=== PATIENT | female | born 1935 | race Caucasian/White ===

== ENCOUNTER 2017-04-20 10:30 | Inpatient (IN) | payer MEDICARE, OTHER ==
[2017-04-20 11:52] LABS: ADD MAN DIFF? NO
[2017-04-20 11:57] LABS: BASO # 0.1 x10^3/uL (0.0-0.2); BASO % 1 % (0-3); EOS # 0.5 x10^3/uL (0.0-0.7); EOS % 6 % (0-3); HEMATOCRIT 31.8 % (36.0-47.0); HEMOGLOBIN 10.4 g/dL (12.0-15.5); LYMPH # 0.9 x10^3/uL (1.0-4.8); LYMPH % 12 % (24-48); MEAN CORPUSCULAR HEMOGLOBIN 31 pg (25-35); MEAN CORPUSCULAR HGB CONC 33 g/dL (31-37); MEAN CORPUSCULAR VOLUME 96 fL (79-100); MONO # 0.8 x10^3/uL (0.0-1.1); MONO % 9 % (0-9); NEUT # 5.7 x10^3uL (1.8-7.7); NEUT % 72 % (31-73); PLATELET COUNT 198 x10^3/uL (140-400); RED BLOOD COUNT 3.31 x10^6/uL (3.50-5.40); RED CELL DISTRIBUTION WIDTH 13.9 % (11.5-14.5)
[2017-04-20 12:15] LABS: ALBUMIN 2.7 g/dL (3.4-5.0); ALBUMIN/GLOBULIN RATIO 0.8 (1.0-1.7); ALK PHOS 79 U/L (46-116); ALT (SGPT) 17 U/L (14-59); ANION GAP 15 (6-14); AST (SGOT) 13 U/L (15-37); BLOOD UREA NITROGEN 71 mg/dL (7-20); BUN/CREATININE RATIO 14 (6-20); CALCIUM 8.8 mg/dL (8.5-10.1); CARBON DIOXIDE 16 mmol/L (21-32); CHLORIDE 110 mmol/L (98-107); CREATININE 4.9 mg/dL (0.6-1.0); GFR 8.5; GLUCOSE 107 mg/dL (70-99); POTASSIUM 4.9 mmol/L (3.5-5.1); SODIUM 141 mmol/L (136-145); TOTAL BILIRUBIN 0.2 mg/dL (0.2-1.0); TOTAL PROTEIN 6.1 g/dL (6.4-8.2)
[2017-04-20 12:16] LABS: INR 1.1 (0.8-1.1); PROTHROMBIN TIME PATIENT 13.6 SEC (11.7-14.0)
[2017-04-20] MEDS ORDERED: LIDOCAINE 2%/EPI 1:100,000 20 ML VIAL. (14:44)
[2017-04-20] MEDS ORDERED: HEPARIN for IV BOLUS 10,000 UNIT/10 ML VIAL. (14:44)
[2017-04-20] MEDS: LIDOCAINE 2%/EPI 1:100,000 20 ML VIAL. IJ (15:53)
[2017-04-20] MEDS: fentaNYL PF VIAL 100 MCG/2 ML VIAL IV (15:55)
[2017-04-20] MEDS: MIDAZOLAM HCL/PF 2 MG/2 ML VIAL. IV (15:55)
[2017-04-20] MEDS: CARVEDILOL 12.5 MG TABLET. PO (16:46)
[2017-04-20] MEDS: CEPHALEXIN 250 MG CAPSULE. PO (16:46)
[2017-04-20] MEDS: ISOSORBIDE MONONITRATE ER 30 MG TAB.ER.24H PO (16:47)
[2017-04-20] MEDS: hydrALAZINE 25 MG TABLET PO ×2 (16:47→20:56)
[2017-04-20] MEDS: ASPIRIN ENTERIC COATED 81 MG TABLET.DR. PO (16:47)
[2017-04-20] MEDS: HYDROcodone/APAP 10/325 1 TAB TABLET PO (20:56)
[2017-04-21] MEDS: HYDROcodone/APAP 10/325 1 TAB TABLET PO ×3 (02:19→23:49)
[2017-04-21 04:31] LABS: ADD MAN DIFF? NO
[2017-04-21 04:47] LABS: BASO # 0.1 x10^3/uL (0.0-0.2); BASO % 1 % (0-3); EOS # 0.4 x10^3/uL (0.0-0.7); EOS % 6 % (0-3); HEMATOCRIT 25.9 % (36.0-47.0); HEMOGLOBIN 8.6 g/dL (12.0-15.5); LYMPH % 14 % (24-48); MEAN CORPUSCULAR HEMOGLOBIN 32 pg (25-35); MEAN CORPUSCULAR HGB CONC 33 g/dL (31-37); MEAN CORPUSCULAR VOLUME 95 fL (79-100); MONO # 0.9 x10^3/uL (0.0-1.1); MONO % 13 % (0-9); NEUT # 4.5 x10^3uL (1.8-7.7); NEUT % 65 % (31-73); PLATELET COUNT 176 x10^3/uL (140-400); RED BLOOD COUNT 2.72 x10^6/uL (3.50-5.40); RED CELL DISTRIBUTION WIDTH 13.9 % (11.5-14.5)
[2017-04-21 05:35] LABS: THYROID STIM HORMONE (TSH) 4.544 uIU/mL (0.358-3.74)
[2017-04-21] MEDS: CARVEDILOL 12.5 MG TABLET. PO ×2 (08:00→17:27)
[2017-04-21 08:36] LABS: ALBUMIN 2.3 g/dL (3.4-5.0); ALBUMIN/GLOBULIN RATIO 0.8 (1.0-1.7); ALK PHOS 74 U/L (46-116); ALT (SGPT) 11 U/L (14-59); ANION GAP 14 (6-14); AST (SGOT) 26 U/L (15-37); BLOOD UREA NITROGEN 72 mg/dL (7-20); BUN/CREATININE RATIO 14 (6-20); CALCIUM 8.4 mg/dL (8.5-10.1); CARBON DIOXIDE 16 mmol/L (21-32); CHLORIDE 111 mmol/L (98-107); GFR 8.3; GLUCOSE 103 mg/dL (70-99); POTASSIUM 5.1 mmol/L (3.5-5.1); SODIUM 141 mmol/L (136-145); TOTAL BILIRUBIN 0.1 mg/dL (0.2-1.0); TOTAL PROTEIN 5.2 g/dL (6.4-8.2)
[2017-04-21] MEDS: CEPHALEXIN 250 MG CAPSULE. PO (08:51)
[2017-04-21] MEDS: ASPIRIN ENTERIC COATED 81 MG TABLET.DR. PO (08:51)
[2017-04-21] MEDS: ISOSORBIDE MONONITRATE ER 30 MG TAB.ER.24H PO (08:51)
[2017-04-21] MEDS: hydrALAZINE 25 MG TABLET PO ×3 (09:00→21:19)
[2017-04-21] MEDS ORDERED: IV NORMAL SALINE 1000ML BAG 1,000 ML IV ×2 (14:43)
[2017-04-21] MEDS ORDERED: ACETAMINOPHEN 500 MG TABLET PO (14:45)
[2017-04-21] MEDS ORDERED: DIALYSIS PATIENT. MC (14:45)
[2017-04-21] MEDS ORDERED: diphenhydrAMINE 50 MG/ML VIAL IV ×2 (14:45)
[2017-04-21 20:46] LABS: BILIRUBIN,URINE NEGATIVE (NEG); CLARITY,URINE CLEAR; COLOR,URINE YELLOW; GLUCOSE,URINE 250 mg/dL (NEG); NITRITE,URINE NEGATIVE (NEG); PH,URINE 6.5; PROTEIN,URINE >=300 mg/dL (NEG-TRACE); UROBILINOGEN,URINE 0.2 mg/dL (0.2 mg/dL)
[2017-04-21 20:58] LABS: BACTERIA,URINE FEW /HPF (0-FEW); RBC,URINE 0 /HPF (0-2); SQUAMOUS EPITHELIAL CELL,UR MOD /LPF
[2017-04-21] MEDS: LACTOBACILLUS RHAMNOSUS GG 1 CAPSULE. PO (21:19)
[2017-04-21] MEDS: DARBEPOETIN ALFA 60 MCG/0.3 ML DISP.SYRIN. SQ (21:20)
[2017-04-22 01:07] LABS: HEP B SURFACE ABDY Non Reactive (.); HEP B SURFACE AG Negative (Negative)
[2017-04-22 06:21] LABS: ALBUMIN 2.3 g/dL (3.4-5.0); ANION GAP 10 (6-14); BLOOD UREA NITROGEN 36 mg/dL (7-20); CALCIUM 8.5 mg/dL (8.5-10.1); CARBON DIOXIDE 24 mmol/L (21-32); CHLORIDE 108 mmol/L (98-107); CREATININE 3.3 mg/dL (0.6-1.0); GFR 13.4; GLUCOSE 96 mg/dL (70-99); POTASSIUM 4.1 mmol/L (3.5-5.1); SODIUM 142 mmol/L (136-145)
[2017-04-22] MEDS: ASPIRIN ENTERIC COATED 81 MG TABLET.DR. PO (08:39)
[2017-04-22] MEDS: ISOSORBIDE MONONITRATE ER 30 MG TAB.ER.24H PO (08:39)
[2017-04-22] MEDS: hydrALAZINE 25 MG TABLET PO ×3 (08:39→20:26)
[2017-04-22] MEDS: CEPHALEXIN 250 MG CAPSULE. PO (08:40)
[2017-04-22] MEDS: LACTOBACILLUS RHAMNOSUS GG 1 CAPSULE. PO ×2 (08:41→20:26)
[2017-04-22] MEDS: HYDROcodone/APAP 10/325 1 TAB TABLET PO ×3 (08:41→22:21)
[2017-04-22] MEDS: CARVEDILOL 12.5 MG TABLET. PO ×2 (08:41→17:01)
[2017-04-22] MEDS ORDERED: MAGNESIUM SULFATE 2GM 50 ML IV (15:30)
[2017-04-23 07:03] LABS: HEMOGLOBIN 8.6 g/dL (12.0-15.5)
[2017-04-23] MEDS: HYDROcodone/APAP 10/325 1 TAB TABLET PO ×3 (07:03→23:24)
[2017-04-23 07:19] LABS: ALBUMIN 2.3 g/dL (3.4-5.0); ANION GAP 10 (6-14); BLOOD UREA NITROGEN 42 mg/dL (7-20); CALCIUM 8.7 mg/dL (8.5-10.1); CARBON DIOXIDE 23 mmol/L (21-32); CHLORIDE 108 mmol/L (98-107); CREATININE 4.1 mg/dL (0.6-1.0); GFR 10.4; GLUCOSE 98 mg/dL (70-99); MAGNESIUM 1.8 mg/dL (1.8-2.4); PHOSPHORUS 4.5 mg/dL (2.6-4.7); POTASSIUM 4.2 mmol/L (3.5-5.1); SODIUM 141 mmol/L (136-145)
[2017-04-23] MEDS: ISOSORBIDE MONONITRATE ER 30 MG TAB.ER.24H PO (08:18)
[2017-04-23] MEDS: CEPHALEXIN 250 MG CAPSULE. PO (08:18)
[2017-04-23] MEDS: LACTOBACILLUS RHAMNOSUS GG 1 CAPSULE. PO ×2 (08:18→20:57)
[2017-04-23] MEDS: ASPIRIN ENTERIC COATED 81 MG TABLET.DR. PO (08:18)
[2017-04-23] MEDS: hydrALAZINE 25 MG TABLET PO (08:19)
[2017-04-23] MEDS: CARVEDILOL 12.5 MG TABLET. PO ×2 (08:19→17:33)
[2017-04-23] MEDS ORDERED: IV NORMAL SALINE 1000ML BAG 1,000 ML IV ×2 (10:39)
[2017-04-23] MEDS ORDERED: DIALYSIS PATIENT. MC ×2 (10:45)
[2017-04-23] MEDS ORDERED: 0.9 % SODIUM CHLORIDE 10 ML DISP.SYRIN. IV ×2 (10:45)
[2017-04-23] MEDS: ACETAMINOPHEN 500 MG TABLET PO (20:57)
[2017-04-23] MEDS: LIDOCAINE/PRILOCAINE TOPICAL CREAM 5GM TUBE. TP (23:42)
[2017-04-24 06:38] LABS: ALBUMIN 2.2 g/dL (3.4-5.0); ANION GAP 8 (6-14); BLOOD UREA NITROGEN 30 mg/dL (7-20); CALCIUM 8.4 mg/dL (8.5-10.1); CARBON DIOXIDE 26 mmol/L (21-32); CHLORIDE 105 mmol/L (98-107); CREATININE 3.2 mg/dL (0.6-1.0); GFR 13.9; GLUCOSE 97 mg/dL (70-99); MAGNESIUM 1.8 mg/dL (1.8-2.4); PHOSPHORUS 3.6 mg/dL (2.6-4.7); POTASSIUM 4.2 mmol/L (3.5-5.1); SODIUM 139 mmol/L (136-145)
[2017-04-24] MEDS: LACTOBACILLUS RHAMNOSUS GG 1 CAPSULE. PO ×2 (07:35→20:12)
[2017-04-24] MEDS: ISOSORBIDE MONONITRATE ER 30 MG TAB.ER.24H PO (07:36)
[2017-04-24] MEDS: HYDROcodone/APAP 10/325 1 TAB TABLET PO ×3 (07:37→19:00)
[2017-04-24] MEDS: CEPHALEXIN 250 MG CAPSULE. PO (07:37)
[2017-04-24] MEDS: ASPIRIN ENTERIC COATED 81 MG TABLET.DR. PO (07:37)
[2017-04-24] MEDS: CARVEDILOL 12.5 MG TABLET. PO ×2 (07:38→16:51)
[2017-04-24] MEDS ORDERED: LIDOCAINE WITH 8.4% SOD BICARB 3 ML DISP.SYRIN. (12:31)
[2017-04-24] MEDS: LIDOCAINE WITH 8.4% SOD BICARB 3 ML DISP.SYRIN. INJ (12:45)
[2017-04-24] MEDS ORDERED: IV NORMAL SALINE 1000ML BAG 1,000 ML IV (15:15)
[2017-04-24] MEDS ORDERED: DIALYSIS PATIENT. MC ×2 (15:15)
[2017-04-24] MEDS: MAG HYDROX/ALUMINUM HYD/SIMETH 30 ML ORAL.SUSP PO (19:00)
[2017-04-24] MEDS: DOCUSATE SODIUM 100 MG CAPSULE. PO (20:12)
[2017-04-25] MEDS: ONDANSETRON PF 4 MG/2 ML VIAL. IV (00:23)
[2017-04-25] MEDS: HYDROcodone/APAP 10/325 1 TAB TABLET PO ×3 (03:47→14:24)
[2017-04-25 05:47] LABS: ALBUMIN 2.3 g/dL (3.4-5.0); ANION GAP 7 (6-14); BLOOD UREA NITROGEN 17 mg/dL (7-20); CALCIUM 8.5 mg/dL (8.5-10.1); CARBON DIOXIDE 30 mmol/L (21-32); CHLORIDE 102 mmol/L (98-107); CREATININE 2.7 mg/dL (0.6-1.0); GFR 16.9; GLUCOSE 107 mg/dL (70-99); PHOSPHORUS 3.4 mg/dL (2.6-4.7); POTASSIUM 4.1 mmol/L (3.5-5.1); SODIUM 139 mmol/L (136-145)
[2017-04-25] MEDS: ISOSORBIDE MONONITRATE ER 30 MG TAB.ER.24H PO (08:53)
[2017-04-25] MEDS: LACTOBACILLUS RHAMNOSUS GG 1 CAPSULE. PO (08:53)
[2017-04-25] MEDS: DOCUSATE SODIUM 100 MG CAPSULE. PO (08:54)
[2017-04-25] MEDS: CARVEDILOL 12.5 MG TABLET. PO (08:56)
[2017-04-25] MEDS: CEPHALEXIN 250 MG CAPSULE. PO (08:56)
[2017-04-25] MEDS: ASPIRIN ENTERIC COATED 81 MG TABLET.DR. PO (08:58)
[2017-04-25] MEDS: FOLIC/VIT B COMP W-C (RENAL) TABLET. PO (14:10)
[2017-04-25] MEDS ORDERED: CARVEDILOL 12.5 MG TABLET. PO (17:00)
[2017-04-26] MEDS ORDERED: LOSARTAN POTASSIUM 50 MG TABLET. PO (09:00)
== END 2017-04-25 15:08 | disposition home or self-care (01) | DRG 673 ==
LOC: 5 SOUTH 10:30
PROC: 0JH63XZ Insertion of Tunneled Vascular Access Device into Chest Subcutaneous Tissue and Fascia, Percutaneous Approach (ICD-10-PCS; principal; 2017-04-20)
PROC: 02H633Z Insertion of Infusion Device into Right Atrium, Percutaneous Approach (ICD-10-PCS; 2017-04-20)
PROC: B2141ZZ Fluoroscopy of Right Heart using Low Osmolar Contrast (ICD-10-PCS; 2017-04-20)
PROC: 5A1D70Z Performance of Urinary Filtration, Intermittent, Less than 6 Hours Per Day (ICD-10-PCS; 2017-04-21)
PROC: 5A1D70Z Performance of Urinary Filtration, Intermittent, Less than 6 Hours Per Day (ICD-10-PCS; 2017-04-23)
PROC: 02WAX3Z Revision of Infusion Device in Heart, External Approach (ICD-10-PCS; 2017-04-24)
PROC: 5A1D70Z Performance of Urinary Filtration, Intermittent, Less than 6 Hours Per Day (ICD-10-PCS; 2017-04-24)
DX: I12.0 Hypertensive chronic kidney disease with stage 5 chronic kidney disease or end stage renal disease (principal); N18.6 End stage renal disease; E44.0 Moderate protein-calorie malnutrition; K21.9 Gastro-esophageal reflux disease without esophagitis; E03.9 Hypothyroidism, unspecified; D63.1 Anemia in chronic kidney disease; M19.90 Unspecified osteoarthritis, unspecified site; E66.9 Obesity, unspecified; D64.9 Anemia, unspecified; Z86.73 Personal history of transient ischemic attack (TIA), and cerebral infarction without residual deficits; Z88.1 Allergy status to other antibiotic agents; Z88.2 Allergy status to sulfonamides; Z68.29 Body mass index [BMI] 29.0-29.9, adult; Z99.2 Dependence on renal dialysis; Z79.899 Other long term (current) drug therapy; Z79.82 Long term (current) use of aspirin
CPT/HCPCS: 36415; 36558; 36597; 71046; 76000; 76937; 77001; 80053; 80069; 81001; 83735; 84443; 85018; 85025; 85610; 86704; 86706; 87340; 97162-GP; 97165-GO; 99152; 99153; A4215; C1750; C1769; C1892; J0690; J0881; J1644; J2250; J2405; J3010; J3490

== ENCOUNTER 2018-09-25 18:43 | Inpatient (IN) | payer MEDICARE ==
[~2018-09-25] VITALS: Ht 160 cm; Wt 64.9 kg
[~2018-09-25 18:43] MED LIST: ASPI-612 PO; BUTA1CAP27 PO; CARV12.511 PO; CEPH250C PO; DARBEPOETIN ALFA IN POLYSORBAT SQ; FAMO-63 PO; FOLI0.8T21 PO; FOLI0.8T3 PO; HYDR-2769 PO; HYDR-2868 PO; HYDR-2869 PO; HYDR100T24 PO; IRBE300T3 PO; ISOS30TA4 PO; LACT1CAP19 PO; LEVO75TA5 PO; LIDO700A21 TP; NIFE30TA17 PO; NIFE60TA16 PO; NITR0.4T22 SL; SODI650T PO
--- NOTE | 2018-09-25 19:49 | RAD ---
Exam: CT head INDICATION: Neuro symptoms TECHNIQUE: Sequential axial images through the head were obtained without the administration of IV contrast. Comparisons: 02/25/2017 FINDINGS: No focal parenchymal lesion or hemorrhage is identified. There is no midline shift or sulcal effacement. Extensive patchy hypodensities within the periventricular white matter bilaterally which have mildly progressed when compared to the study in 2018. The ventricular system is within normal limits without compression hydrocephalus. The basal cisterns are well maintained. The visualized portions of the paranasal sinuses and mastoid air cells are well-pneumatized. No acute fractures. IMPRESSION: Extensive small vessel ischemic change in the periventricular white matter which has mildly progressed when compared to the study on 02/25/2017. MRI would better evaluate. Exposure: One or more of the following in the visualized dose reduction techniques were utilized for this examination: 1. Automated exposure control 2. Adjustment of the MA and/or KV according to patient size Use of iterative of reconstructive technique Electronically signed by: Keeley Cuellar MD (09/25/2018 7:47 PM) [facility]
[2018-09-25 19:52] LABS: PROTHROMBIN TIME PATIENT 12.8 SEC (11.7-14.0)
[2018-09-25 19:58] LABS: CALCIUM 9.6 mg/dL (8.5-10.1); CREATININE 4.1 mg/dL (0.6-1.0); GFR 10.4
[2018-09-25 20:02] LABS: BASO # 0.1 x10^3/uL (0.0-0.2); BASO % 1 % (0-3); EOS # 0.2 x10^3/uL (0.0-0.7); EOS % 2 % (0-3); HEMATOCRIT 42.4 % (36.0-47.0); HEMOGLOBIN 14.3 g/dL (12.0-15.5); LYMPH % 14 % (24-48); MEAN CORPUSCULAR HEMOGLOBIN 34 pg (25-35); MEAN CORPUSCULAR HGB CONC 34 g/dL (31-37); MEAN CORPUSCULAR VOLUME 100 fL (79-100); MONO # 0.8 x10^3/uL (0.0-1.1); MONO % 11 % (0-9); NEUT # 5.1 x10^3/uL (1.8-7.7); NEUT % 71 % (31-73); PLATELET COUNT 166 x10^3/uL (140-400); RED BLOOD COUNT 4.23 x10^6/uL (3.50-5.40); RED CELL DISTRIBUTION WIDTH 14.3 % (11.5-14.5); WHITE BLOOD COUNT 7.2 x10^3/uL (4.0-11.0)
[2018-09-25 20:04] LABS: ALBUMIN 4.1 g/dL (3.4-5.0); ALBUMIN/GLOBULIN RATIO 1.3 (1.0-1.7); MAGNESIUM 2.1 mg/dL (1.8-2.4); TOTAL BILIRUBIN 0.4 mg/dL (0.2-1.0); TOTAL PROTEIN 7.3 g/dL (6.4-8.2)
[2018-09-25] MEDS ORDERED: ASPIRIN CHEWABLE 81 MG TABLET. PO ONE (20:45)
--- NOTE | 2018-09-25 20:57 | PHYS DOC ---
Past Medical History Past Medical History: GERD, High Cholesterol, Hypertension, Hypothyroid, Other Additional Past Medical Histor: kidney disease, back pain Past Surgical History: Other Additional Past Surgical Histo: R kidney, back x3 Alcohol Use: Rarely Drug Use: None Adult General Chief Complaint Chief Complaint: ALTERED MENTAL STATUS HPI HPI Patient is a 83 year old female who presents with confusion and abnormal speech. Patient daughter states she talked to the patient last night without problem and then went to her home around 5 PM today and her mother had expr essive aphasia and confusion that partially improvement at arrival to ER. Patient remains, dialyzes around 9 AM and returned home with the pulse is a 1 and 2 PM and complaining of problem with remembering her words without focal neuro deficit. Patient denies headache, chest pain, shortness of breath, focal neuro deficit, fever and chills, urinary symptom. Review of Systems Review of Systems Constitutional: Denies fever or chills [] Eyes: Denies change in visual acuity, redness, or eye pain [] HENT: Denies nasal congestion or sore throat [] Respiratory: Denies cough or shortness of breath [] Cardiovascular: No additional information not addressed in HPI [] GI: Denies abdominal pain, nausea, vomiting, bloody stools or diarrhea [] : Denies dysuria or hematuria [] Musculoskeletal: Denies back pain or joint pain [] Integument: Denies rash or skin lesions [] Neurologic: Denies headache, focal weakness or sensory changes [] Endocrine: Denies polyuria or polydipsia [] All other systems were reviewed and found to be within normal limits, except as documented in this note. Current Medications Current Medications Current Medications Medications (Trade) Dose Ordered Sig/Mendoza Start Time Stop Time Status Last Admin Dose Admin Aspirin (Children'S Aspirin) 324 mg 1X ONCE 09/25/18 20:45 09/25/18 20:49 DC 09/25/18 21:01 324 MG Allergies Allergies Allergies Coded Allergies Type Severity Reaction Last Updated Verified sulfamethoxazole Allergy Intermediate 02/25/17 Yes trimethoprim Allergy Intermediate 02/25/17 Yes Physical Exam Physical Exam Constitutional: Well developed, well nourished, mild distress, non-toxic appearance. [] HENT: Normocephalic, atraumatic. Eyes: PERRLA, EOMI, conjunctiva normal, no discharge. [] Neck: Normal range of motion, no tenderness, supple, no stridor. [] Cardiovascular:Heart rate regular rhythm, no murmur [] Lungs & Thorax: Bilateral breath sounds clear to auscultation [] Abdomen: Bowel sounds normal, soft, no tenderness, no masses, no pulsatile masses. [] Skin: Warm, dry, no erythema, no rash. [] Back: No tenderness, no CVA tenderness. [] Extremities: No tenderness, no cyanosis, no clubbing, ROM intact, no edema. [] Neurologic: Alert and oriented X 2, NIHS of 4 Psychologic: Affect normal, mood normal. [] Current Patient Data Vital Signs Vital Signs Date Time Temp Pulse Resp B/P (MAP) Pulse Ox O2 Delivery O2 Flow Rate FiO2 09/25/18 21:18 64 16 97 09/25/18 19:55 98.4 176/71 (106) Room Air 98.4 Lab Values Laboratory Tests Test 09/25/18 19:13 09/25/18 19:30 09/25/18 19:55 09/25/18 20:50 Glucose (Fingerstick) 89 mg/dL (70-99) Prothrombin Time 12.8 SEC (11.7-14.0) Prothrombin Time INR 1.0 (0.8-1.1) Activated Partial Thromboplast Time 25 SEC (24-38) Sodium Level 140 mmol/L (136-145) Potassium Level 4.0 mmol/L (3.5-5.1) Chloride Level 97 mmol/L (98-107) L Carbon Dioxide Level 28 mmol/L (21-32) Anion Gap 15 (6-14) H Blood Urea Nitrogen 44 mg/dL (7-20) H Creatinine 4.1 mg/dL (0.6-1.0) H Estimated GFR (Cockcroft-Gault) 10.4 BUN/Creatinine Ratio 11 (6-20) Glucose Level 96 mg/dL (70-99) Calcium Level 9.6 mg/dL (8.5-10.1) Magnesium Level 2.1 mg/dL (1.8-2.4) Total Bilirubin 0.4 mg/dL (0.2-1.0) Aspartate Amino Transferase (AST) 15 U/L (15-37) Alanine Aminotransferase (ALT) 11 U/L (14-59) L Alkaline Phosphatase 56 U/L (46-116) Creatine Kinase 67 U/L (26-192) Troponin I Quantitative < 0.017 ng/mL (0.000-0.055) IW-Ooi-N-Type Natriuretic Peptide 9604 pg/mL (0-449) H Total Protein 7.3 g/dL (6.4-8.2) Albumin 4.1 g/dL (3.4-5.0) Albumin/Globulin Ratio 1.3 (1.0-1.7) White Blood Count 7.2 x10^3/uL (4.0-11.0) Red Blood Count 4.23 x10^6/uL (3.50-5.40) Hemoglobin 14.3 g/dL (12.0-15.5) Hematocrit 42.4 % (36.0-47.0) Mean Corpuscular Volume 100 fL (79-100) Mean Corpuscular Hemoglobin 34 pg (25-35) Mean Corpuscular Hemoglobin Concent 34 g/dL (31-37) Red Cell Distribution Width 14.3 % (11.5-14.5) Platelet Count 166 x10^3/uL (140-400) Neutrophils (%) (Auto) 71 % (31-73) Lymphocytes (%) (Auto) 14 % (24-48) L Monocytes (%) (Auto) 11 % (0-9) H Eosinophils (%) (Auto) 2 % (0-3) Basophils (%) (Auto) 1 % (0-3) Neutrophils # (Auto) 5.1 x10^3/uL (1.8-7.7) Lymphocytes # (Auto) 1.0 x10^3/uL (1.0-4.8) Monocytes # (Auto) 0.8 x10^3/uL (0.0-1.1) Eosinophils # (Auto) 0.2 x10^3/uL (0.0-0.7) Basophils # (Auto) 0.1 x10^3/uL (0.0-0.2) Urine Collection Type Unknown Urine Color Yellow Urine Clarity Clear Urine pH 8.0 Urine Specific [place] 1.015 Urine Protein >=300 mg/dL (NEG-TRACE) Urine Glucose (UA) 100 mg/dL (NEG) Urine Ketones (Stick) Trace mg/dL (NEG) Urine Blood Trace (NEG) Urine Nitrite Negative (NEG) Urine Bilirubin Negative (NEG) Urine Urobilinogen Dipstick 0.2 mg/dL (0.2 mg/dL) Urine Leukocyte Esterase Negative (NEG) Urine RBC 0 /HPF (0-2) Urine WBC Rare /HPF (0-4) Urine Squamous Epithelial Cells Mod /LPF Urine Bacteria 0 /HPF (0-FEW) Laboratory Tests 09/25/18 19:55 Laboratory Tests 09/25/18 19:30 EKG EKG EKG interpreted by me. EKG at 1950 showed normal sinus rhythm at rate of 66, left clark axis, normal NM and QT intervals, no acute ST and T-wave elevation. Radiology/Procedures Radiology/Procedures [][place] [id number] IMAGING REPORT Signed PATIENT: BRITTNEY REED ACCOUNT: [id number] : 1935 LOCATION: ER AGE: 83 SEX: F EXAM STATUS: REG ER ORD. PHYSICIAN: SIGIFREDO BOWSER MD REASON: ALOC PROCEDURE: PORTABLE CHEST 1V Exam: Chest one view INDICATION: Altered level of consciousness TECHNIQUE: Frontal view of the chest Comparisons: 06/09/2017 FINDINGS: The cardiomediastinal silhouette and pulmonary vessels are within normal limits. The lung and pleural spaces are clear. IMPRESSION: No acute cardiopulmonary process. Electronically signed by: Keeley Pelletier MD (09/25/2018 8:53 PM) [facility] DICTATED and SIGNED BY: KEELEY PELLETIER MD DATE: 09/25/182052 [address] [id number] IMAGING REPORT Signed PATIENT: BRITTNEY REED ACCOUNT: [id number] : 1935 LOCATION: ER AGE: 83 SEX: F EXAM STATUS: REG ER ORD. PHYSICIAN: SIGIFREDO BOWSER MD REASON: neuro symptoms PROCEDURE: CT HEAD WO CONTRAST Exam: CT head INDICATION: Neuro symptoms TECHNIQUE: Sequential axial images through the head were obtained without the administration of IV contrast. Comparisons: 02/25/2017 FINDINGS: No focal parenchymal lesion or hemorrhage is identified. There is no midline shift or sulcal effacement. Extensive patchy hypodensities within the periventricular white matter bilaterally which have mildly progressed when compared to the study in 2018. The ventricular system is within normal limits without compression hydrocephalus. The basal cisterns are well maintained. The visualized portions of the paranasal sinuses and mastoid air cells are well-pneumatized. No acute fractures. IMPRESSION: Extensive small vessel ischemic change in the periventricular white matter which has mildly progressed when compared to the study on 02/25/2017. MRI would better evaluate. Exposure: One or more of the following in the visualized dose reduction techniques were utilized for this examination: 1. Automated exposure control 2. Adjustment of the MA and/or KV according to patient size Use of iterative of reconstructive technique Electronically signed by: Keeley Pelletier MD (09/25/2018 7:47 PM) [facility] DICTATED and SIGNED BY: KEELEY PELLETIER MD DATE: 09/25/181946 Course & Med Decision Making Course & Med Decision Making Pertinent Labs and Imaging studies reviewed. (See chart for details) Evaluation of patient showed 82-year-old female patient with history of chronic renal disease on dialysis brought in by family members because of expressive aphasia. Time of starting symptom was unknown and the last time patient was seen at her normal condition was last night. Patient had expressive aphasia and denies chest for and was not a candidate for PE because of unknown time of starting symptom.Patient requiring admission for further evaluation and treatment. Discussed with Dr. Graham who is in agreement with admission. Discussed findings and plan with patient and family, who acknowledge understanding and agreement. Dragon Disclaimer Dragon Disclaimer This electronic medical record was generated, in whole or in part, using a voice recognition dictation system. Departure Departure Impression: Primary Impression: Acute focal neurological deficit Additional Impressions: ESRD (end stage renal disease) Expressive aphasia CHF (congestive heart failure) Disposition: ADMITTED INPATIENT (2008) Admitting Physician: GENEVIEVE ( Accepted Admission at 2007) Condition: GUARDED Referrals: DONALD IVORY (PCP) NIHSS Stroke Scale NIH Stroke Scale: NIH Stroke Scale Response (Comments) Value Level of Consciousness: 0 Alert/Responsive 0 LOC Questions: 2 Answers neither correct 2 LOC Commands: 0 Performs both tasks 0 Best Gaze: 0 Normal 0 Visual: 0 No visual loss 0 Facial Palsy: 1 Minor paralysis 1 Motor - Left Arm 0 No drift 0 Motor - Right Arm 0 No drift 0 Motor - Left Leg 0 No drift 0 Motor: Right Leg 0 No drift 0 Limb Ataxia: 0 Absent 0 Sensory: 0 No loss 0 Best Language: 1 Mild to mod aphasia 1 Dysathria: 0 Normal 0 Extinction and Inattention: 0 Normal 0 Total 4 Problem Qualifiers Additional Impressions: CHF (congestive heart failure) Heart failure type: unspecified Heart failure chronicity: unspecified Qualified Codes: I50.9 - Heart failure, unspecified SIGIFREDO BOWSER MD Sep 25, 2018 20:57
[2018-09-25 21:05] LABS: BILIRUBIN,URINE NEGATIVE (NEG); CLARITY,URINE CLEAR; COLOR,URINE YELLOW; NITRITE,URINE NEGATIVE (NEG); PROTEIN,URINE >=300 mg/dL (NEG-TRACE); UROBILINOGEN,URINE 0.2 mg/dL (0.2 mg/dL)
[2018-09-25 21:15] LABS: BACTERIA,URINE 0 /HPF (0-FEW); RBC,URINE 0 /HPF (0-2); WBC,URINE RARE /HPF (0-4)
[2018-09-25 21:16] LABS: SQUAMOUS EPITHELIAL CELL,UR MOD /LPF
[2018-09-25 23:10] VITALS: BP 163/89
[2018-09-26] VITALS (7 sets, daily range): BP systolic 116–195; BP diastolic 44–74
[2018-09-26] MEDS ORDERED: MORPHINE SULFATE 2 MG/ML VIAL. IV PRN (02:00)
[2018-09-26] MEDS ORDERED: hydrALAZINE 20 MG/ML VIAL. IVP ONE (05:00)
--- NOTE | 2018-09-26 06:15 | EKG ---
[facility] [address] [place] [address] Test Date: 2018-09-25 Test Time: 19:15:10 Pat Name: BRITTNEY REED Department: Room: 648 1 Gender: F [place] Man: : 1935 Requested By: SIGIFREDO BOWSER Order Number: [id number] Reading MD: Nikolas Thompson MD Measurements Intervals [place] Rate: 66 P: 3 NE: 168 QRS: -5 QRSD: 96 T: 44 QT: 426 QTc: 448 Interpretive Statements SINUS RHYTHM Electronically Signed On 09-27-2018 15:50:20 CDT by Nikolas Thompson MD
--- NOTE | 2018-09-26 06:38 | NUR ---
0300 Vitals indicated BP of 176/71 HR 57, MD notified, gave an order for Hydralazine 10mg IV X1, and said it will be addressed in the morning. Rechecked BP after about 30 minutes, it was 167/65 with HR 64. No c/o SEYMOUR or double vision.
--- NOTE | 2018-09-26 10:52 | PDOC ---
[facility] PROGRESS NOTE Chief Complaint Chief Complaint Acute focal neurological deficit ESRD HTN CHF Expressive Aphasia History of Present Illness History of Present Illness 09/26/18 Pt seen/examined at bedside Pt appears a little more orientated today, but still confused Dr. Hay to consult from neurology Patient has ESRD with dialysis MWF, Cr 4.1 DW RN Vitals/I&O Vitals/I&O: Vital Signs Date Time Temp Pulse Resp B/P (MAP) Pulse Ox O2 Delivery O2 Flow Rate FiO2 09/26/18 08:00 Room Air 09/26/18 07:05 98.5 64 16 159/44 (82) 96 98.5 Physical Exam General: No acute distress, Other (hard of hearing) Heart: Regular rate, No murmurs Lungs: Clear Abdomen: Normal bowel sounds Extremities: No clubbing, No cyanosis Skin: No rashes, No breakdown Labs Labs: Laboratory Tests Test 09/25/18 19:13 09/25/18 19:30 09/25/18 19:55 09/25/18 20:50 Glucose (Fingerstick) 89 mg/dL (70-99) Prothrombin Time 12.8 SEC (11.7-14.0) Prothromb Time International Ratio 1.0 (0.8-1.1) Activated Partial Thromboplast Time 25 SEC (24-38) Sodium Level 140 mmol/L (136-145) Potassium Level 4.0 mmol/L (3.5-5.1) Chloride Level 97 mmol/L (98-107) Carbon Dioxide Level 28 mmol/L (21-32) Anion Gap 15 (6-14) Blood Urea Nitrogen 44 mg/dL (7-20) Creatinine 4.1 mg/dL (0.6-1.0) Estimated GFR (Cockcroft-Gault) 10.4 BUN/Creatinine Ratio 11 (6-20) Glucose Level 96 mg/dL (70-99) Calcium Level 9.6 mg/dL (8.5-10.1) Magnesium Level 2.1 mg/dL (1.8-2.4) Total Bilirubin 0.4 mg/dL (0.2-1.0) Aspartate Amino Transf (AST/SGOT) 15 U/L (15-37) Alanine Aminotransferase (ALT/SGPT) 11 U/L (14-59) Alkaline Phosphatase 56 U/L (46-116) Creatine Kinase 67 U/L (26-192) Troponin I Quantitative < 0.017 ng/mL (0.000-0.055) ZZ-Cab-M-Type Natriuretic Peptide 9604 pg/mL (0-449) Total Protein 7.3 g/dL (6.4-8.2) Albumin 4.1 g/dL (3.4-5.0) Albumin/Globulin Ratio 1.3 (1.0-1.7) White Blood Count 7.2 x10^3/uL (4.0-11.0) Red Blood Count 4.23 x10^6/uL (3.50-5.40) Hemoglobin 14.3 g/dL (12.0-15.5) Hematocrit 42.4 % (36.0-47.0) Mean Corpuscular Volume 100 fL (79-100) Mean Corpuscular Hemoglobin 34 pg (25-35) Mean Corpuscular Hemoglobin Concent 34 g/dL (31-37) Red Cell Distribution Width 14.3 % (11.5-14.5) Platelet Count 166 x10^3/uL (140-400) Neutrophils (%) (Auto) 71 % (31-73) Lymphocytes (%) (Auto) 14 % (24-48) Monocytes (%) (Auto) 11 % (0-9) Eosinophils (%) (Auto) 2 % (0-3) Basophils (%) (Auto) 1 % (0-3) Neutrophils # (Auto) 5.1 x10^3/uL (1.8-7.7) Lymphocytes # (Auto) 1.0 x10^3/uL (1.0-4.8) Monocytes # (Auto) 0.8 x10^3/uL (0.0-1.1) Eosinophils # (Auto) 0.2 x10^3/uL (0.0-0.7) Basophils # (Auto) 0.1 x10^3/uL (0.0-0.2) Urine Collection Type Unknown Urine Color Yellow Urine Clarity Clear Urine pH 8.0 Urine Specific [place] 1.015 Urine Protein >=300 mg/dL (NEG-TRACE) Urine Glucose (UA) 100 mg/dL (NEG) Urine Ketones (Stick) Trace mg/dL (NEG) Urine Blood Trace (NEG) Urine Nitrite Negative (NEG) Urine Bilirubin Negative (NEG) Urine Urobilinogen Dipstick 0.2 mg/dL (0.2 mg/dL) Urine Leukocyte Esterase Negative (NEG) Urine RBC 0 /HPF (0-2) Urine WBC Rare /HPF (0-4) Urine Squamous Epithelial Cells Mod /LPF Urine Bacteria 0 /HPF (0-FEW) Review of Systems Review of Systems: co confusion no co CP Assessment and Plan Assessmemt and Plan Problems Medical Problems: (1) CHF (congestive heart failure) Status: Acute (2) Expressive aphasia Status: Acute Assessment: Acute focal neurological deficit ESRD HTN CHF Expressive Aphasia Plan: Clonidine 0.1 PO TID for blood pressure Dialysis MWF Cardiac monitoring Home Meds DVT prophylaxis Awaiting neurology input Comment Review of Relevant I have reviewed the following items cristofer (where applicable) has been applied. Medications: Current Medications Medications (Trade) Dose Ordered Sig/Mendoza Route PRN Reason Start Time Stop Time Status Last Admin Dose Admin Aspirin (Children'S Aspirin) 324 mg 1X ONCE PO 09/25/18 20:45 09/25/18 20:49 DC 09/25/18 21:01 Morphine Sulfate (Morphine Sulfate) 1 mg PRN Q3HRS PRN IV PAIN 09/26/18 02:00 09/26/18 02:16 Hydralazine HCl (Apresoline Inj) 10 mg 1X ONCE IVP 09/26/18 05:00 09/26/18 05:01 DC 09/26/18 05:12 FARZANEH VALLE III DO Sep 26, 2018 10:52
[2018-09-26] MEDS ORDERED: ASPIRIN RECTAL 300 MG SUPP. PR PRN (11:30)
[2018-09-26] MEDS ORDERED: ACETAMINOPHEN 325 MG TABLET. PO PRN (11:30)
[2018-09-26] MEDS ORDERED: LABETALOL 20 MG/4 ML DISP.SYRIN. IVP PRN (11:30)
[2018-09-26] MEDS ORDERED: ACETAMINOPHEN 650 MG SUPP.RECT. PR PRN (11:30)
--- NOTE | 2018-09-26 12:26 | RAD ---
EXAM: Carotid Doppler sonogram. HISTORY: Cerebral infarction. TECHNIQUE: Estes scale and color Doppler sonographic evaluation of the neck with spectral waveform analysis was performed and static images are submitted for review. FINDINGS: The exam is limited due to uncooperative patient behavior. There is minimal atherosclerotic plaque within the carotid bifurcations. There is a vessel along the medial aspect of the left common carotid artery which appears to loop inferiorly, not formally assessed on this exam. The peak systolic velocity within the right common carotid artery is 55 cm/sec. The peak systolic velocity within the right internal carotid artery is 46 cm/sec and the end diastolic velocity within the right internal carotid artery is cm/sec. The right ICA/CCA ratio is less than 1.0. The peak systolic velocity within the left common carotid artery is 78 cm/sec. The peak systolic velocity within the left internal carotid artery is 60 cm/sec and the end diastolic velocity within the left internal carotid artery is 9 cm/sec. The left ICA/CCA ratio is less than 1.0. There is normal antegrade flow within both vertebral arteries. IMPRESSION: No Doppler evidence of hemodynamically significant stenosis within the carotid or vertebral arteries. PQRS Compliance Statement - Stenosis calculations for CT, MR and conventional angiography are based upon measurement of the distal ICA diameter in accordance with the NASCET methodology. Stenosis calculations for carotid ultrasound studies are derived from validated velocity criteria which are known to correlate with the NASCET methodology. Electronically signed by: Ree Jean MD (09/26/2018 12:23 PM) [place] [id number]
--- NOTE | 2018-09-26 14:47 | CARD ---
MR#: [id number] Date of Study: 09/26/2018 Ordering Physician: MIMI BERNABE, Referring Physician: MIMI BERNABE, Tech: Britany Posada [facility] APPROVED REPORT EXAM: Two-dimensional and M-mode echocardiogram with Doppler and color Doppler. Other Information Quality : AverageHR: 65bpm Rhythm : NSR INDICATION CVA/TIA 2D DIMENSIONS RVDd2.9 (2.9-3.5cm)Left Atrium(2D)3.2 (1.6-4.0cm) IVSd1.5 (0.7-1.1cm)Aortic Root(2D)2.9 (2.0-3.7cm) LVDd4.7 (3.9-5.9cm)LVOT Diameter2.1 (1.8-2.4cm) PWd1.1 (0.7-1.1cm)LVDs3.1 (2.5-4.0cm) FS (%) 33.3 %SV63.7 ml LVEF(%)61.9 (>50%) Aortic Valve AoV Peak Omkar.310.3cm/sAoV VTI72.9cm AO Peak GR.38.5mmHgLVOT Peak Omkar.112.7cm/s AO Mean GR.21mmHgAVA (VMAX)1.25cm2 LOUIS (VTI)1.30cm2 Mitral Valve MV E Rpdlisjn39.3cm/sMV DECEL JRHR889qi MV A Rrdmuitp463.9cm/sE/A Ratio0.6 Pulmonary Valve PV Peak Rmcgordn834.5cm/s Tricuspid Valve TR P. Etfvhxde595eg/sRAP PRVUWEWA5ojUt TR Peak Gr.73jqFnZXTA94mrNv LEFT VENTRICLE The left ventricle is normal size. There is mild asymmetric left ventricular hypertrophy. The Ejectio n Fraction is 60-65%. The left ventricular systolic function is normal and the ejection fraction is w ithin normal range. There is normal LV segmental wall motion. Transmitral Doppler flow pattern is Gra de I-abnormal relaxation pattern. RIGHT VENTRICLE The right ventricle is normal size. There is normal right ventricular wall thickness. The right ventr icular systolic function is normal. ATRIA The left atrium size is normal. The right atrium size is normal. The interatrial septum is intact wit h no evidence for an atrial septal defect or patent foramen ovale as noted on 2-D or Doppler imaging. AORTIC VALVE The aortic valve is moderately calcified. The aortic valve is trileaflet. Doppler and Color Flow reve aled mild aortic regurgitation. There is moderate valvular aortic stenosis. Calculated aortic valve a juan manuel is 1.3 cm2 with maximum pressure gradient of 39 mmHg and mean pressure gradient of 22 mmHg. MITRAL VALVE The mitral valve is thickened but opens well. There is no evidence of mitral valve prolapse. There is no mitral valve stenosis. Doppler and Color-flow revealed trace mitral regurgitation. TRICUSPID VALVE The tricuspid valve is normal in structure and function. Doppler and Color Flow revealed trace tricus pid regurgitation. There is moderate pulmonary hypertension. The PA pressure was estimated at 44 mmHg . There is no tricuspid valve prolapse or vegetation. There is no tricuspid valve stenosis. PULMONIC VALVE The pulmonic valve is not well visualized. GREAT VESSELS The aortic root is normal in size. The ascending aorta is normal in size. The IVC is normal in size a nd collapses >50% with inspiration. PERICARDIAL EFFUSION There is no evidence of significant pericardial effusion. Critical Notification Critical Value: No <Conclusion> The Ejection Fraction is 60-65%. The left ventricular systolic function is normal and the ejection fr action is within normal range. There is normal LV segmental wall motion. The aortic valve is moderately calcified. The aortic valve is trileaflet. There is moderate valvular aortic stenosis. Calculated aortic valve area is 1.3 cm2 with maximum pre ssure gradient of 39 mmHg and mean pressure gradient of 22 mmHg. Doppler and Color Flow revealed trace tricuspid regurgitation. There is moderate pulmonary hypertensi on. The PA pressure was estimated at 44 mmHg. Signed by : Nikolas Thompson, Electronically Approved : 09/26/2018 14:47:29
--- NOTE | 2018-09-26 15:52 | PDOC2 ---
NEUROLOGY CONSULT Date of Admission Date of Admission DATE: 09/26/18 TIME: 15:50 Reason for Consult Reason for Consult: stroke symptoms Referring Physician Referring Physician: Dr. Graham PCP: Dr. Mascorro Source Source: Chart review, Patient History of Present Illness History of Present Illness The patient is an 83-year-old right-handed female who presented to the emergency room yesterday. Last known normal was 5 PM the day before. At 5 PM yesterday the daughter found the patient with expressive aphasia. The patient did have dialysis yesterday. There is no prior history of stroke, seizure, or head injury. The patient denies headache, diplopia, dysphagia, or dysarthria. Past Medical History Cardiovascular: HTN GI: GERD Musculoskeletal: low back pain, Osteoarthritis Renal/: Chronic renal failure (Dialysis MWF), UTI Endocrine: Hypothyroidism Past Surgical History Past Surgical History: Cataract Removal Family History Family History: CVA Social History Social History Still smokes occasionally, , rare alcohol, retired Current Medications Current Medications Current Medications Aspirin (Children'S Aspirin) 324 mg 1X ONCE PO Last administered on 09/25/18at 21:01; Start 09/25/18 at 20:45; Stop 09/25/18 at 20:49; Status DC Morphine Sulfate (Morphine Sulfate) 1 mg PRN Q3HRS PRN IV PAIN Last administered on 09/26/18at 02:16; Start 09/26/18 at 02:00 Hydralazine HCl (Apresoline Inj) 10 mg 1X ONCE IVP Last administered on 09/26/18at 05:12; Start 09/26/18 at 05:00; Stop 09/26/18 at 05:01; Status DC Labetalol HCl (Normodyne Iv Push) 10 mg PRN Q10MIN PRN IVP ELEVATED BP, SEE COMMENTS; Start 09/26/18 at 11:30 Acetaminophen (Tylenol) 650 mg PRN Q6HRS PRN PO TEMP > 100.4F; Start 09/26/18 at 11:30 Acetaminophen (Tylenol Supp) 650 mg PRN Q4HRS PRN SD TEMP > 100.4F; Start 09/26/18 at 11:30 Aspirin (Ecotrin) 325 mg DAILYWBKFT PO ; Start 09/27/18 at 08:00 Aspirin (Aspirin Rectal Supp) 300 mg PRN DAILY PRN SD IF UNABLE TO TAKE PO; Start 09/26/18 at 11:30 Active Scripts Active Jerilyn-Jaylon Tablet (Folic Acid/Vitamin B Comp W-C) 0.8 Mg Tablet 1 Tab PO DAILY 30 Days Culturelle (Lactobacillus Rhamnosus Gg) 1 Each Cap.sprink 1 Cap PO BID 14 Days [Darbepoetin Jose Armando In Polysorbat] 60 MCG/0.3 ML Disp.syrin 60 Mcg SQ WEEKLYHS 30 Days Hydralazine Hcl 50 Mg Tablet 50 Mg PO TID 30 Days Nifedipine Er (Nifedipine) 30 Mg Tab.er.24 90 Mg PO DAILY Aspirin Ec (Aspirin) 81 Mg Tablet. 81 Mg PO DAILYWBKFT Reported Pepcid (Famotidine) 20 Mg Tablet 10 Mg PO PRN DAILY NITROGLYCERIN SubLingual (Nitroglycerin) 0.4 Mg Tab.subl 0.4 Mg SL PRN Q5MIN PRN Lidocaine 1 Each Adh..patch 1 Each TP PRN PRN Bnqfrijp-Ankduavvirvhn-Oszw Cp (Butalb/Acetaminophen/Caffeine) 1 Each Capsule 1 Each PO PRN PRN Levothyroxine Sodium 75 Mcg Tablet 1 Tab PO DAILY Cephalexin 250 Mg Capsule 1 Cap PO DAILY Next dose due tomorrow am. Carvedilol 12.5 Mg Tablet 18.75 Mg PO BIDWMEALS Next dose due with supper tonight. Hydrocodone-Apap 10-325 (Hydrocodone Bit/Acetaminophen) 1 Each Tablet 1 Tab PO PRN TID PRN Isosorbide Mononitrate Er (Isosorbide Mononitrate) 30 Mg Tab.er.24h 2 Tab PO DAILY Next dose due tomorrow morning. Allergies Allergies: Coded Allergies: sulfamethoxazole (Verified Allergy, Intermediate, 02/25/17) trimethoprim (Verified Allergy, Intermediate, 02/25/17) ROS Review of System Negative for fever, chills, weight loss, shortness of breath, chest pain, indigestion, hematochezia, melena, and dysuria. Full 14-point review of systems is negative. Physical Exam Physical Examination General: Well-developed, well-nourished white female in no acute distress HEENT: Normocephalic and�atraumatic. Tympanic membranes clear.�Temporal arteries�pulsatile and nontender.�Fundoscopic exam unremarkable Neck: Supple without bruit, no meningismus� Musculoskeletal: Stability:�see neurologic. Gait exam:�see neurologic. Tone:�see neurologic.� Strength:�see neurologic.� Neurological: Mental Status:orientation, memory, attention span/concentration, language, fund of knowledge normal, except difficulty following complex commands, some dysfluency of speech. Cranial Nerves:�Pupils equal and reactive to light, extraocular movements are�intact, visual llanos are full to confrontation. Facial sensation is normal. There is no facial asymmetry. Vestibulo-ocular reflex is intact. Palate elevates and tongue protrudes in midline. All other cranial related problems are negative except as mentioned before.�Reflexes:�2+ and symmetric with flexor plantar responses. Motor:�5/5 strength with normal tone and bulk. Coordination:�Finger-nose finger and ferg-qs-wkdb testing are normal. Rapid alternating movements and fine finger movements are intact. Gait:�not tested. Sensory:�Normal pinprick, vibration, light touch, proprioception.� Vitals VITALS Vital Signs Date Time Temp Pulse Resp B/P (MAP) Pulse Ox O2 Delivery O2 Flow Rate FiO2 09/26/18 14:59 98.2 70 16 195/74 (114) 96 Room Air 98.2 Labs Labs Laboratory Tests Test 09/25/18 19:13 09/25/18 19:30 09/25/18 19:55 09/25/18 20:50 Glucose (Fingerstick) 89 mg/dL (70-99) Prothrombin Time 12.8 SEC (11.7-14.0) Prothromb Time International Ratio 1.0 (0.8-1.1) Activated Partial Thromboplast Time 25 SEC (24-38) Sodium Level 140 mmol/L (136-145) Potassium Level 4.0 mmol/L (3.5-5.1) Chloride Level 97 mmol/L (98-107) Carbon Dioxide Level 28 mmol/L (21-32) Anion Gap 15 (6-14) Blood Urea Nitrogen 44 mg/dL (7-20) Creatinine 4.1 mg/dL (0.6-1.0) Estimated GFR (Cockcroft-Gault) 10.4 BUN/Creatinine Ratio 11 (6-20) Glucose Level 96 mg/dL (70-99) Calcium Level 9.6 mg/dL (8.5-10.1) Magnesium Level 2.1 mg/dL (1.8-2.4) Total Bilirubin 0.4 mg/dL (0.2-1.0) Aspartate Amino Transf (AST/SGOT) 15 U/L (15-37) Alanine Aminotransferase (ALT/SGPT) 11 U/L (14-59) Alkaline Phosphatase 56 U/L (46-116) Creatine Kinase 67 U/L (26-192) Troponin I Quantitative < 0.017 ng/mL (0.000-0.055) IR-Cwb-T-Type Natriuretic Peptide 9604 pg/mL (0-449) Total Protein 7.3 g/dL (6.4-8.2) Albumin 4.1 g/dL (3.4-5.0) Albumin/Globulin Ratio 1.3 (1.0-1.7) White Blood Count 7.2 x10^3/uL (4.0-11.0) Red Blood Count 4.23 x10^6/uL (3.50-5.40) Hemoglobin 14.3 g/dL (12.0-15.5) Hematocrit 42.4 % (36.0-47.0) Mean Corpuscular Volume 100 fL (79-100) Mean Corpuscular Hemoglobin 34 pg (25-35) Mean Corpuscular Hemoglobin Concent 34 g/dL (31-37) Red Cell Distribution Width 14.3 % (11.5-14.5) Platelet Count 166 x10^3/uL (140-400) Neutrophils (%) (Auto) 71 % (31-73) Lymphocytes (%) (Auto) 14 % (24-48) Monocytes (%) (Auto) 11 % (0-9) Eosinophils (%) (Auto) 2 % (0-3) Basophils (%) (Auto) 1 % (0-3) Neutrophils # (Auto) 5.1 x10^3/uL (1.8-7.7) Lymphocytes # (Auto) 1.0 x10^3/uL (1.0-4.8) Monocytes # (Auto) 0.8 x10^3/uL (0.0-1.1) Eosinophils # (Auto) 0.2 x10^3/uL (0.0-0.7) Basophils # (Auto) 0.1 x10^3/uL (0.0-0.2) Urine Collection Type Unknown Urine Color Yellow Urine Clarity Clear Urine pH 8.0 Urine Specific [place] 1.015 Urine Protein >=300 mg/dL (NEG-TRACE) Urine Glucose (UA) 100 mg/dL (NEG) Urine Ketones (Stick) Trace mg/dL (NEG) Urine Blood Trace (NEG) Urine Nitrite Negative (NEG) Urine Bilirubin Negative (NEG) Urine Urobilinogen Dipstick 0.2 mg/dL (0.2 mg/dL) Urine Leukocyte Esterase Negative (NEG) Urine RBC 0 /HPF (0-2) Urine WBC Rare /HPF (0-4) Urine Squamous Epithelial Cells Mod /LPF Urine Bacteria 0 /HPF (0-FEW) Laboratory Tests Test 09/25/18 19:13 09/25/18 19:30 09/25/18 19:55 09/25/18 20:50 Glucose (Fingerstick) 89 mg/dL (70-99) Prothrombin Time 12.8 SEC (11.7-14.0) Prothromb Time International Ratio 1.0 (0.8-1.1) Activated Partial Thromboplast Time 25 SEC (24-38) Sodium Level 140 mmol/L (136-145) Potassium Level 4.0 mmol/L (3.5-5.1) Chloride Level 97 mmol/L (98-107) Carbon Dioxide Level 28 mmol/L (21-32) Anion Gap 15 (6-14) Blood Urea Nitrogen 44 mg/dL (7-20) Creatinine 4.1 mg/dL (0.6-1.0) Estimated GFR (Cockcroft-Gault) 10.4 BUN/Creatinine Ratio 11 (6-20) Glucose Level 96 mg/dL (70-99) Calcium Level 9.6 mg/dL (8.5-10.1) Magnesium Level 2.1 mg/dL (1.8-2.4) Total Bilirubin 0.4 mg/dL (0.2-1.0) Aspartate Amino Transf (AST/SGOT) 15 U/L (15-37) Alanine Aminotransferase (ALT/SGPT) 11 U/L (14-59) Alkaline Phosphatase 56 U/L (46-116) Creatine Kinase 67 U/L (26-192) Troponin I Quantitative < 0.017 ng/mL (0.000-0.055) GX-Ahq-S-Type Natriuretic Peptide 9604 pg/mL (0-449) Total Protein 7.3 g/dL (6.4-8.2) Albumin 4.1 g/dL (3.4-5.0) Albumin/Globulin Ratio 1.3 (1.0-1.7) White Blood Count 7.2 x10^3/uL (4.0-11.0) Red Blood Count 4.23 x10^6/uL (3.50-5.40) Hemoglobin 14.3 g/dL (12.0-15.5) Hematocrit 42.4 % (36.0-47.0) Mean Corpuscular Volume 100 fL (79-100) Mean Corpuscular Hemoglobin 34 pg (25-35) Mean Corpuscular Hemoglobin Concent 34 g/dL (31-37) Red Cell Distribution Width 14.3 % (11.5-14.5) Platelet Count 166 x10^3/uL (140-400) Neutrophils (%) (Auto) 71 % (31-73) Lymphocytes (%) (Auto) 14 % (24-48) Monocytes (%) (Auto) 11 % (0-9) Eosinophils (%) (Auto) 2 % (0-3) Basophils (%) (Auto) 1 % (0-3) Neutrophils # (Auto) 5.1 x10^3/uL (1.8-7.7) Lymphocytes # (Auto) 1.0 x10^3/uL (1.0-4.8) Monocytes # (Auto) 0.8 x10^3/uL (0.0-1.1) Eosinophils # (Auto) 0.2 x10^3/uL (0.0-0.7) Basophils # (Auto) 0.1 x10^3/uL (0.0-0.2) Urine Collection Type Unknown Urine Color Yellow Urine Clarity Clear Urine pH 8.0 Urine Specific [place] 1.015 Urine Protein >=300 mg/dL (NEG-TRACE) Urine Glucose (UA) 100 mg/dL (NEG) Urine Ketones (Stick) Trace mg/dL (NEG) Urine Blood Trace (NEG) Urine Nitrite Negative (NEG) Urine Bilirubin Negative (NEG) Urine Urobilinogen Dipstick 0.2 mg/dL (0.2 mg/dL) Urine Leukocyte Esterase Negative (NEG) Urine RBC 0 /HPF (0-2) Urine WBC Rare /HPF (0-4) Urine Squamous Epithelial Cells Mod /LPF Urine Bacteria 0 /HPF (0-FEW) Images Images CT head INDICATION: Neuro symptoms TECHNIQUE: Sequential axial images through the head were obtained without the administration of IV contrast. Comparisons: 02/25/2017 FINDINGS: No focal parenchymal lesion or hemorrhage is identified. There is no midline shift or sulcal effacement. Extensive patchy hypodensities within the periventricular white matter bilaterally which have mildly progressed when compared to the study in 2018. The ventricular system is within normal limits without compression hydrocephalus. The basal cisterns are well maintained. The visualized portions of the paranasal sinuses and mastoid air cells are well-pneumatized. No acute fractures. IMPRESSION: Extensive small vessel ischemic change in the periventricular white matter which has mildly progressed when compared to the study on 02/25/2017. MRI would better evaluate. Carotid Doppler sonogram. HISTORY: Cerebral infarction. TECHNIQUE: Estes scale and color Doppler sonographic evaluation of the neck with spectral waveform analysis was performed and static images are submitted for review. FINDINGS: The exam is limited due to uncooperative patient behavior. There is minimal atherosclerotic plaque within the carotid bifurcations. There is a vessel along the medial aspect of the left common carotid artery which appears to loop inferiorly, not formally assessed on this exam. The peak systolic velocity within the right common carotid artery is 55 cm/sec. The peak systolic velocity within the right internal carotid artery is 46 cm/sec and the end diastolic velocity within the right internal carotid artery is cm/sec. The right ICA/CCA ratio is less than 1.0. The peak systolic velocity within the left common carotid artery is 78 cm/sec. The peak systolic velocity within the left internal carotid artery is 60 cm/sec and the end diastolic velocity within the left internal carotid artery is 9 cm/sec. The left ICA/CCA ratio is less than 1.0. There is normal antegrade flow within both vertebral arteries. IMPRESSION: No Doppler evidence of hemodynamically significant stenosis within the carotid or vertebral arteries. Echo: LEFT VENTRICLE The left ventricle is normal size. There is mild asymmetric left ventricular hypertrophy. The Ejection Fraction is 60-65%. The left ventricular systolic func tion is normal and the ejection fraction is within normal range. There is normal LV segmental wall motion. Transmitral Doppler flow pattern is Grade I-abnormal relaxation pattern. RIGHT VENTRICLE The right ventricle is normal size. There is normal right ventricular wall thickness. The right ventricular systolic function is normal. ATRIA The left atrium size is normal. The right atrium size is normal. The interatrial septum is intact with no evidence for an atrial septal defect or patent foramen ovale as noted on 2-D or Doppler imaging. AORTIC VALVE The aortic valve is moderately calcified. The aortic valve is trileaflet. Do ppler and Color Flow revealed mild aortic regurgitation. There is moderate valvular aortic stenosis. Calculated aortic valve area is 1.3 cm2 with maximum pressure gradient of 39 mmHg and mean pressure gradient of 22 mmHg. MITRAL VALVE The mitral valve is thickened but opens well. There is no evidence of mitral valve prolapse. There is no mitral valve stenosis. Doppler and Color-flow revealed trace mitral regurgitation. TRICUSPID VALVE The tricuspid valve is normal in structure and function. Doppler and Color Flow revealed trace tricuspid regurgitation. There is moderate pulmonary hypertension. The PA pressure was estimated at 44 mmHg. There is no tricuspid valve prolapse or vegetation. There is no tricuspid valve stenosis. PULMONIC VALVE The pulmonic valve is not well visualized. GREAT VESSELS The aortic root is normal in size. The ascending aorta is normal in size. The I VC is normal in size and collapses >50% with inspiration. PERICARDIAL EFFUSION There is no evidence of significant pericardial effusion. Critical Notification Critical Value: No <Conclusion> The Ejection Fraction is 60-65%. The left ventricular systolic function is normal and the ejection fraction is within normal range. There is normal LV segmental wall motion. The aortic valve is moderately calcified. The aortic valve is trileaflet. There is moderate valvular aortic stenosis. Calculated aortic valve area is 1.3 cm2 with maximum pressure gradient of 39 mmHg and mean pressure gradient of 22 mmHg. Doppler and Color Flow revealed trace tricuspid regurgitation. There is moderate pulmonary hypertension. The PA pressure was estimated at 44 mmHg. Assessment/Plan Assessment/Plan Impression: Mild speech difficulties, may just be metabolic encephalopathy versus a small stroke, no motor or sensory deficits, though. Workup so far is negative. Recommendation: Await MRI of the brain Aspirin Check lipids, start statin Rehabilitation modalities. Also see stroke orders Thank you for letting me help the patient�s care. MIMI BERNABE MD Sep 26, 2018 15:52
--- NOTE | 2018-09-26 16:24 | RAD ---
MRI Brain without contrast History: Aphasia Technique: Multiplanar, multisequential noncontrast MR imaging was performed of the brain. Comparison: None Findings: There is no evidence of recent infarct or cytotoxic edema. Ventricular size is proportionate to the sulcal spaces. There is moderate generalized supratentorial atrophy.There is no significant midline shift, intraaxial mass effect, or focal abnormal extra-axial fluid collection. There is scattered overall mild T2 and FLAIR hyperintense signal abnormality of the supratentorial parenchyma bilaterally. Left vertebral artery flow-void is not visualized and could be occluded. The mastoid air cells are aerated. The cerebellar tonsils are normal in location. There is no significant abnormality of the pineal gland or pituitary gland. Paranasal sinuses are overall aerated. There is preserved marrow signal of the clivus. There has been lens surgery bilaterally. Impression: 1. There is no evidence of recent infarct. There is moderate generalized supratentorial atrophy. Mild T2 and FLAIR hyperintense signal abnormality of the supratentorial parenchyma is nonspecific, likely due to chronic microvascular ischemic disease in a patient this age. 2. Left vertebral artery flow-void is not well-visualized and could be occluded. Electronically signed by: Niall Soriano MD (09/26/2018 4:21 PM) [id number]
[2018-09-26] MEDS ORDERED: cloNIDine HCL 0.1 MG TABLET PO PRN (18:00)
[2018-09-26] MEDS ORDERED: ONDANSETRON PF 4 MG/2 ML VIAL. IV PRN (20:00)
[2018-09-26] MEDS ORDERED: HYDROcodone/APAP 10/325 1 TAB TABLET PO PRN (20:00)
[2018-09-26] MEDS ORDERED: FAMOTIDINE 20 MG TABLET. PO PRN (20:00)
[2018-09-26] MEDS ORDERED: fentaNYL PF VIAL 100 MCG/2 ML VIAL IV PRN (20:00)
[2018-09-26] MEDS ORDERED: ONDANSETRON ODT 4 MG TAB.RAPDIS. PO PRN (20:15)
[2018-09-26] MEDS: CARVEDILOL 6.25 MG TABLET. PO SCH (20:30)
[2018-09-27 03:15] VITALS: BP 169/74
[2018-09-27] MEDS ORDERED: LEVOTHYROXINE 75 MCG TABLET PO SCH (06:00)
[2018-09-27 07:25] VITALS: BP 178/61
[2018-09-27 07:57] LABS: CHOLESTEROL/HDL RATIO 6.4
[2018-09-27] MEDS ORDERED: ASPIRIN ENTERIC COATED 81 MG TABLET.DR. PO SCH (08:00)
[2018-09-27] MEDS: CARVEDILOL 6.25 MG TABLET. PO SCH ×2 (08:00→18:00)
[2018-09-27] MEDS ORDERED: ASPIRIN ENTERIC COATED 325 MG TABLET.DR. PO SCH (08:00)
--- NOTE | 2018-09-27 08:03 | NUR ---
Called patient's daughter, Jessica and gave her an update. Received consent from daughter to allow patient to have dialysis. Patient is agreeable to going to dialysis.
[2018-09-27] MEDS ORDERED: ISOSORBIDE MONONITRATE ER 30 MG TAB.ER.24H PO SCH (09:00)
[2018-09-27] MEDS ORDERED: FOLIC/VIT B COMP W-C (RENAL) TABLET. PO SCH (09:00)
[2018-09-27] MEDS ORDERED: IV NORMAL SALINE 1000ML BAG 1,000 ML IV PRN ×2 (09:43)
[2018-09-27] MEDS ORDERED: DIALYSIS PATIENT. MC PRN ×2 (09:45)
[2018-09-27] MEDS ORDERED: ALBUMIN HUMAN 25% 200 ML IV PRN (09:45)
--- NOTE | 2018-09-27 11:01 | NUR ---
JORGE following pt for dc planning. Chart reviewed and discussed with RN, pt's daughter, Clemencia, . Daughter states pt would not want to go to [facility] and agreeable with [facility]. Physician notified for home health orders. Anticipate dc today with home health. Addendum: 09/27/18 at 1248 by VALERIE PATEL Orders faxed to Yasmin Giorgio
--- NOTE | 2018-09-27 11:10 | SNU/HH DC ---
DISCHARGE WITH HOME HEALTH DISCHARGE INFORMATION: Final Diagnosis: Problems Medical Problems: (1) CHF (congestive heart failure) Status: Acute (2) Expressive aphasia Status: Acute Condition on Discharge: Stable CODE STATUS: Code Status: Full HOME HEALTH: Face to Face: I certify this patient is under my care and that I, or a nurse practitioner or physician's assistant paralegal working with me, had a face to face encounter that meets the physician face to face encounter requirements with this patient on []. Medical Complications: Other (tia) RN For Eval/Treatment: Yes Physical Therapy For: Evalulation/Treatment Occupational Therapy For: Evaluation/Treatment Speech Language Pathology For: Evaluation/Treatment Home Health Aide For: Self-care DIRECT CHILL CASTING OPERATOR For: Community Resources Pt Meets Homebound Status: Poor coordination w/ amb. POST DISCHARGE ORDERS: Activity Instructions for Disc: Activity as tolerated Weight Bearing Status after Di: Full weight bearing DIET AFTER DISCHARGE: Cardiac Wound/Incision Care: Do not change dressing CHECKS AFTER DISCHARGE: Checks after discharge: Check blood press - daily, Check your Temp as needed TREATMENT/EQUIPMENT ORDERS: Adaptive Equipment Issued: None CERTIFICATION STATEMENT: Certification Statement: Certification Statement: Based on the above finding, I certify that this patient is confined to the home and needs intermittent intermediate care, physical therapy and/or speech therapy, or continues to need occupational therapy.~ This patient is under my care, and I have initiated the establishment of the plan of care.~ This patient will be followed by myself or a community physician who will periodically review the plan of care. Home Meds Active Scripts Folic Acid/Vitamin B Comp W-C (GABRIEL-GATITO TABLET) 0.8 Mg Tablet, 1 TAB PO DAILY for 30 Days, #30 TAB Prov:DENIA WATKINS MD 06/12/17 Lactobacillus Rhamnosus Gg (CULTURELLE) 1 Each Cap.sprink, 1 CAP PO BID for 14 Days, #28 CAP Prov:DENIA WATKINS MD 06/12/17 Nifedipine (NIFEDIPINE ER) 30 Mg Tab.er.24, 90 MG PO DAILY, #30 TAB.SR Prov:FARZANA SAMAYOA MD 02/27/17 Aspirin (ASPIRIN EC) 81 Mg Tablet.dr, 81 MG PO DAILYWBKFT, #30 TAB.SR Prov:FARZANA SAMAYOA MD 02/27/17 Reported Medications Famotidine (PEPCID) 20 Mg Tablet, 10 MG PO PRN DAILY, TAB 06/10/17 Nitroglycerin (NITROGLYCERIN SubLingual) 0.4 Mg Tab.subl, 0.4 MG SL PRN Q5MIN PRN for CHEST PAIN, BOTTLE 06/10/17 Levothyroxine Sodium (LEVOTHYROXINE SODIUM) 75 Mcg Tablet, 1 TAB PO DAILY, #30 TAB 5 Refills 06/10/17 Cephalexin (CEPHALEXIN) 250 Mg Capsule, 1 CAP PO HS for Prevent bladder infection, #28 CAP Next dose due tomorrow am. 04/20/17 Carvedilol (CARVEDILOL ) 12.5 Mg Tablet, 18.75 MG PO BIDWMEALS, TAB Next dose due with supper tonight. 04/20/17 Hydrocodone Bit/Acetaminophen (HYDROCODONE-APAP 10325 ) 1 Each Tablet, 1 TAB PO PRN TID PRN for PAIN, TAB 0 Refills 02/26/17 Isosorbide Mononitrate (ISOSORBIDE MONONITRATE ER) 30 Mg Tab.er.24h, 2 TAB PO DAILY, #30 TAB 5 Refills Next dose due tomorrow morning. 02/26/17 Discontinued Reported Medications Lidocaine (Lidocaine PATCH ) 1 Each Adh..patch, 1 EACH TP PRN PRN for PAIN, PATCH 06/10/17 Butalb/Acetaminophen/Caffeine ([id number]-[id number] CP) 1 Each Capsule, 1 EACH PO PRN PRN for HEADACHE, CAP 06/10/17 FARZANEH VALLE III DO Sep 27, 2018 11:10
--- NOTE | 2018-09-27 11:11 | PDOC ---
[facility] [facility] PROGRESS NOTE Chief Complaint Chief Complaint Metabolic encephalopathy vs Mild Stroke ESRD HTN CHF Expressive Aphasia History of Present Illness History of Present Illness 09/27/18 Pt seen/examined at bedside Pt has returned to baseline Dr. Hay recommends MRI ANNA RN and plan for DC today 09/26/18 Pt seen/examined at bedside Pt appears a little more orientated today, but still confused Dr. Hay to consult from neurology Patient has ESRD with dialysis MWF, Cr 4.1 ANNA RN Vitals/I&O Vitals/I&O: Vital Signs Date Time Temp Pulse Resp B/P (MAP) Pulse Ox O2 Delivery O2 Flow Rate FiO2 09/27/18 08:00 Room Air 09/27/18 07:25 97.6 52 18 178/61 (100) 98 97.6 I & O 09/26/18 09/26/18 09/27/18 15:00 23:00 07:00 Intake Total 200 ml Balance 200 ml Physical Exam General: No acute distress, Other (hard of hearing) Heart: Regular rate, No murmurs Lungs: Clear Abdomen: Normal bowel sounds Extremities: No clubbing, No cyanosis Skin: No rashes, No breakdown Labs Labs: Laboratory Tests Test 09/27/18 07:10 Triglycerides Level 154 mg/dL (0-150) Cholesterol Level 224 mg/dL (0-200) LDL Cholesterol, Calculated 158 mg/dL (0-100) VLDL Cholesterol, Calculated 31 mg/dL (0-40) Non-HDL Cholesterol Calculated 189 mg/dL (0-129) HDL Cholesterol 35 mg/dL (40-60) Cholesterol/HDL Ratio 6.4 Review of Systems Review of Systems: co weakness no co chest pain Assessment and Plan Assessmemt and Plan Problems Medical Problems: (1) CHF (congestive heart failure) Status: Acute (2) Expressive aphasia Status: Acute Assessment: Metabolic encephalopathy vs Mild Stroke ESRD HTN CHF Expressive Aphasia Plan: Discharge since Pt back at baseline Dialysis MWF Home Meds DVT prophylaxis PT/OT Comment Review of Relevant I have reviewed the following items cristofer (where applicable) has been applied. Medications: Current Medications Medications (Trade) Dose Ordered Sig/Mendoza Route PRN Reason Start Time Stop Time Status Last Admin Dose Admin Famotidine (Pepcid) 10 mg PRN DAILY PRN PO HEARTBURN. 09/26/18 20:00 09/27/18 08:36 Levothyroxine Sodium (Synthroid) 75 mcg DAILY06 PO 09/27/18 06:00 09/27/18 05:51 Ondansetron HCl (Zofran Odt) 4 mg PRN Q6HRS PRN PO NAUSEA/VOMITING 09/26/18 20:15 09/26/18 20:11 FARZANEH VALLE III DO Sep 27, 2018 11:11
--- NOTE | 2018-09-27 11:32 | PDOC ---
PROGRESS NOTES Assessment Problems Medical Problems: (1) CHF (congestive heart failure) Status: Acute (2) Expressive aphasia Status: Acute Speech difficulties, discussed with speech therapist, may just be metabolic encephalopathy due to hypertension or renal disease, as we find a stroke is clinically or on MRI. Also consider frontotemporal dementia. Possible left vertebral artery occlusion on MRI, but I doubt for studies do not show this, and even if the left vertebral world included, we would not manager of change. In particular, there is no need for a vascular surgery consult. Plan Aspirin Note lipids, start statin Rehabilitation modalities. Okay for discharge Follow up in 6-8 weeks Subjective No complaints Objective Vital Signs Date Time Temp Pulse Resp B/P (MAP) Pulse Ox O2 Delivery O2 Flow Rate FiO2 09/27/18 08:00 Room Air 09/27/18 07:25 97.6 52 18 178/61 (100) 98 97.6 Intake and Output 09/27/18 07:00 Intake Total 200 ml Balance 200 ml Intake Oral 200 ml # Voids 7 PHYSICAL EXAM Physical Exam: Alert. Oriented to time, place and person, speech dysfluent PERRL. EOMI. CN: no focal findings. Muscle tone: normal. Muscle strength: 5/5 DTR: 2+ Plantar reflex: flexor Gait: arthritic. Sensory exam: no abnormal findings. No cerebellar signs elicited. Review of Relevant I have reviewed the following items cristofer (where applicable) has been applied. Labs Laboratory Tests Test 09/25/18 19:13 09/25/18 19:30 09/25/18 19:55 09/25/18 20:50 Glucose (Fingerstick) 89 mg/dL (70-99) Prothrombin Time 12.8 SEC (11.7-14.0) Prothromb Time International Ratio 1.0 (0.8-1.1) Activated Partial Thromboplast Time 25 SEC (24-38) Sodium Level 140 mmol/L (136-145) Potassium Level 4.0 mmol/L (3.5-5.1) Chloride Level 97 mmol/L (98-107) Carbon Dioxide Level 28 mmol/L (21-32) Anion Gap 15 (6-14) Blood Urea Nitrogen 44 mg/dL (7-20) Creatinine 4.1 mg/dL (0.6-1.0) Estimated GFR (Cockcroft-Gault) 10.4 BUN/Creatinine Ratio 11 (6-20) Glucose Level 96 mg/dL (70-99) Calcium Level 9.6 mg/dL (8.5-10.1) Magnesium Level 2.1 mg/dL (1.8-2.4) Total Bilirubin 0.4 mg/dL (0.2-1.0) Aspartate Amino Transf (AST/SGOT) 15 U/L (15-37) Alanine Aminotransferase (ALT/SGPT) 11 U/L (14-59) Alkaline Phosphatase 56 U/L (46-116) Creatine Kinase 67 U/L (26-192) Troponin I Quantitative < 0.017 ng/mL (0.000-0.055) HI-Yhi-A-Type Natriuretic Peptide 9604 pg/mL (0-449) Total Protein 7.3 g/dL (6.4-8.2) Albumin 4.1 g/dL (3.4-5.0) Albumin/Globulin Ratio 1.3 (1.0-1.7) White Blood Count 7.2 x10^3/uL (4.0-11.0) Red Blood Count 4.23 x10^6/uL (3.50-5.40) Hemoglobin 14.3 g/dL (12.0-15.5) Hematocrit 42.4 % (36.0-47.0) Mean Corpuscular Volume 100 fL (79-100) Mean Corpuscular Hemoglobin 34 pg (25-35) Mean Corpuscular Hemoglobin Concent 34 g/dL (31-37) Red Cell Distribution Width 14.3 % (11.5-14.5) Platelet Count 166 x10^3/uL (140-400) Neutrophils (%) (Auto) 71 % (31-73) Lymphocytes (%) (Auto) 14 % (24-48) Monocytes (%) (Auto) 11 % (0-9) Eosinophils (%) (Auto) 2 % (0-3) Basophils (%) (Auto) 1 % (0-3) Neutrophils # (Auto) 5.1 x10^3/uL (1.8-7.7) Lymphocytes # (Auto) 1.0 x10^3/uL (1.0-4.8) Monocytes # (Auto) 0.8 x10^3/uL (0.0-1.1) Eosinophils # (Auto) 0.2 x10^3/uL (0.0-0.7) Basophils # (Auto) 0.1 x10^3/uL (0.0-0.2) Urine Collection Type Unknown Urine Color Yellow Urine Clarity Clear Urine pH 8.0 Urine Specific Jay 1.015 Urine Protein >=300 mg/dL (NEG-TRACE) Urine Glucose (UA) 100 mg/dL (NEG) Urine Ketones (Stick) Trace mg/dL (NEG) Urine Blood Trace (NEG) Urine Nitrite Negative (NEG) Urine Bilirubin Negative (NEG) Urine Urobilinogen Dipstick 0.2 mg/dL (0.2 mg/dL) Urine Leukocyte Esterase Negative (NEG) Urine RBC 0 /HPF (0-2) Urine WBC Rare /HPF (0-4) Urine Squamous Epithelial Cells Mod /LPF Urine Bacteria 0 /HPF (0-FEW) Test 09/27/18 07:10 Triglycerides Level 154 mg/dL (0-150) Cholesterol Level 224 mg/dL (0-200) LDL Cholesterol, Calculated 158 mg/dL (0-100) VLDL Cholesterol, Calculated 31 mg/dL (0-40) Non-HDL Cholesterol Calculated 189 mg/dL (0-129) HDL Cholesterol 35 mg/dL (40-60) Cholesterol/HDL Ratio 6.4 Laboratory Tests Test 09/27/18 07:10 Triglycerides Level 154 mg/dL (0-150) Cholesterol Level 224 mg/dL (0-200) LDL Cholesterol, Calculated 158 mg/dL (0-100) VLDL Cholesterol, Calculated 31 mg/dL (0-40) Non-HDL Cholesterol Calculated 189 mg/dL (0-129) HDL Cholesterol 35 mg/dL (40-60) Cholesterol/HDL Ratio 6.4 Medications Current Medications Aspirin (Children'S Aspirin) 324 mg 1X ONCE PO Last administered on 09/25/18at 21:01; Start 09/25/18 at 20:45; Stop 09/25/18 at 20:49; Status DC Morphine Sulfate (Morphine Sulfate) 1 mg PRN Q3HRS PRN IV PAIN Last administered on 09/26/18at 02:16; Start 09/26/18 at 02:00; Stop 09/26/18 at 20:03; Status DC Hydralazine HCl (Apresoline Inj) 10 mg 1X ONCE IVP Last administered on 09/26/18at 05:12; Start 09/26/18 at 05:00; Stop 09/26/18 at 05:01; Status DC Labetalol HCl (Normodyne Iv Push) 10 mg PRN Q10MIN PRN IVP ELEVATED BP, SEE COMMENTS; Start 09/26/18 at 11:30 Acetaminophen (Tylenol) 650 mg PRN Q6HRS PRN PO TEMP > 100.4F; Start 09/26/18 at 11:30 Acetaminophen (Tylenol Supp) 650 mg PRN Q4HRS PRN OR TEMP > 100.4F; Start 09/26/18 at 11:30 Aspirin (Ecotrin) 325 mg DAILYWBKFT PO ; Start 09/27/18 at 08:00 Aspirin (Aspirin Rectal Supp) 300 mg PRN DAILY PRN OR IF UNABLE TO TAKE PO; Start 09/26/18 at 11:30 Clonidine HCl (Catapres) 0.1 mg PRN TID PRN PO HYPERTENSION; Start 09/26/18 at 18:00 Ondansetron HCl (Zofran) 4 mg PRN Q6HRS PRN IV NAUSEA/VOMITING; Start 09/26/18 at 20:00 Aspirin (Ecotrin) 81 mg DAILYWBKFT PO ; Start 09/27/18 at 08:00; Status Cancel Carvedilol (Coreg) 18.75 mg BIDWMEALS PO ; Start 09/26/18 at 20:30 Famotidine (Pepcid) 10 mg PRN DAILY PRN PO HEARTBURN. Last administered on 09/27/18at 08:36; Start 09/26/18 at 20:00 Vitamin B Complex/ Vitamin C (Jerilyn-Jaylon) 1 tab DAILY PO ; Start 09/27/18 at 09:00 Acetaminophen/ Hydrocodone Bitart (Lortab 10/325) 1 tab PRN TID PRN PO PAIN; Start 09/26/18 at 20:00 Isosorbide Mononitrate (Imdur) 60 mg DAILY PO ; Start 09/27/18 at 09:00 Levothyroxine Sodium (Synthroid) 75 mcg DAILY06 PO Last administered on 09/27/18at 05:51; Start 09/27/18 at 06:00 Nifedipine (Procardia Xl) 90 mg DAILY PO ; Start 09/27/18 at 09:00 Fentanyl Citrate (Fentanyl 2ml Vial) 25 mcg PRN Q4HRS PRN IV PAIN; Start 09/26/18 at 20:00 Ondansetron HCl (Zofran Odt) 4 mg PRN Q6HRS PRN PO NAUSEA/VOMITING Last administered on 09/26/18at 20:11; Start 09/26/18 at 20:15 Atorvastatin Calcium (Lipitor) 10 mg QHS PO ; Start 09/27/18 at 21:00 Sodium Chloride 1,000 ml @ 1,000 mls/hr Q1H PRN IV hypotension; Start 09/27/18 at 09:43; Stop 09/27/18 at 15:42 Albumin Human 200 ml @ 200 mls/hr 1X PRN PRN IV Hypotension; Start 09/27/18 at 09:45; Stop 09/27/18 at 15:44 Sodium Chloride 1,000 ml @ 400 mls/hr Q2H30M PRN IV PATENCY; Start 09/27/18 at 09:43; Stop 09/27/18 at 21:42 Info (PHARMACY MONITORING -- do not chart) 1 each PRN DAILY PRN MC SEE COMMENTS; Start 09/27/18 at 09:45 Info (PHARMACY MONITORING -- do not chart) 1 each PRN DAILY PRN MC SEE COMMENTS; Start 09/27/18 at 09:45 Active Scripts Active Jerilyn-Jaylon Tablet (Folic Acid/Vitamin B Comp W-C) 0.8 Mg Tablet 1 Tab PO DAILY 30 Days Culturelle (Lactobacillus Rhamnosus Gg) 1 Each Cap.sprink 1 Cap PO BID 14 Days Nifedipine Er (Nifedipine) 30 Mg Tab.er.24 90 Mg PO DAILY Aspirin Ec (Aspirin) 81 Mg Tablet.dr 81 Mg PO DAILYWBKFT Reported Pepcid (Famotidine) 20 Mg Tablet 10 Mg PO PRN DAILY NITROGLYCERIN SubLingual (Nitroglycerin) 0.4 Mg Tab.subl 0.4 Mg SL PRN Q5MIN PRN Levothyroxine Sodium 75 Mcg Tablet 1 Tab PO DAILY Cephalexin 250 Mg Capsule 1 Cap PO HS Next dose due tomorrow am. Carvedilol (Carvedilol) 12.5 Mg Tablet 18.75 Mg PO BIDWMEALS Next dose due with supper tonight. Hydrocodone-Apap 10-325 (Hydrocodone Bit/Acetaminophen) 1 Each Tablet 1 Tab PO PRN TID PRN Isosorbide Mononitrate Er (Isosorbide Mononitrate) 30 Mg Tab.er.24h 2 Tab PO DAILY Next dose due tomorrow morning. Vitals/I & O Vital Sign - Last 24 Hours 09/26/18 09/26/18 09/26/18 09/26/18 14:59 19:05 20:05 23:35 Temp 98.2 98.6 98.9 98.2 98.6 98.9 Pulse 70 69 64 Resp 16 16 16 B/P (MAP) 195/74 (114) 145/73 (97) 173/67 (102) Pulse Ox 96 97 94 O2 Delivery Room Air Room Air Room Air Room Air 09/27/18 09/27/18 09/27/18 03:15 07:25 08:00 Temp 97.7 97.6 97.7 97.6 Pulse 57 52 Resp 16 18 B/P (MAP) 169/74 (105) 178/61 (100) Pulse Ox 97 98 O2 Delivery Room Air Room Air Room Air l Intake and Output 09/26/18 09/26/18 09/27/18 15:00 23:00 07:00 Intake Total 200 ml Balance 200 ml Images MRI Brain without contrast There is no evidence of recent infarct or cytotoxic edema. Ventricular size is proportionate to the sulcal spaces. There is moderate generalized supratentorial atrophy.There is no significant midline shift, intraaxial mass effect, or focal abnormal extra-axial fluid collection. There is scattered overall mild T2 and FLAIR hyperintense signal abnormality of the supratentorial parenchyma bilaterally. Left vertebral artery flow-void is not visualized and could be occluded. The mastoid air cells are aerated. The cerebellar tonsils are normal in location. There is no significant abnormality of the pineal gland or pituitary gland. Paranasal sinuses are overall aerated. There is preserved marrow signal of the clivus. There has been lens surgery bilaterally. Impression: 1. There is no evidence of recent infarct. There is moderate generalized supratentorial atrophy. Mild T2 and FLAIR hyperintense signal abnormality of the supratentorial parenchyma is nonspecific, likely due to chronic microvascular ischemic disease in a patient this age. 2. Left vertebral artery flow-void is not well-visualized and could be occluded. Carotid Doppler sonogram. HISTORY: Cerebral infarction. TECHNIQUE: Estes scale and color Doppler sonographic evaluation of the neck with spectral waveform analysis was performed and static images are submitted for review. FINDINGS: The exam is limited due to uncooperative patient behavior. There is minimal atherosclerotic plaque within the carotid bifurcations. There is a vessel along the medial aspect of the left common carotid artery which appears to loop inferiorly, not formally assessed on this exam. The peak systolic velocity within the right common carotid artery is 55 cm/sec. The peak systolic velocity within the right internal carotid artery is 46 cm/sec and the end diastolic velocity within the right internal carotid artery is cm/sec. The right ICA/CCA ratio is less than 1.0. The peak systolic velocity within the left common carotid artery is 78 cm/sec. The peak systolic velocity within the left internal carotid artery is 60 cm/sec and the end diastolic velocity within the left internal carotid artery is 9 cm/sec. The left ICA/CCA ratio is less than 1.0. There is normal antegrade flow within both vertebral arteries. IMPRESSION: No Doppler evidence of hemodynamically significant stenosis within the carotid or vertebral arteries. MIMI BERNABE MD Sep 27, 2018 11:32
[2018-09-27 11:38] VITALS: BP 175/63
--- NOTE | 2018-09-27 12:09 | PDOC2 ---
CONSULT Date of Consult Date of Consult DATE: 09/27/18 TIME: 12:06 Reason for Consult Reason for Consult: ESRD Identification/Chief Complaint Chief Complaint feeling tired Source Source: Chart review, Patient History of Present Illness Reason for Visit: Patient is a 83 year old female who presents with confusion and abnormal speec h. Per ER patient's daughter reported that she talked to the patient night before without problem and then went to her home around 5 PM on 09/26 and her mother had expressive aphasia and confusion that partially improvement at arrival to ER. Patient denies headache, chest pain, shortness of breath, fever and chills, She is on HD MWF under Dr. Gooden's care at [facility] . Last HD was on sun. She reports she has been feeling tired and drained after HD Currently denies any complaints Past Medical History Cardiovascular: HTN Pulmonary: No pertinent hx CENTRAL NERVOUS SYSTEM: TIA GI: GERD Heme/Onc: Anemia NOS Hepatobiliary: No pertinent hx Psych: No pertinent hx Musculoskeletal: low back pain, Osteoarthritis Infectious disease: No pertinent hx Renal/: Chronic renal failure (Dialysis MWF), UTI Endocrine: Hypothyroidism Past Surgical History Past Surgical History: Cataract Removal Family History Family History: Heart Disease Social History ALCOHOL: none Drugs: None Lives: with Family Current Problem List Problem List Problems Medical Problems: (1) CHF (congestive heart failure) Status: Acute (2) Expressive aphasia Status: Acute Current Medications Current Medications Current Medications Aspirin (Children'S Aspirin) 324 mg 1X ONCE PO Last administered on 09/25/18at 21:01; Start 09/25/18 at 20:45; Stop 09/25/18 at 20:49; Status DC Morphine Sulfate (Morphine Sulfate) 1 mg PRN Q3HRS PRN IV PAIN Last administered on 09/26/18at 02:16; Start 09/26/18 at 02:00; Stop 09/26/18 at 20:03; Status DC Hydralazine HCl (Apresoline Inj) 10 mg 1X ONCE IVP Last administered on 09/26/18at 05:12; Start 09/26/18 at 05:00; Stop 09/26/18 at 05:01; Status DC Labetalol HCl (Normodyne Iv Push) 10 mg PRN Q10MIN PRN IVP ELEVATED BP, SEE COMMENTS; Start 09/26/18 at 11:30 Acetaminophen (Tylenol) 650 mg PRN Q6HRS PRN PO TEMP > 100.4F; Start 09/26/18 at 11:30 Acetaminophen (Tylenol Supp) 650 mg PRN Q4HRS PRN NM TEMP > 100.4F; Start 09/26/18 at 11:30 Aspirin (Ecotrin) 325 mg DAILYWBKFT PO ; Start 09/27/18 at 08:00 Aspirin (Aspirin Rectal Supp) 300 mg PRN DAILY PRN NM IF UNABLE TO TAKE PO; Start 09/26/18 at 11:30 Clonidine HCl (Catapres) 0.1 mg PRN TID PRN PO HYPERTENSION; Start 09/26/18 at 18:00 Ondansetron HCl (Zofran) 4 mg PRN Q6HRS PRN IV NAUSEA/VOMITING; Start 09/26/18 at 20:00 Aspirin (Ecotrin) 81 mg DAILYWBKFT PO ; Start 09/27/18 at 08:00; Status Cancel Carvedilol (Coreg) 18.75 mg BIDWMEALS PO ; Start 09/26/18 at 20:30 Famotidine (Pepcid) 10 mg PRN DAILY PRN PO HEARTBURN. Last administered on 09/27/18at 08:36; Start 09/26/18 at 20:00 Vitamin B Complex/ Vitamin C (Jerilyn-Jaylon) 1 tab DAILY PO ; Start 09/27/18 at 09:00 Acetaminophen/ Hydrocodone Bitart (Lortab 10/325) 1 tab PRN TID PRN PO PAIN; Start 09/26/18 at 20:00 Isosorbide Mononitrate (Imdur) 60 mg DAILY PO ; Start 09/27/18 at 09:00 Levothyroxine Sodium (Synthroid) 75 mcg DAILY06 PO Last administered on 09/27/18at 05:51; Start 09/27/18 at 06:00 Nifedipine (Procardia Xl) 90 mg DAILY PO ; Start 09/27/18 at 09:00 Fentanyl Citrate (Fentanyl 2ml Vial) 25 mcg PRN Q4HRS PRN IV PAIN; Start 09/26/18 at 20:00 Ondansetron HCl (Zofran Odt) 4 mg PRN Q6HRS PRN PO NAUSEA/VOMITING Last administered on 09/26/18at 20:11; Start 09/26/18 at 20:15 Atorvastatin Calcium (Lipitor) 10 mg QHS PO ; Start 09/27/18 at 21:00 Sodium Chloride 1,000 ml @ 1,000 mls/hr Q1H PRN IV hypotension; Start 09/27/18 at 09:43; Stop 09/27/18 at 15:42 Albumin Human 200 ml @ 200 mls/hr 1X PRN PRN IV Hypotension; Start 09/27/18 at 09:45; Stop 09/27/18 at 15:44 Sodium Chloride 1,000 ml @ 400 mls/hr Q2H30M PRN IV PATENCY; Start 09/27/18 at 09:43; Stop 09/27/18 at 21:42 Info (PHARMACY MONITORING -- do not chart) 1 each PRN DAILY PRN MC SEE COMMENTS; Start 09/27/18 at 09:45 Info (PHARMACY MONITORING -- do not chart) 1 each PRN DAILY PRN MC SEE COMMENTS; Start 09/27/18 at 09:45 Active Scripts Active Jerilyn-Jaylon Tablet (Folic Acid/Vitamin B Comp W-C) 0.8 Mg Tablet 1 Tab PO DAILY 30 Days Culturelle (Lactobacillus Rhamnosus Gg) 1 Each Cap.sprink 1 Cap PO BID 14 Days Nifedipine Er (Nifedipine) 30 Mg Tab.er.24 90 Mg PO DAILY Aspirin Ec (Aspirin) 81 Mg Tablet. 81 Mg PO DAILYWBKFT Reported Pepcid (Famotidine) 20 Mg Tablet 10 Mg PO PRN DAILY NITROGLYCERIN SubLingual (Nitroglycerin) 0.4 Mg Tab.subl 0.4 Mg SL PRN Q5MIN PRN Levothyroxine Sodium 75 Mcg Tablet 1 Tab PO DAILY Cephalexin 250 Mg Capsule 1 Cap PO HS Next dose due tomorrow am. Carvedilol (Carvedilol) 12.5 Mg Tablet 18.75 Mg PO BIDWMEALS Next dose due with supper tonight. Hydrocodone-Apap 10-325 (Hydrocodone Bit/Acetaminophen) 1 Each Tablet 1 Tab PO PRN TID PRN Isosorbide Mononitrate Er (Isosorbide Mononitrate) 30 Mg Tab.er.24h 2 Tab PO DAILY Next dose due tomorrow morning. Allergies Allergies: Coded Allergies: sulfamethoxazole (Verified Allergy, Intermediate, 02/25/17) trimethoprim (Verified Allergy, Intermediate, 02/25/17) ROS Review of System Per HPI Physical Exam Physical Exam GEN- NAD HEENT om moist , has hearing aids Neck Supple Lungs CTA, Non labored CV RRR No CVA or SP tenderness Abd- Soft Nt Neuro : no focal findings,Muscle tone: normal,Muscle strength: 5/5 Alert. Oriented to time, place and person Skin No rash Vital Signs Vital Signs Date Time Temp Pulse Resp B/P (MAP) Pulse Ox O2 Delivery O2 Flow Rate FiO2 09/27/18 11:38 98.2 55 18 175/63 (100) 97 Room Air 98.2 Assessment & Plan ESRD- On HD MWF - Dr Gooden at [facility] Dialysis today as ordered, Nimesh Santos Expressive aphasia- seen by Neurology HTN - BP elevated Home antihypertensives, HD today with UF Labs Labs Laboratory Tests Test 09/25/18 19:13 09/25/18 19:30 09/25/18 19:55 09/25/18 20:50 Glucose (Fingerstick) 89 mg/dL (70-99) Prothrombin Time 12.8 SEC (11.7-14.0) Prothromb Time International Ratio 1.0 (0.8-1.1) Activated Partial Thromboplast Time 25 SEC (24-38) Sodium Level 140 mmol/L (136-145) Potassium Level 4.0 mmol/L (3.5-5.1) Chloride Level 97 mmol/L (98-107) Carbon Dioxide Level 28 mmol/L (21-32) Anion Gap 15 (6-14) Blood Urea Nitrogen 44 mg/dL (7-20) Creatinine 4.1 mg/dL (0.6-1.0) Estimated GFR (Cockcroft-Gault) 10.4 BUN/Creatinine Ratio 11 (6-20) Glucose Level 96 mg/dL (70-99) Calcium Level 9.6 mg/dL (8.5-10.1) Magnesium Level 2.1 mg/dL (1.8-2.4) Total Bilirubin 0.4 mg/dL (0.2-1.0) Aspartate Amino Transf (AST/SGOT) 15 U/L (15-37) Alanine Aminotransferase (ALT/SGPT) 11 U/L (14-59) Alkaline Phosphatase 56 U/L (46-116) Creatine Kinase 67 U/L (26-192) Troponin I Quantitative < 0.017 ng/mL (0.000-0.055) MA-Dxa-F-Type Natriuretic Peptide 9604 pg/mL (0-449) Total Protein 7.3 g/dL (6.4-8.2) Albumin 4.1 g/dL (3.4-5.0) Albumin/Globulin Ratio 1.3 (1.0-1.7) White Blood Count 7.2 x10^3/uL (4.0-11.0) Red Blood Count 4.23 x10^6/uL (3.50-5.40) Hemoglobin 14.3 g/dL (12.0-15.5) Hematocrit 42.4 % (36.0-47.0) Mean Corpuscular Volume 100 fL (79-100) Mean Corpuscular Hemoglobin 34 pg (25-35) Mean Corpuscular Hemoglobin Concent 34 g/dL (31-37) Red Cell Distribution Width 14.3 % (11.5-14.5) Platelet Count 166 x10^3/uL (140-400) Neutrophils (%) (Auto) 71 % (31-73) Lymphocytes (%) (Auto) 14 % (24-48) Monocytes (%) (Auto) 11 % (0-9) Eosinophils (%) (Auto) 2 % (0-3) Basophils (%) (Auto) 1 % (0-3) Neutrophils # (Auto) 5.1 x10^3/uL (1.8-7.7) Lymphocytes # (Auto) 1.0 x10^3/uL (1.0-4.8) Monocytes # (Auto) 0.8 x10^3/uL (0.0-1.1) Eosinophils # (Auto) 0.2 x10^3/uL (0.0-0.7) Basophils # (Auto) 0.1 x10^3/uL (0.0-0.2) Urine Collection Type Unknown Urine Color Yellow Urine Clarity Clear Urine pH 8.0 Urine Specific [place] 1.015 Urine Protein >=300 mg/dL (NEG-TRACE) Urine Glucose (UA) 100 mg/dL (NEG) Urine Ketones (Stick) Trace mg/dL (NEG) Urine Blood Trace (NEG) Urine Nitrite Negative (NEG) Urine Bilirubin Negative (NEG) Urine Urobilinogen Dipstick 0.2 mg/dL (0.2 mg/dL) Urine Leukocyte Esterase Negative (NEG) Urine RBC 0 /HPF (0-2) Urine WBC Rare /HPF (0-4) Urine Squamous Epithelial Cells Mod /LPF Urine Bacteria 0 /HPF (0-FEW) Test 09/27/18 07:10 Triglycerides Level 154 mg/dL (0-150) Cholesterol Level 224 mg/dL (0-200) LDL Cholesterol, Calculated 158 mg/dL (0-100) VLDL Cholesterol, Calculated 31 mg/dL (0-40) Non-HDL Cholesterol Calculated 189 mg/dL (0-129) HDL Cholesterol 35 mg/dL (40-60) Cholesterol/HDL Ratio 6.4 Laboratory Tests Test 09/27/18 07:10 Triglycerides Level 154 mg/dL (0-150) Cholesterol Level 224 mg/dL (0-200) LDL Cholesterol, Calculated 158 mg/dL (0-100) VLDL Cholesterol, Calculated 31 mg/dL (0-40) Non-HDL Cholesterol Calculated 189 mg/dL (0-129) HDL Cholesterol 35 mg/dL (40-60) Cholesterol/HDL Ratio 6.4 Review All relevant outside records, renal labs, imaging studies, telemetry/EKG's were reviewed. Images Images MRI wo contrast 1. There is no evidence of recent infarct. There is moderate generalized supratentorial atrophy. Mild T2 and FLAIR hyperintense signal abnormality of the supratentorial parenchyma is nonspecific, likely due to chronic microvascular ischemic disease in a patient this age. 2. Left vertebral artery flow-void is not well-visualized and could be occluded. LIZETH PONCE MD Sep 27, 2018 12:09
--- NOTE | 2018-09-27 12:12 | DS ---
DATE OF DISCHARGE: 09/27/2018 ADMISSION DIAGNOSIS: Mental status change with possible transient ischemic attack or stroke. DISCHARGE DIAGNOSIS: Resolving metabolic encephalopathy. CONSULTS: Neurology. PROCEDURES: None. HOSPITAL COURSE: The patient is a pleasant middle-aged female who presented with mental status change. She is on dialysis as well. Basically, when I saw her in the ER, she could not tell me what year it was. She knows who the president was. She was confabulating. It was unclear exactly what was causing her symptoms. I was concerned she could be having some type of stroke. We admitted her. We consulted Neurology and over the past 48 hours, these symptoms have resolved. This morning, I saw her and examined her. She knew the year. She knew the president is. She was talking normal. I suspect she has a metabolic encephalopathy or perhaps a resolving TIA. Nevertheless, she looks great. We plan to discharge after dialysis today. DISPOSITION: Home. ACTIVITY: As tolerated. MEDICATIONS: Please see MRAD. TOTAL TIME: 32 minutes. DIET: Renal. DISCHARGE DIAGNOSES: Gastroesophageal reflux disease, hyperlipidemia, hypertension, hypothyroidism, back pain, right kidney surgery, back surgery x 3. FARZANEH VALLE DO DR: [email or web address]/jamar JOB#: [id number] / [id number]
[2018-09-27 18:01] VITALS: BP 177/64
--- NOTE | 2018-09-27 18:44 | NUR ---
Discharge instructions given to patient and daughter regarding medications and follow up appointments with her primary care physician and Dr. Tim in 6-8 weeks. Education given over HTN, AMS, and signs and symptoms of CVA. Home Health services information given to patient and family. Patient verbalizes understanding and is taken down to go home with daughter.
[2018-09-27] MEDS ORDERED: ATORVASTATIN CALCIUM 10 MG TABLET. PO SCH (21:00)
== END 2018-09-27 18:36 | disposition home health service (06) | DRG 69 ==
LOC: ER 18:43 → ED HOLD 21:27 → 6 SOUTH 22:27
PROVIDERS: ADMIT Internal Medicine; ATTEND Internal Medicine
PROC: 5A1D70Z Performance of Urinary Filtration, Intermittent, Less than 6 Hours Per Day (ICD-10-PCS; principal; 2018-09-25)
DX: G45.9 Transient cerebral ischemic attack, unspecified (principal); G93.41 Metabolic encephalopathy; N18.6 End stage renal disease; I13.2 Hypertensive heart and chronic kidney disease with heart failure and with stage 5 chronic kidney disease, or end stage renal disease; R47.01 Aphasia; E03.9 Hypothyroidism, unspecified; E78.00 Pure hypercholesterolemia, unspecified; E78.5 Hyperlipidemia, unspecified; F17.200 Nicotine dependence, unspecified, uncomplicated; I27.20 Pulmonary hypertension, unspecified; I50.9 Heart failure, unspecified; K21.9 Gastro-esophageal reflux disease without esophagitis; Z82.3 Family history of stroke; Z86.73 Personal history of transient ischemic attack (TIA), and cerebral infarction without residual deficits; Z99.2 Dependence on renal dialysis; Z87.440 Personal history of urinary (tract) infections
CPT/HCPCS: 36415; 70450; 70551; 71045; 80053; 80061; 81001; 82550; 82962; 83735; 83880; 84484; 85025; 85610; 85730; 93005; 93306; 93880; J0360; J2270; Q0162; 92523; 92610; 99285-25; G0378

== ENCOUNTER 2019-04-08 07:23 | Emergency (ER) | payer MEDICARE ==
[~2019-04-08] VITALS: Ht 160 cm; Wt 61.5 kg
[~2019-04-08 07:23] MED LIST changes: +ALBU2.5V8 NEB; +CARV6.25 PO; +CIPR500S3 PO; +IRBE300T23 PO; -IRBE300T3 PO; +LEVO50TA PO; -NIFE30TA17 PO; +NIFE30TA95 PO; -NIFE60TA16 PO; +NIFE60TA90 PO
[2019-04-08 07:58] LABS: BASO # 0.1 x10^3/uL (0.0-0.2); BASO % 1 % (0-3); EOS # 0.1 x10^3/uL (0.0-0.7); EOS % 2 % (0-3); HEMATOCRIT 37.7 % (36.0-47.0); HEMOGLOBIN 12.5 g/dL (12.0-15.5); LYMPH # 1.1 x10^3/uL (1.0-4.8); LYMPH % 15 % (24-48); MEAN CORPUSCULAR HEMOGLOBIN 34 pg (25-35); MEAN CORPUSCULAR HGB CONC 33 g/dL (31-37); MEAN CORPUSCULAR VOLUME 103 fL (79-100); MONO % 14 % (0-9); NEUT # 4.9 x10^3/uL (1.8-7.7); NEUT % 68 % (31-73); PLATELET COUNT 183 x10^3/uL (140-400); RED BLOOD COUNT 3.66 x10^6/uL (3.50-5.40); RED CELL DISTRIBUTION WIDTH 14.6 % (11.5-14.5); WHITE BLOOD COUNT 7.2 x10^3/uL (4.0-11.0)
--- NOTE | 2019-04-08 07:59 | PHYS DOC ---
Past Medical History Past Medical History: GERD, High Cholesterol, Hypertension, Hypothyroid, Other Additional Past Medical Histor: kidney disease, back pain Past Surgical History: Other Additional Past Surgical Histo: R kidney, back x3 Smoking Status: Former Smoker Alcohol Use: Occasionally Drug Use: None Adult General Chief Complaint Chief Complaint: CHEST PAIN HPI HPI Patient is an 83-year-old female who presents to the emergency department for evaluation via EMS. She states she awakened this morning with a squeezing pain in the center of her chest, radiating towards her back. She reports the pain is worsened with deep breathing. She has not had any nausea, vomiting, or significant shortness of breath. She was hospitalized here in January of last year, with serial troponins negative. She does have a history of hemodialysis, states her last dialysis was yesterday. There are no alleviating or exacerbating factors to her symptoms otherwise. The patient reports no prior coronary history. Assuming a negative troponin, the patient's HEART score is a 4. Patient did receive aspirin in route by EMS. Review of Systems Review of Systems Constitutional: Denies fever or chills [] Eyes: Denies change in visual acuity, redness, or eye pain [] HENT: Denies nasal congestion or sore throat [] Respiratory: Denies cough or shortness of breath [] Cardiovascular: No additional information not addressed in HPI [] GI: Denies abdominal pain, nausea, vomiting, bloody stools or diarrhea [] : Denies dysuria or hematuria [] Musculoskeletal: Denies neck pain or joint pain [] Integument: Denies rash or skin lesions [] Neurologic: Denies headache, focal weakness or sensory changes [] Endocrine: Denies polyuria or polydipsia [] All other systems were reviewed and found to be within normal limits, except as documented in this note. Current Medications Current Medications Current Medications Medications (Trade) Dose Ordered Sig/Mendoza Start Time Stop Time Status Last Admin Dose Admin Aspirin (Children'S Aspirin) 324 mg 1X ONCE 04/08/19 08:00 04/08/19 08:04 DC Esmolol HCl (Brevibloc) 25 mg 1X ONCE 04/08/19 10:15 04/08/19 10:32 DC 04/08/19 10:19 25 MG Info (CONTRAST GIVEN -- Rx MONITORING) 1 each PRN DAILY PRN 3/3/20 08:30 04/10/19 08:29 Iohexol (Omnipaque 350 Mg/ml) 90 ml 1X ONCE 04/08/19 08:30 04/08/19 08:31 DC 04/08/19 08:51 90 ML Morphine Sulfate (Morphine Sulfate) 4 mg 1X ONCE 04/08/19 11:00 04/08/19 11:01 Nicardipine HCl 50 mg/Sodium Chloride 250 ml @ 25 mls/hr CONT PRN 04/08/19 09:15 04/08/19 09:40 25 MLS/HR Ondansetron HCl (Zofran) 4 mg 1X ONCE 04/08/19 08:30 04/08/19 08:32 DC 04/08/19 08:30 4 MG Allergies Allergies Allergies Coded Allergies Type Severity Reaction Last Updated Verified sulfamethoxazole Allergy Intermediate 02/25/17 Yes trimethoprim Allergy Intermediate 02/25/17 Yes Physical Exam Physical Exam PHYSICAL EXAM: CONSTITUTIONAL: Well developed, well nourished HEAD: normocephalic, atraumatic EENT: PERRL, EOMI. Conjunctivae normal color, sclerae non-icteric; moist mucous membranes. NECK: Supple, non-tender; no meningismus. LUNGS: Lungs CTA, breathing even and unlabored. Normal air movement. HEART: Regular rate and rhythm, no murmur CHEST: No deformity; non-tender ABDOMEN: The abdomen is soft, and non-tender, no masses or bruits. EXTREM: Normal ROM; no deformity, no calf tenderness. Normal pulses palpable in all extremities. There is no pedal edema. There is an AV fistula in the left upper extremity. SKIN: No rash; no diaphoresis NEURO: Alert; normal speech and cognition; CN's grossly intact; strength grossly intact without focal deficit. BACK: No CVA TTP. Current Patient Data Vital Signs Vital Signs Date Time Temp Pulse Resp B/P (MAP) Pulse Ox O2 Delivery O2 Flow Rate FiO2 04/08/19 10:19 62 194/88 04/08/19 09:00 95 Room Air 04/08/19 07:30 98.0 18 98.0 Lab Values Laboratory Tests Test 04/08/19 07:48 White Blood Count 7.2 x10^3/uL (4.0-11.0) Red Blood Count 3.66 x10^6/uL (3.50-5.40) Hemoglobin 12.5 g/dL (12.0-15.5) Hematocrit 37.7 % (36.0-47.0) Mean Corpuscular Volume 103 fL (79-100) H Mean Corpuscular Hemoglobin 34 pg (25-35) Mean Corpuscular Hemoglobin Concent 33 g/dL (31-37) Red Cell Distribution Width 14.6 % (11.5-14.5) H Platelet Count 183 x10^3/uL (140-400) Neutrophils (%) (Auto) 68 % (31-73) Lymphocytes (%) (Auto) 15 % (24-48) L Monocytes (%) (Auto) 14 % (0-9) H Eosinophils (%) (Auto) 2 % (0-3) Basophils (%) (Auto) 1 % (0-3) Neutrophils # (Auto) 4.9 x10^3/uL (1.8-7.7) Lymphocytes # (Auto) 1.1 x10^3/uL (1.0-4.8) Monocytes # (Auto) 1.0 x10^3/uL (0.0-1.1) Eosinophils # (Auto) 0.1 x10^3/uL (0.0-0.7) Basophils # (Auto) 0.1 x10^3/uL (0.0-0.2) Sodium Level 146 mmol/L (136-145) H Potassium Level 4.5 mmol/L (3.5-5.1) Chloride Level 101 mmol/L (98-107) Carbon Dioxide Level 29 mmol/L (21-32) Anion Gap 16 (6-14) H Blood Urea Nitrogen 44 mg/dL (7-20) H Creatinine 3.9 mg/dL (0.6-1.0) H Estimated GFR (Cockcroft-Gault) 11.0 BUN/Creatinine Ratio 11 (6-20) Glucose Level 100 mg/dL (70-99) H Calcium Level 9.7 mg/dL (8.5-10.1) Magnesium Level 2.4 mg/dL (1.8-2.4) Total Bilirubin 0.3 mg/dL (0.2-1.0) Aspartate Amino Transferase (AST) 19 U/L (15-37) Alanine Aminotransferase (ALT) 17 U/L (14-59) Alkaline Phosphatase 57 U/L (46-116) Troponin I Quantitative < 0.017 ng/mL (0.000-0.055) Total Protein 5.9 g/dL (6.4-8.2) L Albumin 3.5 g/dL (3.4-5.0) Albumin/Globulin Ratio 1.5 (1.0-1.7) Laboratory Tests 04/08/19 07:48 Laboratory Tests 04/08/19 07:48 EKG EKG []Normal sinus rhythm at a rate of 54 beats for minute, left axis deviation, normal intervals, nonspecific ST/T changes are present. Radiology/Procedures Radiology/Procedures PROCEDURE: PORTABLE CHEST 1V EXAM: PORTABLE CHEST 1V INDICATION: Chest pain. TECHNIQUE: Single AP view COMPARISON: 02/01/2019 FINDINGS: The heart size is normal. The great vessels show aortic tortuosity and calcification, similar to prior.. There is no hilar or mediastinal mass. The lungs are better aerated in the interval with patchy airspace opacities of the right lung base previously noted no resolved.. There is no pleural effusion or pneumothorax. There are no significant osseous abnormalities. IMPRESSION: No active cardiopulmonary disease.[] PROCEDURE: CT ANGIOGRAPHY CHEST EXAM: CT Pulmonary Angiogram INDICATION: Chest pain, shortness of breath. TECHNIQUE: Multi-detector row images were acquired from the thoracic inlet through the upper abdomen with the use of IV contrast. Sagittal and coronal images were acquired from the transaxial data. MIP images of the pulmonary arteries were obtained. All CT scans performed at this facility utilize dose optimization techniques as appropriate to the exam, including the following: Automated exposure control and adjustment of the mA and/or KV according to patient size (this includes techniques or standardized protocols for targeted exams where dose is indication/reason for exam). IV CONTRAST: Administered COMPARISON: Chest x-rays of 01/24/2019 and 04/08/2019 FINDINGS: Study is not gated. PULMONARY ARTERIES: No pulmonary emboli are identified. CARDIOVASCULAR: Mildly enlarged heart with aortic valvular and coronary arterial calcifications. The descending thoracic aorta shows abnormal hyperdensity in the wall with medial displacement of the partly calcified intima, highly suspicious for an acute descending intramural hematoma. This extends down to the hiatus without obvious involvement of the great vessels although narrowing of the origin of the celiac axis is present from mass effect from the diaphragmatic pleura and median arcuate ligament. MEDIASTINUM & KATE: Small pericardial effusion in the superior pericardial recess. LUNGS: Mild bronchiectasis in the lower lobes with subpleural reticular densities and early honeycombing is present in a basilar predominant distribution. PLEURAL SPACE: No pleural effusions or pneumothorax. OSSEOUS & SOFT TISSUE: Unremarkable ABDOMEN: Included abdomen shows atrophic kidneys with multiple cortical lesions statistically likely to be cysts although too small to characterize. There is a 1.7 cm exophytic mass of the superior pole left kidney that measures soft tissue density at 44HU that may benefit from more definitive characterization with renal mass protocol CT or MRI as although it may represent a hemorrhagic or complicated cyst, an incidental solid renal mass is not excluded. IMPRESSION: 1. 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 2. No evidence of pulmonary emboli. 3. Basilar predominant interstitial lung disease. 4. Atrophic kidneys with incidental renal lesions recommended for an elective follow-up renal mass protocol CT or MRI abdomen. Course & Med Decision Making Course & Med Decision Making Pertinent Labs and Imaging studies reviewed. (See chart for details) [] 9:15 AM: S/w Dr Palomino, Vascular- informed does not do aortic dissections. Will see if CT surgery available or transfer if needed.Beverly chamorro ordered for BP control. 920: Dr Che, CT surgery paged (although not technically legal receptionist). 9:45 AM: Spoke with Dr Che, was told he does not cover the ER at this hospital, but might be willing to see the patient in consultation later in the day, but he was in surgery all day at a different hospital. I spoke with the hospitalist, Dr. Graham, who recommended transferring the patient to a facility that has more immediate surgical capabilities, although these are typically managed medically. 10:05 AM: [facility] contacted to arrange transfer awaiting callback from physician. 10:45 AM: Patient has been accepted by Dr. Solo, transfer physician at [facility]. The patient's blood pressure is starting to come down, drips will be titrated based on her blood pressure. CRITICAL CARE TIME: 60 Minutes, excluding any procedures and care of other patients. Dragon Disclaimer Dragon Disclaimer This electronic medical record was generated, in whole or in part, using a voice recognition dictation system. 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
[2019-04-08] MEDS ORDERED: ASPIRIN CHEWABLE 81 MG TABLET. PO ONE (08:00)
--- NOTE | 2019-04-08 08:14 | RAD ---
EXAM: PORTABLE CHEST 1V INDICATION: Chest pain. TECHNIQUE: Single AP view COMPARISON: 02/01/2019 FINDINGS: The heart size is normal. The great vessels show aortic tortuosity and calcification, similar to prior.. There is no hilar or mediastinal mass. The lungs are better aerated in the interval with patchy airspace opacities of the right lung base previously noted no resolved.. There is no pleural effusion or pneumothorax. There are no significant osseous abnormalities. IMPRESSION: No active cardiopulmonary disease. Electronically signed by: Joanne Kc MD (04/08/2019 8:11 AM) [id number]
[2019-04-08] MEDS ORDERED: MORPHINE SULFATE 4 MG/ML VIAL. IV ONE ×2 (08:15→11:00)
[2019-04-08 08:27] LABS: CALCIUM 9.7 mg/dL (8.5-10.1); CREATININE 3.9 mg/dL (0.6-1.0); POTASSIUM 4.5 mmol/L (3.5-5.1)
[2019-04-08] MEDS ORDERED: ONDANSETRON PF 4 MG/2 ML VIAL. ONE (08:27)
--- NOTE | 2019-04-08 08:29 | EKG ---
[facility] [address] [place] [address] Test Date: 2019-04-08 Test Time: 07:28:15 Pat Name: BRITTNEY REED Department: Room: Gender: F Offbearer: : 1935 Requested By: MARIA INES SMITH Order Number: [id number] Reading MD: Measurements Intervals [place] Rate: 54 P: MA: QRS: -13 QRSD: 96 T: 25 QT: 494 QTc: 470 Interpretive Statements ATRIAL FLUTTER LEFTWARD AXIS QRS(T) CONTOUR ABNORMALITY CONSIDER ANTEROSEPTAL MYOCARDIAL DAMAGE ABNORMAL ECG RI6.01 No previous ECG available for comparison
[2019-04-08] MEDS ORDERED: CONTRAST GIVEN. MC PRN (08:30)
[2019-04-08] MEDS ORDERED: ONDANSETRON PF 4 MG/2 ML VIAL. IVP ONE (08:30)
[2019-04-08] MEDS ORDERED: IOHEXOL 350 MG/ML 100 ML VIAL. IV ONE (08:30)
[2019-04-08 08:33] LABS: ALBUMIN 3.5 g/dL (3.4-5.0); ALBUMIN/GLOBULIN RATIO 1.5 (1.0-1.7); MAGNESIUM 2.4 mg/dL (1.8-2.4); TOTAL BILIRUBIN 0.3 mg/dL (0.2-1.0); TOTAL PROTEIN 5.9 g/dL (6.4-8.2)
--- NOTE | 2019-04-08 09:24 | RAD ---
EXAM: CT Pulmonary Angiogram INDICATION: Chest pain, shortness of breath. TECHNIQUE: Multi-detector row images were acquired from the thoracic inlet through the upper abdomen with the use of IV contrast. Sagittal and coronal images were acquired from the transaxial data. MIP images of the pulmonary arteries were obtained. All CT scans performed at this facility utilize dose optimization techniques as appropriate to the exam, including the following: Automated exposure control and adjustment of the mA and/or KV according to patient size (this includes techniques or standardized protocols for targeted exams where dose is indication/reason for exam). IV CONTRAST: Administered COMPARISON: Chest x-rays of 01/24/2019 and 04/08/2019 FINDINGS: Study is not gated. PULMONARY ARTERIES: No pulmonary emboli are identified. CARDIOVASCULAR: Mildly enlarged heart with aortic valvular and coronary arterial calcifications. The descending thoracic aorta shows abnormal hyperdensity in the wall with medial displacement of the partly calcified intima, highly suspicious for an acute descending intramural hematoma. This extends down to the hiatus without obvious involvement of the great vessels although narrowing of the origin of the celiac axis is present from mass effect from the diaphragmatic pleura and median arcuate ligament. MEDIASTINUM & KATE: Small pericardial effusion in the superior pericardial recess. LUNGS: Mild bronchiectasis in the lower lobes with subpleural reticular densities and early honeycombing is present in a basilar predominant distribution. PLEURAL SPACE: No pleural effusions or pneumothorax. OSSEOUS & SOFT TISSUE: Unremarkable ABDOMEN: Included abdomen shows atrophic kidneys with multiple cortical lesions statistically likely to be cysts although too small to characterize. There is a 1.7 cm exophytic mass of the superior pole left kidney that measures soft tissue density at 44HU that may benefit from more definitive characterization with renal mass protocol CT or MRI as although it may represent a hemorrhagic or complicated cyst, an incidental solid renal mass is not excluded. IMPRESSION: 1. 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 2. No evidence of pulmonary emboli. 3. Basilar predominant interstitial lung disease. 4. Atrophic kidneys with incidental renal lesions recommended for an elective follow-up renal mass protocol CT or MRI abdomen. FOR INTERNAL CODING PURPOSES Critical result: Findings discussed with MARIA INES SMITH at 04/08/2019 9:09 AM. RESULT CODE: (C) Electronically signed by: Joanne Kc MD (04/08/2019 9:21 AM) [id number]
[2019-04-08] MEDS: ESMOLOL 100 MG/10 ML VIAL. IVP ONE ×2 (09:30→10:11)
[2019-04-08] MEDS ORDERED: ESMOLOL 2500MG/250ML PREMIX 250 ML IV ONE (09:30)
[2019-04-08] MEDS ORDERED: ESMOLOL 100 MG/10 ML VIAL. IVP ONE (10:15)
[2019-04-08 12:00] VITALS: BP 162/77
== END 2019-04-08 12:15 | disposition short-term general hospital (02) ==
LOC: ER 07:23
DX: I71.01 Dissection of thoracic aorta (principal); I12.0 Hypertensive chronic kidney disease with stage 5 chronic kidney disease or end stage renal disease; N18.6 End stage renal disease; Z99.2 Dependence on renal dialysis; M54.9 Dorsalgia, unspecified; K21.9 Gastro-esophageal reflux disease without esophagitis; E78.00 Pure hypercholesterolemia, unspecified; E03.9 Hypothyroidism, unspecified; Z98.890 Other specified postprocedural states; Z87.891 Personal history of nicotine dependence; Z88.1 Allergy status to other antibiotic agents; Z88.2 Allergy status to sulfonamides
CPT/HCPCS: 36415; 71045; 71275; 80053; 83735; 84484; 85025; 93005; 96365; 96366; 96368; 96375; 96376; 99291; J2270; J2405; J3490; J7050; Q9967; J7030

== ENCOUNTER 2019-10-19 02:17 | Inpatient (IN) | payer MEDICARE ==
[~2019-10-19] VITALS: Ht 152.4 cm; Wt 57.9 kg
[~2019-10-19 02:17] MED LIST changes: +ACET325T9 PO; -ASPI-612 PO; +ASPI-886 PO
--- NOTE | 2019-10-19 02:25 | PHYS DOC ---
Past Medical History Past Medical History: GERD, High Cholesterol, Hypertension, Hypothyroid, Other Additional Past Medical Histor: kidney disease, back pain Past Surgical History: Other Additional Past Surgical Histo: R kidney, back x3,LEFT UPPER ARM DIALYSIS CATH Smoking Status: Former Smoker Alcohol Use: Occasionally Drug Use: None General Adult EDM: Chief Complaint: DYSPNEA/RESPIRATOY DISTRESS HPI: HPI: Patient is a 84 year old female who presents with a chief complaint of shortness of breath. Patient is on dialysis and gets it Sunday and has had shortness of breath the last 2 days. Patient denies any fevers chills or cough. Patient says the symptoms are better with oxygen and worse with exertion. Patient has some mild chest discomfort associated with this. Patient was satting 90% prior to arrival. Review of Systems: Review of Systems: Constitutional: Denies fever or chills. [] Eyes: Denies change in visual acuity. [] HENT: Denies nasal congestion or sore throat. [] Respiratory: Complains of shortness of breath but no cough Cardiovascular: Denies mild chest discomfort GI: Denies abdominal pain, nausea, vomiting, bloody stools or diarrhea. [] : Denies dysuria. [] Musculoskeletal: Denies back pain or joint pain. [] Integument: Denies rash. [] Neurologic: Denies headache, focal weakness or sensory changes. [] Endocrine: Denies polyuria or polydipsia. [] Lymphatic: Denies swollen glands. [] Psychiatric: Denies depression or anxiety. [] Heart Score: Risk Factors: Risk Factors: DM, Current or recent (<one month) smoker, HTN, HLP, family history of CAD, obesity. Risk Scores: Score 0 - 3: 2.5% MACE over next 6 weeks - Discharge Home Score 4 - 6: 20.3% MACE over next 6 weeks - Admit for Clinical Observation Score 7 - 10: 72.7% MACE over next 6 weeks - Early Invasive Strategies Allergies: Allergies: Allergies Coded Allergies Type Severity Reaction Last Updated Verified sulfamethoxazole Allergy Intermediate 02/25/17 Yes trimethoprim Allergy Intermediate 02/25/17 Yes Physical Exam: PE: Constitutional: Well developed, well nourished, no acute distress, non-toxic appearance. [] HENT: Normocephalic, atraumatic, bilateral external ears normal, no trismus nose normal. [] Eyes: PERRLA, EOMI, conjunctiva normal, no discharge. [] Neck: Normal range of motion, no tenderness, supple, no stridor. [] Cardiovascular: Irregular, regular rate, peripheral pulses intact, cap refill brisk Lungs & Thorax: Bilateral breath sounds clear, no respiratory distress Abdomen: , soft, no tenderness, no masses, no pulsatile masses. [] Skin: Warm, dry, no erythema, no rash. [] Back: No tenderness, no CVA tenderness. [] Extremities: Mild bilateral lower extremity edema Neurologic: Alert and oriented X 3, normal motor function, normal sensory function, no focal deficits noted. [] Psychologic: Affect normal, judgement normal, mood normal. [] Current Patient Data: Labs: Laboratory Tests Test 10/19/19 02:30 White Blood Count 9.8 x10^3/uL Red Blood Count 3.48 x10^6/uL Hemoglobin 11.5 g/dL Hematocrit 35.2 % Mean Corpuscular Volume 101 fL Mean Corpuscular Hemoglobin 33 pg Mean Corpuscular Hemoglobin Concent 33 g/dL Red Cell Distribution Width 14.2 % Platelet Count 258 x10^3/uL Neutrophils (%) (Auto) 75 % Lymphocytes (%) (Auto) 11 % Monocytes (%) (Auto) 11 % Eosinophils (%) (Auto) 3 % Basophils (%) (Auto) 1 % Neutrophils # (Auto) 7.3 x10^3/uL Lymphocytes # (Auto) 1.0 x10^3/uL Monocytes # (Auto) 1.0 x10^3/uL Eosinophils # (Auto) 0.3 x10^3/uL Basophils # (Auto) 0.1 x10^3/uL Prothrombin Time 13.5 SEC Prothromb Time International Ratio 1.1 Activated Partial Thromboplast Time 35 SEC Sodium Level 143 mmol/L Potassium Level 3.8 mmol/L Chloride Level 100 mmol/L Carbon Dioxide Level 29 mmol/L Anion Gap 14 Blood Urea Nitrogen 51 mg/dL Creatinine 4.5 mg/dL Estimated GFR (Cockcroft-Gault) 9.3 BUN/Creatinine Ratio 11 Glucose Level 107 mg/dL Lactic Acid Level 1.2 mmol/L Calcium Level 9.1 mg/dL Magnesium Level 2.0 mg/dL Total Bilirubin 0.4 mg/dL Aspartate Amino Transf (AST/SGOT) 16 U/L Alanine Aminotransferase (ALT/SGPT) 13 U/L Alkaline Phosphatase 43 U/L Troponin I Quantitative 0.064 ng/mL NR-Iuc-G-Type Natriuretic Peptide > 04213 pg/mL Total Protein 6.8 g/dL Albumin 4.1 g/dL Albumin/Globulin Ratio 1.5 Current Medications Medications (Trade) Dose Ordered Sig/Mendoza Route PRN Reason Start Time Stop Time Status Last Admin Dose Admin Aspirin (Aspirin Chewable) 324 mg 1X ONCE PO 10/19/19 03:45 10/19/19 03:46 DC Vital Signs: Vital Signs Date Time Temp Pulse Resp B/P (MAP) Pulse Ox O2 Delivery O2 Flow Rate FiO2 10/19/19 02:20 97.6 83 22 178/92 (120) 99 Nasal Cannula 3.0 97.6 EKG: EKG: [] EKG interpreted by me atrial fibrillation with rate 81 left axis deviation nonspecific ST changes Radiology/Procedures: Radiology/Procedures: [][facility] [address] [place] [address] IMAGING REPORT Signed PATIENT: BRITTNEY REED ACCOUNT: [id number] : 1935 LOCATION: ER AGE: 84 SEX: F EXAM STATUS: REG ER ORD. PHYSICIAN: FRANKY REN MD REASON: SOA ER#[id number] PROCEDURE: PORTABLE CHEST 1V EXAM: CHEST 1 VIEW History: Shortness of breath COMPARISON: 04/08/2019 TECHNIQUE: Single portable radiograph of the chest FINDINGS: Moderate cardiomegaly. Descending thoracic aorta endovascular stent graft. Mild bibasilar lung airspace opacities likely atelectasis or infiltrates with small bilateral pleural effusions. IMPRESSION: Bibasilar lung airspace opacities with small bilateral pleural effusions. Electronically signed by: Cody Salas MD (10/19/2019 3:52 AM) [id number] DICTATED and SIGNED BY: CODY SALAS MD DATE: 10/19/19 0352 Course & Med Decision Making: Course & Med Decision Making Pertinent Labs and Imaging studies reviewed. (See chart for details) [] 84-year-old female presents with shortness of breath. Patient was satting 90% prior to arrival feels much better on oxygen. Patient has a slightly elevated troponin which may or may not be related to her end-stage renal disease. Patient has bibasilar infiltrate versus atelectasis and will be swab for COVID-19. Patient will be admitted with a nephrology consult to Dr. Looney. Dragon Disclaimer: Eleuterio Disclaimer: This electronic medical record was generated, in whole or in part, using a voice recognition dictation system. Departure Departure Impression: Primary Impression: Dyspnea Additional Impressions: ESRD (end stage renal disease) Suspected COVID-19 virus infection Disposition: ADMITTED INPATIENT Admitting Physician: GENEVIEVE (JERROD) Condition: STABLE Referrals: DONALD IVORY (PCP) Justicifation of Admission Dx: Justifications for Admission: Justification of Admission Dx: Yes (HYPOXIA) FRANKY REN MD Oct 19, 2019 02:25
[2019-10-19 02:47] LABS: BASO # 0.1 x10^3/uL (0.0-0.2); BASO % 1 % (0-3); EOS # 0.3 x10^3/uL (0.0-0.7); EOS % 3 % (0-3); HEMATOCRIT 35.2 % (36.0-47.0); HEMOGLOBIN 11.5 g/dL (12.0-15.5); LYMPH % 11 % (24-48); MEAN CORPUSCULAR HEMOGLOBIN 33 pg (25-35); MEAN CORPUSCULAR HGB CONC 33 g/dL (31-37); MEAN CORPUSCULAR VOLUME 101 fL (79-100); MONO % 11 % (0-9); NEUT # 7.3 x10^3/uL (1.8-7.7); NEUT % 75 % (31-73); PLATELET COUNT 258 x10^3/uL (140-400); RED BLOOD COUNT 3.48 x10^6/uL (3.50-5.40); RED CELL DISTRIBUTION WIDTH 14.2 % (11.5-14.5); WHITE BLOOD COUNT 9.8 x10^3/uL (4.0-11.0)
[2019-10-19 02:56] LABS: CALCIUM 9.1 mg/dL (8.5-10.1); CREATININE 4.5 mg/dL (0.6-1.0); GFR 9.3; POTASSIUM 3.8 mmol/L (3.5-5.1)
[2019-10-19 02:58] LABS: PROTHROMBIN TIME PATIENT 13.5 SEC (11.7-14.0)
[2019-10-19 03:02] LABS: ALBUMIN 4.1 g/dL (3.4-5.0); ALBUMIN/GLOBULIN RATIO 1.5 (1.0-1.7); TOTAL BILIRUBIN 0.4 mg/dL (0.2-1.0); TOTAL PROTEIN 6.8 g/dL (6.4-8.2)
[2019-10-19] MEDS ORDERED: ASPIRIN CHEWABLE 81 MG TABLET. PO ONE (03:45)
--- NOTE | 2019-10-19 03:55 | RAD ---
EXAM: CHEST 1 VIEW History: Shortness of breath COMPARISON: 04/08/2019 TECHNIQUE: Single portable radiograph of the chest FINDINGS: Moderate cardiomegaly. Descending thoracic aorta endovascular stent graft. Mild bibasilar lung airspace opacities likely atelectasis or infiltrates with small bilateral pleural effusions. IMPRESSION: Bibasilar lung airspace opacities with small bilateral pleural effusions. Electronically signed by: Cody Salas MD (10/19/2019 3:52 AM) [id number]
[2019-10-19] MEDS ORDERED: ONDANSETRON PF 4 MG/2 ML VIAL. IV PRN (04:15)
[2019-10-19] MEDS ORDERED: AZITHRMYCN 500MG IVPB FOR OMNI 250 ML IV ONE (04:30)
[2019-10-19] MEDS ORDERED: cefTRIAXone IV Push 1 GM VIAL. IVP ONE (04:30)
[2019-10-19] MEDS ORDERED: MORPHINE SULFATE 2 MG/ML VIAL. ONE (05:09)
[2019-10-19] MEDS ORDERED: MORPHINE SULFATE 2 MG/ML VIAL. IV ONE (05:30)
[2019-10-19 05:38] VITALS: BP 158/76
[2019-10-19 07:15] VITALS: BP 156/72
--- NOTE | 2019-10-19 08:29 | PDOC1 ---
History and Physical Date of Admission Date of Admission DATE: 10/19/19 TIME: 08:29 Identification/Chief Complaint Chief Complaint seen in er with SOA, HAS KNOWN ESRD, PULM HTN 84 year old female who presents with a chief complaint of shortness of breath. Patient is on dialysis and gets it Sunday and has had shortness of breath the last 2 days. Patient denies any fevers chills or cough. Patient says the symptoms are better with oxygen and worse with exertion. Patient has some mild chest discomfort associated with this. Patient was satting 90% prior to arrival. Past Medical History Past Medical History Past Medical History Past Medical History: GERD, High Cholesterol, Hypertension, Hypothyroid, Other Additional Past Medical Histor: kidney disease, back pain Past Surgical History: Other Additional Past Surgical Histo: R kidney, back x3,LEFT UPPER ARM DIALYSIS CATH Smoking Status: Former Smoker Alcohol Use: Occasionally Drug Use: None fhx htn Cardiovascular: CHF, Hyperlipidemia Pulmonary: COPD CENTRAL NERVOUS SYSTEM: TIA GI: Constipation, GERD Heme/Onc: Anemia NOS Hepatobiliary: No pertinent hx Psych: No pertinent hx Musculoskeletal: Osteoarthritis Infectious disease: No pertinent hx Renal/: Chronic renal failure Endocrine: Hypothyroidism Past Surgical History Past Surgical History: Cataract Removal, Other Family History Family History: Heart Disease Social History Smoke: No ALCOHOL: none Drugs: None Current Problem List Problem List Problems Medical Problems: (1) Dyspnea Status: Acute (2) Suspected COVID-19 virus infection Status: Acute Current Medications Current Medications Current Medications Aspirin (Aspirin Chewable) 324 mg 1X ONCE PO Last administered on 10/19/19at 03:45; Start 10/19/19 at 03:45; Stop 10/19/19 at 03:46; Status DC Ceftriaxone Sodium (Rocephin) 1 gm 1X ONCE IVP Last administered on 10/19/19at 04:30; Start 10/19/19 at 04:30; Stop 10/19/19 at 04:31; Status DC Azithromycin 250 ml @ 250 mls/hr 1X ONCE IV Last administered on 10/19/19at 04:30; Start 10/19/19 at 04:30; Stop 10/19/19 at 05:29; Status DC Ondansetron HCl (Zofran) 4 mg PRN Q8HRS PRN IV NAUSEA/VOMITING 1ST CHOICE Last administered on 10/19/19at 05:18; Start 10/19/19 at 04:15; Stop 10/20/19 at 04:14 Morphine Sulfate (Morphine Sulfate) 2 mg 1X ONCE IV Last administered on at 05:17; Start 10/19/19 at 05:30; Stop 10/19/19 at 05:31; Status DC Morphine Sulfate (Morphine Sulfate) 2 mg STK-MED ONCE .ROUTE ; Start 10/19/19 at 05:09; Stop 10/19/19 at 05:09; Status DC Active Scripts Active Tylenol (Acetaminophen) 325 Mg Tablet 650 Mg PO PRN Q6HRS PRN 30 Days Hydrocodone-Apap 10-325 (Hydrocodone Bit/Acetaminophen) 1 Each Tablet 1 Tab PO PRN TID PRN 6 Days Proair Hfa (Albuterol Sulfate) 8.5 Gm Hfa.aer.ad 2.5 Mg NEB PRN Q4HRS PRN Jerilyn-Jaylon Tablet (Folic Acid/Vitamin B Comp W-C) 0.8 Mg Tablet 1 Tab PO DAILY 30 Days Culturelle (Lactobacillus Rhamnosus Gg) 1 Each Cap.sprink 1 Cap PO BID 14 Days Nifedipine Er (Nifedipine) 30 Mg Tab.er.24 90 Mg PO DAILY Aspirin Ec (Aspirin) 81 Mg Tablet.dr 81 Mg PO DAILYWBKFT Reported Coreg (Carvedilol) 6.25 Mg Tablet 6.25 Mg PO BIDWMEALS Synthroid (Levothyroxine Sodium) 50 Mcg Tablet 50 Mcg PO DAILYAC Sodium Bicarbonate 650 Mg Tablet 650 Mg PO BID Pepcid (Famotidine) 20 Mg Tablet 10 Mg PO PRN DAILY NITROGLYCERIN SubLingual (Nitroglycerin) 0.4 Mg Tab.subl 0.4 Mg SL PRN Q5MIN PRN Isosorbide Mononitrate Er (Isosorbide Mononitrate) 30 Mg Tab.er.24h 2 Tab PO DAILY Next dose due tomorrow morning. Allergies Allergies: Coded Allergies: sulfamethoxazole (Verified Allergy, Intermediate, 02/25/17) trimethoprim (Verified Allergy, Intermediate, 02/25/17) ROS Review of System Constitutional: Denies fever or chills. [] Eyes: Denies change in visual acuity. [] HENT: Denies nasal congestion or sore throat. [] Respiratory: Complains of shortness of breath but no cough Cardiovascular: Denies mild chest discomfort GI: Denies abdominal pain, nausea, vomiting, bloody stools or diarrhea. [] : Denies dysuria. [] Musculoskeletal: Denies back pain or joint pain. [] Integument: Denies rash. [] Neurologic: Denies headache, focal weakness or sensory changes. [] Endocrine: Denies polyuria or polydipsia. [] Lymphatic: Denies swollen glands. [] Psychiatric: Denies depression or anxiety. [] 14 PT ROS OTHERWISE NEG Respiratory: YES: Shortness of breath Physical Exam Physical Exam Constitutional: Well developed, well nourished, no acute distress, non-toxic appearance. [] HENT: Normocephalic, atraumatic, bilateral external ears normal, no trismus nose normal. [] Eyes: PERRLA, EOMI, conjunctiva normal, no discharge. [] Neck: Normal range of motion, no tenderness, supple, no stridor. [] Cardiovascular: Irregular, regular rate, peripheral pulses intact, cap refill brisk GR 3/6 YUNIOR LSB Lungs & Thorax: Bilateral breath sounds clear, no respiratory distress Abdomen: , soft, no tenderness, no masses, no pulsatile masses. [] Skin: Warm, dry, no erythema, no rash. [] Back: No tenderness, no CVA tenderness. [] Extremities: Mild bilateral lower extremity edema Neurologic: Alert and oriented X 3, normal motor function, normal sensory function, no focal deficits noted. [] Psychologic: Affect normal, judgment normal, mood normal. [] General: Alert, Cooperative HEENT: Atraumatic Heart: RRR Abdomen: Soft Rectal Exam: not examined PELVIC: Examination not indicated Extremities: No cyanosis Neuro: Normal speech, Cranial nerves 3-12 NL Psych/Mental Status: Mental status NL, Mood NL Vitals Vitals Vital Signs Date Time Temp Pulse Resp B/P (MAP) Pulse Ox O2 Delivery O2 Flow Rate FiO2 10/19/19 07:18 Nasal Cannula 3.0 10/19/19 05:38 97.1 83 25 158/76 (103) 98 97.1 Labs Labs Laboratory Tests Test 10/19/19 02:30 White Blood Count 9.8 x10^3/uL (4.0-11.0) Red Blood Count 3.48 x10^6/uL (3.50-5.40) Hemoglobin 11.5 g/dL (12.0-15.5) Hematocrit 35.2 % (36.0-47.0) Mean Corpuscular Volume 101 fL (79-100) Mean Corpuscular Hemoglobin 33 pg (25-35) Mean Corpuscular Hemoglobin Concent 33 g/dL (31-37) Red Cell Distribution Width 14.2 % (11.5-14.5) Platelet Count 258 x10^3/uL (140-400) Neutrophils (%) (Auto) 75 % (31-73) Lymphocytes (%) (Auto) 11 % (24-48) Monocytes (%) (Auto) 11 % (0-9) Eosinophils (%) (Auto) 3 % (0-3) Basophils (%) (Auto) 1 % (0-3) Neutrophils # (Auto) 7.3 x10^3/uL (1.8-7.7) Lymphocytes # (Auto) 1.0 x10^3/uL (1.0-4.8) Monocytes # (Auto) 1.0 x10^3/uL (0.0-1.1) Eosinophils # (Auto) 0.3 x10^3/uL (0.0-0.7) Basophils # (Auto) 0.1 x10^3/uL (0.0-0.2) Prothrombin Time 13.5 SEC (11.7-14.0) Prothromb Time International Ratio 1.1 (0.8-1.1) Activated Partial Thromboplast Time 35 SEC (24-38) Sodium Level 143 mmol/L (136-145) Potassium Level 3.8 mmol/L (3.5-5.1) Chloride Level 100 mmol/L (98-107) Carbon Dioxide Level 29 mmol/L (21-32) Anion Gap 14 (6-14) Blood Urea Nitrogen 51 mg/dL (7-20) Creatinine 4.5 mg/dL (0.6-1.0) Estimated GFR (Cockcroft-Gault) 9.3 BUN/Creatinine Ratio 11 (6-20) Glucose Level 107 mg/dL (70-99) Lactic Acid Level 1.2 mmol/L (0.4-2.0) Calcium Level 9.1 mg/dL (8.5-10.1) Magnesium Level 2.0 mg/dL (1.8-2.4) Total Bilirubin 0.4 mg/dL (0.2-1.0) Aspartate Amino Transf (AST/SGOT) 16 U/L (15-37) Alanine Aminotransferase (ALT/SGPT) 13 U/L (14-59) Alkaline Phosphatase 43 U/L (46-116) Troponin I Quantitative 0.064 ng/mL (0.000-0.055) BB-Kda-J-Type Natriuretic Peptide > 29136 pg/mL (0-449) Total Protein 6.8 g/dL (6.4-8.2) Albumin 4.1 g/dL (3.4-5.0) Albumin/Globulin Ratio 1.5 (1.0-1.7) Laboratory Tests Test 10/19/19 02:30 White Blood Count 9.8 x10^3/uL (4.0-11.0) Red Blood Count 3.48 x10^6/uL (3.50-5.40) Hemoglobin 11.5 g/dL (12.0-15.5) Hematocrit 35.2 % (36.0-47.0) Mean Corpuscular Volume 101 fL (79-100) Mean Corpuscular Hemoglobin 33 pg (25-35) Mean Corpuscular Hemoglobin Concent 33 g/dL (31-37) Red Cell Distribution Width 14.2 % (11.5-14.5) Platelet Count 258 x10^3/uL (140-400) Neutrophils (%) (Auto) 75 % (31-73) Lymphocytes (%) (Auto) 11 % (24-48) Monocytes (%) (Auto) 11 % (0-9) Eosinophils (%) (Auto) 3 % (0-3) Basophils (%) (Auto) 1 % (0-3) Neutrophils # (Auto) 7.3 x10^3/uL (1.8-7.7) Lymphocytes # (Auto) 1.0 x10^3/uL (1.0-4.8) Monocytes # (Auto) 1.0 x10^3/uL (0.0-1.1) Eosinophils # (Auto) 0.3 x10^3/uL (0.0-0.7) Basophils # (Auto) 0.1 x10^3/uL (0.0-0.2) Prothrombin Time 13.5 SEC (11.7-14.0) Prothromb Time International Ratio 1.1 (0.8-1.1) Activated Partial Thromboplast Time 35 SEC (24-38) Sodium Level 143 mmol/L (136-145) Potassium Level 3.8 mmol/L (3.5-5.1) Chloride Level 100 mmol/L (98-107) Carbon Dioxide Level 29 mmol/L (21-32) Anion Gap 14 (6-14) Blood Urea Nitrogen 51 mg/dL (7-20) Creatinine 4.5 mg/dL (0.6-1.0) Estimated GFR (Cockcroft-Gault) 9.3 BUN/Creatinine Ratio 11 (6-20) Glucose Level 107 mg/dL (70-99) Lactic Acid Level 1.2 mmol/L (0.4-2.0) Calcium Level 9.1 mg/dL (8.5-10.1) Magnesium Level 2.0 mg/dL (1.8-2.4) Total Bilirubin 0.4 mg/dL (0.2-1.0) Aspartate Amino Transf (AST/SGOT) 16 U/L (15-37) Alanine Aminotransferase (ALT/SGPT) 13 U/L (14-59) Alkaline Phosphatase 43 U/L (46-116) Troponin I Quantitative 0.064 ng/mL (0.000-0.055) QS-Idd-O-Type Natriuretic Peptide > 88146 pg/mL (0-449) Total Protein 6.8 g/dL (6.4-8.2) Albumin 4.1 g/dL (3.4-5.0) Albumin/Globulin Ratio 1.5 (1.0-1.7) Images Images MRI Brain without contrast History:Weakness, myoclonus Technique: Multiplanar, multisequential noncontrast MR imaging was performed of the brain. Comparison: September 26, 2018 Findings: There is no evidence of recent infarct or cytotoxic edema. Ventricular size is proportionate to the sulcal spaces, again moderate generalized supratentorial atrophy.There is no significant midline shift, intraaxial mass effect, or focal abnormal extra-axial fluid collection. There is again scattered multifocal overall mild T2 and FLAIR hyperintense signal abnormality of the supratentorial parenchyma bilaterally. There is again abnormal signal in the left intradural vertebral artery. The cerebellar tonsils are normal in location. There is no significant abnormality of the pineal gland or pituitary gland. There has been lens surgery bilaterally. There is very minimal patchy ethmoid air cell mucosal thickening. The mastoid air cells are aerated. There is preserved marrow signal of the clivus. There is degenerative disc disease of visualized cervical spine, also grade 1 anterior spondylolisthesis C3-4 and to lesser degree at C2-3. There is likely central canal stenosis at C3-4 and C4-5 on the order of 7 mm. Impression: 1. There is no evidence of recent infarct or intracranial mass effect. 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 Scattered [id number] T2 and FLAIR hyperintense signal abnormality of the supratentorial parenchyma bilaterally is nonspecific although most commonly due to chronic microvascular ischemic disease in a patient this age. 2. 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 3. Not fully evaluated, there is cervical spinal stenosis. Electronically signed by: Niall Soriano MD (06/05/2019 2:53 PM) [id number] DPOA REVIEW 17 MIN What Is a Power of [employer]? A power of marketing clerk (POA) is a legal document giving one person (the agent or aizlwbex-mv-qvoo) the power to act for another person (the principal). The agent can have broad legal authority or limited authority to make legal decisions about the principal's property, finances or medical care. The power of marketing clerk is frequently used in the event of a principal's illness or disability, or when the principal can't be present to sign necessary legal documents for financial transactions. A power of marketing clerk can end for a number of reasons, such as when the principal dies, the principal revokes it, a court invalidates it, the principal divorces their spouse, who happens to be the agent, or the agent can no longer carry out the outlined responsibilities. Conventional POAs lapse when the creator becomes incapacitated, but a durable POA remains in force to enable the agent to manage the creators affairs, and a springing POA comes into effect only if and when the creator of the POA becomes incapacitated. A medical or healthcare POA enables an agent to make medical decisions on behalf of an incapacitated person. [employer] A power of marketing clerk (POA) is a legal document giving one person, the agent or [id number] the power to act for another person, the principal. The agent can have broad legal authority or limited authority to make decisions about the principal's property, finances or medical care. The power of marketing clerk is often used when a principal becomes ill or disabled, or when they can't be present to sign necessary legal documents for financial transactions. Understanding Power of [employer] Scout A power of marketing clerk should be considered when planning for long-term care. There are different types of POAs that fall under either a general power of marketing clerk or limited power of marketing clerk. A general power of marketing clerk acts on behalf of the principal in any and all matters, as allowed by the state. The agent under a general POA agreement may be authorized to take care of issues such as handling bank accounts, signing checks, selling property and assets like stocks, f A limited power of marketing clerk gives the agent the power to act on behalf of the principal in specific matters or events. For example, the limited POA may explicitly state that the agent is only allowed to manage the principal's detention accounts. A limited POA may also be limited to a specific period of time (e.g., if the principal will be out of the country for, say, two years). Most reyes of marketing clerk documents allow an agent to represent the principal in all property and financial matters as long as the principals mental state of mind is good. If a situation occurs where the principal becomes incapable of making decisions for him or herself, the POA agreement would automatically end. However, someone who wants the POA to remain in effect after the persons health deteriorates would need to sign a durable power of marketing clerk (DPOA). Mitral Valve MV E Velocity 58.3cm/s MV DECEL TIME 328ms MV A Velocity 100.9cm/s E/A Ratio 0.6 Pulmonary Valve PV Peak Velocity 108.5cm/s Tricuspid Valve TR P. Velocity 319cm/s RAP ESTIMATE 3mmHg TR Peak Gr. 41mmHg RVSP 44mmHg LEFT VENTRICLE The left ventricle is normal size. There is mild asymmetric left ventricular hypertrophy. The Ejection Fraction is 60-65%. The left ventricular systolic function is normal and the ejection fraction is within normal range. There is normal LV segmental wall motion. Transmitral Doppler flow pattern is Grade I- abnormal relaxation pattern. RIGHT VENTRICLE The right ventricle is normal size. There is normal right ventricular wall thickness. The right ventricular systolic function is normal. ATRIA The left atrium size is normal. The right atrium size is normal. The interatrial septum is intact with no evidence for an atrial septal defect or patent foramen ovale as noted on 2-D or Doppler imaging. AORTIC VALVE The aortic valve is moderately calcified. The aortic valve is trileaflet. Doppler and Color Flow revealed mild aortic regurgitation. There is moderate valvular aortic stenosis. Calculated aortic valve area is 1.3 cm2 with maximum pressure gradient of 39 mmHg and mean pressure gradient of 22 mmHg. MITRAL VALVE The mitral valve is thickened but opens well. There is no evidence of mitral valve prolapse. There is no mitral valve stenosis. Doppler and Color-flow revealed trace mitral regurgitation. TRICUSPID VALVE The tricuspid valve is normal in structure and function. Doppler and Color Flow revealed trace tricuspid regurgitation. There is moderate pulmonary hypertension. The PA pressure was estimated at 44 mmHg. There is no tricuspid valve prolapse or vegetation. There is no tricuspid valve stenosis. PULMONIC VALVE The pulmonic valve is not well visualized. GREAT VESSELS The aortic root is normal in size. The ascending aorta is normal in size. The IVC is normal in size and collapses >50% with inspiration. PERICARDIAL EFFUSION There is no evidence of significant pericardial effusion. Critical Notification Critical Value: No <Conclusion> The Ejection Fraction is 60-65%. The left ventricular systolic function is normal and the ejection fraction is within normal range. There is normal LV segmental wall motion. The aortic valve is moderately calcified. The aortic valve is trileaflet. There is moderate valvular aortic stenosis. Calculated aortic valve area is 1.3 cm2 with maximum pressure gradient of 39 mmHg and mean pressure gradient of 22 mmHg. Doppler and Color Flow revealed trace tricuspid regurgitation. There is moderate pulmonary hypertension. The PA pressure was estimated at 44 mmHg. Signed by : Nikolas Thompson, Electronically Approved : 09/26/2018 14:47:29 PROCEDURE: PORTABLE CHEST 1V EXAM: CHEST 1 VIEW History: Shortness of breath COMPARISON: 04/08/2019 TECHNIQUE: Single portable radiograph of the chest FINDINGS: Moderate cardiomegaly. Descending thoracic aorta endovascular stent graft. Mild bibasilar lung airspace opacities likely atelectasis or infiltrates with small bilateral pleural effusions. IMPRESSION: Bibasilar lung airspace opacities with small bilateral pleural effusions. Electronically signed by: Cody Salas MD (10/19/2019 3:52 AM) [id number] DICTATED and SIGNED BY: CODY SALAS MD DATE: 10/19/19 0352 VTE Prophylaxis Ordered VTE Prophylaxis Devices: No VTE Pharmacological Prophylaxi: Yes Assessment/Plan Assessment/Plan Impression: Dyspnea // volume overload and congestive heart failure, echo 2018 NOTED moderate valvular aortic stenosis. Calculated aortic valve area is 1.3 cm2 with maximum pressure gradient of 39 mmHg and mean pressure gradient of 22 mmHg.trace tricuspid regurgitation. There is moderate pulmonary hypertension. The PA pressure was estimated at 44 mmHg. ESRD (end stage renal disease) ON DIALYSIS PUI Covid 19 hypertension, LABILE hyperlipidemia minimal troponin i elevation generalized supratentorial atrophy. Scattered [id number] T2 and FLAIR hyperintense signal abnormality of the supratentorial parenchyma // due to chronic microvascular ischemic disease plan ADMITTED pulm consult cardiology consult tele 6TH FLOOR resp isolation diuresis home meds dvt prophylaxis NEPHROLOGY CONSULT CONSIDER REPEAT ECHO IV HYDRALAZINE 10MG Q 4 HRS PRN BP SUPPORT 75 min pt exam, chart review, > 50% of time spent with exam, chart review, pt care coordination needs dpoa Justifications for Admission Other Justification XIAO ELDER MD Oct 19, 2019 08:29
--- NOTE | 2019-10-19 10:43 | PDOC2 ---
CONSULT Date of Consult Date of Consult DATE: 10/19/19 TIME: 10:37 Reason for Consult Reason for Consult: Heart failure Referring Physician Referring Physician: Dr. Looney Identification/Chief Complaint Chief Complaint Shortness of breath Source Source: Chart review, Patient History of Present Illness Reason for Visit: The patient is an 84-year-old female with a history of end-stage renal disease who is on hemodialysis on a Sunday, Sunday and Sunday schedule. She presented with 2 to 3 days of gradually increasing shortness of breath. She also reported mild chest pressure on admission which is now resolved. Her EKG showed no acute ischemic changes. Troponin was borderline at 0.064 but her BNP was severely elevated at 35,000. Chest x-ray showed bilateral airspace opacities and small bilateral pleural effusions. The patient had an echocardiogram on 09/26/2018 that showed an ejection fraction of 60 to 65% with mild aortic insufficiency and trace tricuspid regurgitation with a mildly to moderately elevated pulmonary artery pressure at 44 mmHg. She is feeling better today. Her pain has resolved. Past Medical History Cardiovascular: CHF, Hyperlipidemia Pulmonary: COPD CENTRAL NERVOUS SYSTEM: TIA GI: Constipation, GERD Heme/Onc: Anemia NOS Hepatobiliary: No pertinent hx Psych: No pertinent hx Infectious disease: No pertinent hx Renal/: Chronic renal failure Endocrine: Hypothyroidism Past Surgical History Past Surgical History: Cataract Removal, Other (Dialysis shunt) Family History Family History: Heart Disease Social History Quit ALCOHOL: rare Drugs: None Lives: with Family Current Problem List Problem List Problems Medical Problems: (1) Dyspnea Status: Acute (2) Suspected COVID-19 virus infection Status: Acute Current Medications Current Medications Current Medications Aspirin (Aspirin Chewable) 324 mg 1X ONCE PO Last administered on 10/19/19at 03:45; Start 10/19/19 at 03:45; Stop 10/19/19 at 03:46; Status DC Ceftriaxone Sodium (Rocephin) 1 gm 1X ONCE IVP Last administered on 10/19/19at 04:30; Start 10/19/19 at 04:30; Stop 10/19/19 at 04:31; Status DC Azithromycin 250 ml @ 250 mls/hr 1X ONCE IV Last administered on 10/19/19at 04:30; Start 10/19/19 at 04:30; Stop 10/19/19 at 05:29; Status DC Ondansetron HCl (Zofran) 4 mg PRN Q8HRS PRN IV NAUSEA/VOMITING 1ST CHOICE Last administered on 10/19/19at 05:18; Start 10/19/19 at 04:15; Stop 10/20/19 at 04:14 Morphine Sulfate (Morphine Sulfate) 2 mg 1X ONCE IV Last administered on 10/19/19at 05:17; Start 10/19/19 at 05:30; Stop 10/19/19 at 05:31; Status DC Morphine Sulfate (Morphine Sulfate) 2 mg STK-MED ONCE .ROUTE ; Start 10/19/19 at 05:09; Stop 10/19/19 at 05:09; Status DC Active Scripts Active Tylenol (Acetaminophen) 325 Mg Tablet 650 Mg PO PRN Q6HRS PRN 30 Days Hydrocodone-Apap 10-325 (Hydrocodone Bit/Acetaminophen) 1 Each Tablet 1 Tab PO PRN TID PRN 6 Days Proair Hfa (Albuterol Sulfate) 8.5 Gm Hfa.aer.ad 2.5 Mg NEB PRN Q4HRS PRN Jerilyn-Jaylon Tablet (Folic Acid/Vitamin B Comp W-C) 0.8 Mg Tablet 1 Tab PO DAILY 30 Days Culturelle (Lactobacillus Rhamnosus Gg) 1 Each Cap.sprink 1 Cap PO BID 14 Days Nifedipine Er (Nifedipine) 30 Mg Tab.er.24 90 Mg PO DAILY Aspirin Ec (Aspirin) 81 Mg Tablet.dr 81 Mg PO DAILYWBKFT Reported Coreg (Carvedilol) 6.25 Mg Tablet 6.25 Mg PO BIDWMEALS Synthroid (Levothyroxine Sodium) 50 Mcg Tablet 50 Mcg PO DAILYAC Sodium Bicarbonate 650 Mg Tablet 650 Mg PO BID Pepcid (Famotidine) 20 Mg Tablet 10 Mg PO PRN DAILY NITROGLYCERIN SubLingual (Nitroglycerin) 0.4 Mg Tab.subl 0.4 Mg SL PRN Q5MIN PRN Isosorbide Mononitrate Er (Isosorbide Mononitrate) 30 Mg Tab.er.24h 2 Tab PO DA JIMENA Next dose due tomorrow morning. Allergies Allergies: Coded Allergies: sulfamethoxazole (Verified Allergy, Intermediate, 02/25/17) trimethoprim (Verified Allergy, Intermediate, 02/25/17) ROS General: YES: Fatigue Respiratory: YES: Shortness of breath, SOB with excertion Vitals VITALS Vital Signs Date Time Temp Pulse Resp B/P (MAP) Pulse Ox O2 Delivery O2 Flow Rate FiO2 10/19/19 07:18 Nasal Cannula 3.0 10/19/19 07:15 98.8 76 16 156/72 (100) 97 98.8 Labs Labs Laboratory Tests Test 10/19/19 02:30 White Blood Count 9.8 x10^3/uL (4.0-11.0) Red Blood Count 3.48 x10^6/uL (3.50-5.40) Hemoglobin 11.5 g/dL (12.0-15.5) Hematocrit 35.2 % (36.0-47.0) Mean Corpuscular Volume 101 fL (79-100) Mean Corpuscular Hemoglobin 33 pg (25-35) Mean Corpuscular Hemoglobin Concent 33 g/dL (31-37) Red Cell Distribution Width 14.2 % (11.5-14.5) Platelet Count 258 x10^3/uL (140-400) Neutrophils (%) (Auto) 75 % (31-73) Lymphocytes (%) (Auto) 11 % (24-48) Monocytes (%) (Auto) 11 % (0-9) Eosinophils (%) (Auto) 3 % (0-3) Basophils (%) (Auto) 1 % (0-3) Neutrophils # (Auto) 7.3 x10^3/uL (1.8-7.7) Lymphocytes # (Auto) 1.0 x10^3/uL (1.0-4.8) Monocytes # (Auto) 1.0 x10^3/uL (0.0-1.1) Eosinophils # (Auto) 0.3 x10^3/uL (0.0-0.7) Basophils # (Auto) 0.1 x10^3/uL (0.0-0.2) Prothrombin Time 13.5 SEC (11.7-14.0) Prothromb Time International Ratio 1.1 (0.8-1.1) Activated Partial Thromboplast Time 35 SEC (24-38) Sodium Level 143 mmol/L (136-145) Potassium Level 3.8 mmol/L (3.5-5.1) Chloride Level 100 mmol/L (98-107) Carbon Dioxide Level 29 mmol/L (21-32) Anion Gap 14 (6-14) Blood Urea Nitrogen 51 mg/dL (7-20) Creatinine 4.5 mg/dL (0.6-1.0) Estimated GFR (Cockcroft-Gault) 9.3 BUN/Creatinine Ratio 11 (6-20) Glucose Level 107 mg/dL (70-99) Lactic Acid Level 1.2 mmol/L (0.4-2.0) Calcium Level 9.1 mg/dL (8.5-10.1) Magnesium Level 2.0 mg/dL (1.8-2.4) Total Bilirubin 0.4 mg/dL (0.2-1.0) Aspartate Amino Transf (AST/SGOT) 16 U/L (15-37) Alanine Aminotransferase (ALT/SGPT) 13 U/L (14-59) Alkaline Phosphatase 43 U/L (46-116) Troponin I Quantitative 0.064 ng/mL (0.000-0.055) DC-Rde-L-Type Natriuretic Peptide > 04049 pg/mL (0-449) Total Protein 6.8 g/dL (6.4-8.2) Albumin 4.1 g/dL (3.4-5.0) Albumin/Globulin Ratio 1.5 (1.0-1.7) Laboratory Tests Test 10/19/19 02:30 White Blood Count 9.8 x10^3/uL (4.0-11.0) Red Blood Count 3.48 x10^6/uL (3.50-5.40) Hemoglobin 11.5 g/dL (12.0-15.5) Hematocrit 35.2 % (36.0-47.0) Mean Corpuscular Volume 101 fL (79-100) Mean Corpuscular Hemoglobin 33 pg (25-35) Mean Corpuscular Hemoglobin Concent 33 g/dL (31-37) Red Cell Distribution Width 14.2 % (11.5-14.5) Platelet Count 258 x10^3/uL (140-400) Neutrophils (%) (Auto) 75 % (31-73) Lymphocytes (%) (Auto) 11 % (24-48) Monocytes (%) (Auto) 11 % (0-9) Eosinophils (%) (Auto) 3 % (0-3) Basophils (%) (Auto) 1 % (0-3) Neutrophils # (Auto) 7.3 x10^3/uL (1.8-7.7) Lymphocytes # (Auto) 1.0 x10^3/uL (1.0-4.8) Monocytes # (Auto) 1.0 x10^3/uL (0.0-1.1) Eosinophils # (Auto) 0.3 x10^3/uL (0.0-0.7) Basophils # (Auto) 0.1 x10^3/uL (0.0-0.2) Prothrombin Time 13.5 SEC (11.7-14.0) Prothromb Time International Ratio 1.1 (0.8-1.1) Activated Partial Thromboplast Time 35 SEC (24-38) Sodium Level 143 mmol/L (136-145) Potassium Level 3.8 mmol/L (3.5-5.1) Chloride Level 100 mmol/L (98-107) Carbon Dioxide Level 29 mmol/L (21-32) Anion Gap 14 (6-14) Blood Urea Nitrogen 51 mg/dL (7-20) Creatinine 4.5 mg/dL (0.6-1.0) Estimated GFR (Cockcroft-Gault) 9.3 BUN/Creatinine Ratio 11 (6-20) Glucose Level 107 mg/dL (70-99) Lactic Acid Level 1.2 mmol/L (0.4-2.0) Calcium Level 9.1 mg/dL (8.5-10.1) Magnesium Level 2.0 mg/dL (1.8-2.4) Total Bilirubin 0.4 mg/dL (0.2-1.0) Aspartate Amino Transf (AST/SGOT) 16 U/L (15-37) Alanine Aminotransferase (ALT/SGPT) 13 U/L (14-59) Alkaline Phosphatase 43 U/L (46-116) Troponin I Quantitative 0.064 ng/mL (0.000-0.055) YV-Kml-Y-Type Natriuretic Peptide > 80929 pg/mL (0-449) Total Protein 6.8 g/dL (6.4-8.2) Albumin 4.1 g/dL (3.4-5.0) Albumin/Globulin Ratio 1.5 (1.0-1.7) Images Images Chest x-ray as above. Assessment/Plan Assessment/Plan 1. Acute heart failure. BNP significantly elevated at 35,000. Patient's feeling better post diuresis. She is a dialysis patient. We will continue present medications with dialysis as per the renal service. COVID testing is pending and if negative will proceed with a repeat echocardiogram. 2. End-stage renal disease. Hemodialysis as per the renal service. 3. Hypertension. Blood pressure under reasonable control. Continue as above. 4. Hyperlipidemia. Will recheck lab. 5. History of gastroesophageal reflux disease. Thank you for allowing us to participate in the care of your patient. WOODY LOPEZ MD Oct 19, 2019 10:43
--- NOTE | 2019-10-19 10:58 | CONS ---
DATE OF CONSULTATION: 10/19/2019 I was asked to see this 84-year-old lady for COVID-19 PUI. She is very hard of hearing and is not wearing her hearing aids; it is not available for me at this time, but she is complaining of leg cramp and she is on oxygen, but denies shortness of breath. She was brought to the Emergency Room due to shortness of breath for the past few days. She is on dialysis on Sunday, Sunday and Sunday. She denied fever, chills, or cough. She has had some chest pain. PAST MEDICAL HISTORY: Gastroesophageal reflux disease, end-stage renal disease; on hemodialysis, hypertension, hypothyroidism. ALLERGIES: SULFAMETHOXAZOLE, TRIMETHOPRIM, BACTRIM. MEDICATIONS: The patient was given Rocephin and azithromycin in the Emergency Room. SOCIAL HISTORY: Former smoker per chart. FAMILY HISTORY: Hypertension per chart. REVIEW OF SYSTEMS: As mentioned as above, other systems are otherwise negative. PHYSICAL EXAMINATION: GENERAL: This is a well-developed lady. VITAL SIGNS: Her O2 saturation on 3 liters of oxygen is 99%, respiratory rate 16, heart rate 76, blood pressure 156/72, temperature 98.8. HEENT: Normocephalic, atraumatic. She is alert, very hard of hearing. CARDIOVASCULAR: Regular rate and rhythm. EXTREMITIES: There is no accessory muscle use. LYMPHATICS: There is no paradoxical abdominal motion. SKIN: Pale. LABORATORY DATA: I reviewed the following lab data: WBC 9.8, hemoglobin 11.5, platelet 258. Sodium 143, potassium 3.8, chloride 100, CO2 of 29, BUN 51, creatinine 4.5. BNP more than 35,000. Troponin 0.064. Lactic acid 1.2. Chest x-ray shows bibasilar infiltrate versus atelectasis versus effusion. Echocardiogram in 09/2018 showed ejection fraction of 60-65%, moderate aortic stenosis. IMPRESSION: 1. Dyspnea, suspect secondary to volume overload and congestive heart failure, rule out COVID-19. 2. Abnormal chest x-ray. 3. End-stage renal disease, on hemodialysis. 4. Elevated troponin. 5. COVID-19 PUI. PLAN AND RECOMMENDATIONS: 1. Titrate FiO2 to keep O2 saturation 92%. 2. Aggressive hemodialysis. 3. Repeat troponin per primary. 4. Her echo in 2019 showed moderate aortic stenosis. This needs to be reevaluated by echocardiogram per primary. 5. Follow up COVID-19 testing. 6. Start incentive spirometer. 7. The findings and recommendations were discussed with RN. Thank you very much for allowing me to participate in care of this very nice lady. PRISCILA SORIANO M.D. DR: KIMBERLY/jamar JOB#: [id number] / [id number] TODD
[2019-10-19 11:20] VITALS: BP 165/99
[2019-10-19] MEDS ORDERED: CALC667T4 PO (11:30)
[2019-10-19] MEDS ORDERED: FAMOTIDINE 20 MG TABLET. PO PRN (11:45)
[2019-10-19] MEDS ORDERED: NITROGLYCERIN SUBLINGUAL 0.4 MG BOTTLE OF 25. SL PRN (11:45)
[2019-10-19] MEDS ORDERED: ACETAMINOPHEN 325 MG TABLET. PO PRN (11:45)
[2019-10-19] MEDS: CALCIUM ACETATE 667 MG CAPSULE PO SCH ×2 (12:00→17:23)
[2019-10-19] MEDS: ALBUTEROL SULFATE 2.5 MG/3 ML NEBU. NEB PRN (12:27)
--- NOTE | 2019-10-19 13:08 | PDOC2 ---
CONSULT Date of Consult Date of Consult DATE: 10/19/19 TIME: 13:07 Reason for Consult Reason for Consult: ESRD Source Source: Chart review, Patient History of Present Illness Reason for Visit: Pt is a 84-year-old female with a history of ESRD on HD MWF at under Dr. Gooden's care . She presented with 2 to 3 days of gradually increasing shortness of breath. She also reported mild chest pressure on admission which is now resolved. Her EKG showed no acute ischemic changes. Troponin was borderline at 0.064 but her BNP was severely elevated at 35,000. Chest x-ray showed bilateral airspace opacities and small bilateral pleural effusions. The patient had an echocardiogram on 09/26/2018 that showed an ejection fraction of 60 to 65% . She denies any N/V/D . No F/C. Patient was satting 90% prior to arrival. Past Medical History Cardiovascular: CHF, Hyperlipidemia Pulmonary: COPD CENTRAL NERVOUS SYSTEM: TIA GI: Constipation, GERD Heme/Onc: Anemia NOS Hepatobiliary: No pertinent hx Psych: No pertinent hx Musculoskeletal: Osteoarthritis Infectious disease: No pertinent hx Renal/: Chronic renal failure Endocrine: Hypothyroidism Past Surgical History Past Surgical History: Cataract Removal, Other (Dialysis shunt) Family History Family History: Heart Disease Social History No ALCOHOL: rare Drugs: None Lives: with Family Current Problem List Problem List Problems Medical Problems: (1) Dyspnea Status: Acute (2) Suspected COVID-19 virus infection Status: Acute Current Medications Current Medications Current Medications Aspirin (Aspirin Chewable) 324 mg 1X ONCE PO Last administered on 10/19/19at 03:45; Start 10/19/19 at 03:45; Stop 10/19/19 at 03:46; Status DC Ceftriaxone Sodium (Rocephin) 1 gm 1X ONCE IVP Last administered on 10/19/19at 04:30; Start 10/19/19 at 04:30; Stop 10/19/19 at 04:31; Status DC Azithromycin 250 ml @ 250 mls/hr 1X ONCE IV Last administered on 10/19/19at 04:30; Start 10/19/19 at 04:30; Stop 10/19/19 at 05:29; Status DC Ondansetron HCl (Zofran) 4 mg PRN Q8HRS PRN IV NAUSEA/VOMITING 1ST CHOICE Last administered on 10/19/19at 05:18; Start 10/19/19 at 04:15; Stop 10/20/19 at 04:14 Morphine Sulfate (Morphine Sulfate) 2 mg 1X ONCE IV Last administered on 10/19/19at 05:17; Start 10/19/19 at 05:30; Stop 10/19/19 at 05:31; Status DC Morphine Sulfate (Morphine Sulfate) 2 mg STK-MED ONCE .ROUTE ; Start 10/19/19 at 05:09; Stop 10/19/19 at 05:09; Status DC Acetaminophen (Tylenol) 650 mg PRN Q6HRS PRN PO TEMP > 100.4F; Start 10/19/19 at 11:45 Albuterol Sulfate (Ventolin Neb Soln) 2.5 mg PRN Q4HRS PRN NEB SHORTNESS OF BREATH Last administered on 10/19/19at 12:27; Start 10/19/19 at 11:45 Aspirin (Ecotrin) 81 mg DAILYWBKFT PO ; Start 10/20/19 at 08:00 Carvedilol (Coreg) 6.25 mg BIDWMEALS PO ; Start 10/19/19 at 17:00 Famotidine (Pepcid) 10 mg PRN DAILY PRN PO GI SYMPTOMS; Start 10/19/19 at 11:45 Vitamin B Complex/ Vitamin C (Jerilyn-Jaylon) 1 tab DAILY PO ; Start 10/20/19 at 09:00 Isosorbide Mononitrate (Imdur) 60 mg DAILY PO ; Start 10/20/19 at 09:00 Levothyroxine Sodium (Synthroid) 50 mcg DAILYAC PO ; Start 10/20/19 at 07:30 Nifedipine (Procardia Xl) 90 mg DAILY PO ; Start 10/20/19 at 09:00 Nitroglycerin (Nitrostat) 0.4 mg PRN Q5MIN PRN SL CHEST PAIN; Start 10/19/19 at 11:45 Calcium Acetate (Phoslo) 2,001 mg TIDWMEALS PO ; Start 10/19/19 at 12:00 Active Scripts Active Tylenol (Acetaminophen) 325 Mg Tablet 650 Mg PO PRN Q6HRS PRN 30 Days Hydrocodone-Apap 10-325 (Hydrocodone Bit/Acetaminophen) 1 Each Tablet 1 Tab PO PRN TID PRN 6 Days Proair Hfa (Albuterol Sulfate) 8.5 Gm Hfa.aer.ad 2.5 Mg NEB PRN Q4HRS PRN Jerilyn-Jaylon Tablet (Folic Acid/Vitamin B Comp W-C) 0.8 Mg Tablet 1 Tab PO DAILY 30 Days Culturelle (Lactobacillus Rhamnosus Gg) 1 Each Cap.sprink 1 Cap PO BID 14 Days Nifedipine Er (Nifedipine) 30 Mg Tab.er.24 90 Mg PO DAILY Aspirin Ec (Aspirin) 81 Mg Tablet.dr 81 Mg PO DAILYWBKFT Reported Calcium Acetate 667 Mg Tablet 3 Cap PO TIDAC Coreg (Carvedilol) 6.25 Mg Tablet 6.25 Mg PO BIDWMEALS Synthroid (Levothyroxine Sodium) 50 Mcg Tablet 50 Mcg PO DAILYAC Sodium Bicarbonate 650 Mg Tablet 650 Mg PO BID Pepcid (Famotidine) 20 Mg Tablet 10 Mg PO PRN DAILY NITROGLYCERIN SubLingual (Nitroglycerin) 0.4 Mg Tab.subl 0.4 Mg SL PRN Q5MIN PRN Isosorbide Mononitrate Er (Isosorbide Mononitrate) 30 Mg Tab.er.24h 2 Tab PO DAILY Next dose due tomorrow morning. Allergies Allergies: Coded Allergies: sulfamethoxazole (Verified Allergy, Intermediate, 02/25/17) trimethoprim (Verified Allergy, Intermediate, 02/25/17) ROS Review of System As per HPI, rest of the ROS is negative Physical Exam Physical Exam General: Alert, Oriented X3, No acute distress HEEN- Very hard of hearing Neck supple Heart: Regular rate Lungs: Clear, Non labored Abdomen: Normal bowel sounds, Soft, No tenderness, Extremities: No clubbing, No cyanosis, No edema, Skin: No rashes, No hanson Neuro grossly normal Vital Signs Vital Signs Date Time Temp Pulse Resp B/P (MAP) Pulse Ox O2 Delivery O2 Flow Rate FiO2 10/19/19 12:30 99 Nasal Cannula 2.0 10/19/19 11:20 98.1 80 26 165/99 (121) 98.1 Assessment & Plan ESRD- On HD MWF @ [facility] No urgent indication for HD today , tomorrow per her schedule Anemia- No indication for NICHELLE currently HTN- antihypertensives Dyspnea -t COVID-19 pui Abnormal chest x-ray. Moderate aortic stenosis- echo in 2019, Card following Labs Labs Laboratory Tests Test 10/19/19 02:30 White Blood Count 9.8 x10^3/uL (4.0-11.0) Red Blood Count 3.48 x10^6/uL (3.50-5.40) Hemoglobin 11.5 g/dL (12.0-15.5) Hematocrit 35.2 % (36.0-47.0) Mean Corpuscular Volume 101 fL (79-100) Mean Corpuscular Hemoglobin 33 pg (25-35) Mean Corpuscular Hemoglobin Concent 33 g/dL (31-37) Red Cell Distribution Width 14.2 % (11.5-14.5) Platelet Count 258 x10^3/uL (140-400) Neutrophils (%) (Auto) 75 % (31-73) Lymphocytes (%) (Auto) 11 % (24-48) Monocytes (%) (Auto) 11 % (0-9) Eosinophils (%) (Auto) 3 % (0-3) Basophils (%) (Auto) 1 % (0-3) Neutrophils # (Auto) 7.3 x10^3/uL (1.8-7.7) Lymphocytes # (Auto) 1.0 x10^3/uL (1.0-4.8) Monocytes # (Auto) 1.0 x10^3/uL (0.0-1.1) Eosinophils # (Auto) 0.3 x10^3/uL (0.0-0.7) Basophils # (Auto) 0.1 x10^3/uL (0.0-0.2) Prothrombin Time 13.5 SEC (11.7-14.0) Prothromb Time International Ratio 1.1 (0.8-1.1) Activated Partial Thromboplast Time 35 SEC (24-38) Sodium Level 143 mmol/L (136-145) Potassium Level 3.8 mmol/L (3.5-5.1) Chloride Level 100 mmol/L (98-107) Carbon Dioxide Level 29 mmol/L (21-32) Anion Gap 14 (6-14) Blood Urea Nitrogen 51 mg/dL (7-20) Creatinine 4.5 mg/dL (0.6-1.0) Estimated GFR (Cockcroft-Gault) 9.3 BUN/Creatinine Ratio 11 (6-20) Glucose Level 107 mg/dL (70-99) Lactic Acid Level 1.2 mmol/L (0.4-2.0) Calcium Level 9.1 mg/dL (8.5-10.1) Magnesium Level 2.0 mg/dL (1.8-2.4) Total Bilirubin 0.4 mg/dL (0.2-1.0) Aspartate Amino Transf (AST/SGOT) 16 U/L (15-37) Alanine Aminotransferase (ALT/SGPT) 13 U/L (14-59) Alkaline Phosphatase 43 U/L (46-116) Troponin I Quantitative 0.064 ng/mL (0.000-0.055) EL-Vdl-Z-Type Natriuretic Peptide > 02357 pg/mL (0-449) Total Protein 6.8 g/dL (6.4-8.2) Albumin 4.1 g/dL (3.4-5.0) Albumin/Globulin Ratio 1.5 (1.0-1.7) Laboratory Tests Test 10/19/19 02:30 White Blood Count 9.8 x10^3/uL (4.0-11.0) Red Blood Count 3.48 x10^6/uL (3.50-5.40) Hemoglobin 11.5 g/dL (12.0-15.5) Hematocrit 35.2 % (36.0-47.0) Mean Corpuscular Volume 101 fL (79-100) Mean Corpuscular Hemoglobin 33 pg (25-35) Mean Corpuscular Hemoglobin Concent 33 g/dL (31-37) Red Cell Distribution Width 14.2 % (11.5-14.5) Platelet Count 258 x10^3/uL (140-400) Neutrophils (%) (Auto) 75 % (31-73) Lymphocytes (%) (Auto) 11 % (24-48) Monocytes (%) (Auto) 11 % (0-9) Eosinophils (%) (Auto) 3 % (0-3) Basophils (%) (Auto) 1 % (0-3) Neutrophils # (Auto) 7.3 x10^3/uL (1.8-7.7) Lymphocytes # (Auto) 1.0 x10^3/uL (1.0-4.8) Monocytes # (Auto) 1.0 x10^3/uL (0.0-1.1) Eosinophils # (Auto) 0.3 x10^3/uL (0.0-0.7) Basophils # (Auto) 0.1 x10^3/uL (0.0-0.2) Prothrombin Time 13.5 SEC (11.7-14.0) Prothromb Time International Ratio 1.1 (0.8-1.1) Activated Partial Thromboplast Time 35 SEC (24-38) Sodium Level 143 mmol/L (136-145) Potassium Level 3.8 mmol/L (3.5-5.1) Chloride Level 100 mmol/L (98-107) Carbon Dioxide Level 29 mmol/L (21-32) Anion Gap 14 (6-14) Blood Urea Nitrogen 51 mg/dL (7-20) Creatinine 4.5 mg/dL (0.6-1.0) Estimated GFR (Cockcroft-Gault) 9.3 BUN/Creatinine Ratio 11 (6-20) Glucose Level 107 mg/dL (70-99) Lactic Acid Level 1.2 mmol/L (0.4-2.0) Calcium Level 9.1 mg/dL (8.5-10.1) Magnesium Level 2.0 mg/dL (1.8-2.4) Total Bilirubin 0.4 mg/dL (0.2-1.0) Aspartate Amino Transf (AST/SGOT) 16 U/L (15-37) Alanine Aminotransferase (ALT/SGPT) 13 U/L (14-59) Alkaline Phosphatase 43 U/L (46-116) Troponin I Quantitative 0.064 ng/mL (0.000-0.055) ZF-Osn-N-Type Natriuretic Peptide > 38219 pg/mL (0-449) Total Protein 6.8 g/dL (6.4-8.2) Albumin 4.1 g/dL (3.4-5.0) Albumin/Globulin Ratio 1.5 (1.0-1.7) Review All relevant outside records, renal labs, imaging studies, telemetry/EKG's were reviewed. Images Images Moderate cardiomegaly. Descending thoracic aorta endovascular stent graft. Mild bibasilar lung airspace opacities likely atelectasis or infiltrates with small bilateral pleural effusions. IMPRESSION: Bibasilar lung airspace opacities with small bilateral pleural effusions. LIZETH PONCE MD Oct 19, 2019 13:08
[2019-10-19] MEDS: hydrALAZINE 20 MG/ML VIAL. IVP PRN (14:49)
[2019-10-19 15:15] VITALS: BP 213/113
[2019-10-19] MEDS: CARVEDILOL 6.25 MG TABLET. PO SCH (17:23)
[2019-10-19] MEDS: HYDROcodone/APAP 10/325 1 TAB TABLET PO PRN (17:57)
--- NOTE | 2019-10-19 18:47 | NUR ---
bladder scanned post dribble, 0cc in bladder.
[2019-10-19 21:03] VITALS: BP 166/77
[2019-10-19] MEDS: LORazepam 0.5 MG TABLET PO PRN (21:56)
[2019-10-20 03:15] VITALS: BP 168/74
[2019-10-20 05:00] LABS: BASO # 0.1 x10^3/uL (0.0-0.2); BASO % 1 % (0-3); EOS # 0.4 x10^3/uL (0.0-0.7); EOS % 4 % (0-3); HEMATOCRIT 31.9 % (36.0-47.0); HEMOGLOBIN 10.5 g/dL (12.0-15.5); LYMPH # 0.8 x10^3/uL (1.0-4.8); LYMPH % 8 % (24-48); MEAN CORPUSCULAR HEMOGLOBIN 34 pg (25-35); MEAN CORPUSCULAR HGB CONC 33 g/dL (31-37); MEAN CORPUSCULAR VOLUME 102 fL (79-100); MONO # 1.2 x10^3/uL (0.0-1.1); MONO % 12 % (0-9); NEUT # 7.4 x10^3/uL (1.8-7.7); NEUT % 75 % (31-73); PLATELET COUNT 221 x10^3/uL (140-400); RED BLOOD COUNT 3.12 x10^6/uL (3.50-5.40); RED CELL DISTRIBUTION WIDTH 13.9 % (11.5-14.5); WHITE BLOOD COUNT 9.9 x10^3/uL (4.0-11.0)
[2019-10-20 05:29] LABS: ALBUMIN 3.2 g/dL (3.4-5.0); ALBUMIN/GLOBULIN RATIO 1.3 (1.0-1.7); CALCIUM 9.2 mg/dL (8.5-10.1); CREATININE 5.4 mg/dL (0.6-1.0); GFR 7.5; TOTAL BILIRUBIN 0.3 mg/dL (0.2-1.0); TOTAL PROTEIN 5.7 g/dL (6.4-8.2)
[2019-10-20] MEDS: LEVOTHYROXINE 50 MCG TABLET PO SCH (06:34)
[2019-10-20 07:15] VITALS: BP 208/91
[2019-10-20] MEDS: FOLIC/VIT B COMP W-C (RENAL) TABLET. PO SCH (08:37)
[2019-10-20] MEDS: ISOSORBIDE MONONITRATE ER 30 MG TAB.ER.24H PO SCH (08:37)
[2019-10-20] MEDS: CARVEDILOL 6.25 MG TABLET. PO SCH ×2 (08:38→17:37)
[2019-10-20] MEDS: ASPIRIN ENTERIC COATED 81 MG TABLET.DR. PO SCH (08:38)
[2019-10-20] MEDS: CALCIUM ACETATE 667 MG CAPSULE PO SCH ×3 (08:38→17:37)
[2019-10-20] MEDS: LORazepam 0.5 MG TABLET PO PRN ×2 (08:40→20:10)
--- NOTE | 2019-10-20 08:56 | EKG ---
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
--- NOTE | 2019-10-20 10:30 | NUR ---
COVID test negative, no need to reswab per Dr. Galvan. Nelda to transfer to med/tele per Dr. Arnold.
[2019-10-20] MEDS ORDERED: ALBUMIN HUMAN 25% 200 ML IV PRN (10:50)
[2019-10-20] MEDS ORDERED: IV NORMAL SALINE 1000ML BAG 1,000 ML IV PRN ×2 (10:50)
[2019-10-20 11:57] VITALS: BP 175/80
--- NOTE | 2019-10-20 12:00 | PDOC ---
PULMONARY PROGRESS NOTES DATE: 10/20/19 TIME: 11:57 Subjective c/o soa Vitals Vital Signs Date Time Temp Pulse Resp B/P (MAP) Pulse Ox O2 Delivery O2 Flow Rate FiO2 10/20/19 08:38 85 208/91 10/20/19 08:00 Nasal Cannula 2.0 10/20/19 07:15 98.9 24 98 98.9 General: Alert, No acute distress Lungs: Other (decrease bases) Cardiovascular: S1, S2 Neuro Exam: Alert Extremities: No Edema Skin: Warm Labs Laboratory Tests Test 10/19/19 02:30 10/19/19 05:10 10/20/19 04:30 White Blood Count 9.8 x10^3/uL (4.0-11.0) 9.9 x10^3/uL (4.0-11.0) Red Blood Count 3.48 x10^6/uL (3.50-5.40) 3.12 x10^6/uL (3.50-5.40) Hemoglobin 11.5 g/dL (12.0-15.5) 10.5 g/dL (12.0-15.5) Hematocrit 35.2 % (36.0-47.0) 31.9 % (36.0-47.0) Mean Corpuscular Volume 101 fL (79-100) 102 fL (79-100) Mean Corpuscular Hemoglobin 33 pg (25-35) 34 pg (25-35) Mean Corpuscular Hemoglobin Concent 33 g/dL (31-37) 33 g/dL (31-37) Red Cell Distribution Width 14.2 % (11.5-14.5) 13.9 % (11.5-14.5) Platelet Count 258 x10^3/uL (140-400) 221 x10^3/uL (140-400) Neutrophils (%) (Auto) 75 % (31-73) 75 % (31-73) Lymphocytes (%) (Auto) 11 % (24-48) 8 % (24-48) Monocytes (%) (Auto) 11 % (0-9) 12 % (0-9) Eosinophils (%) (Auto) 3 % (0-3) 4 % (0-3) Basophils (%) (Auto) 1 % (0-3) 1 % (0-3) Neutrophils # (Auto) 7.3 x10^3/uL (1.8-7.7) 7.4 x10^3/uL (1.8-7.7) Lymphocytes # (Auto) 1.0 x10^3/uL (1.0-4.8) 0.8 x10^3/uL (1.0-4.8) Monocytes # (Auto) 1.0 x10^3/uL (0.0-1.1) 1.2 x10^3/uL (0.0-1.1) Eosinophils # (Auto) 0.3 x10^3/uL (0.0-0.7) 0.4 x10^3/uL (0.0-0.7) Basophils # (Auto) 0.1 x10^3/uL (0.0-0.2) 0.1 x10^3/uL (0.0-0.2) Prothrombin Time 13.5 SEC (11.7-14.0) Prothromb Time International Ratio 1.1 (0.8-1.1) Activated Partial Thromboplast Time 35 SEC (24-38) Sodium Level 143 mmol/L (136-145) 139 mmol/L (136-145) Potassium Level 3.8 mmol/L (3.5-5.1) 5.0 mmol/L (3.5-5.1) Chloride Level 100 mmol/L (98-107) 99 mmol/L (98-107) Carbon Dioxide Level 29 mmol/L (21-32) 26 mmol/L (21-32) Anion Gap 14 (6-14) 14 (6-14) Blood Urea Nitrogen 51 mg/dL (7-20) 63 mg/dL (7-20) Creatinine 4.5 mg/dL (0.6-1.0) 5.4 mg/dL (0.6-1.0) Estimated GFR (Cockcroft-Gault) 9.3 7.5 BUN/Creatinine Ratio 11 (6-20) 12 (6-20) Glucose Level 107 mg/dL (70-99) 102 mg/dL (70-99) Lactic Acid Level 1.2 mmol/L (0.4-2.0) Calcium Level 9.1 mg/dL (8.5-10.1) 9.2 mg/dL (8.5-10.1) Magnesium Level 2.0 mg/dL (1.8-2.4) Total Bilirubin 0.4 mg/dL (0.2-1.0) 0.3 mg/dL (0.2-1.0) Aspartate Amino Transf (AST/SGOT) 16 U/L (15-37) 12 U/L (15-37) Alanine Aminotransferase (ALT/SGPT) 13 U/L (14-59) 12 U/L (14-59) Alkaline Phosphatase 43 U/L (46-116) 41 U/L (46-116) Troponin I Quantitative 0.064 ng/mL (0.000-0.055) EO-Cbl-Y-Type Natriuretic Peptide > 58123 pg/mL (0-449) Total Protein 6.8 g/dL (6.4-8.2) 5.7 g/dL (6.4-8.2) Albumin 4.1 g/dL (3.4-5.0) 3.2 g/dL (3.4-5.0) Albumin/Globulin Ratio 1.5 (1.0-1.7) 1.3 (1.0-1.7) Coronavirus (PCR) Not detected (Not Detected) Laboratory Tests Test 10/20/19 04:30 White Blood Count 9.9 x10^3/uL (4.0-11.0) Red Blood Count 3.12 x10^6/uL (3.50-5.40) Hemoglobin 10.5 g/dL (12.0-15.5) Hematocrit 31.9 % (36.0-47.0) Mean Corpuscular Volume 102 fL (79-100) Mean Corpuscular Hemoglobin 34 pg (25-35) Mean Corpuscular Hemoglobin Concent 33 g/dL (31-37) Red Cell Distribution Width 13.9 % (11.5-14.5) Platelet Count 221 x10^3/uL (140-400) Neutrophils (%) (Auto) 75 % (31-73) Lymphocytes (%) (Auto) 8 % (24-48) Monocytes (%) (Auto) 12 % (0-9) Eosinophils (%) (Auto) 4 % (0-3) Basophils (%) (Auto) 1 % (0-3) Neutrophils # (Auto) 7.4 x10^3/uL (1.8-7.7) Lymphocytes # (Auto) 0.8 x10^3/uL (1.0-4.8) Monocytes # (Auto) 1.2 x10^3/uL (0.0-1.1) Eosinophils # (Auto) 0.4 x10^3/uL (0.0-0.7) Basophils # (Auto) 0.1 x10^3/uL (0.0-0.2) Sodium Level 139 mmol/L (136-145) Potassium Level 5.0 mmol/L (3.5-5.1) Chloride Level 99 mmol/L (98-107) Carbon Dioxide Level 26 mmol/L (21-32) Anion Gap 14 (6-14) Blood Urea Nitrogen 63 mg/dL (7-20) Creatinine 5.4 mg/dL (0.6-1.0) Estimated GFR (Cockcroft-Gault) 7.5 BUN/Creatinine Ratio 12 (6-20) Glucose Level 102 mg/dL (70-99) Calcium Level 9.2 mg/dL (8.5-10.1) Total Bilirubin 0.3 mg/dL (0.2-1.0) Aspartate Amino Transf (AST/SGOT) 12 U/L (15-37) Alanine Aminotransferase (ALT/SGPT) 12 U/L (14-59) Alkaline Phosphatase 41 U/L (46-116) Total Protein 5.7 g/dL (6.4-8.2) Albumin 3.2 g/dL (3.4-5.0) Albumin/Globulin Ratio 1.3 (1.0-1.7) Medications Active Scripts Medications Dose Route/Sig Max Daily Dose Days Date Category Dose Instructions Calcium Acetate 667 Mg Tablet 3 Cap PO TIDAC 10/19/19 Reported Tylenol (Acetaminophen) 325 Mg Tablet 650 Mg PO PRN Q6HRS PRN 30 06/06/19 Rx Hydrocodone-Apap 10-325 (Hydrocodone Bit/Acetaminophen) 1 Each Tablet 1 Tab PO PRN TID PRN 6 06/06/19 Rx Proair Hfa (Albuterol Sulfate) 8.5 Gm Hfa.aer.ad 2.5 Mg NEB PRN Q4HRS PRN 02/02/19 Rx Coreg (Carvedilol) 6.25 Mg Tablet 6.25 Mg PO BIDWMEALS 02/01/19 Reported Synthroid (Levothyroxine Sodium) 50 Mcg Tablet 50 Mcg PO DAILYAC 02/01/19 Reported Sodium Bicarbonate 650 Mg Tablet 650 Mg PO BID 02/01/19 Reported Jerilyn-Jaylon Tablet (Folic Acid/Vitamin B Comp W-C) 0.8 Mg Tablet 1 Tab PO DAILY 30 06/12/17 Rx Culturelle (Lactobacillus Rhamnosus Gg) 1 Each Cap.sprink 1 Cap PO BID 14 06/12/17 Rx Pepcid (Famotidine) 20 Mg Tablet 10 Mg PO PRN DAILY 06/10/17 Reported NITROGLYCERIN SubLingual (Nitroglycerin) 0.4 Mg Tab.subl 0.4 Mg SL PRN Q5MIN PRN 06/10/17 Reported Nifedipine Er (Nifedipine) 30 Mg Tab.er.24 90 Mg PO DAILY 02/27/17 Rx Aspirin Ec (Aspirin) 81 Mg Tablet.dr 81 Mg PO DAILYWBKFT 02/27/17 Rx Isosorbide Mononitrate Er (Isosorbide Mononitrate) 30 Mg Tab.er.24h 2 Tab PO DAILY 02/26/17 Reported Next dose due tomorrow morning. Impression . 1. Dyspnea, suspect secondary to volume overload and congestive heart failure, rule out COVID-19. 2. Abnormal chest x-ray c/w CHF 3. End-stage renal disease, on hemodialysis. 4. Elevated troponin. 5. COVID-19 Neg Plan . PLAN AND RECOMMENDATIONS: 1. Titrate FiO2 to keep O2 saturation 92%. 2. Aggressive hemodialysis.with UF 3. Repeat troponin per primary. 4. Her echo in 2019 showed moderate aortic stenosis. This needs to be reevaluated by echocardiogram per primary. 5. Follow up COVID-19 testing.neg 6. Start incentive spirometer. 7. The findings and recommendations were discussed with MEGHANA ROMAN MD Oct 20, 2019 12:00
[2019-10-20] MEDS ORDERED: DIALYSIS PATIENT. MC PRN ×2 (13:30)
[2019-10-20] MEDS ORDERED: LIDOCAINE 1% PF 2 ML VIAL. ID ONE (14:00)
[2019-10-20] MEDS: HYDROcodone/APAP 10/325 1 TAB TABLET PO PRN ×2 (14:16→20:10)
--- NOTE | 2019-10-20 15:31 | PDOC ---
Renal-Progress Notes Subjective Notes Notes ACHING ALL OVER, BACK PAIN. ALL CHRONIC History of Present Illness Hx of present illness STABLE Vitals Vitals Vital Signs Date Time Temp Pulse Resp B/P (MAP) Pulse Ox O2 Delivery O2 Flow Rate FiO2 10/20/19 14:16 16 97 Nasal Cannula 2.0 10/20/19 11:57 98.2 92 175/80 (111) 98.2 Weight Weight [ ] I.O. Intake and Output Intake and Output 10/20/19 07:00 Intake Total 770 ml Balance 770 ml Intake Oral 770 ml # Voids 9 Labs Labs Laboratory Tests Test 10/20/19 04:30 White Blood Count 9.9 x10^3/uL (4.0-11.0) Red Blood Count 3.12 x10^6/uL (3.50-5.40) Hemoglobin 10.5 g/dL (12.0-15.5) Hematocrit 31.9 % (36.0-47.0) Mean Corpuscular Volume 102 fL (79-100) Mean Corpuscular Hemoglobin 34 pg (25-35) Mean Corpuscular Hemoglobin Concent 33 g/dL (31-37) Red Cell Distribution Width 13.9 % (11.5-14.5) Platelet Count 221 x10^3/uL (140-400) Neutrophils (%) (Auto) 75 % (31-73) Lymphocytes (%) (Auto) 8 % (24-48) Monocytes (%) (Auto) 12 % (0-9) Eosinophils (%) (Auto) 4 % (0-3) Basophils (%) (Auto) 1 % (0-3) Neutrophils # (Auto) 7.4 x10^3/uL (1.8-7.7) Lymphocytes # (Auto) 0.8 x10^3/uL (1.0-4.8) Monocytes # (Auto) 1.2 x10^3/uL (0.0-1.1) Eosinophils # (Auto) 0.4 x10^3/uL (0.0-0.7) Basophils # (Auto) 0.1 x10^3/uL (0.0-0.2) Sodium Level 139 mmol/L (136-145) Potassium Level 5.0 mmol/L (3.5-5.1) Chloride Level 99 mmol/L (98-107) Carbon Dioxide Level 26 mmol/L (21-32) Anion Gap 14 (6-14) Blood Urea Nitrogen 63 mg/dL (7-20) Creatinine 5.4 mg/dL (0.6-1.0) Estimated GFR (Cockcroft-Gault) 7.5 BUN/Creatinine Ratio 12 (6-20) Glucose Level 102 mg/dL (70-99) Calcium Level 9.2 mg/dL (8.5-10.1) Total Bilirubin 0.3 mg/dL (0.2-1.0) Aspartate Amino Transf (AST/SGOT) 12 U/L (15-37) Alanine Aminotransferase (ALT/SGPT) 12 U/L (14-59) Alkaline Phosphatase 41 U/L (46-116) Total Protein 5.7 g/dL (6.4-8.2) Albumin 3.2 g/dL (3.4-5.0) Albumin/Globulin Ratio 1.3 (1.0-1.7) Hepatitis B Surface Antigen Nonreactive (Nonreactive) Hepatitis B Surface Antibody Nonreactive Micro Micro Microbiology 10/19/19 Blood Culture - Preliminary, Resulted NO GROWTH AFTER 1 DAY Review of Systems Constitutional: yes: weakness, alert, oriented Pulmonary: Yes dyspnea Cardiovascular: Yes no symptom reported Gastrointestional: Yes: constipation Genitourinary: Yes: no symptom reported Musculoskeletal: Yes: no symptom reported Skin: Yes no symptom reported Psychiatric/Neurological: Yes: no symptom reported Endocrine: Yes: no symptom reported Physical Exam General Appearance: no apparent distress Skin: warm Respiratory: decreased breath sounds Heart: S1S2 Abdomen: bowel sounds present Genitourinary: bladder flat Extremities: atrophy Neurology: alert, oriented Musculoskeletal: Osteoarthritis Assessment Assessment IMP ESRD ANEMIA HTN HX DYSPNEA DUE TO CHF PLAN NICHELLE NEEDED HD TODAY UF TO DW SUPPLEMENTAL O2 NEEDED WILL FOLLOW ARSEN MERCADO MD Oct 20, 2019 15:31
--- NOTE | 2019-10-20 16:07 | PDOC ---
PROGRESS NOTES Date of Service DATE: 10/20/19 TIME: 16:05 Subjective Subjective Patient seen and examined Objective Objective Vital Signs Date Time Temp Pulse Resp B/P (MAP) Pulse Ox O2 Delivery O2 Flow Rate FiO2 10/20/19 14:16 16 97 Nasal Cannula 2.0 10/20/19 11:57 98.2 92 175/80 (111) 98.2 Intake and Output 10/20/19 06:59 Intake Total 770 ml Balance 770 ml Intake Oral 770 ml # Voids 9 Physical Exam Abdomen: Normal bowel sounds Heart: Regular rate General: mild distress Lungs: Other (Decreased breath sounds) Assessment Assessment Problems Medical Problems: (1) Dyspnea Status: Acute (2) Suspected COVID-19 virus infection Status: Acute 1. Acute heart failure. BNP significantly elevated at 35,000. Patient's feeling better post diuresis. She is continuing dialysis and followed by the renal service. COVID testing is negative we will check an echocardiogram. 2. End-stage renal disease. Hemodialysis as per the renal service. 3. Hypertension. Blood pressure under reasonable control. Continue as above. 4. Hyperlipidemia. Will recheck lab. 5. History of gastroesophageal reflux disease. Comment Review of Relevant I have reviewed the following items cristofer (where applicable) has been applied. Labs Laboratory Tests Test 10/19/19 02:30 10/19/19 05:10 10/20/19 04:30 White Blood Count 9.8 x10^3/uL (4.0-11.0) 9.9 x10^3/uL (4.0-11.0) Red Blood Count 3.48 x10^6/uL (3.50-5.40) 3.12 x10^6/uL (3.50-5.40) Hemoglobin 11.5 g/dL (12.0-15.5) 10.5 g/dL (12.0-15.5) Hematocrit 35.2 % (36.0-47.0) 31.9 % (36.0-47.0) Mean Corpuscular Volume 101 fL (79-100) 102 fL (79-100) Mean Corpuscular Hemoglobin 33 pg (25-35) 34 pg (25-35) Mean Corpuscular Hemoglobin Concent 33 g/dL (31-37) 33 g/dL (31-37) Red Cell Distribution Width 14.2 % (11.5-14.5) 13.9 % (11.5-14.5) Platelet Count 258 x10^3/uL (140-400) 221 x10^3/uL (140-400) Neutrophils (%) (Auto) 75 % (31-73) 75 % (31-73) Lymphocytes (%) (Auto) 11 % (24-48) 8 % (24-48) Monocytes (%) (Auto) 11 % (0-9) 12 % (0-9) Eosinophils (%) (Auto) 3 % (0-3) 4 % (0-3) Basophils (%) (Auto) 1 % (0-3) 1 % (0-3) Neutrophils # (Auto) 7.3 x10^3/uL (1.8-7.7) 7.4 x10^3/uL (1.8-7.7) Lymphocytes # (Auto) 1.0 x10^3/uL (1.0-4.8) 0.8 x10^3/uL (1.0-4.8) Monocytes # (Auto) 1.0 x10^3/uL (0.0-1.1) 1.2 x10^3/uL (0.0-1.1) Eosinophils # (Auto) 0.3 x10^3/uL (0.0-0.7) 0.4 x10^3/uL (0.0-0.7) Basophils # (Auto) 0.1 x10^3/uL (0.0-0.2) 0.1 x10^3/uL (0.0-0.2) Prothrombin Time 13.5 SEC (11.7-14.0) Prothromb Time International Ratio 1.1 (0.8-1.1) Activated Partial Thromboplast Time 35 SEC (24-38) Sodium Level 143 mmol/L (136-145) 139 mmol/L (136-145) Potassium Level 3.8 mmol/L (3.5-5.1) 5.0 mmol/L (3.5-5.1) Chloride Level 100 mmol/L (98-107) 99 mmol/L (98-107) Carbon Dioxide Level 29 mmol/L (21-32) 26 mmol/L (21-32) Anion Gap 14 (6-14) 14 (6-14) Blood Urea Nitrogen 51 mg/dL (7-20) 63 mg/dL (7-20) Creatinine 4.5 mg/dL (0.6-1.0) 5.4 mg/dL (0.6-1.0) Estimated GFR (Cockcroft-Gault) 9.3 7.5 BUN/Creatinine Ratio 11 (6-20) 12 (6-20) Glucose Level 107 mg/dL (70-99) 102 mg/dL (70-99) Lactic Acid Level 1.2 mmol/L (0.4-2.0) Calcium Level 9.1 mg/dL (8.5-10.1) 9.2 mg/dL (8.5-10.1) Magnesium Level 2.0 mg/dL (1.8-2.4) Total Bilirubin 0.4 mg/dL (0.2-1.0) 0.3 mg/dL (0.2-1.0) Aspartate Amino Transf (AST/SGOT) 16 U/L (15-37) 12 U/L (15-37) Alanine Aminotransferase (ALT/SGPT) 13 U/L (14-59) 12 U/L (14-59) Alkaline Phosphatase 43 U/L (46-116) 41 U/L (46-116) Troponin I Quantitative 0.064 ng/mL (0.000-0.055) BC-Rza-Y-Type Natriuretic Peptide > 06265 pg/mL (0-449) Total Protein 6.8 g/dL (6.4-8.2) 5.7 g/dL (6.4-8.2) Albumin 4.1 g/dL (3.4-5.0) 3.2 g/dL (3.4-5.0) Albumin/Globulin Ratio 1.5 (1.0-1.7) 1.3 (1.0-1.7) Coronavirus (PCR) Not detected (Not Detected) Hepatitis B Surface Antigen Nonreactive (Nonreactive) Hepatitis B Surface Antibody Nonreactive Laboratory Tests Test 10/20/19 04:30 White Blood Count 9.9 x10^3/uL (4.0-11.0) Red Blood Count 3.12 x10^6/uL (3.50-5.40) Hemoglobin 10.5 g/dL (12.0-15.5) Hematocrit 31.9 % (36.0-47.0) Mean Corpuscular Volume 102 fL (79-100) Mean Corpuscular Hemoglobin 34 pg (25-35) Mean Corpuscular Hemoglobin Concent 33 g/dL (31-37) Red Cell Distribution Width 13.9 % (11.5-14.5) Platelet Count 221 x10^3/uL (140-400) Neutrophils (%) (Auto) 75 % (31-73) Lymphocytes (%) (Auto) 8 % (24-48) Monocytes (%) (Auto) 12 % (0-9) Eosinophils (%) (Auto) 4 % (0-3) Basophils (%) (Auto) 1 % (0-3) Neutrophils # (Auto) 7.4 x10^3/uL (1.8-7.7) Lymphocytes # (Auto) 0.8 x10^3/uL (1.0-4.8) Monocytes # (Auto) 1.2 x10^3/uL (0.0-1.1) Eosinophils # (Auto) 0.4 x10^3/uL (0.0-0.7) Basophils # (Auto) 0.1 x10^3/uL (0.0-0.2) Sodium Level 139 mmol/L (136-145) Potassium Level 5.0 mmol/L (3.5-5.1) Chloride Level 99 mmol/L (98-107) Carbon Dioxide Level 26 mmol/L (21-32) Anion Gap 14 (6-14) Blood Urea Nitrogen 63 mg/dL (7-20) Creatinine 5.4 mg/dL (0.6-1.0) Estimated GFR (Cockcroft-Gault) 7.5 BUN/Creatinine Ratio 12 (6-20) Glucose Level 102 mg/dL (70-99) Calcium Level 9.2 mg/dL (8.5-10.1) Total Bilirubin 0.3 mg/dL (0.2-1.0) Aspartate Amino Transf (AST/SGOT) 12 U/L (15-37) Alanine Aminotransferase (ALT/SGPT) 12 U/L (14-59) Alkaline Phosphatase 41 U/L (46-116) Total Protein 5.7 g/dL (6.4-8.2) Albumin 3.2 g/dL (3.4-5.0) Albumin/Globulin Ratio 1.3 (1.0-1.7) Hepatitis B Surface Antigen Nonreactive (Nonreactive) Hepatitis B Surface Antibody Nonreactive Microbiology 10/19/19 Blood Culture - Preliminary, Resulted NO GROWTH AFTER 1 DAY Medications Current Medications Aspirin (Aspirin Chewable) 324 mg 1X ONCE PO Last administered on 10/19/19at 03:45; Start 10/19/19 at 03:45; Stop 10/19/19 at 03:46; Status DC Ceftriaxone Sodium (Rocephin) 1 gm 1X ONCE IVP Last administered on 10/19/19at 04:30; Start 10/19/19 at 04:30; Stop 10/19/19 at 04:31; Status DC Azithromycin 250 ml @ 250 mls/hr 1X ONCE IV Last administered on 10/19/19at 04:30; Start 10/19/19 at 04:30; Stop 10/19/19 at 05:29; Status DC Ondansetron HCl (Zofran) 4 mg PRN Q8HRS PRN IV NAUSEA/VOMITING 1ST CHOICE Last administered on 10/19/19at 05:18; Start 10/19/19 at 04:15; Stop 10/20/19 at 04:14; Status DC Morphine Sulfate (Morphine Sulfate) 2 mg 1X ONCE IV Last administered on 10/19/19at 05:17; Start 10/19/19 at 05:30; Stop 10/19/19 at 05:31; Status DC Morphine Sulfate (Morphine Sulfate) 2 mg STK-MED ONCE .ROUTE ; Start 10/19/19 at 05:09; Stop 10/19/19 at 05:09; Status DC Acetaminophen (Tylenol) 650 mg PRN Q6HRS PRN PO TEMP > 100.4F; Start 10/19/19 at 11:45 Albuterol Sulfate (Ventolin Neb Soln) 2.5 mg PRN Q4HRS PRN NEB SHORTNESS OF BREATH Last administered on 10/19/19at 12:27; Start 10/19/19 at 11:45 Aspirin (Ecotrin) 81 mg DAILYWBKFT PO Last administered on 10/20/19at 08:38; Start 10/20/19 at 08:00 Carvedilol (Coreg) 6.25 mg BIDWMEALS PO Last administered on 10/20/19at 08:38; Start 10/19/19 at 17:00 Famotidine (Pepcid) 10 mg PRN DAILY PRN PO GI SYMPTOMS; Start 10/19/19 at 11:45 Vitamin B Complex/ Vitamin C (Jerilyn-Jaylon) 1 tab DAILY PO Last administered on 10/20/19at 08:37; Start 10/20/19 at 09:00 Isosorbide Mononitrate (Imdur) 60 mg DAILY PO Last administered on 10/20/19at 08:37; Start 10/20/19 at 09:00 Levothyroxine Sodium (Synthroid) 50 mcg DAILYAC PO Last administered on 10/20/19at 06:34; Start 10/20/19 at 07:30 Nifedipine (Procardia Xl) 90 mg DAILY PO Last administered on 10/20/19at 08:37; Start 10/20/19 at 09:00 Nitroglycerin (Nitrostat) 0.4 mg PRN Q5MIN PRN SL CHEST PAIN; Start 10/19/19 at 11:45 Calcium Acetate (Phoslo) 2,001 mg TIDWMEALS PO Last administered on 10/20/19at 08:38; Start 10/19/19 at 12:00 Hydralazine HCl (Apresoline Inj) 10 mg PRN Q4HRS PRN IVP ELEVATED BP, SEE COMMENTS Last administered on 10/19/19at 14:49; Start 10/19/19 at 14:00 Acetaminophen/ Hydrocodone Bitart (Lortab 10/325) 1 tab PRN TID PRN PO PAIN Last administered on 10/20/19at 14:16; Start 10/19/19 at 17:30 Lorazepam (Ativan) 0.25 mg PRN Q6HRS PRN PO ANXIETY / AGITATION Last administered on 10/20/19at 08:40; Start 10/19/19 at 22:00 Sodium Chloride 1,000 ml @ 1,000 mls/hr Q1H PRN IV hypotension; Start 10/20/19 at 10:50; Stop 10/20/19 at 16:49 Albumin Human 200 ml @ 200 mls/hr 1X PRN PRN IV Hypotension; Start 10/20/19 at 10:50; Stop 10/20/19 at 16:49 Sodium Chloride 1,000 ml @ 400 mls/hr Q2H30M PRN IV PATENCY; Start 10/20/19 at 10:50; Stop 10/20/19 at 22:49 Info (PHARMACY MONITORING -- do not chart) 1 each PRN DAILY PRN MC SEE COMME NTS; Start 10/20/19 at 13:30 Info (PHARMACY MONITORING -- do not chart) 1 each PRN DAILY PRN MC SEE COMMENTS; Start 10/20/19 at 13:30; Status UNV Lidocaine HCl (Xylocaine-Mpf 1% 2ml Vial) 2 ml 1X ONCE ID Last administered on 10/20/19at 13:59; Start 10/20/19 at 14:00; Stop 10/20/19 at 14:01; Status DC Active Scripts Active Tylenol (Acetaminophen) 325 Mg Tablet 650 Mg PO PRN Q6HRS PRN 30 Days Hydrocodone-Apap 10-325 (Hydrocodone Bit/Acetaminophen) 1 Each Tablet 1 Tab PO PRN TID PRN 6 Days Proair Hfa (Albuterol Sulfate) 8.5 Gm Hfa.aer.ad 2.5 Mg NEB PRN Q4HRS PRN Jerilyn-Jaylon Tablet (Folic Acid/Vitamin B Comp W-C) 0.8 Mg Tablet 1 Tab PO DAILY 30 Days Culturelle (Lactobacillus Rhamnosus Gg) 1 Each Cap.sprink 1 Cap PO BID 14 Days Nifedipine Er (Nifedipine) 30 Mg Tab.er.24 90 Mg PO DAILY Aspirin Ec (Aspirin) 81 Mg Tablet. 81 Mg PO DAILYWBKFT Reported Calcium Acetate 667 Mg Tablet 3 Cap PO TIDAC Coreg (Carvedilol) 6.25 Mg Tablet 6.25 Mg PO BIDWMEALS Synthroid (Levothyroxine Sodium) 50 Mcg Tablet 50 Mcg PO DAILYAC Sodium Bicarbonate 650 Mg Tablet 650 Mg PO BID Pepcid (Famotidine) 20 Mg Tablet 10 Mg PO PRN DAILY NITROGLYCERIN SubLingual (Nitroglycerin) 0.4 Mg Tab.subl 0.4 Mg SL PRN Q5MIN PRN Isosorbide Mononitrate Er (Isosorbide Mononitrate) 30 Mg Tab.er.24h 2 Tab PO DAILY Next dose due tomorrow morning. Vitals/I & O Vital Sign - Last 24 Hours 10/19/19 10/19/19 10/19/19 10/19/19 17:23 17:57 19:10 21:03 Temp 98.4 98.4 Pulse 79 71 Resp 36 B/P (MAP) 213/113 166/77 (106) Pulse Ox 99 94 96 O2 Delivery Nasal Cannula Nasal Cannula Nasal Cannula O2 Flow Rate 2.0 2.0 2.0 10/19/19 10/20/19 10/20/19 10/20/19 21:03 03:15 07:15 08:00 Temp 98.4 98.9 98.4 98.9 Pulse 76 82 Resp 26 24 B/P (MAP) 168/74 (105) 208/91 (130) Pulse Ox 96 98 O2 Delivery Nasal Cannula Nasal Cannula Nasal Cannula Nasal Cannula O2 Flow Rate 2.0 2.0 2.0 2.0 10/20/19 10/20/19 10/20/19 10/20/19 08:37 08:37 08:38 11:57 Temp 98.2 98.2 Pulse 85 85 85 92 Resp 20 B/P (MAP) 208/91 208/91 208/91 175/80 (111) Pulse Ox 97 O2 Delivery Nasal Cannula O2 Flow Rate 2.0 10/20/19 14:16 Resp 16 Pulse Ox 97 O2 Delivery Nasal Cannula O2 Flow Rate 2.0 Intake and Output 0 10/19/19 10/19/19 10/20/19 14:59 22:59 06:59 Intake Total 500 ml 240 ml 30 ml Balance 500 ml 240 ml 30 ml Justifications for Admission Other Justification WOODY LOPEZ MD Oct 20, 2019 16:07
--- NOTE | 2019-10-20 16:48 | NUR ---
SW following. Spoke with RN and reviewed chart. Pt from home, renal diet, 2l 02, COVID negative, IV fluids. Pt does out-patient dialysis on MWF at [facility] in [place], , (fax). Pt has been to [facility] in the past as well as discharged with Yasmin APONTE from prior admissions. SW following.
--- NOTE | 2019-10-20 17:58 | PDOC ---
[employer] PROGRESS NOTE Date of Service DOS: DATE: 10/20/19 TIME: 17:55 Chief Complaint Chief Complaint Shortness of breath History of Present Illness History of Present Illness 10/20/2019 Patient evaluated bedside, reports improvement in her shortness of breath at dialysis. COVID-19 negative. Will evaluate with echocardiogram. Continue diuresis. Vitals/I&O Vitals/I&O: Vital Signs Date Time Temp Pulse Resp B/P (MAP) Pulse Ox O2 Delivery O2 Flow Rate FiO2 10/20/19 17:37 70 121/57 10/20/19 14:16 16 97 Nasal Cannula 2.0 10/20/19 11:57 98.2 98.2 I & O 10/19/19 10/19/19 10/20/19 15:00 23:00 07:00 Intake Total 500 ml 240 ml 30 ml Balance 500 ml 240 ml 30 ml Physical Exam General: mild distress Heart: Regular rate Lungs: Other (decrease bases) Abdomen: Normal bowel sounds Extremities: No cyanosis Labs Labs: Laboratory Tests Test 10/20/19 04:30 White Blood Count 9.9 x10^3/uL (4.0-11.0) Red Blood Count 3.12 x10^6/uL (3.50-5.40) Hemoglobin 10.5 g/dL (12.0-15.5) Hematocrit 31.9 % (36.0-47.0) Mean Corpuscular Volume 102 fL (79-100) Mean Corpuscular Hemoglobin 34 pg (25-35) Mean Corpuscular Hemoglobin Concent 33 g/dL (31-37) Red Cell Distribution Width 13.9 % (11.5-14.5) Platelet Count 221 x10^3/uL (140-400) Neutrophils (%) (Auto) 75 % (31-73) Lymphocytes (%) (Auto) 8 % (24-48) Monocytes (%) (Auto) 12 % (0-9) Eosinophils (%) (Auto) 4 % (0-3) Basophils (%) (Auto) 1 % (0-3) Neutrophils # (Auto) 7.4 x10^3/uL (1.8-7.7) Lymphocytes # (Auto) 0.8 x10^3/uL (1.0-4.8) Monocytes # (Auto) 1.2 x10^3/uL (0.0-1.1) Eosinophils # (Auto) 0.4 x10^3/uL (0.0-0.7) Basophils # (Auto) 0.1 x10^3/uL (0.0-0.2) Sodium Level 139 mmol/L (136-145) Potassium Level 5.0 mmol/L (3.5-5.1) Chloride Level 99 mmol/L (98-107) Carbon Dioxide Level 26 mmol/L (21-32) Anion Gap 14 (6-14) Blood Urea Nitrogen 63 mg/dL (7-20) Creatinine 5.4 mg/dL (0.6-1.0) Estimated GFR (Cockcroft-Gault) 7.5 BUN/Creatinine Ratio 12 (6-20) Glucose Level 102 mg/dL (70-99) Calcium Level 9.2 mg/dL (8.5-10.1) Total Bilirubin 0.3 mg/dL (0.2-1.0) Aspartate Amino Transf (AST/SGOT) 12 U/L (15-37) Alanine Aminotransferase (ALT/SGPT) 12 U/L (14-59) Alkaline Phosphatase 41 U/L (46-116) Total Protein 5.7 g/dL (6.4-8.2) Albumin 3.2 g/dL (3.4-5.0) Albumin/Globulin Ratio 1.3 (1.0-1.7) Hepatitis B Surface Antigen Nonreactive (Nonreactive) Hepatitis B Surface Antibody Nonreactive Assessment and Plan Assessmemt and Plan Problems Medical Problems: (1) Dyspnea Status: Acute (2) Suspected COVID-19 virus infection Status: Acute Comment Review of Relevant I have reviewed the following items cristofer (where applicable) has been applied. Medications: Current Medications Medications (Trade) Dose Ordered Sig/Mendoza Route PRN Reason Start Time Stop Time Status Last Admin Dose Admin Aspirin (Ecotrin) 81 mg [id number] PO 10/20/19 08:00 10/20/19 08:38 Vitamin B Complex/ Vitamin C (Jerilyn-Jaylon) 1 tab DAILY PO 10/20/19 09:00 10/20/19 08:37 Isosorbide Mononitrate (Imdur) 60 mg DAILY PO 10/20/19 09:00 10/20/19 08:37 Levothyroxine Sodium (Synthroid) 50 mcg DAILYAC PO 10/20/19 07:30 10/20/19 06:34 Nifedipine (Procardia Xl) 90 mg DAILY PO 10/20/19 09:00 10/20/19 08:37 Lorazepam (Ativan) 0.25 mg PRN Q6HRS PRN PO ANXIETY / AGITATION 10/19/19 22:00 10/20/19 08:40 Lidocaine HCl (Xylocaine-Mpf 1% 2ml Vial) 2 ml 1X ONCE ID 10/20/19 14:00 10/20/19 14:01 DC 10/20/19 13:59 Justifications for Admission Other Justification SHARON GRIJALVA MD Oct 20, 2019 17:58
[2019-10-20] MEDS: ONDANSETRON PF 4 MG/2 ML VIAL. IVP PRN (18:46)
[2019-10-20 19:56] VITALS: BP 138/64
[2019-10-20 23:15] VITALS: BP 120/59
[2019-10-21] VITALS (7 sets, daily range): BP systolic 126–173; BP diastolic 55–79
--- NOTE | 2019-10-21 05:25 | EKG ---
[facility] [address] [place] [address] Test Date: 2019-10-19 Test Time: 02:32:07 Pat Name: BRITTNEY REED Department: Room: 4 Gender: F [employer]: : [id number] Requested By: FRANKY REN Order Number: [id number] Reading MD: Measurements Intervals [place] Rate: 81 P: NC: QRS: -3 QRSD: 98 T: 52 QT: 348 QTc: 405 Interpretive Statements IRREGULAR RHYTHM, NO P-WAVE FOUND LEFTWARD AXIS NO SPECIFIC ECG ABNORMALITIES RI6.02 No previous ECG available for comparison
[2019-10-21 06:28] LABS: BASO # 0.1 x10^3/uL (0.0-0.2); BASO % 1 % (0-3); EOS # 0.5 x10^3/uL (0.0-0.7); EOS % 6 % (0-3); HEMATOCRIT 29.8 % (36.0-47.0); HEMOGLOBIN 9.8 g/dL (12.0-15.5); LYMPH # 0.8 x10^3/uL (1.0-4.8); LYMPH % 10 % (24-48); MEAN CORPUSCULAR HEMOGLOBIN 33 pg (25-35); MEAN CORPUSCULAR HGB CONC 33 g/dL (31-37); MEAN CORPUSCULAR VOLUME 101 fL (79-100); MONO # 1.1 x10^3/uL (0.0-1.1); MONO % 14 % (0-9); NEUT # 5.9 x10^3/uL (1.8-7.7); NEUT % 70 % (31-73); PLATELET COUNT 200 x10^3/uL (140-400); RED BLOOD COUNT 2.95 x10^6/uL (3.50-5.40); RED CELL DISTRIBUTION WIDTH 13.8 % (11.5-14.5); WHITE BLOOD COUNT 8.4 x10^3/uL (4.0-11.0)
[2019-10-21 06:31] LABS: CALCIUM 8.8 mg/dL (8.5-10.1); CREATININE 3.8 mg/dL (0.6-1.0); GFR 11.3; POTASSIUM 4.2 mmol/L (3.5-5.1)
--- NOTE | 2019-10-21 09:22 | PDOC ---
PULMONARY PROGRESS NOTES DATE: 10/21/19 TIME: 09:21 Subjective FEELS BETTER Vitals Vital Signs Date Time Temp Pulse Resp B/P (MAP) Pulse Ox O2 Delivery O2 Flow Rate FiO2 10/21/19 07:16 97.6 70 26 173/79 (110) 94 Nasal Cannula 3.0 97.6 General: Alert, No acute distress Lungs: Other (decrease bases) Cardiovascular: S1, S2 Neuro Exam: Alert Extremities: No Edema Skin: Warm Labs Laboratory Tests Test 10/20/19 04:30 10/21/19 05:20 White Blood Count 9.9 x10^3/uL (4.0-11.0) 8.4 x10^3/uL (4.0-11.0) Red Blood Count 3.12 x10^6/uL (3.50-5.40) 2.95 x10^6/uL (3.50-5.40) Hemoglobin 10.5 g/dL (12.0-15.5) 9.8 g/dL (12.0-15.5) Hematocrit 31.9 % (36.0-47.0) 29.8 % (36.0-47.0) Mean Corpuscular Volume 102 fL (79-100) 101 fL (79-100) Mean Corpuscular Hemoglobin 34 pg (25-35) 33 pg (25-35) Mean Corpuscular Hemoglobin Concent 33 g/dL (31-37) 33 g/dL (31-37) Red Cell Distribution Width 13.9 % (11.5-14.5) 13.8 % (11.5-14.5) Platelet Count 221 x10^3/uL (140-400) 200 x10^3/uL (140-400) Neutrophils (%) (Auto) 75 % (31-73) 70 % (31-73) Lymphocytes (%) (Auto) 8 % (24-48) 10 % (24-48) Monocytes (%) (Auto) 12 % (0-9) 14 % (0-9) Eosinophils (%) (Auto) 4 % (0-3) 6 % (0-3) Basophils (%) (Auto) 1 % (0-3) 1 % (0-3) Neutrophils # (Auto) 7.4 x10^3/uL (1.8-7.7) 5.9 x10^3/uL (1.8-7.7) Lymphocytes # (Auto) 0.8 x10^3/uL (1.0-4.8) 0.8 x10^3/uL (1.0-4.8) Monocytes # (Auto) 1.2 x10^3/uL (0.0-1.1) 1.1 x10^3/uL (0.0-1.1) Eosinophils # (Auto) 0.4 x10^3/uL (0.0-0.7) 0.5 x10^3/uL (0.0-0.7) Basophils # (Auto) 0.1 x10^3/uL (0.0-0.2) 0.1 x10^3/uL (0.0-0.2) Sodium Level 139 mmol/L (136-145) 136 mmol/L (136-145) Potassium Level 5.0 mmol/L (3.5-5.1) 4.2 mmol/L (3.5-5.1) Chloride Level 99 mmol/L (98-107) 97 mmol/L (98-107) Carbon Dioxide Level 26 mmol/L (21-32) 30 mmol/L (21-32) Anion Gap 14 (6-14) 9 (6-14) Blood Urea Nitrogen 63 mg/dL (7-20) 36 mg/dL (7-20) Creatinine 5.4 mg/dL (0.6-1.0) 3.8 mg/dL (0.6-1.0) Estimated GFR (Cockcroft-Gault) 7.5 11.3 BUN/Creatinine Ratio 12 (6-20) Glucose Level 102 mg/dL (70-99) 89 mg/dL (70-99) Calcium Level 9.2 mg/dL (8.5-10.1) 8.8 mg/dL (8.5-10.1) Total Bilirubin 0.3 mg/dL (0.2-1.0) Aspartate Amino Transf (AST/SGOT) 12 U/L (15-37) Alanine Aminotransferase (ALT/SGPT) 12 U/L (14-59) Alkaline Phosphatase 41 U/L (46-116) Total Protein 5.7 g/dL (6.4-8.2) Albumin 3.2 g/dL (3.4-5.0) Albumin/Globulin Ratio 1.3 (1.0-1.7) Hepatitis B Surface Antigen Nonreactive (Nonreactive) Hepatitis B Surface Antibody Nonreactive Thyroid Stimulating Hormone (TSH) 3.311 uIU/mL (0.358-3.74) Laboratory Tests Test 10/21/19 05:20 White Blood Count 8.4 x10^3/uL (4.0-11.0) Red Blood Count 2.95 x10^6/uL (3.50-5.40) Hemoglobin 9.8 g/dL (12.0-15.5) Hematocrit 29.8 % (36.0-47.0) Mean Corpuscular Volume 101 fL (79-100) Mean Corpuscular Hemoglobin 33 pg (25-35) Mean Corpuscular Hemoglobin Concent 33 g/dL (31-37) Red Cell Distribution Width 13.8 % (11.5-14.5) Platelet Count 200 x10^3/uL (140-400) Neutrophils (%) (Auto) 70 % (31-73) Lymphocytes (%) (Auto) 10 % (24-48) Monocytes (%) (Auto) 14 % (0-9) Eosinophils (%) (Auto) 6 % (0-3) Basophils (%) (Auto) 1 % (0-3) Neutrophils # (Auto) 5.9 x10^3/uL (1.8-7.7) Lymphocytes # (Auto) 0.8 x10^3/uL (1.0-4.8) Monocytes # (Auto) 1.1 x10^3/uL (0.0-1.1) Eosinophils # (Auto) 0.5 x10^3/uL (0.0-0.7) Basophils # (Auto) 0.1 x10^3/uL (0.0-0.2) Sodium Level 136 mmol/L (136-145) Potassium Level 4.2 mmol/L (3.5-5.1) Chloride Level 97 mmol/L (98-107) Carbon Dioxide Level 30 mmol/L (21-32) Anion Gap 9 (6-14) Blood Urea Nitrogen 36 mg/dL (7-20) Creatinine 3.8 mg/dL (0.6-1.0) Estimated GFR (Cockcroft-Gault) 11.3 Glucose Level 89 mg/dL (70-99) Calcium Level 8.8 mg/dL (8.5-10.1) Thyroid Stimulating Hormone (TSH) 3.311 uIU/mL (0.358-3.74) Medications Active Scripts Medications Dose Route/Sig Max Daily Dose Days Date Category Dose Instructions Calcium Acetate 667 Mg Tablet 3 Cap PO TIDAC 10/19/19 Reported Tylenol (Acetaminophen) 325 Mg Tablet 650 Mg PO PRN Q6HRS PRN 30 06/06/19 Rx Hydrocodone-Apap 10-325 (Hydrocodone Bit/Acetaminophen) 1 Each Tablet 1 Tab PO PRN TID PRN 6 06/06/19 Rx Proair Hfa (Albuterol Sulfate) 8.5 Gm Hfa.aer.ad 2.5 Mg NEB PRN Q4HRS PRN 02/02/19 Rx Coreg (Carvedilol) 6.25 Mg Tablet 6.25 Mg PO BIDWMEALS 02/01/19 Reported Synthroid (Levothyroxine Sodium) 50 Mcg Tablet 50 Mcg PO DAILYAC 02/01/19 Reported Sodium Bicarbonate 650 Mg Tablet 650 Mg PO BID 02/01/19 Reported Jerilyn-Jaylon Tablet (Folic Acid/Vitamin B Comp W-C) 0.8 Mg Tablet 1 Tab PO DAILY 30 06/12/17 Rx Culturelle (Lactobacillus Rhamnosus Gg) 1 Each Cap.sprink 1 Cap PO BID 14 06/12/17 Rx Pepcid (Famotidine) 20 Mg Tablet 10 Mg PO PRN DAILY 06/10/17 Reported NITROGLYCERIN SubLingual (Nitroglycerin) 0.4 Mg Tab.subl 0.4 Mg SL PRN Q5MIN PRN 06/10/17 Reported Nifedipine Er (Nifedipine) 30 Mg Tab.er.24 90 Mg PO DAILY 02/27/17 Rx Aspirin Ec (Aspirin) 81 Mg Tablet.dr 81 Mg PO DAILYWBKFT 02/27/17 Rx Isosorbide Mononitrate Er (Isosorbide Mononitrate) 30 Mg Tab.er.24h 2 Tab PO DAILY 02/26/17 Reported Next dose due tomorrow morning. Impression . 1. Dyspnea, suspect secondary to volume overload and congestive heart failure,Neg COVID-19. 2. Abnormal chest x-ray c/w CHF 3. End-stage renal disease, on hemodialysis. 4. Elevated troponin. 5. COVID-19 Neg Plan . PLAN AND RECOMMENDATIONS: 1. Titrate FiO2 to keep O2 saturation 92%. 2. Aggressive hemodialysis.with UF 3. clinically better 4. Her echo in 2019 showed moderate aortic stenosis. This needs to be reevaluated by echocardiogram per primary. 5. Follow up COVID-19 testing.neg 6. Start incentive spirometer. 7. The findings and recommendations were discussed with RN. MEGHANA DRAKE MD Oct 21, 2019 09:22
[2019-10-21] MEDS: ASPIRIN ENTERIC COATED 81 MG TABLET.DR. PO SCH (09:27)
[2019-10-21] MEDS: CARVEDILOL 6.25 MG TABLET. PO SCH ×2 (09:27→16:25)
[2019-10-21] MEDS: FOLIC/VIT B COMP W-C (RENAL) TABLET. PO SCH (09:27)
[2019-10-21] MEDS: LEVOTHYROXINE 50 MCG TABLET PO SCH (09:28)
[2019-10-21] MEDS: LORazepam 0.5 MG TABLET PO PRN (09:28)
[2019-10-21] MEDS: CALCIUM ACETATE 667 MG CAPSULE PO SCH ×3 (09:28→16:26)
[2019-10-21] MEDS: ISOSORBIDE MONONITRATE ER 30 MG TAB.ER.24H PO SCH (09:28)
--- NOTE | 2019-10-21 10:08 | NUR ---
Pt is 84 y/o female admitted with SOB. Hx of ESRD. RN reports pt has not been out of bed and would benefit from PT/OT services. Please write PT/OT eval and treat orders if you agree. Addendum: 10/21/19 at 1009 by MIRANDA LOYA PT Amended: Links added.
--- NOTE | 2019-10-21 11:44 | NUR ---
SW following. Spoke with RN and reviewed chart. Coordinated care with Dr. Arnold. Pt to have echo today. Cardiology consulted. Pt remains on 02. Pt resides at [facility] with hired caregivers. Spoke with pt who is agreeable to SNU referral and would like [facility] as she has been there in the past. Patient Choice of Vendor form completed. Referral for SNU phoned and faxed to Gissel at [facility], , (fax). Spoke with pt's dtr Jessica ([phone]) who has some concerns about SNU at discharge per SATNAM. Pt's dtr Jessica to check with her brother and get back with this SW. Pt does have home 02 per the dtr. Pt does out-patient dialysis MWF at [facility] in [place]. JORGE following. Addendum: 10/21/19 at 1317 by PORFIRIO PATEL pt's son Saurabh ([phone]) called and they would like pt to discharge home with Yamsin APONTE. Referral sent to Shira. Patient Choice of Vendor form updated.
[2019-10-21] MEDS: HYDROcodone/APAP 10/325 1 TAB TABLET PO PRN ×2 (12:11→20:57)
[2019-10-21] MEDS: hydrALAZINE 20 MG/ML VIAL. IVP PRN (12:11)
--- NOTE | 2019-10-21 12:18 | PDOC ---
Renal-Progress Notes Subjective Notes Notes LESS SOB History of Present Illness Hx of present illness STABLE Vitals Vitals Vital Signs Date Time Temp Pulse Resp B/P (MAP) Pulse Ox O2 Delivery O2 Flow Rate FiO2 10/21/19 12:11 69 172/75 10/21/19 11:30 97.7 32 96 Nasal Cannula 3.0 97.7 Weight Weight [ ] I.O. Intake and Output Intake and Output 10/21/19 07:00 Intake Total 640 ml Balance 640 ml Intake Oral 640 ml # Voids 6 Labs Labs Laboratory Tests Test 10/21/19 05:20 White Blood Count 8.4 x10^3/uL (4.0-11.0) Red Blood Count 2.95 x10^6/uL (3.50-5.40) Hemoglobin 9.8 g/dL (12.0-15.5) Hematocrit 29.8 % (36.0-47.0) Mean Corpuscular Volume 101 fL (79-100) Mean Corpuscular Hemoglobin 33 pg (25-35) Mean Corpuscular Hemoglobin Concent 33 g/dL (31-37) Red Cell Distribution Width 13.8 % (11.5-14.5) Platelet Count 200 x10^3/uL (140-400) Neutrophils (%) (Auto) 70 % (31-73) Lymphocytes (%) (Auto) 10 % (24-48) Monocytes (%) (Auto) 14 % (0-9) Eosinophils (%) (Auto) 6 % (0-3) Basophils (%) (Auto) 1 % (0-3) Neutrophils # (Auto) 5.9 x10^3/uL (1.8-7.7) Lymphocytes # (Auto) 0.8 x10^3/uL (1.0-4.8) Monocytes # (Auto) 1.1 x10^3/uL (0.0-1.1) Eosinophils # (Auto) 0.5 x10^3/uL (0.0-0.7) Basophils # (Auto) 0.1 x10^3/uL (0.0-0.2) Sodium Level 136 mmol/L (136-145) Potassium Level 4.2 mmol/L (3.5-5.1) Chloride Level 97 mmol/L (98-107) Carbon Dioxide Level 30 mmol/L (21-32) Anion Gap 9 (6-14) Blood Urea Nitrogen 36 mg/dL (7-20) Creatinine 3.8 mg/dL (0.6-1.0) Estimated GFR (Cockcroft-Gault) 11.3 Glucose Level 89 mg/dL (70-99) Calcium Level 8.8 mg/dL (8.5-10.1) Thyroid Stimulating Hormone (TSH) 3.311 uIU/mL (0.358-3.74) Micro Micro Microbiology 10/19/19 Blood Culture - Preliminary, Resulted NO GROWTH AFTER 2 DAYS Review of Systems Constitutional: yes: weakness, alert, oriented Pulmonary: Yes dyspnea Cardiovascular: Yes no symptom reported Gastrointestional: Yes: constipation Genitourinary: Yes: no symptom reported Musculoskeletal: Yes: no symptom reported Skin: Yes no symptom reported Psychiatric/Neurological: Yes: no symptom reported Endocrine: Yes: no symptom reported Physical Exam General Appearance: no apparent distress Skin: warm Respiratory: decreased breath sounds Heart: S1S2 Abdomen: bowel sounds present Genitourinary: bladder flat Extremities: atrophy Neurology: alert, oriented Musculoskeletal: Osteoarthritis Assessment Assessment IMP ESRD ANEMIA HTN HX DYSPNEA DUE TO CHF PLAN NICHELLE NEEDED HD TOMORROW SUPPLEMENTAL O2 NEEDED WILL FOLLOW ARSEN MERCADO MD Oct 21, 2019 12:18
--- NOTE | 2019-10-21 12:18 | PDOC ---
[employer] PROGRESS NOTE Date of Service DOS: DATE: 10/21/19 TIME: 12:16 Chief Complaint Chief Complaint Shortness of breath History of Present Illness History of Present Illness 10/20/2019 Patient evaluated bedside, reports improvement in her shortness of breath at dialysis. COVID-19 negative. Will evaluate with echocardiogram. Continue diuresis. 10/21/2019 Patient had episode of SVT and hemodialysis yesterday, which resolved hemodialysis was stopped. Plans to resume HD today. Echo pending. COVID-19 negative. Patient states she is breathing well. Vitals/I&O Vitals/I&O: Vital Signs Date Time Temp Pulse Resp B/P (MAP) Pulse Ox O2 Delivery O2 Flow Rate FiO2 10/21/19 12:11 69 172/75 10/21/19 11:30 97.7 32 96 Nasal Cannula 3.0 97.7 I & O 10/20/19 10/20/19 10/21/19 15:00 23:00 07:00 Intake Total 200 ml 320 ml 120 ml Balance 200 ml 320 ml 120 ml Physical Exam General: No acute distress Heart: Regular rate Lungs: Other (decrease bases) Abdomen: Normal bowel sounds Extremities: No cyanosis Skin: No rashes, No significant lesion Labs Labs: Laboratory Tests Test 10/21/19 05:20 White Blood Count 8.4 x10^3/uL (4.0-11.0) Red Blood Count 2.95 x10^6/uL (3.50-5.40) Hemoglobin 9.8 g/dL (12.0-15.5) Hematocrit 29.8 % (36.0-47.0) Mean Corpuscular Volume 101 fL (79-100) Mean Corpuscular Hemoglobin 33 pg (25-35) Mean Corpuscular Hemoglobin Concent 33 g/dL (31-37) Red Cell Distribution Width 13.8 % (11.5-14.5) Platelet Count 200 x10^3/uL (140-400) Neutrophils (%) (Auto) 70 % (31-73) Lymphocytes (%) (Auto) 10 % (24-48) Monocytes (%) (Auto) 14 % (0-9) Eosinophils (%) (Auto) 6 % (0-3) Basophils (%) (Auto) 1 % (0-3) Neutrophils # (Auto) 5.9 x10^3/uL (1.8-7.7) Lymphocytes # (Auto) 0.8 x10^3/uL (1.0-4.8) Monocytes # (Auto) 1.1 x10^3/uL (0.0-1.1) Eosinophils # (Auto) 0.5 x10^3/uL (0.0-0.7) Basophils # (Auto) 0.1 x10^3/uL (0.0-0.2) Sodium Level 136 mmol/L (136-145) Potassium Level 4.2 mmol/L (3.5-5.1) Chloride Level 97 mmol/L (98-107) Carbon Dioxide Level 30 mmol/L (21-32) Anion Gap 9 (6-14) Blood Urea Nitrogen 36 mg/dL (7-20) Creatinine 3.8 mg/dL (0.6-1.0) Estimated GFR (Cockcroft-Gault) 11.3 Glucose Level 89 mg/dL (70-99) Calcium Level 8.8 mg/dL (8.5-10.1) Thyroid Stimulating Hormone (TSH) 3.311 uIU/mL (0.358-3.74) Assessment and Plan Assessmemt and Plan Problems Medical Problems: (1) Dyspnea Status: Acute (2) Suspected COVID-19 virus infection Status: Acute Comment Review of Relevant I have reviewed the following items cristofer (where applicable) has been applied. Medications: Current Medications Medications (Trade) Dose Ordered Sig/Mendoza Route PRN Reason Start Time Stop Time Status Last Admin Dose Admin Lidocaine HCl (Xylocaine-Mpf 1% 2ml Vial) 2 ml 1X ONCE ID 10/20/19 14:00 10/20/19 14:01 DC 10/20/19 13:59 Ondansetron HCl (Zofran) 4 mg PRN Q6HRS PRN IVP NAUSEA/VOMITING 10/20/19 18:45 10/20/19 18:46 Justifications for Admission Other Justification SHARON GRIJALVA MD Oct 21, 2019 12:18
--- NOTE | 2019-10-21 12:43 | PDOC ---
CARDIO Progress Notes Date and Time Date of Service 10/21/2019 Time of Evaluation 1230 Subjective Subjective: No Chest Pain, No shortness of breath, No Palpitations Vitals Vitals Vital Signs Date Time Temp Pulse Resp B/P (MAP) Pulse Ox O2 Delivery O2 Flow Rate FiO2 10/21/19 12:11 69 172/75 10/21/19 11:30 97.7 32 96 Nasal Cannula 3.0 97.7 Weight Weight [ ] Input and Output Intake and Output Intake and Output 10/21/19 07:00 Intake Total 640 ml Balance 640 ml Intake Oral 640 ml # Voids 6 Laboratory Labs Laboratory Tests Test 10/21/19 05:20 White Blood Count 8.4 x10^3/uL (4.0-11.0) Red Blood Count 2.95 x10^6/uL (3.50-5.40) Hemoglobin 9.8 g/dL (12.0-15.5) Hematocrit 29.8 % (36.0-47.0) Mean Corpuscular Volume 101 fL (79-100) Mean Corpuscular Hemoglobin 33 pg (25-35) Mean Corpuscular Hemoglobin Concent 33 g/dL (31-37) Red Cell Distribution Width 13.8 % (11.5-14.5) Platelet Count 200 x10^3/uL (140-400) Neutrophils (%) (Auto) 70 % (31-73) Lymphocytes (%) (Auto) 10 % (24-48) Monocytes (%) (Auto) 14 % (0-9) Eosinophils (%) (Auto) 6 % (0-3) Basophils (%) (Auto) 1 % (0-3) Neutrophils # (Auto) 5.9 x10^3/uL (1.8-7.7) Lymphocytes # (Auto) 0.8 x10^3/uL (1.0-4.8) Monocytes # (Auto) 1.1 x10^3/uL (0.0-1.1) Eosinophils # (Auto) 0.5 x10^3/uL (0.0-0.7) Basophils # (Auto) 0.1 x10^3/uL (0.0-0.2) Sodium Level 136 mmol/L (136-145) Potassium Level 4.2 mmol/L (3.5-5.1) Chloride Level 97 mmol/L (98-107) Carbon Dioxide Level 30 mmol/L (21-32) Anion Gap 9 (6-14) Blood Urea Nitrogen 36 mg/dL (7-20) Creatinine 3.8 mg/dL (0.6-1.0) Estimated GFR (Cockcroft-Gault) 11.3 Glucose Level 89 mg/dL (70-99) Calcium Level 8.8 mg/dL (8.5-10.1) Thyroid Stimulating Hormone (TSH) 3.311 uIU/mL (0.358-3.74) Microbiology Micro Microbiology 10/19/19 Blood Culture - Preliminary, Resulted NO GROWTH AFTER 2 DAYS Review of Systems Constitutional: yes: weakness, alert, oriented Pulmonary: Yes dyspnea Cardiovascular: Yes no symptom reported Gastrointestional: Yes: constipation Genitourinary: Yes: no symptom reported Musculoskeletal: Yes: no symptom reported Skin: Yes no symptom reported Psychiatric/Neurological: Yes: no symptom reported Endocrine: Yes: no symptom reported Physical Exam HEENT: Neck Supple W Full Motion Chest: Symmetric LUNGS: Clear to Auscultation Heart: RRR (SR) Abdomen: Soft N/T Extremities: No Calf Tenderness Neurology: alert, oriented (to self), follow commands Assessment Assessment 1. Acute diastolic CHF: appears compensated 2. ESRD 3. HTN: labile 4. HLP 5. Mild troponin elevation: trop 0.06 possibly demand mediated. 6. Arrhythmia: noted with PAT with PVCs. 7. Moderate Recommendations 1. Fluid off loading per HD 2. Add hydralazine to BP regimen. Lipids panel, statin per level. Continue ASA 3. TTE 4. Outpt stress test next week 5. Follow up with Dr. Sierra on November 10 9:30 Justicifation of Admission Dx: Justifications for Admission: Justification of Admission Dx: Yes (HYPOXIA) JERE FAULKNER DIGITAL DATA ANALYST Oct 21, 2019 12:43
--- NOTE | 2019-10-21 17:30 | NUR ---
pt transferred from room 654 to room 530. Report called to [facility]. Pt transported via wheelchair. All belongings with patient at the time of transfer- cell phone, yellow purse, clothing.
[2019-10-22 03:00] VITALS: BP 135/54
[2019-10-22 05:50] LABS: BASO # 0.1 x10^3/uL (0.0-0.2); BASO % 1 % (0-3); EOS # 0.4 x10^3/uL (0.0-0.7); EOS % 5 % (0-3); HEMATOCRIT 31.5 % (36.0-47.0); HEMOGLOBIN 10.3 g/dL (12.0-15.5); LYMPH # 0.8 x10^3/uL (1.0-4.8); LYMPH % 9 % (24-48); MEAN CORPUSCULAR HEMOGLOBIN 33 pg (25-35); MEAN CORPUSCULAR HGB CONC 33 g/dL (31-37); MEAN CORPUSCULAR VOLUME 101 fL (79-100); MONO # 1.2 x10^3/uL (0.0-1.1); MONO % 13 % (0-9); NEUT % 73 % (31-73); PLATELET COUNT 210 x10^3/uL (140-400); RED BLOOD COUNT 3.12 x10^6/uL (3.50-5.40); RED CELL DISTRIBUTION WIDTH 13.8 % (11.5-14.5); WHITE BLOOD COUNT 9.6 x10^3/uL (4.0-11.0)
[2019-10-22 06:11] LABS: CALCIUM 9.2 mg/dL (8.5-10.1); CREATININE 5.4 mg/dL (0.6-1.0); GFR 7.5; POTASSIUM 4.3 mmol/L (3.5-5.1)
[2019-10-22 07:00] VITALS: BP 140/55
[2019-10-22] MEDS: FOLIC/VIT B COMP W-C (RENAL) TABLET. PO SCH (07:52)
[2019-10-22] MEDS: HYDROcodone/APAP 10/325 1 TAB TABLET PO PRN ×3 (07:52→22:03)
[2019-10-22] MEDS: ASPIRIN ENTERIC COATED 81 MG TABLET.DR. PO SCH (07:52)
[2019-10-22] MEDS: CALCIUM ACETATE 667 MG CAPSULE PO SCH ×3 (07:52→16:53)
[2019-10-22] MEDS: LEVOTHYROXINE 50 MCG TABLET PO SCH (07:52)
[2019-10-22] MEDS: CARVEDILOL 6.25 MG TABLET. PO SCH ×2 (08:00→16:53)
[2019-10-22] MEDS: ISOSORBIDE MONONITRATE ER 30 MG TAB.ER.24H PO SCH (09:00)
[2019-10-22] MEDS ORDERED: ALBUMIN HUMAN 25% 200 ML IV PRN (10:30)
[2019-10-22] MEDS ORDERED: IV NORMAL SALINE 1000ML BAG 1,000 ML IV PRN ×2 (10:30)
[2019-10-22 11:00] VITALS: BP 181/67
--- NOTE | 2019-10-22 11:02 | PDOC ---
PULMONARY PROGRESS NOTES DATE: 10/22/19 TIME: 11:02 Subjective FEELS BETTER Vitals Vital Signs Date Time Temp Pulse Resp B/P (MAP) Pulse Ox O2 Delivery O2 Flow Rate FiO2 10/22/19 10:19 Room Air 10/22/19 08:00 3.0 10/22/19 07:00 97.7 68 18 140/55 (83) 95 97.7 General: Alert, No acute distress Lungs: Other (decrease bases) Cardiovascular: S1, S2 Neuro Exam: Alert Extremities: No Edema Skin: Warm Labs Laboratory Tests Test 10/21/19 05:20 10/21/19 14:59 10/22/19 04:40 White Blood Count 8.4 x10^3/uL (4.0-11.0) 9.6 x10^3/uL (4.0-11.0) Red Blood Count 2.95 x10^6/uL (3.50-5.40) 3.12 x10^6/uL (3.50-5.40) Hemoglobin 9.8 g/dL (12.0-15.5) 10.3 g/dL (12.0-15.5) Hematocrit 29.8 % (36.0-47.0) 31.5 % (36.0-47.0) Mean Corpuscular Volume 101 fL (79-100) 101 fL (79-100) Mean Corpuscular Hemoglobin 33 pg (25-35) 33 pg (25-35) Mean Corpuscular Hemoglobin Concent 33 g/dL (31-37) 33 g/dL (31-37) Red Cell Distribution Width 13.8 % (11.5-14.5) 13.8 % (11.5-14.5) Platelet Count 200 x10^3/uL (140-400) 210 x10^3/uL (140-400) Neutrophils (%) (Auto) 70 % (31-73) 73 % (31-73) Lymphocytes (%) (Auto) 10 % (24-48) 9 % (24-48) Monocytes (%) (Auto) 14 % (0-9) 13 % (0-9) Eosinophils (%) (Auto) 6 % (0-3) 5 % (0-3) Basophils (%) (Auto) 1 % (0-3) 1 % (0-3) Neutrophils # (Auto) 5.9 x10^3/uL (1.8-7.7) 7.0 x10^3/uL (1.8-7.7) Lymphocytes # (Auto) 0.8 x10^3/uL (1.0-4.8) 0.8 x10^3/uL (1.0-4.8) Monocytes # (Auto) 1.1 x10^3/uL (0.0-1.1) 1.2 x10^3/uL (0.0-1.1) Eosinophils # (Auto) 0.5 x10^3/uL (0.0-0.7) 0.4 x10^3/uL (0.0-0.7) Basophils # (Auto) 0.1 x10^3/uL (0.0-0.2) 0.1 x10^3/uL (0.0-0.2) Sodium Level 136 mmol/L (136-145) 133 mmol/L (136-145) Potassium Level 4.2 mmol/L (3.5-5.1) 4.3 mmol/L (3.5-5.1) Chloride Level 97 mmol/L (98-107) 94 mmol/L (98-107) Carbon Dioxide Level 30 mmol/L (21-32) 29 mmol/L (21-32) Anion Gap 9 (6-14) 10 (6-14) Blood Urea Nitrogen 36 mg/dL (7-20) 55 mg/dL (7-20) Creatinine 3.8 mg/dL (0.6-1.0) 5.4 mg/dL (0.6-1.0) Estimated GFR (Cockcroft-Gault) 11.3 7.5 Glucose Level 89 mg/dL (70-99) 98 mg/dL (70-99) Calcium Level 8.8 mg/dL (8.5-10.1) 9.2 mg/dL (8.5-10.1) Triglycerides Level 145 mg/dL (0-150) Cholesterol Level 191 mg/dL (0-200) LDL Cholesterol, Calculated 124 mg/dL (0-100) VLDL Cholesterol, Calculated 29 mg/dL (0-40) Non-HDL Cholesterol Calculated 153 mg/dL (0-129) HDL Cholesterol 38 mg/dL (40-60) Cholesterol/HDL Ratio 5.0 Thyroid Stimulating Hormone (TSH) 3.311 uIU/mL (0.358-3.74) Glucose (Fingerstick) 113 mg/dL (70-99) Laboratory Tests Test 10/21/19 14:59 10/22/19 04:40 Glucose (Fingerstick) 113 mg/dL (70-99) White Blood Count 9.6 x10^3/uL (4.0-11.0) Red Blood Count 3.12 x10^6/uL (3.50-5.40) Hemoglobin 10.3 g/dL (12.0-15.5) Hematocrit 31.5 % (36.0-47.0) Mean Corpuscular Volume 101 fL (79-100) Mean Corpuscular Hemoglobin 33 pg (25-35) Mean Corpuscular Hemoglobin Concent 33 g/dL (31-37) Red Cell Distribution Width 13.8 % (11.5-14.5) Platelet Count 210 x10^3/uL (140-400) Neutrophils (%) (Auto) 73 % (31-73) Lymphocytes (%) (Auto) 9 % (24-48) Monocytes (%) (Auto) 13 % (0-9) Eosinophils (%) (Auto) 5 % (0-3) Basophils (%) (Auto) 1 % (0-3) Neutrophils # (Auto) 7.0 x10^3/uL (1.8-7.7) Lymphocytes # (Auto) 0.8 x10^3/uL (1.0-4.8) Monocytes # (Auto) 1.2 x10^3/uL (0.0-1.1) Eosinophils # (Auto) 0.4 x10^3/uL (0.0-0.7) Basophils # (Auto) 0.1 x10^3/uL (0.0-0.2) Sodium Level 133 mmol/L (136-145) Potassium Level 4.3 mmol/L (3.5-5.1) Chloride Level 94 mmol/L (98-107) Carbon Dioxide Level 29 mmol/L (21-32) Anion Gap 10 (6-14) Blood Urea Nitrogen 55 mg/dL (7-20) Creatinine 5.4 mg/dL (0.6-1.0) Estimated GFR (Cockcroft-Gault) 7.5 Glucose Level 98 mg/dL (70-99) Calcium Level 9.2 mg/dL (8.5-10.1) Medications Active Scripts Medications Dose Route/Sig Max Daily Dose Days Date Category Dose Instructions Calcium Acetate 667 Mg Tablet 3 Cap PO TIDAC 10/19/19 Reported Tylenol (Acetaminophen) 325 Mg Tablet 650 Mg PO PRN Q6HRS PRN 30 06/06/19 Rx Hydrocodone-Apap 10-325 (Hydrocodone Bit/Acetaminophen) 1 Each Tablet 1 Tab PO PRN TID PRN 6 06/06/19 Rx Proair Hfa (Albuterol Sulfate) 8.5 Gm Hfa.aer.ad 2.5 Mg NEB PRN Q4HRS PRN 02/02/19 Rx Coreg (Carvedilol) 6.25 Mg Tablet 6.25 Mg PO BIDWMEALS 02/01/19 Reported Synthroid (Levothyroxine Sodium) 50 Mcg Tablet 50 Mcg PO DAILYAC 02/01/19 Reported Sodium Bicarbonate 650 Mg Tablet 650 Mg PO BID 02/01/19 Reported Jerilyn-Jaylon Tablet (Folic Acid/Vitamin B Comp W-C) 0.8 Mg Tablet 1 Tab PO DAILY 30 06/12/17 Rx Culturelle (Lactobacillus Rhamnosus Gg) 1 Each Cap.sprink 1 Cap PO BID 14 06/12/17 Rx Pepcid (Famotidine) 20 Mg Tablet 10 Mg PO PRN DAILY 06/10/17 Reported NITROGLYCERIN SubLingual (Nitroglycerin) 0.4 Mg Tab.subl 0.4 Mg SL PRN Q5MIN PRN 06/10/17 Reported Nifedipine Er (Nifedipine) 30 Mg Tab.er.24 90 Mg PO DAILY 02/27/17 Rx Aspirin Ec (Aspirin) 81 Mg Tablet.dr 81 Mg PO DAILYWBKFT 02/27/17 Rx Isosorbide Mononitrate Er (Isosorbide Mononitrate) 30 Mg Tab.er.24h 2 Tab PO DAILY 02/26/17 Reported Next dose due tomorrow morning. Impression . 1. Dyspnea, suspect secondary to volume overload and congestive heart failure,Neg COVID-19. 2. Abnormal chest x-ray c/w CHF 3. End-stage renal disease, on hemodialysis. 4. Elevated troponin. 5. COVID-19 Neg Plan . PLAN AND RECOMMENDATIONS: 1. Titrate FiO2 to keep O2 saturation 92%. 2. Aggressive hemodialysis.with UF 3. clinically better 4. Her echo in 2019 showed moderate aortic stenosis. This needs to be reevaluated by echocardiogram per primary. 5. Follow up COVID-19 testing.neg 6. Start incentive spirometer. 7. The findings and recommendations were discussed with RN. repeat cxr today MEGHANA DRAKE MD Oct 22, 2019 11:02
--- NOTE | 2019-10-22 12:44 | PDOC ---
CARDIO Progress Notes Date and Time Date of Service 10/22/19 Time of Evaluation 1240 Subjective Subjective: No Chest Pain, No Palpitations, Other (not more SOA) Vitals Vitals Vital Signs Date Time Temp Pulse Resp B/P (MAP) Pulse Ox O2 Delivery O2 Flow Rate FiO2 10/22/19 11:00 97.4 76 18 181/67 (105) 94 97.4 10/22/19 10:19 Room Air 10/22/19 08:00 3.0 Weight Weight [ ] Input and Output Intake and Output Intake and Output 10/22/19 07:00 Intake Total 430 ml Balance 430 ml Intake Oral 430 ml # Voids 1 Laboratory Labs Laboratory Tests Test 10/21/19 14:59 10/22/19 04:40 Glucose (Fingerstick) 113 mg/dL (70-99) White Blood Count 9.6 x10^3/uL (4.0-11.0) Red Blood Count 3.12 x10^6/uL (3.50-5.40) Hemoglobin 10.3 g/dL (12.0-15.5) Hematocrit 31.5 % (36.0-47.0) Mean Corpuscular Volume 101 fL (79-100) Mean Corpuscular Hemoglobin 33 pg (25-35) Mean Corpuscular Hemoglobin Concent 33 g/dL (31-37) Red Cell Distribution Width 13.8 % (11.5-14.5) Platelet Count 210 x10^3/uL (140-400) Neutrophils (%) (Auto) 73 % (31-73) Lymphocytes (%) (Auto) 9 % (24-48) Monocytes (%) (Auto) 13 % (0-9) Eosinophils (%) (Auto) 5 % (0-3) Basophils (%) (Auto) 1 % (0-3) Neutrophils # (Auto) 7.0 x10^3/uL (1.8-7.7) Lymphocytes # (Auto) 0.8 x10^3/uL (1.0-4.8) Monocytes # (Auto) 1.2 x10^3/uL (0.0-1.1) Eosinophils # (Auto) 0.4 x10^3/uL (0.0-0.7) Basophils # (Auto) 0.1 x10^3/uL (0.0-0.2) Sodium Level 133 mmol/L (136-145) Potassium Level 4.3 mmol/L (3.5-5.1) Chloride Level 94 mmol/L (98-107) Carbon Dioxide Level 29 mmol/L (21-32) Anion Gap 10 (6-14) Blood Urea Nitrogen 55 mg/dL (7-20) Creatinine 5.4 mg/dL (0.6-1.0) Estimated GFR (Cockcroft-Gault) 7.5 Glucose Level 98 mg/dL (70-99) Calcium Level 9.2 mg/dL (8.5-10.1) Microbiology Micro Microbiology 10/19/19 Blood Culture - Preliminary, Resulted NO GROWTH AFTER 3 DAYS Review of Systems Constitutional: yes: weakness, alert, oriented Pulmonary: Yes dyspnea Cardiovascular: Yes no symptom reported Gastrointestional: Yes: constipation Genitourinary: Yes: no symptom reported Musculoskeletal: Yes: no symptom reported Skin: Yes no symptom reported Psychiatric/Neurological: Yes: no symptom reported Endocrine: Yes: no symptom reported Physical Exam HEENT: Neck Supple W Full Motion Chest: Symmetric LUNGS: Clear to Auscultation Heart: RRR (SR) Abdomen: Soft N/T Extremities: No Calf Tenderness Neurology: alert, oriented (to self), follow commands Assessment Assessment 1. Acute diastolic CHF: appears compensated 2. ESRD on HD 3. HTN: labile; patient did not receive oral meds this am 4. HLP; LDL 124 5. Mild troponin elevation: trop 0.06 possibly demand mediated. CP free 6. Arrhythmia: noted with PAT with PVCs. 7. Moderate Recommendations Fluid off loading per HD Echo pending to assess LV systolic function Outpt ischemic evaluation with stress test next week Follow up with Dr. Sierra on November 10 9:30 Supportive care Justicifation of Admission Dx: Justifications for Admission: Justification of Admission Dx: Yes (HYPOXIA) LU WATSON APRN Oct 22, 2019 12:44
--- NOTE | 2019-10-22 12:52 | PDOC ---
[facility] PROGRESS NOTE Date of Service DOS: DATE: 10/22/19 TIME: 12:52 Chief Complaint Chief Complaint Shortness of breath History of Present Illness History of Present Illness 10/20/2019 Patient evaluated bedside, reports improvement in her shortness of breath at dialysis. COVID-19 negative. Will evaluate with echocardiogram. Continue diuresis. 10/21/2019 Patient had episode of SVT and hemodialysis yesterday, which resolved hemodialysis was stopped. Plans to resume HD today. Echo pending. COVID-19 negative. Patient states she is breathing well. 10/22/2019 Patient evaluated bedside after dialysis. She denies any shortness of breath currently, but states that most of her shortness of breath occurs at night. States she does not have home oxygen. Will evaluate with 6-minute walk and set up with home oxygen at night prior to discharge. Vitals/I&O Vitals/I&O: Vital Signs Date Time Temp Pulse Resp B/P (MAP) Pulse Ox O2 Delivery O2 Flow Rate FiO2 10/22/19 11:00 97.4 76 18 181/67 (105) 94 97.4 10/22/19 10:19 Room Air 10/22/19 08:00 3.0 I & O 10/21/19 10/21/19 10/22/19 15:00 23:00 07:00 Intake Total 180 ml 160 ml 90 ml Balance 180 ml 160 ml 90 ml Physical Exam General: No acute distress Heart: Regular rate Lungs: Other (decrease bases) Abdomen: Normal bowel sounds Extremities: No cyanosis Skin: No rashes, No significant lesion Labs Labs: Laboratory Tests Test 10/21/19 14:59 10/22/19 04:40 Glucose (Fingerstick) 113 mg/dL (70-99) White Blood Count 9.6 x10^3/uL (4.0-11.0) Red Blood Count 3.12 x10^6/uL (3.50-5.40) Hemoglobin 10.3 g/dL (12.0-15.5) Hematocrit 31.5 % (36.0-47.0) Mean Corpuscular Volume 101 fL (79-100) Mean Corpuscular Hemoglobin 33 pg (25-35) Mean Corpuscular Hemoglobin Concent 33 g/dL (31-37) Red Cell Distribution Width 13.8 % (11.5-14.5) Platelet Count 210 x10^3/uL (140-400) Neutrophils (%) (Auto) 73 % (31-73) Lymphocytes (%) (Auto) 9 % (24-48) Monocytes (%) (Auto) 13 % (0-9) Eosinophils (%) (Auto) 5 % (0-3) Basophils (%) (Auto) 1 % (0-3) Neutrophils # (Auto) 7.0 x10^3/uL (1.8-7.7) Lymphocytes # (Auto) 0.8 x10^3/uL (1.0-4.8) Monocytes # (Auto) 1.2 x10^3/uL (0.0-1.1) Eosinophils # (Auto) 0.4 x10^3/uL (0.0-0.7) Basophils # (Auto) 0.1 x10^3/uL (0.0-0.2) Sodium Level 133 mmol/L (136-145) Potassium Level 4.3 mmol/L (3.5-5.1) Chloride Level 94 mmol/L (98-107) Carbon Dioxide Level 29 mmol/L (21-32) Anion Gap 10 (6-14) Blood Urea Nitrogen 55 mg/dL (7-20) Creatinine 5.4 mg/dL (0.6-1.0) Estimated GFR (Cockcroft-Gault) 7.5 Glucose Level 98 mg/dL (70-99) Calcium Level 9.2 mg/dL (8.5-10.1) Assessment and Plan Assessmemt and Plan Problems Medical Problems: (1) Dyspnea Status: Acute (2) Suspected COVID-19 virus infection Status: Acute Comment Review of Relevant I have reviewed the following items cristofer (where applicable) has been applied. Justifications for Admission Other Justification SHARON GRIJALVA MD Oct 22, 2019 12:52
[2019-10-22] MEDS: ONDANSETRON PF 4 MG/2 ML VIAL. IVP PRN (13:23)
[2019-10-22] MEDS ORDERED: DIALYSIS PATIENT. MC PRN ×2 (13:30)
--- NOTE | 2019-10-22 13:44 | PDOC ---
Renal-Progress Notes Subjective Notes Notes NO NEW COMPLAINTS History of Present Illness Hx of present illness STABLE Vitals Vitals Vital Signs Date Time Temp Pulse Resp B/P (MAP) Pulse Ox O2 Delivery O2 Flow Rate FiO2 10/22/19 13:23 18 97 Room Air 2.0 10/22/19 11:00 97.4 76 181/67 (105) 97.4 Weight Weight [ ] I.O. Intake and Output Intake and Output 10/22/19 07:00 Intake Total 430 ml Balance 430 ml Intake Oral 430 ml # Voids 1 Labs Labs Laboratory Tests Test 10/21/19 14:59 10/22/19 04:40 Glucose (Fingerstick) 113 mg/dL (70-99) White Blood Count 9.6 x10^3/uL (4.0-11.0) Red Blood Count 3.12 x10^6/uL (3.50-5.40) Hemoglobin 10.3 g/dL (12.0-15.5) Hematocrit 31.5 % (36.0-47.0) Mean Corpuscular Volume 101 fL (79-100) Mean Corpuscular Hemoglobin 33 pg (25-35) Mean Corpuscular Hemoglobin Concent 33 g/dL (31-37) Red Cell Distribution Width 13.8 % (11.5-14.5) Platelet Count 210 x10^3/uL (140-400) Neutrophils (%) (Auto) 73 % (31-73) Lymphocytes (%) (Auto) 9 % (24-48) Monocytes (%) (Auto) 13 % (0-9) Eosinophils (%) (Auto) 5 % (0-3) Basophils (%) (Auto) 1 % (0-3) Neutrophils # (Auto) 7.0 x10^3/uL (1.8-7.7) Lymphocytes # (Auto) 0.8 x10^3/uL (1.0-4.8) Monocytes # (Auto) 1.2 x10^3/uL (0.0-1.1) Eosinophils # (Auto) 0.4 x10^3/uL (0.0-0.7) Basophils # (Auto) 0.1 x10^3/uL (0.0-0.2) Sodium Level 133 mmol/L (136-145) Potassium Level 4.3 mmol/L (3.5-5.1) Chloride Level 94 mmol/L (98-107) Carbon Dioxide Level 29 mmol/L (21-32) Anion Gap 10 (6-14) Blood Urea Nitrogen 55 mg/dL (7-20) Creatinine 5.4 mg/dL (0.6-1.0) Estimated GFR (Cockcroft-Gault) 7.5 Glucose Level 98 mg/dL (70-99) Calcium Level 9.2 mg/dL (8.5-10.1) Micro Micro Microbiology 10/19/19 Blood Culture - Preliminary, Resulted NO GROWTH AFTER 3 DAYS Review of Systems Constitutional: yes: weakness, alert, oriented Pulmonary: Yes dyspnea Cardiovascular: Yes no symptom reported Gastrointestional: Yes: constipation Genitourinary: Yes: no symptom reported Musculoskeletal: Yes: no symptom reported Skin: Yes no symptom reported Psychiatric/Neurological: Yes: no symptom reported Endocrine: Yes: no symptom reported Physical Exam General Appearance: no apparent distress Skin: warm Respiratory: decreased breath sounds Heart: S1S2 Abdomen: bowel sounds present Genitourinary: bladder flat Extremities: atrophy Neurology: alert, oriented (to self), follow commands Musculoskeletal: Osteoarthritis Assessment Assessment IMP ESRD ANEMIA HTN HX DYSPNEA DUE TO CHF-IMPROVED PLAN NICHELLE NEEDED HD TODAY UF TO DW SUPPLEMENTAL O2 NEEDED WILL FOLLOW ARSEN MERCADO MD Oct 22, 2019 13:44
--- NOTE | 2019-10-22 15:11 | CARD ---
MR#: [id number] Date of Study: 10/22/2019 Ordering Physician: SHARON GRIJALVA, Referring Physician: SHARON GRIJALVA, Tech: Olga Lidia Arango RDCS APPROVED REPORT EXAM: Two-dimensional and M-mode echocardiogram with Doppler and color Doppler. Other Information Quality : Fair INDICATION Aortic Valve Disease 2D DIMENSIONS RVDd2.3 (2.9-3.5cm)Left Atrium(2D)3.6 (1.6-4.0cm) IVSd1.1 (0.7-1.1cm)Aortic Root(2D)2.7 (2.0-3.7cm) LVDd5.3 (3.9-5.9cm)LVOT Diameter1.8 (1.8-2.4cm) PWd1.1 (0.7-1.1cm)LVDs3.5 (2.5-4.0cm) FS (%) 34.1 %SV86.3 ml LVEF(%)62.6 (>50%) Aortic Valve AoV Peak Omkar.315.5cm/sAoV VTI68.7cm AO Peak GR.39.8mmHgLVOT Peak Omkar.135.7cm/s AO Mean GR.25mmHgAVA (VMAX)1.13cm2 LOUIS (VTI)1.20cm2 Mitral Valve MV E Idwrpzfh491.0cm/sMV DECEL GROG382ek MV A Pkvcubvb242.0cm/sE/A Ratio0.9 Tricuspid Valve TR P. Dzyuqhnj722dr/sRAP ROLUQFZJ7jlPk TR Peak Gr.99tzEvSKSE13dwTh LEFT VENTRICLE The left ventricle is normal size. There is normal left ventricular wall thickness. The left ventricu lar systolic function is normal. The Ejection Fraction is 55-60%. There is normal LV segmental wall m otion. Transmitral Doppler flow pattern is Grade I-abnormal relaxation pattern. RIGHT VENTRICLE The right ventricle is normal size. The right ventricular systolic function is normal. ATRIA The left atrium size is normal. The right atrium size is normal. The interatrial septum is intact wit h no evidence for an atrial septal defect or patent foramen ovale as noted on 2-D or Doppler imaging. AORTIC VALVE The aortic valve is calcified and displays decreased opening. Doppler and Color Flow revealed trace a ortic regurgitation. Calculated aortic valve area is 1.2 cm2 with maximum pressure gradient of 40 mmH g and mean pressure gradient of 25 mmHg. Doppler and color-flow analysis revealed moderate aortic jasbir nosis. MITRAL VALVE The mitral valve is mildly thickened but opens well. There is no evidence of mitral valve prolapse. T here is no mitral valve stenosis. Doppler and Color-flow revealed trace to mild mitral regurgitation. TRICUSPID VALVE The tricuspid valve is normal in structure and function. Doppler and Color Flow revealed trace tricus pid regurgitation. There is moderate pulmonary hypertension. The PA pressure was estimated at 54 mmHg . There is no tricuspid valve stenosis. PULMONIC VALVE The pulmonic valve is not well visualized. Doppler and Color Flow revealed trace pulmonic valvular re gurgitation. There is no pulmonic valvular stenosis. GREAT VESSELS The aortic root is normal in size. The ascending aorta is normal in size. The IVC is normal in size a nd collapses >50% with inspiration. PERICARDIAL EFFUSION There is no evidence of significant pericardial effusion. Critical Notification Critical Value: No <Conclusion> The left ventricular systolic function is normal. The Ejection Fraction is 55-60%. There is normal LV segmental wall motion. Transmitral Doppler flow pattern is Grade I-abnormal relaxation pattern. Moderate aortic stenosis. Trace to mild mitral regurgitation. Trace tricuspid regurgitation. There is moderate pulmonary hypertension. The PA pressure was estimated at 54 mmHg. There is no evidence of significant pericardial effusion. Signed by : Daniel Valiente, Electronically Approved : 10/22/2019 15:11:00
--- NOTE | 2019-10-22 16:34 | NUR ---
SW following. Spoke with RN and reviewed chart. Discharge plan remains home with HH when stable. Coordinated care with Shira from [facility] to update. Pt remains on 2l 02. Spoke with son Saurabh and pt actually does not have home 02 at this time. 6 min walk has been ordered to determine if 02 is needed at discharge. SW following.
--- NOTE | 2019-10-22 19:02 | RAD ---
EXAM: AP View of the chest DATE: 10/22/2019 3:00 PM INDICATION: Reason: chf [id number] PT DOING HD, RN TO CALL / Spl. Instructions: / History: COMPARISON: 10/19/2019 FINDINGS: Heart is not enlarged. Aorta is tortuous with aortic stent graft. Small bilateral pleural effusions and lung base opacities, mildly improved compared to 10/19/2019. No pneumothorax. IMPRESSION: Mild interval improvement in the bilateral airspace opacities and pleural effusions suggesting improving pulmonary edema although consolidative process would also have this appearance. Electronically signed by: Santiago Mcclellan MD (10/22/2019 7:00 PM) LIUDMILA
[2019-10-22 19:35] VITALS: BP 168/59
[2019-10-22 23:02] VITALS: BP 138/78
[2019-10-23 03:26] VITALS: BP 174/68
[2019-10-23 06:13] LABS: BASO # 0.1 x10^3/uL (0.0-0.2); BASO % 1 % (0-3); EOS # 0.4 x10^3/uL (0.0-0.7); EOS % 5 % (0-3); HEMATOCRIT 31.1 % (36.0-47.0); HEMOGLOBIN 10.2 g/dL (12.0-15.5); LYMPH # 0.8 x10^3/uL (1.0-4.8); LYMPH % 10 % (24-48); MEAN CORPUSCULAR HEMOGLOBIN 33 pg (25-35); MEAN CORPUSCULAR HGB CONC 33 g/dL (31-37); MEAN CORPUSCULAR VOLUME 100 fL (79-100); MONO # 1.2 x10^3/uL (0.0-1.1); MONO % 15 % (0-9); NEUT # 5.4 x10^3/uL (1.8-7.7); NEUT % 69 % (31-73); PLATELET COUNT 189 x10^3/uL (140-400); RED CELL DISTRIBUTION WIDTH 14.1 % (11.5-14.5); WHITE BLOOD COUNT 7.8 x10^3/uL (4.0-11.0)
[2019-10-23 06:36] LABS: CALCIUM 8.6 mg/dL (8.5-10.1); CREATININE 3.8 mg/dL (0.6-1.0); GFR 11.3; POTASSIUM 4.6 mmol/L (3.5-5.1)
[2019-10-23 07:00] VITALS: BP 192/68
[2019-10-23] MEDS: ALBUTEROL SULFATE 2.5 MG/3 ML NEBU. NEB PRN (07:17)
--- NOTE | 2019-10-23 09:21 | PDOC ---
PULMONARY PROGRESS NOTES DATE: 10/23/19 TIME: 09:20 Subjective no change in symptoms Vitals Vital Signs Date Time Temp Pulse Resp B/P (MAP) Pulse Ox O2 Delivery O2 Flow Rate FiO2 10/23/19 07:17 100 Nasal Cannula 2.0 10/23/19 07:00 97.5 66 20 192/68 (109) 97.5 General: Alert, No acute distress Lungs: Other (decrease bases) Cardiovascular: S1, S2 Neuro Exam: Alert Extremities: No Edema Skin: Warm Labs Laboratory Tests Test 10/21/19 14:59 10/22/19 04:40 10/23/19 04:40 Glucose (Fingerstick) 113 mg/dL (70-99) White Blood Count 9.6 x10^3/uL (4.0-11.0) 7.8 x10^3/uL (4.0-11.0) Red Blood Count 3.12 x10^6/uL (3.50-5.40) 3.10 x10^6/uL (3.50-5.40) Hemoglobin 10.3 g/dL (12.0-15.5) 10.2 g/dL (12.0-15.5) Hematocrit 31.5 % (36.0-47.0) 31.1 % (36.0-47.0) Mean Corpuscular Volume 101 fL (79-100) 100 fL (79-100) Mean Corpuscular Hemoglobin 33 pg (25-35) 33 pg (25-35) Mean Corpuscular Hemoglobin Concent 33 g/dL (31-37) 33 g/dL (31-37) Red Cell Distribution Width 13.8 % (11.5-14.5) 14.1 % (11.5-14.5) Platelet Count 210 x10^3/uL (140-400) 189 x10^3/uL (140-400) Neutrophils (%) (Auto) 73 % (31-73) 69 % (31-73) Lymphocytes (%) (Auto) 9 % (24-48) 10 % (24-48) Monocytes (%) (Auto) 13 % (0-9) 15 % (0-9) Eosinophils (%) (Auto) 5 % (0-3) 5 % (0-3) Basophils (%) (Auto) 1 % (0-3) 1 % (0-3) Neutrophils # (Auto) 7.0 x10^3/uL (1.8-7.7) 5.4 x10^3/uL (1.8-7.7) Lymphocytes # (Auto) 0.8 x10^3/uL (1.0-4.8) 0.8 x10^3/uL (1.0-4.8) Monocytes # (Auto) 1.2 x10^3/uL (0.0-1.1) 1.2 x10^3/uL (0.0-1.1) Eosinophils # (Auto) 0.4 x10^3/uL (0.0-0.7) 0.4 x10^3/uL (0.0-0.7) Basophils # (Auto) 0.1 x10^3/uL (0.0-0.2) 0.1 x10^3/uL (0.0-0.2) Sodium Level 133 mmol/L (136-145) 133 mmol/L (136-145) Potassium Level 4.3 mmol/L (3.5-5.1) 4.6 mmol/L (3.5-5.1) Chloride Level 94 mmol/L (98-107) 96 mmol/L (98-107) Carbon Dioxide Level 29 mmol/L (21-32) 30 mmol/L (21-32) Anion Gap 10 (6-14) 7 (6-14) Blood Urea Nitrogen 55 mg/dL (7-20) 29 mg/dL (7-20) Creatinine 5.4 mg/dL (0.6-1.0) 3.8 mg/dL (0.6-1.0) Estimated GFR (Cockcroft-Gault) 7.5 11.3 Glucose Level 98 mg/dL (70-99) 83 mg/dL (70-99) Calcium Level 9.2 mg/dL (8.5-10.1) 8.6 mg/dL (8.5-10.1) Laboratory Tests Test 10/23/19 04:40 White Blood Count 7.8 x10^3/uL (4.0-11.0) Red Blood Count 3.10 x10^6/uL (3.50-5.40) Hemoglobin 10.2 g/dL (12.0-15.5) Hematocrit 31.1 % (36.0-47.0) Mean Corpuscular Volume 100 fL (79-100) Mean Corpuscular Hemoglobin 33 pg (25-35) Mean Corpuscular Hemoglobin Concent 33 g/dL (31-37) Red Cell Distribution Width 14.1 % (11.5-14.5) Platelet Count 189 x10^3/uL (140-400) Neutrophils (%) (Auto) 69 % (31-73) Lymphocytes (%) (Auto) 10 % (24-48) Monocytes (%) (Auto) 15 % (0-9) Eosinophils (%) (Auto) 5 % (0-3) Basophils (%) (Auto) 1 % (0-3) Neutrophils # (Auto) 5.4 x10^3/uL (1.8-7.7) Lymphocytes # (Auto) 0.8 x10^3/uL (1.0-4.8) Monocytes # (Auto) 1.2 x10^3/uL (0.0-1.1) Eosinophils # (Auto) 0.4 x10^3/uL (0.0-0.7) Basophils # (Auto) 0.1 x10^3/uL (0.0-0.2) Sodium Level 133 mmol/L (136-145) Potassium Level 4.6 mmol/L (3.5-5.1) Chloride Level 96 mmol/L (98-107) Carbon Dioxide Level 30 mmol/L (21-32) Anion Gap 7 (6-14) Blood Urea Nitrogen 29 mg/dL (7-20) Creatinine 3.8 mg/dL (0.6-1.0) Estimated GFR (Cockcroft-Gault) 11.3 Glucose Level 83 mg/dL (70-99) Calcium Level 8.6 mg/dL (8.5-10.1) Medications Active Scripts Medications Dose Route/Sig Max Daily Dose Days Date Category Dose Instructions Calcium Acetate 667 Mg Tablet 3 Cap PO TIDAC 10/19/19 Reported Tylenol (Acetaminophen) 325 Mg Tablet 650 Mg PO PRN Q6HRS PRN 30 06/06/19 Rx Hydrocodone-Apap 10-325 (Hydrocodone Bit/Acetaminophen) 1 Each Tablet 1 Tab PO PRN TID PRN 6 5/1/20 Rx Proair Hfa (Albuterol Sulfate) 8.5 Gm Hfa.aer.ad 2.5 Mg NEB PRN Q4HRS PRN 02/02/19 Rx Coreg (Carvedilol) 6.25 Mg Tablet 6.25 Mg PO BIDWMEALS 02/01/19 Reported Synthroid (Levothyroxine Sodium) 50 Mcg Tablet 50 Mcg PO DAILYAC 02/01/19 Reported Sodium Bicarbonate 650 Mg Tablet 650 Mg PO BID 02/01/19 Reported Jerilyn-Jaylon Tablet (Folic Acid/Vitamin B Comp W-C) 0.8 Mg Tablet 1 Tab PO DAILY 30 06/12/17 Rx Culturelle (Lactobacillus Rhamnosus Gg) 1 Each Cap.sprink 1 Cap PO BID 14 06/12/17 Rx Pepcid (Famotidine) 20 Mg Tablet 10 Mg PO PRN DAILY 06/10/17 Reported NITROGLYCERIN SubLingual (Nitroglycerin) 0.4 Mg Tab.subl 0.4 Mg SL PRN Q5MIN PRN 06/10/17 Reported Nifedipine Er (Nifedipine) 30 Mg Tab.er.24 90 Mg PO DAILY 02/27/17 Rx Aspirin Ec (Aspirin) 81 Mg Tablet.dr 81 Mg PO DAILYWBKFT 02/27/17 Rx Isosorbide Mononitrate Er (Isosorbide Mononitrate) 30 Mg Tab.er.24h 2 Tab PO DAILY 02/26/17 Reported Next dose due tomorrow morning. Impression . 1. Dyspnea, suspect secondary to volume overload and congestive heart failure,Neg COVID-19. 2. Abnormal chest x-ray c/w CHF 3. End-stage renal disease, on hemodialysis. 4. Elevated troponin. 5. COVID-19 Neg Plan . PLAN AND RECOMMENDATIONS: 1. Titrate FiO2 to keep O2 saturation 92%. 2. Aggressive hemodialysis.with UF 3. clinically better 4. Her echo in 2018 showed moderate aortic stenosis. 5. Follow up COVID-19 testing.neg 6. incentive spirometer. 7. The findings and recommendations were discussed with RN. repeat cxr reviewed 10/21. mild reduction in effusions ok with dc plans MEGHANA DRAKE MD Oct 23, 2019 09:21
[2019-10-23] MEDS: CALCIUM ACETATE 667 MG CAPSULE PO SCH ×3 (09:58→17:46)
[2019-10-23] MEDS: ISOSORBIDE MONONITRATE ER 30 MG TAB.ER.24H PO SCH (09:58)
[2019-10-23] MEDS: LEVOTHYROXINE 50 MCG TABLET PO SCH (09:59)
[2019-10-23] MEDS: CARVEDILOL 6.25 MG TABLET. PO SCH ×2 (09:59→17:48)
[2019-10-23] MEDS: FOLIC/VIT B COMP W-C (RENAL) TABLET. PO SCH (09:59)
[2019-10-23] MEDS: ASPIRIN ENTERIC COATED 81 MG TABLET.DR. PO SCH (10:05)
[2019-10-23 11:00] VITALS: BP 146/54
--- NOTE | 2019-10-23 12:36 | PDOC ---
Renal-Progress Notes Subjective Notes Notes NO NEW COMPLAINTS History of Present Illness Hx of present illness STABLE Vitals Vitals Vital Signs Date Time Temp Pulse Resp B/P (MAP) Pulse Ox O2 Delivery O2 Flow Rate FiO2 10/23/19 11:00 98.4 68 18 146/54 (84) 96 Nasal Cannula 2.0 98.4 Weight Weight [ ] I.O. Intake and Output Intake and Output 10/23/19 07:00 Intake Total 560 ml Balance 560 ml Intake Oral 560 ml # Voids 5 Labs Labs Laboratory Tests Test 10/23/19 04:40 White Blood Count 7.8 x10^3/uL (4.0-11.0) Red Blood Count 3.10 x10^6/uL (3.50-5.40) Hemoglobin 10.2 g/dL (12.0-15.5) Hematocrit 31.1 % (36.0-47.0) Mean Corpuscular Volume 100 fL (79-100) Mean Corpuscular Hemoglobin 33 pg (25-35) Mean Corpuscular Hemoglobin Concent 33 g/dL (31-37) Red Cell Distribution Width 14.1 % (11.5-14.5) Platelet Count 189 x10^3/uL (140-400) Neutrophils (%) (Auto) 69 % (31-73) Lymphocytes (%) (Auto) 10 % (24-48) Monocytes (%) (Auto) 15 % (0-9) Eosinophils (%) (Auto) 5 % (0-3) Basophils (%) (Auto) 1 % (0-3) Neutrophils # (Auto) 5.4 x10^3/uL (1.8-7.7) Lymphocytes # (Auto) 0.8 x10^3/uL (1.0-4.8) Monocytes # (Auto) 1.2 x10^3/uL (0.0-1.1) Eosinophils # (Auto) 0.4 x10^3/uL (0.0-0.7) Basophils # (Auto) 0.1 x10^3/uL (0.0-0.2) Sodium Level 133 mmol/L (136-145) Potassium Level 4.6 mmol/L (3.5-5.1) Chloride Level 96 mmol/L (98-107) Carbon Dioxide Level 30 mmol/L (21-32) Anion Gap 7 (6-14) Blood Urea Nitrogen 29 mg/dL (7-20) Creatinine 3.8 mg/dL (0.6-1.0) Estimated GFR (Cockcroft-Gault) 11.3 Glucose Level 83 mg/dL (70-99) Calcium Level 8.6 mg/dL (8.5-10.1) Micro Micro Microbiology 10/19/19 Blood Culture - Preliminary, Resulted NO GROWTH AFTER 4 DAYS Review of Systems Constitutional: yes: weakness, alert, oriented Pulmonary: Yes dyspnea Cardiovascular: Yes no symptom reported Gastrointestional: Yes: constipation Genitourinary: Yes: no symptom reported Musculoskeletal: Yes: no symptom reported Skin: Yes no symptom reported Psychiatric/Neurological: Yes: no symptom reported Endocrine: Yes: no symptom reported Physical Exam General Appearance: no apparent distress Skin: warm Respiratory: decreased breath sounds Heart: S1S2 Abdomen: bowel sounds present Genitourinary: bladder flat Extremities: atrophy Neurology: alert, oriented (to self), follow commands Musculoskeletal: Osteoarthritis Assessment Assessment IMP ESRD ANEMIA HTN HX DYSPNEA DUE TO CHF-IMPROVED PLAN NICHELLE NEEDED HD TOMORROW WILL ATTEMPT TO REMOVE MORE FLUID TOLERATED SUPPLEMENTAL O2 NEEDED WILL FOLLOW ARSEN MERCADO MD Oct 23, 2019 12:36
--- NOTE | 2019-10-23 13:43 | PDOC ---
[facility] PROGRESS NOTE Date of Service DOS: DATE: 10/23/19 TIME: 13:41 Chief Complaint Chief Complaint Shortness of breath History of Present Illness History of Present Illness 10/20/2019 Patient evaluated bedside, reports improvement in her shortness of breath at dialysis. COVID-19 negative. Will evaluate with echocardiogram. Continue diuresis. 10/21/2019 Patient had episode of SVT and hemodialysis yesterday, which resolved hemodialysis was stopped. Plans to resume HD today. Echo pending. COVID-19 negative. Patient states she is breathing well. 10/22/2019 Patient evaluated bedside after dialysis. She denies any shortness of breath currently, but states that most of her shortness of breath occurs at night. States she does not have home oxygen. Will evaluate with 6-minute walk and set up with home oxygen at night prior to discharge. 10/23/2019 Patient evaluated bedside, she has been accepted to [facility]. She is agreeable to half-way, and I reiterated to patient the goal of focusing on rehab and getting stronger. Discussed with RN. Vitals/I&O Vitals/I&O: Vital Signs Date Time Temp Pulse Resp B/P (MAP) Pulse Ox O2 Delivery O2 Flow Rate FiO2 10/23/19 11:00 98.4 68 18 146/54 (84) 96 Nasal Cannula 2.0 98.4 I & O 10/22/19 10/22/19 10/23/19 14:59 22:59 06:59 Intake Total 120 ml 380 ml 60 ml Balance 120 ml 380 ml 60 ml Physical Exam General: No acute distress Heart: Regular rate Lungs: Other (decrease bases) Abdomen: Normal bowel sounds Extremities: No cyanosis Skin: No rashes, No significant lesion Labs Labs: Laboratory Tests Test 10/23/19 04:40 White Blood Count 7.8 x10^3/uL (4.0-11.0) Red Blood Count 3.10 x10^6/uL (3.50-5.40) Hemoglobin 10.2 g/dL (12.0-15.5) Hematocrit 31.1 % (36.0-47.0) Mean Corpuscular Volume 100 fL (79-100) Mean Corpuscular Hemoglobin 33 pg (25-35) Mean Corpuscular Hemoglobin Concent 33 g/dL (31-37) Red Cell Distribution Width 14.1 % (11.5-14.5) Platelet Count 189 x10^3/uL (140-400) Neutrophils (%) (Auto) 69 % (31-73) Lymphocytes (%) (Auto) 10 % (24-48) Monocytes (%) (Auto) 15 % (0-9) Eosinophils (%) (Auto) 5 % (0-3) Basophils (%) (Auto) 1 % (0-3) Neutrophils # (Auto) 5.4 x10^3/uL (1.8-7.7) Lymphocytes # (Auto) 0.8 x10^3/uL (1.0-4.8) Monocytes # (Auto) 1.2 x10^3/uL (0.0-1.1) Eosinophils # (Auto) 0.4 x10^3/uL (0.0-0.7) Basophils # (Auto) 0.1 x10^3/uL (0.0-0.2) Sodium Level 133 mmol/L (136-145) Potassium Level 4.6 mmol/L (3.5-5.1) Chloride Level 96 mmol/L (98-107) Carbon Dioxide Level 30 mmol/L (21-32) Anion Gap 7 (6-14) Blood Urea Nitrogen 29 mg/dL (7-20) Creatinine 3.8 mg/dL (0.6-1.0) Estimated GFR (Cockcroft-Gault) 11.3 Glucose Level 83 mg/dL (70-99) Calcium Level 8.6 mg/dL (8.5-10.1) Assessment and Plan Assessmemt and Plan Problems Medical Problems: (1) Dyspnea Status: Acute (2) Suspected COVID-19 virus infection Status: Acute Comment Review of Relevant I have reviewed the following items cristofer (where applicable) has been applied. Justifications for Admission Other Justification SHARON GRIJALVA MD Oct 23, 2019 13:42
--- NOTE | 2019-10-23 13:52 | PDOC3 ---
Discharge Summary Visit Information Date of Admission: Oct 19, 2019 Date of Discharge: Oct 23, 2019 Final Diagnosis Problems Medical Problems: (1) Dyspnea Status: Acute (2) Suspected COVID-19 virus infection Status: Acute Brief Hospital Course Allergies Allergies Coded Allergies Type Severity Reaction Last Updated Verified sulfamethoxazole Allergy Intermediate 02/25/17 Yes trimethoprim Allergy Intermediate 02/25/17 Yes Vital Signs Vital Signs Date Time Temp Pulse Resp B/P (MAP) Pulse Ox O2 Delivery O2 Flow Rate FiO2 10/23/19 11:00 98.4 68 18 146/54 (84) 96 Nasal Cannula 2.0 98.4 Lab Results Laboratory Tests Test 10/21/19 14:59 10/22/19 04:40 10/23/19 04:40 Glucose (Fingerstick) 113 mg/dL (70-99) White Blood Count 9.6 x10^3/uL (4.0-11.0) 7.8 x10^3/uL (4.0-11.0) Red Blood Count 3.12 x10^6/uL (3.50-5.40) 3.10 x10^6/uL (3.50-5.40) Hemoglobin 10.3 g/dL (12.0-15.5) 10.2 g/dL (12.0-15.5) Hematocrit 31.5 % (36.0-47.0) 31.1 % (36.0-47.0) Mean Corpuscular Volume 101 fL (79-100) 100 fL (79-100) Mean Corpuscular Hemoglobin 33 pg (25-35) 33 pg (25-35) Mean Corpuscular Hemoglobin Concent 33 g/dL (31-37) 33 g/dL (31-37) Red Cell Distribution Width 13.8 % (11.5-14.5) 14.1 % (11.5-14.5) Platelet Count 210 x10^3/uL (140-400) 189 x10^3/uL (140-400) Neutrophils (%) (Auto) 73 % (31-73) 69 % (31-73) Lymphocytes (%) (Auto) 9 % (24-48) 10 % (24-48) Monocytes (%) (Auto) 13 % (0-9) 15 % (0-9) Eosinophils (%) (Auto) 5 % (0-3) 5 % (0-3) Basophils (%) (Auto) 1 % (0-3) 1 % (0-3) Neutrophils # (Auto) 7.0 x10^3/uL (1.8-7.7) 5.4 x10^3/uL (1.8-7.7) Lymphocytes # (Auto) 0.8 x10^3/uL (1.0-4.8) 0.8 x10^3/uL (1.0-4.8) Monocytes # (Auto) 1.2 x10^3/uL (0.0-1.1) 1.2 x10^3/uL (0.0-1.1) Eosinophils # (Auto) 0.4 x10^3/uL (0.0-0.7) 0.4 x10^3/uL (0.0-0.7) Basophils # (Auto) 0.1 x10^3/uL (0.0-0.2) 0.1 x10^3/uL (0.0-0.2) Sodium Level 133 mmol/L (136-145) 133 mmol/L (136-145) Potassium Level 4.3 mmol/L (3.5-5.1) 4.6 mmol/L (3.5-5.1) Chloride Level 94 mmol/L (98-107) 96 mmol/L (98-107) Carbon Dioxide Level 29 mmol/L (21-32) 30 mmol/L (21-32) Anion Gap 10 (6-14) 7 (6-14) Blood Urea Nitrogen 55 mg/dL (7-20) 29 mg/dL (7-20) Creatinine 5.4 mg/dL (0.6-1.0) 3.8 mg/dL (0.6-1.0) Estimated GFR (Cockcroft-Gault) 7.5 11.3 Glucose Level 98 mg/dL (70-99) 83 mg/dL (70-99) Calcium Level 9.2 mg/dL (8.5-10.1) 8.6 mg/dL (8.5-10.1) Laboratory Tests Test 10/23/19 04:40 White Blood Count 7.8 x10^3/uL (4.0-11.0) Red Blood Count 3.10 x10^6/uL (3.50-5.40) Hemoglobin 10.2 g/dL (12.0-15.5) Hematocrit 31.1 % (36.0-47.0) Mean Corpuscular Volume 100 fL (79-100) Mean Corpuscular Hemoglobin 33 pg (25-35) Mean Corpuscular Hemoglobin Concent 33 g/dL (31-37) Red Cell Distribution Width 14.1 % (11.5-14.5) Platelet Count 189 x10^3/uL (140-400) Neutrophils (%) (Auto) 69 % (31-73) Lymphocytes (%) (Auto) 10 % (24-48) Monocytes (%) (Auto) 15 % (0-9) Eosinophils (%) (Auto) 5 % (0-3) Basophils (%) (Auto) 1 % (0-3) Neutrophils # (Auto) 5.4 x10^3/uL (1.8-7.7) Lymphocytes # (Auto) 0.8 x10^3/uL (1.0-4.8) Monocytes # (Auto) 1.2 x10^3/uL (0.0-1.1) Eosinophils # (Auto) 0.4 x10^3/uL (0.0-0.7) Basophils # (Auto) 0.1 x10^3/uL (0.0-0.2) Sodium Level 133 mmol/L (136-145) Potassium Level 4.6 mmol/L (3.5-5.1) Chloride Level 96 mmol/L (98-107) Carbon Dioxide Level 30 mmol/L (21-32) Anion Gap 7 (6-14) Blood Urea Nitrogen 29 mg/dL (7-20) Creatinine 3.8 mg/dL (0.6-1.0) Estimated GFR (Cockcroft-Gault) 11.3 Glucose Level 83 mg/dL (70-99) Calcium Level 8.6 mg/dL (8.5-10.1) Brief Hospital Course Ms. Jones is a 84 old female who presented with shortness of breath, volume overload, and end-stage renal disease. Consultations were placed to pulmonol ogy, cardiology, nephrology. She was treated with diuresis by hemodialysis. She had an echocardiogram that showed normal left ventricular systolic function is normal, ejection fraction is 55-60%, normal LV segmental wall motion, moderate aortic stenosis, trace to mild mitral regurgitation, and moderate pulmonary hypertension. She is discharged to long-term. Discharge Information Condition at Discharge: Stable Disposition/Orders: D/C to Another Facility Scheduled Aspirin (Aspirin Ec) 81 Mg Tablet.dr, 81 MG PO DAILYWBKFT, #30 Prescribed by: FARZANA SAMAYOA MD on 02/27/17 1037 Last Action: Continued on 10/19/191138 by BECCA FERRERA MD Calcium Acetate (Calcium Acetate) 667 Mg Tablet, 3 CAP PO TIDAC for UNKNOWN, (Reported) Entered as Reported by: EMILY VARGAS on 10/19/191129 Last Taken: Unknown Dose on Unknown Date & Time Last Action: Converted on 10/19/191138 by BECCA FERRERA MD Carvedilol (Coreg ) 6.25 Mg Tablet, 6.25 MG PO BIDWMEALS for CARDIAC, (Reported) Entered as Reported by: JUSTIN VIVAS RN on 02/01/19 0919 Last Action: Continued on 10/19/191138 by BECCA FERRERA MD Famotidine (Pepcid) 20 Mg Tablet, 10 MG PO PRN DAILY, (Reported) Entered as Reported by: DARION GAMEZ on 06/10/172153 Last Action: Continued on 10/19/191138 by BECCA FERRERA MD Folic Acid/Vitamin B Comp W-C (Jerilyn-Jaylon Tablet) 0.8 Mg Tablet, 1 TAB PO DAILY for 30 Days, #30 Prescribed by: DENIA WATKINS on 06/12/17 1520 Last Action: Continued on 10/19/191138 by BECCA FERRERA MD Isosorbide Mononitrate (Isosorbide Mononitrate Er) 30 Mg Tab.er.24h, 2 TAB PO DAILY, #30 Ref 5 (Reported) Next dose due tomorrow morning. Entered as Reported by: XIAO WHITEHEAD on 02/26/17 0631 Last Action: Continued on 10/19/191138 by BECCA FERRERA MD Lactobacillus Rhamnosus Gg (Culturelle) 1 Each Cap.sprink, 1 CAP PO BID for 14 Days, #28 Prescribed by: DENIA WATKINS on 06/12/17 1520 Last Action: HELD on 10/19/19 1205 by XIAO ELDER MD Levothyroxine Sodium (Synthroid) 50 Mcg Tablet, 50 MCG PO DAILYAC for THYROID SUPPLEMENT, #30 Ref 0 (Reported) Entered as Reported by: JUSTIN VIVAS RN on 02/01/19 0919 Last Action: Continued on 10/19/191138 by BECCA FERRERA MD Nifedipine (Nifedipine Er) 30 Mg Tab.er.24, 90 MG PO DAILY, #30 Prescribed by: FARZANA SAMAYOA MD on 02/27/17 1037 Last Action: Continued on 10/19/19 113 by BECCA FERRERA MD Sodium Bicarbonate (Sodium Bicarbonate) 650 Mg Tablet, 650 MG PO BID for ESRD, (Reported) Entered as Reported by: ANAHY ERICKSON on 02/01/19 0542 Last Action: Reviewed on 10/19/19 075 by ALETA FRAZIER RN Scheduled PRN Acetaminophen (Tylenol) 325 Mg Tablet, 650 MG PO PRN Q6HRS PRN for TEMP > 100.4F for 30 Days, #120 Prescribed by: ADIN CHAVARRIA MD on 06/06/19 1105 Last Action: Continued on 10/19/191138 by BECCA FERRERA MD Albuterol Sulfate (Proair Hfa) 8.5 Gm Hfa.aer.ad, 2.5 MG NEB PRN Q4HRS PRN for SHORTNESS OF BREATH, #1 Prescribed by: MACKENZIE REID on 02/02/19 0852 Last Action: Continued on 10/19/191138 by BECCA FERRERA MD Hydrocodone Bit/Acetaminophen (Hydrocodone-Apap 10-325 ) 1 Each Tablet, 1 TAB PO PRN TID PRN for PAIN for 6 Days, #15 Ref 0 Prescribed by: ADIN CHAVARRIA MD on 06/06/19 1105 Last Action: Continued on 10/19/191730 by EMILY VARGAS Nitroglycerin (NITROGLYCERIN SubLingual) 0.4 Mg Tab.subl, 0.4 MG SL PRN Q5MIN PRN for CHEST PAIN, (Reported) Entered as Reported by: DARION GAMEZ on 06/10/17 2154 Last Action: Continued on 10/19/191138 by BECCA FERRERA MD Justicifation of Admission Dx: Justifications for Admission: Justification of Admission Dx: Yes (HYPOXIA) SHARON GRIJALVA MD Oct 23, 2019 13:52
--- NOTE | 2019-10-23 13:54 | SNU/HH DC ---
DISCHARGE ORDERS DISCHARGE INFORMATION: DISCHARGE DATE: Oct 23, 2019 FINAL DIAGNOSIS Problems Medical Problems: (1) Dyspnea Status: Acute (2) Suspected COVID-19 virus infection Status: Acute CONDITION ON DISCHARGE: Stable CODE STATUS: Code Status: Full LONGTERM: SNF STAY <30 DAYS: Yes HOSPICE: HOSPICE: No HOSPICE EVAL & TREAT: No LTAC: ADMIT TO LTAC: No POST DISCHARGE ORDERS: ACTIVITY ORDERS: No restrictions, Resume previous activity, Activity as tolerated WEIGHT BEARING STATUS: No restrictions, Full weight bearing, As tolerated DIET AFTER DISCHARGE: Renal WOUND/INCISION CARE: No wound care needed CHECKS AFTER DISCHARGE: CHECKS AFTER DISCHARGE: Check blood press - daily, Check your Temp as needed FOLLOW-UP: LAB ORDERS FOR FOLLOW-UP: Renal and CBC q2 weeks TREATMENT/EQUIPMENT ORDERS: ADAPTIVE EQUIPMENT NEEDED: None RESPIRATORY EQUIPMENT NEEDED: ZEESHAN Physical Therapy For: Evalulation/Treatment Occupational Therapy For: Evaluation/Treatment Speech Language Pathology For: Evaluation/Treatment DISCHARGE MEDICATIONS: Home Meds Active Scripts Acetaminophen (TYLENOL) 325 Mg Tablet, 650 MG PO PRN Q6HRS PRN for TEMP > 100.4F for 30 Days, #120 TAB Prov:ADIN CHAVARRIA MD 06/06/19 Hydrocodone Bit/Acetaminophen (HYDROCODONE-APAP 10-325 ) 1 Each Tablet, 1 TAB PO PRN TID PRN for PAIN for 6 Days, #15 TAB 0 Refills Prov:ADIN CHAVARRIA MD 06/06/19 Albuterol Sulfate (Proair Hfa) 8.5 Gm Hfa.aer.ad, 2.5 MG NEB PRN Q4HRS PRN for SHORTNESS OF BREATH, #1 INHALER Prov:MACKENZIE REID MD 02/02/19 Folic Acid/Vitamin B Comp W-C (GABRIEL-GATITO TABLET) 0.8 Mg Tablet, 1 TAB PO DAILY for 30 Days, #30 TAB Prov:DENIA WATKINS MD 06/12/17 Lactobacillus Rhamnosus Gg (CULTURELLE) 1 Each Cap.sprink, 1 CAP PO BID for 14 Days, #28 CAP Prov:DENIA WATKINS MD 06/12/17 Nifedipine (NIFEDIPINE ER) 30 Mg Tab.er.24, 90 MG PO DAILY, #30 TAB.SR Prov:FARZANA SAMAYOA MD 02/27/17 Aspirin (ASPIRIN EC) 81 Mg Tablet., 81 MG PO DAILYWBKFT, #30 TAB.SR Prov:FARZANA SAMAYOA MD 02/27/17 Reported Medications Calcium Acetate (CALCIUM ACETATE) 667 Mg Tablet, 3 CAP PO TIDAC for UNKNOWN 10/19/19 Carvedilol (COREG ) 6.25 Mg Tablet, 6.25 MG PO BIDWMEALS for CARDIAC, TAB 02/01/19 Levothyroxine Sodium (SYNTHROID) 50 Mcg Tablet, 50 MCG PO DAILYAC for THYROID SUPPLEMENT, #30 TAB 0 Refills 02/01/19 Sodium Bicarbonate (SODIUM BICARBONATE) 650 Mg Tablet, 650 MG PO BID for ESRD, TAB 02/01/19 Famotidine (PEPCID) 20 Mg Tablet, 10 MG PO PRN DAILY, TAB 06/10/17 Nitroglycerin (NITROGLYCERIN SubLingual) 0.4 Mg Tab.subl, 0.4 MG SL PRN Q5MIN PRN for CHEST PAIN, BOTTLE 06/10/17 Isosorbide Mononitrate (ISOSORBIDE MONONITRATE ER) 30 Mg Tab.er.24h, 2 TAB PO DAILY, #30 TAB 5 Refills Next dose due tomorrow morning. 02/26/17 SHARON GRIJALVA MD Oct 23, 2019 13:54
[2019-10-23 15:00] VITALS: BP 143/53
--- NOTE | 2019-10-23 15:23 | PDOC ---
LU WATSON SIMULATION ENGINEER 10/23/19 1523: CARDIO Progress Notes Date and Time Date of Service 10/23/19 Time of Evaluation 1220 Subjective Subjective: No Chest Pain, No Palpitations, Other (s/o tremors) Vitals Vitals Vital Signs Date Time Temp Pulse Resp B/P (MAP) Pulse Ox O2 Delivery O2 Flow Rate FiO2 10/23/19 11:00 98.4 68 18 146/54 (84) 96 Nasal Cannula 2.0 98.4 Weight Weight [ ] Input and Output Intake and Output Intake and Output 10/23/19 07:00 Intake Total 560 ml Balance 560 ml Intake Oral 560 ml # Voids 5 Laboratory Labs Laboratory Tests Test 10/23/19 04:40 White Blood Count 7.8 x10^3/uL (4.0-11.0) Red Blood Count 3.10 x10^6/uL (3.50-5.40) Hemoglobin 10.2 g/dL (12.0-15.5) Hematocrit 31.1 % (36.0-47.0) Mean Corpuscular Volume 100 fL (79-100) Mean Corpuscular Hemoglobin 33 pg (25-35) Mean Corpuscular Hemoglobin Concent 33 g/dL (31-37) Red Cell Distribution Width 14.1 % (11.5-14.5) Platelet Count 189 x10^3/uL (140-400) Neutrophils (%) (Auto) 69 % (31-73) Lymphocytes (%) (Auto) 10 % (24-48) Monocytes (%) (Auto) 15 % (0-9) Eosinophils (%) (Auto) 5 % (0-3) Basophils (%) (Auto) 1 % (0-3) Neutrophils # (Auto) 5.4 x10^3/uL (1.8-7.7) Lymphocytes # (Auto) 0.8 x10^3/uL (1.0-4.8) Monocytes # (Auto) 1.2 x10^3/uL (0.0-1.1) Eosinophils # (Auto) 0.4 x10^3/uL (0.0-0.7) Basophils # (Auto) 0.1 x10^3/uL (0.0-0.2) Sodium Level 133 mmol/L (136-145) Potassium Level 4.6 mmol/L (3.5-5.1) Chloride Level 96 mmol/L (98-107) Carbon Dioxide Level 30 mmol/L (21-32) Anion Gap 7 (6-14) Blood Urea Nitrogen 29 mg/dL (7-20) Creatinine 3.8 mg/dL (0.6-1.0) Estimated GFR (Cockcroft-Gault) 11.3 Glucose Level 83 mg/dL (70-99) Calcium Level 8.6 mg/dL (8.5-10.1) Microbiology Micro Microbiology 10/19/19 Blood Culture - Preliminary, Resulted NO GROWTH AFTER 4 DAYS Review of Systems Constitutional: yes: weakness, alert, oriented Pulmonary: Yes dyspnea Cardiovascular: Yes no symptom reported Gastrointestional: Yes: constipation Genitourinary: Yes: no symptom reported Musculoskeletal: Yes: no symptom reported Skin: Yes no symptom reported Psychiatric/Neurological: Yes: no symptom reported Endocrine: Yes: no symptom reported Physical Exam HEENT: Neck Supple W Full Motion Chest: Symmetric LUNGS: Clear to Auscultation Heart: RRR (SR) Abdomen: Soft N/T Extremities: No Calf Tenderness Neurology: alert, oriented (to self), follow commands Assessment Assessment 1. Acute diastolic CHF: appears compensated. Echo with preserved LV systolic function. moderate pulmHTN. PAP 54 2. ESRD on HD 3. HTN: labile; patient did not receive oral meds this am 4. HLP; LDL 124 5. Mild troponin elevation: trop 0.06. most probably type II, demand mediated. CP free 6. Arrhythmia: noted with PAT with PVCs. 7. Moderate Recommendations Fluid off loading per HD Outpt ischemic evaluation with stress test next week Follow up with Dr. Sierra on November 10 9:30 Supportive care Justicifation of Admission Dx: Justifications for Admission: Justification of Admission Dx: Yes (HYPOXIA) WOODY SIERRA MD 10/23/19 9649: CARDIO Progress Notes Assessment Assessment Patient seen and evaluated Acute diastolic CHF: improved. Echo with preserved LV systolic function. moderate pulmHTN. PAP 54. Continue present treatment. ESRD on HD HTN: labile; patient did not receive oral meds this am HLP; LDL 124 Mild troponin elevation: trop 0.06. most probably type II, demand mediated. CP free. Continue present treatment with outpatient follow-up. Arrhythmia: noted with PAT with PVCs. Moderate LU WATSON APRN Oct 23, 2019 15:23 WOODY SIERRA MD Oct 23, 2019 18:46
--- NOTE | 2019-10-23 16:54 | NUR ---
SW following. Spoke with RN and reviewed chart. Spoke with pt and pt's son. Pt stated she is afraid to discharge home and has changed her mind and wants to go SNU to LTC at [facility] instead of home with HH. JORGE phoned and faxed clinicals to Gissel at [facility]. Pt accepted for SNU to LTC. JORGE spoke with Dr. Monreal and pt can discharge today to SNU. JORGE phoned and faxed discharge orders. Pt remains on 2l 02 and will resume out-patient dialysis. Pt has been to [facility] in the past and the facility is aware of pt's dialysis clinic information. Facility arranged for transportation at 8pm at request of pt and family. Facility has packet of clinicals and RN called report. No further SW needs at this time.
[2019-10-23] MEDS: HYDROcodone/APAP 10/325 1 TAB TABLET PO PRN (17:46)
[2019-10-23 19:20] VITALS: BP 139/55
== END 2019-10-23 19:45 | DRG 291 ==
LOC: ER 02:17 → 6 SOUTH 04:45 → 5 NORTH 10-21 19:38
PROVIDERS: ADMIT Family Medicine; ATTEND Family Medicine
PROC: 5A1D70Z Performance of Urinary Filtration, Intermittent, Less than 6 Hours Per Day (ICD-10-PCS; principal; 2019-10-20)
PROC: 5A1D70Z Performance of Urinary Filtration, Intermittent, Less than 6 Hours Per Day (ICD-10-PCS; 2019-10-22)
DX: I13.2 Hypertensive heart and chronic kidney disease with heart failure and with stage 5 chronic kidney disease, or end stage renal disease (principal); N18.6 End stage renal disease; I50.33 Acute on chronic diastolic (congestive) heart failure; I47.1 Supraventricular tachycardia; I49.9 Cardiac arrhythmia, unspecified; M50.30 Other cervical disc degeneration, unspecified cervical region; M43.12 Spondylolisthesis, cervical region; I49.3 Ventricular premature depolarization; E03.9 Hypothyroidism, unspecified; E78.00 Pure hypercholesterolemia, unspecified; E78.5 Hyperlipidemia, unspecified; D64.9 Anemia, unspecified; I27.20 Pulmonary hypertension, unspecified; I35.0 Nonrheumatic aortic (valve) stenosis; K21.9 Gastro-esophageal reflux disease without esophagitis; K59.00 Constipation, unspecified; M19.90 Unspecified osteoarthritis, unspecified site; I34.0 Nonrheumatic mitral (valve) insufficiency; J44.9 Chronic obstructive pulmonary disease, unspecified; Z20.828 Contact with and (suspected) exposure to other viral communicable diseases; Z99.2 Dependence on renal dialysis; Z87.891 Personal history of nicotine dependence; Z86.73 Personal history of transient ischemic attack (TIA), and cerebral infarction without residual deficits; Z82.49 Family history of ischemic heart disease and other diseases of the circulatory system; Z88.1 Allergy status to other antibiotic agents; Z88.2 Allergy status to sulfonamides
CPT/HCPCS: 36415; 71045; 80048; 80053; 80061; 82962; 83605; 83735; 83880; 84443; 84484; 85025; 85610; 85730; 86706; 87040; 87340; 93005; 93306; 94618; 94640; 96365; 96375; G0238; J0360; J0456; J0696; J2270; J2405; J3490; 97530-GP; 97535-GO; 99285-25; G0378; J7613; U0003-CS

== ENCOUNTER 2020-07-29 11:49 | Emergency (ER) | payer MEDICARE ==
[~2020-07-29] VITALS: Ht 152.4 cm; Wt 80.0 kg
[~2020-07-29 11:49] MED LIST changes: +CALC667T4 PO; -ISOS30TA4 PO; +ISOS30TA68 PO
[2020-07-29] MEDS ORDERED: IV NORMAL SALINE 500ML BAG 500 ML IV ONE (12:00)
[2020-07-29 12:27] LABS: BASO # 0.1 x10^3/uL (0.0-0.2); BASO % 1 % (0-3); EOS # 0.6 x10^3/uL (0.0-0.7); EOS % 6 % (0-3); HEMATOCRIT 30.8 % (36.0-47.0); HEMOGLOBIN 10.1 g/dL (12.0-15.5); LYMPH # 0.9 x10^3/uL (1.0-4.8); LYMPH % 10 % (24-48); MEAN CORPUSCULAR HEMOGLOBIN 33 pg (25-35); MEAN CORPUSCULAR HGB CONC 33 g/dL (31-37); MEAN CORPUSCULAR VOLUME 101 fL (79-100); MONO # 0.9 x10^3/uL (0.0-1.1); MONO % 10 % (0-9); NEUT % 74 % (31-73); PLATELET COUNT 157 x10^3/uL (140-400); RED BLOOD COUNT 3.06 x10^6/uL (3.50-5.40); RED CELL DISTRIBUTION WIDTH 14.3 % (11.5-14.5); WHITE BLOOD COUNT 9.5 x10^3/uL (4.0-11.0)
[2020-07-29 12:36] LABS: CALCIUM 7.9 mg/dL (8.5-10.1); GFR 5.6; POTASSIUM 5.5 mmol/L (3.5-5.1)
[2020-07-29 12:42] LABS: ALBUMIN 2.9 g/dL (3.4-5.0); MAGNESIUM 2.2 mg/dL (1.8-2.4); TOTAL BILIRUBIN 0.4 mg/dL (0.2-1.0); TOTAL PROTEIN 5.9 g/dL (6.4-8.2)
--- NOTE | 2020-07-29 12:43 | PHYS DOC ---
Past Medical History Past Medical History: GERD, High Cholesterol, Hypertension, Hypothyroid, Other Additional Past Medical Histor: kidney disease, back pain Past Surgical History: Other Additional Past Surgical Histo: R kidney, back x3,LEFT UPPER ARM DIALYSIS CATH Smoking Status: Former Smoker Alcohol Use: Occasionally Drug Use: None General Adult EDM: Chief Complaint: HYPOTENSION HPI: HPI: Patient is a 85 year old [f__sex] who presents with [] Review of Systems: Review of Systems: Constitutional: Denies fever or chills Eyes: Denies redness or eye pain HENT: Denies nasal congestion or sore throat Respiratory: Denies cough or shortness of breath Cardiovascular: Denies chest pain or palpitations GI: Denies abdominal pain, nausea, or vomiting : Denies dysuria or hematuria Musculoskeletal: Denies back pain or joint pain Integument: Denies rash or skin lesions Neurologic: Denies headache, focal weakness or sensory changes Complete systems were reviewed and found to be within normal limits, except as d ocumented in this note. Heart Score: C/O Chest Pain: N/A Current Medications: Current Medications Medications (Trade) Dose Ordered Sig/Mendoza Start Time Stop Time Status Last Admin Dose Admin Sodium Chloride 500 ml @ 500 mls/hr 1X ONCE 07/29/20 12:00 07/29/20 12:59 Allergies: Allergies: Allergies Coded Allergies Type Severity Reaction Last Updated Verified sulfamethoxazole Allergy Intermediate 02/25/17 Yes trimethoprim Allergy Intermediate 02/25/17 Yes Physical Exam: PE: Constitutional: Well developed, well nourished, no acute distress, non-toxic appearance HENT: Normocephalic, atraumatic Eyes: PERRL, EOMI, conjunctiva normal, no discharge Neck: Normal range of motion, no tenderness, supple Lungs & Thorax: No respiratory distress, equal chest rise and fall Abdomen: Soft, no tenderness Skin: Warm, dry, no erythema, no rash Back: No tenderness, no CVA tenderness Extremities: No tenderness, ROM intact, no edema Neurologic: Alert and oriented X 3, normal motor function, normal sensory fun ction, no focal deficits noted Psychologic: Affect normal, judgment normal Current Patient Data: Labs: Laboratory Tests Test 07/29/20 12:11 White Blood Count 9.5 x10^3/uL (4.0-11.0) Red Blood Count 3.06 x10^6/uL (3.50-5.40) L Hemoglobin 10.1 g/dL (12.0-15.5) L Hematocrit 30.8 % (36.0-47.0) L Mean Corpuscular Volume 101 fL (79-100) H Mean Corpuscular Hemoglobin 33 pg (25-35) Mean Corpuscular Hemoglobin Concent 33 g/dL (31-37) Red Cell Distribution Width 14.3 % (11.5-14.5) Platelet Count 157 x10^3/uL (140-400) Neutrophils (%) (Auto) 74 % (31-73) H Lymphocytes (%) (Auto) 10 % (24-48) L Monocytes (%) (Auto) 10 % (0-9) H Eosinophils (%) (Auto) 6 % (0-3) H Basophils (%) (Auto) 1 % (0-3) Neutrophils # (Auto) 7.0 x10^3/uL (1.8-7.7) Lymphocytes # (Auto) 0.9 x10^3/uL (1.0-4.8) L Monocytes # (Auto) 0.9 x10^3/uL (0.0-1.1) Eosinophils # (Auto) 0.6 x10^3/uL (0.0-0.7) Basophils # (Auto) 0.1 x10^3/uL (0.0-0.2) Sodium Level 143 mmol/L (136-145) Potassium Level 5.5 mmol/L (3.5-5.1) H Chloride Level 102 mmol/L (98-107) Carbon Dioxide Level 30 mmol/L (21-32) Anion Gap 11 (6-14) Blood Urea Nitrogen 53 mg/dL (7-20) H Creatinine 7.0 mg/dL (0.6-1.0) H Estimated GFR (Cockcroft-Gault) 5.6 BUN/Creatinine Ratio 8 (6-20) Glucose Level 132 mg/dL (70-99) H Calcium Level 7.9 mg/dL (8.5-10.1) L Magnesium Level Pending Total Bilirubin Pending Aspartate Amino Transferase (AST) Pending Alanine Aminotransferase (ALT) Pending Alkaline Phosphatase Pending Total Protein Pending Albumin Pending Albumin/Globulin Ratio Pending Laboratory Tests 07/29/20 12:11 Laboratory Tests 07/29/20 12:11 EKG: EKG: @1201 Sinus bradycardia at 54bpm, NO ST elevation, QRS 90ms, QT/QTc 484/461ms Radiology/Procedures: Radiology/Procedures: PROCEDURE: CHEST AP ONLY EXAMINATION: Chest radiograph. VIEWS: Single view COMPARISON: 10/22/2019 INDICATION:85 years, Female, weakness. FINDINGS: Normal cardiomediastinal silhouette. Redemonstrated tortuous thoracic aorta with endovascular stent within the descending segment. No focal consolidation. No pleural effusion or pneumothorax. No acute osseous process. Vascular stent in the left axillary soft tissue. IMPRESSION: No acute cardiopulmonary process. Electronically signed by: Richy Babb MD (07/29/2020 12:58 PM) [facility] Course & Med Decision Making: Course & Med Decision Making Pertinent Labs and Imaging studies reviewed. (See chart for details) [] Dragon Disclaimer: Dragon Disclaimer: This electronic medical record was generated, in whole or in part, using a voice recognition dictation system. Departure Departure Impression: Primary Impression: Hypotension of hemodialysis Disposition: 01 HOME / SELF CARE / HOMELESS Condition: IMPROVED Referrals: DONALD IVORY (PCP) Patient Instructions: Dialysis, Dialysis, Care After, Hypotension, [id number] Additional Instructions: Please follow with your dialysis as regularly scheduled. ML COSTA DO Jul 29, 2020 12:43
[2020-07-29 12:54] LABS: CREATINE KINASE 29 U/L (26-192)
--- NOTE | 2020-07-29 13:01 | RAD ---
EXAMINATION: Chest radiograph. VIEWS: Single view COMPARISON: 10/22/2019 INDICATION:85 years, Female, weakness. FINDINGS: Normal cardiomediastinal silhouette. Redemonstrated tortuous thoracic aorta with endovascular stent w ithin the descending segment. No focal consolidation. No pleural effusion or pneumothorax. No acute o sseous process. Vascular stent in the left axillary soft tissue. IMPRESSION: No acute cardiopulmonary process. Electronically signed by: Richy Babb MD (07/29/2020 12:58 PM) [facility]
[2020-07-29 15:52] VITALS: BP 172/73
== END 2020-07-29 16:14 | disposition home or self-care (01) ==
LOC: ER 11:49
DX: I95.3 Hypotension of hemodialysis (principal); K21.9 Gastro-esophageal reflux disease without esophagitis; E78.00 Pure hypercholesterolemia, unspecified; I10 Essential (primary) hypertension; E03.9 Hypothyroidism, unspecified; Z88.1 Allergy status to other antibiotic agents; Z88.2 Allergy status to sulfonamides
CPT/HCPCS: 36415; 71045; 80053; 82553; 83605; 83735; 84484; 85025; 93005; 99285; J7040

== ENCOUNTER 2021-03-31 01:43 | Emergency (ER) | payer MEDICARE, OTHER ==
[~2021-03-31] VITALS: Ht 154.9 cm; Wt 54.4 kg
[~2021-03-31 01:43] MED LIST changes: +ASPI325T11 PO; +CLON1PAT6 TD; +CYCL5TAB PO; +DIPH25TA24 PO; +GABA-585 PO
--- NOTE | 2021-03-31 02:34 | RAD ---
PQRS Compliance Statement: One or more of the following individualized dose reduction techniques were utilized for this examinat ion: 1. Automated exposure control 2. Adjustment of the mA and/or kV according to patient size 3. Use of iterative reconstruction technique CT head and cervical spine without contrast 03/31/2021 2:00 AM INDICATION: Fall from wheelchair with forehead contusion COMPARISON: CT head 02/24/2021 TECHNIQUE: Multiple axial CT images of the head were obtained from skull base through the vertex with out intravenous contrast. Multiple axial CT images of the cervical spine were obtained without intrav enous contrast. Coronal and sagittal reformats are provided. FINDINGS: Head: There is a soft tissue hematoma involving the scalp along the right forehead measuring 1.4 x 4.8 cm ( AP by transverse) Ventricles, sulci and basal cisterns are prominent compatible with mild generalized cerebral volume l oss. There is no hydrocephalus. Estes-white matter differentiation is normal. There is no acute intrac ranial hemorrhage. There is no mass, mass effect or midline shift. Posterior fossa is normal in appea talya. Remote lacunar infarct involving the posterior limb left internal capsule. Low-attenuation in the periventricular white matter is suggestive of chronic small vessel ischemic changes. Remote lacun ar infarct involving the right caudate head Visualized portions of the orbits are normal. Paranasal sinuses are well aerated. Mastoid air cells a re well aerated. Calvaria is intact. Cervical spine: Skull base is intact. Craniocervical junction is normal in appearance. Partial osseous fusion of the right C1-C2 articulation. Vertebral body heights are maintained without evidence for acute fracture. There is advanced cervical spondylosis. 3 mm anterolisthesis of C3 on C4. 2 mm antral listhesis of C4 on C5. Advanced disc height loss at C4-C5, C5-C6, C6-C7 and C7-T1. Multilevel moderate to severe oss eous neural foraminal stenosis with mild osseous spinal canal stenosis at C4-C5, C5-C6 and C6-C7. There is no prevertebral soft tissue swelling. Thyroid gland is normal in appearance. There is a left pleural effusion. Retroesophageal course of the carotid vessels with calcified plaque at the carotid bifurcations. IMPRESSION: 1. No acute intracranial hemorrhage. Remote lacunar infarcts in the right caudate head and left poste rior limb internal capsule. 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 Mild generalized cerebral volume loss. 2. Right frontal forehead scalp hematoma. No underlying calvarial defect. 3. No acute fracture of the cervical spine. Advanced cervical spondylosis. Electronically signed by: Kezia Leon MD (03/31/2021 2:32 AM) [facility]
--- NOTE | 2021-03-31 03:05 | PHYS DOC ---
Past Medical History Past Medical History: GERD, High Cholesterol, Hypertension, Hypothyroid, Other Additional Past Medical Histor: METABOLIC ENCEPHALOPTHY, DYSPHAGIA, OSTEOARTHRITIS, ESRD Past Surgical History: Other Additional Past Surgical Histo: SEE LIST Smoking Status: Never Smoker Alcohol Use: None Drug Use: None Adult General Chief Complaint Chief Complaint: MECHANICAL FALL HPI HPI The patient is an 85-year-old female who presents from a local nursing facility for evaluation of a central forehead contusion sustained just prior to arrival when she toppled forward out of a wheelchair. She is at baseline for behavior and responsiveness per snf staff since the fall. She denies pain anywhere, including to the contusion on her forehead. She is alert and pl easantly interactive, moving all extremities equally, and is able to tell us that she overbalanced and fell out of her wheelchair. She is in no acute distress, there are no other signs of trauma, and vital signs are appropriate here. Review of Systems Review of Systems A 12 point review of systems was completed and was negative except where noted i n HPI above. Allergies Allergies Allergies Coded Allergies Type Severity Reaction Last Updated Verified sulfamethoxazole Allergy Intermediate 03/31/21 Yes trimethoprim Allergy Intermediate 03/31/21 Yes Physical Exam Physical Exam 85-year-old female appearing nontoxic and in no acute distress. Head is normocephalic and with an approximately 3 cm central forehead contusion. No instability of the midface. No malocclusion. No hemotympanum bilaterally. No other signs of basilar fracture. Neck is supple and nontender. Oropharynx is m oist. Lungs are clear to auscultation at all stations. There is a normal S1 and S2 without rubs or gallops and capillary refill is appropriate, less than 2 seconds globally. Abdomen is soft, nontender nondistended. Skin is warm and dry without cyanosis, clubbing or edema. Psychiatrically, the patient demonstrates appropriate mood and affect and is alert. Evaluation of the ext remities reveals BUEs and BLEs neurovascularly intact distally with strength 5- 5, sensation intact light touch in all nerve distributions, radial, DP and PT pulses 2+ and equal bilaterally, capillary refill less than 2 seconds, hands and feet warm and well-perfused. Neurologically, patient moves all extremities equally, is alert and appropriately interactive consistent with her reported baseline mental status, and no lateralizing deficits are seen. Current Patient Data Vital Signs Vital Signs Date Time Temp Pulse Resp B/P (MAP) Pulse Ox O2 Delivery O2 Flow Rate FiO2 03/31/21 01:43 97.8 67 18 140/64 (89) 96 Room Air 97.8 EKG EKG [] Radiology/Procedures Radiology/Procedures CT head and cervical spine without contrast 03/31/2021 2:00 AM INDICATION: Fall from wheelchair with forehead contusion COMPARISON: CT head 02/24/2021 TECHNIQUE: Multiple axial CT images of the head were obtained from skull base through the vertex without intravenous contrast. Multiple axial CT images of the cervical spine were obtained without intravenous contrast. Coronal and sagittal reformats are provided. FINDINGS: Head: There is a soft tissue hematoma involving the scalp along the right forehead measuring 1.4 x 4.8 cm (AP by transverse) Ventricles, sulci and basal cisterns are prominent compatible with mild generalized cerebral volume loss. There is no hydrocephalus. Estes-white matter differentiation is normal. There is no acute intracranial hemorrhage. There is no mass, mass effect or midline shift. Posterior fossa is normal in appearance. Remote lacunar infarct involving the posterior limb left internal capsule. Low- attenuation in the periventricular white matter is suggestive of chronic small vessel ischemic changes. Remote lacunar infarct involving the right caudate head Visualized portions of the orbits are normal. Paranasal sinuses are well aerated. Mastoid air cells are well aerated. Calvaria is intact. Cervical spine: Skull base is intact. Craniocervical junction is normal in appearance. Partial osseous fusion of the right C1-C2 articulation. Vertebral body heights are maintained without evidence for acute fracture. There is advanced cervical spondylosis. 3 mm anterolisthesis of C3 on C4. 2 mm antral listhesis of C4 on C5. Advanced disc height loss at C4-C5, C5-C6, C6-C7 and C7-T1. Multilevel moderate to severe osseous neural foraminal stenosis with mild osseous spinal canal stenosis at C4-C5, C5-C6 and C6-C7. There is no prevertebral soft tissue swelling. Thyroid gland is normal in appearance. There is a left pleural effusion. Retroesophageal course of the carotid vessels with calcified plaque at the carotid bifurcations. IMPRESSION: 1. No acute intracranial hemorrhage. Remote lacunar infarcts in the right caudate head and left posterior limb internal capsule. Low-attenuation in the periventricular white matter is suggestive of chronic small vessel ischemic changes. Mild generalized cerebral volume loss. 2. Right frontal forehead scalp hematoma. No underlying calvarial defect. 3. No acute fracture of the cervical spine. Advanced cervical spondylosis. Electronically signed by: Luis Eduardo Carlin MD (03/31/2021 2:32 AM) [facility] DICTATED and SIGNED BY: LUIS EDUARDO CARLIN MD DATE: 03/31/21 [id number] 0 Course & Med Decision Making Course & Med Decision Making 85-year-old female presents following a low-energy mechanical fall. Clinical e xamination reassuring and neurologic examination nonfocal. Neuro cognitively at her baseline. CT imaging without evidence of acute process. No evidence of emergency condition has been identified. Will discharge back to her facility to follow-up very closely with primary care. Dragon Disclaimer Dragon Disclaimer This electronic medical record was generated, in whole or in part, using a voice recognition dictation system. Departure Departure Impression: Primary Impression: Fall at snf Additional Impression: Contusion of forehead Disposition: 01 HOME / SELF CARE / HOMELESS Condition: STABLE Referrals: DONALD IVORY (PCP) Patient Instructions: Fall Prevention and Home Safety Additional Instructions: Follow-up very closely with your primary doctor in the next 1 to 2 days for a reevaluation of your symptoms and a discussion of next best steps in care. You may take a 500 mg extra take Tylenol every 6 hours as needed for discomfort. Return to the emergency department right away for worsening symptoms of any kind or with any other new symptoms of concern. Problem Qualifiers Primary Impression: Fall at snf Encounter type: initial encounter Qualified Codes: W19.XXXA - Unspecified fall, initial encounter; Y92.129 - Unspecified place in snf as the place of occurrence of the external cause Additional Impression: Contusion of forehead Encounter type: initial encounter Qualified Codes: S00.83XA - Contusion of other part of head, initial encounter ANGELINE MCNEAL MD Mar 31, 2021 03:05
[2021-03-31 05:00] VITALS: BP 122/56
== END 2021-03-31 05:15 | disposition home or self-care (01) ==
LOC: ER 01:43
DX: S00.83XA Contusion of other part of head, initial encounter (principal); K21.9 Gastro-esophageal reflux disease without esophagitis; E78.00 Pure hypercholesterolemia, unspecified; I12.0 Hypertensive chronic kidney disease with stage 5 chronic kidney disease or end stage renal disease; N18.6 End stage renal disease; E03.9 Hypothyroidism, unspecified; Z88.1 Allergy status to other antibiotic agents; Z88.2 Allergy status to sulfonamides; W05.0XXA Fall from non-moving wheelchair, initial encounter; Y93.89 Activity, other specified; Y92.89 Other specified places as the place of occurrence of the external cause; Y99.8 Other external cause status
CPT/HCPCS: 70450; 72125; 99285-25

== ENCOUNTER 2021-05-11 10:00 | Inpatient (IN) | payer MEDICARE, OTHER ==
[~2021-05-11] VITALS: Ht 154.9 cm; Wt 59.0 kg
--- NOTE | 2021-05-11 10:23 | PHYS DOC ---
Past Medical History Past Medical History: GERD, High Cholesterol, Hypertension, Hypothyroid, Other Additional Past Medical Histor: METABOLIC ENCEPHALOPTHY, DYSPHAGIA, OSTEOARTHRITIS, ESRD Past Surgical History: Other Additional Past Surgical Histo: SEE LIST Smoking Status: Never Smoker Alcohol Use: None Drug Use: None Adult General HPI HPI Patient is a 85 year old female presenting to the emergency department for reported altered mental status. Reportedly healthcare resort to gave report that she is usually alert and oriented x3 and this is what EMS as well but looking to the records this is not in fact her baseline rather she has been admitted recently in February and she has dementia including Alzheimer's and has prior CVA with cognitive communication deficit. She gets dialysis on Sunday and has reportedly not missed any dialysis. The reason they called this morning is that they said she was declining but would not further specify other than saying that she may have vomited last night. Patient reportedly became more confused this morning but based off the prior notes in my interaction with her I think that she is close to her baseline but there is no family present to collaborate. Patient would not follow commands and cannot answer any orientation questions. Reportedly she was hypotensive at healthcare resort but she has a normal blood pressure for EMS and a normal blood pressure here. She is in no acute distress with normal vital signs. I pasted the discharge summary below for review. Ms Jones is an 85 yo F w/ PMHx ESRD, HTN, HLD, hypothyroidism, chronic back pain, ex-smoker who presents with diffuse weakness and confusion from her SNF after dialysis. 02/25: Seen bedside pretty drowsy still confused asking nursing staff to leave her alone. She was amenable to taking meds and redirected with nursing. She complains she wants to go back home and has back pain. 02/26: Confused overnight. Going to dialysis today. Complain of back pain. Required oxygen overnight and has visible dyspnea. We will get noncontrast CT chest after dialysis to assess for pleural effusion 02/27: Still confused overnight thinks her is still alive. Complaining of right shoulder pain and back pain. Struggling a little bit of oxygen. CT chest demonstrates bilateral moderate pleural effusions. Discussed with daughter Jessica bedside and she does not want invasive surgical procedures and she and her brother Saurabh have been pretty contemplative about hospice but they absolutely do not want to withhold dialysis from their mother and would be interested in meeting with palliative care when patient is stable for discharge. Likely patient will need continuous oxygen given her worsening O2 saturations likely from mild fluid overload combined with pleural effusions 02/28 Patient evaluated examined at bedside. Not responding to really any questions but this seems baseline. Long-term poor prognosis. Other than dialysis not do ing much else for her in the hospital right now. Patient's facility confirmed they transported dialysis Sunday. They also have capabilities for hospice screening. They can follow-up with patient's family to discuss hospice further. Greater than 30 minutes spent on this discharge. Review of Systems Review of Systems Unable to answer due to medical condition and confusion All other systems were reviewed and found to be within normal limits, except as documented in this note. Allergies Allergies Allergies Coded Allergies Type Severity Reaction Last Updated Verified sulfamethoxazole Allergy Intermediate 03/31/21 Yes trimethoprim Allergy Intermediate 03/31/21 Yes Physical Exam Physical Exam Constitutional: Chronically ill-appearing female in no acute distress HENT: Normocephalic, atraumatic, bilateral external ears normal, oropharynx moist, no oral exudates, nose normal. [] Eyes: PERRLA, EOMI, conjunctiva normal, no discharge. [] Neck: Normal range of motion, no tenderness, supple, no stridor. [] Cardiovascular:Heart rate regular rhythm, no murmur [] Lungs & Thorax: Bilateral breath sounds clear to auscultation [] Abdomen: Bowel sounds normal, soft, no tenderness, no masses, no pulsatile masses. [] Skin: Warm, dry, no erythema, no rash. [] Back: No tenderness, no CVA tenderness. [] Extremities: 2+ edema bilaterally Neurologic: Alert and oriented X 0, will not follow commands or move extremities Current Patient Data Vital Signs Vital Signs Date Time Temp Pulse Resp B/P (MAP) Pulse Ox O2 Delivery O2 Flow Rate FiO2 05/11/21 11:08 96 18 161/92 (115) 97 Room Air 05/11/21 10:00 98.5 98.5 Lab Values Laboratory Tests Test 05/11/21 10:35 05/11/21 11:00 05/11/21 11:10 White Blood Count 14.3 x10^3/uL (4.0-11.0) H Red Blood Count 4.17 x10^6/uL (3.50-5.40) Hemoglobin 13.8 g/dL (12.0-15.5) Hematocrit 42.2 % (36.0-47.0) Mean Corpuscular Volume 101 fL (79-100) H Mean Corpuscular Hemoglobin 33 pg (25-35) Mean Corpuscular Hemoglobin Concent 33 g/dL (31-37) Red Cell Distribution Width 14.8 % (11.5-14.5) H Platelet Count 257 x10^3/uL (140-400) Neutrophils (%) (Auto) 79 % (31-73) H Lymphocytes (%) (Auto) 8 % (24-48) L Monocytes (%) (Auto) 13 % (0-9) H Eosinophils (%) (Auto) 0 % (0-3) Basophils (%) (Auto) 0 % (0-3) Neutrophils # (Auto) 11.3 x10^3/uL (1.8-7.7) H Lymphocytes # (Auto) 1.2 x10^3/uL (1.0-4.8) Monocytes # (Auto) 1.8 x10^3/uL (0.0-1.1) H Eosinophils # (Auto) 0.0 x10^3/uL (0.0-0.7) Basophils # (Auto) 0.1 x10^3/uL (0.0-0.2) Prothrombin Time 14.9 SEC (11.7-14.0) H Prothrombin Time INR 1.2 (0.8-1.1) H Activated Partial Thromboplast Time 28 SEC (24-38) Sodium Level 147 mmol/L (136-145) H Potassium Level 5.7 mmol/L (3.5-5.1) H Chloride Level 102 mmol/L (98-107) Carbon Dioxide Level 29 mmol/L (21-32) Anion Gap 16 (6-14) H Blood Urea Nitrogen 47 mg/dL (7-20) H Creatinine 5.4 mg/dL (0.6-1.0) H Estimated GFR (Cockcroft-Gault) 7.5 BUN/Creatinine Ratio 9 (6-20) Glucose Level 155 mg/dL (70-99) H Calcium Level 9.9 mg/dL (8.5-10.1) Total Bilirubin 0.5 mg/dL (0.2-1.0) Aspartate Amino Transferase (AST) 22 U/L (15-37) Alanine Aminotransferase (ALT) 14 U/L (14-59) Alkaline Phosphatase 85 U/L (46-116) Troponin I High Sensitivity 51 ng/L (4-50) H NZ-Qmi-U-Type Natriuretic Peptide > 38407 pg/mL (0-449) H Total Protein 6.1 g/dL (6.4-8.2) L Albumin 2.8 g/dL (3.4-5.0) L Albumin/Globulin Ratio 0.8 (1.0-1.7) L Thyroid Stimulating Hormone (TSH) 6.395 uIU/mL (0.358-3.74) H Influenza Type A Antigen Negative (NEGATIVE) Influenza Type B Antigen Negative (NEGATIVE) SARS-CoV-2 Antigen (Rapid) Negative (NEGATIVE) Urine Collection Type U cath Urine Color (Auto) Dark brown Urine Turbidity Turbid Urine pH (Auto) 7.5 (<5.0-8.0) Urine Specific [place] 1.009 (1.000-1.030) Urine Protein (Auto) 100 mg/dL (Negative) Urine Glucose (Auto)(UA) Negative mg/dL (Negative) Urine Ketones (Auto) Trace mg/dL (Negative) Urine Blood (Auto) Large (Negative) Urine Nitrite Negative (Negative) Urine Bilirubin (Auto) Negative (Negative) Urine Urobilinogen (Auto) Normal mg/dL (Normal) Urine Leukocyte Esterase (Auto) Large (Negative) Urine RBC Field obscured /HPF (0-2) Urine WBC Tntc /HPF (0-4) Urine Bacteria Many /HPF (0-FEW) Laboratory Tests 05/11/21 10:35 Laboratory Tests 05/11/21 10:35 EKG EKG Sinus rhythm at 92 bpm with leftward axis and incomplete right bundle branch block with no ST elevation or depression and a prolonged QTC noted at 483ms. Radiology/Procedures Radiology/Procedures [] Course & Med Decision Making Course & Med Decision Making I will check labs and imaging and reassess. Patient has abnormal work-up with findings of likely urinary tract infection. The family presented said that she does appear to be more confused than her baseline although her confusion can wax and wane. They said they were with her 4 days ago on Saturday and that she was conversant although much of what she says does not make sense but she was at least able to say words where she has not right now. Patient also is hyperkalemic and may need dialysis today rather than waiting for her usual day tomorrow. Patient admitted in guarded condition to the telemetry floor under the care of Dr. Alcantara. Eleuterio Disclaimer Eleuterio Disclaimer This electronic medical record was generated, in whole or in part, using a voice recognition dictation system. Departure Departure Impression: Primary Impression: ESRD (end stage renal disease) Additional Impressions: Altered mental status UTI (urinary tract infection) Leukocytosis Hyperkalemia Disposition: ADMITTED INPATIENT Admitting Physician: GENEVIEVE ([place]) Condition: GUARDED Referrals: DONALD IVORY (PCP) Problem Qualifiers MARIA INES ALLRED DO May 11, 2021 10:23
[2021-05-11 11:04] LABS: BASO # 0.1 x10^3/uL (0.0-0.2); BASO % 0 % (0-3); EOS % 0 % (0-3); HEMATOCRIT 42.2 % (36.0-47.0); HEMOGLOBIN 13.8 g/dL (12.0-15.5); LYMPH # 1.2 x10^3/uL (1.0-4.8); LYMPH % 8 % (24-48); MEAN CORPUSCULAR HEMOGLOBIN 33 pg (25-35); MEAN CORPUSCULAR HGB CONC 33 g/dL (31-37); MEAN CORPUSCULAR VOLUME 101 fL (79-100); MONO # 1.8 x10^3/uL (0.0-1.1); MONO % 13 % (0-9); NEUT # 11.3 x10^3/uL (1.8-7.7); NEUT % 79 % (31-73); PLATELET COUNT 257 x10^3/uL (140-400); PROTHROMBIN TIME PATIENT 14.9 SEC (11.7-14.0); RED BLOOD COUNT 4.17 x10^6/uL (3.50-5.40); RED CELL DISTRIBUTION WIDTH 14.8 % (11.5-14.5); WHITE BLOOD COUNT 14.3 x10^3/uL (4.0-11.0)
--- NOTE | 2021-05-11 11:04 | RAD ---
EXAMINATION: CT HEAD/BRAIN WO CLINICAL HISTORY: Altered mental status. TECHNIQUE: Serial axial images without IV contrast were obtained from the vertex to the foramen magnu m. CT Dose Reduction Employed: One or more of the following individualized dose reduction techniques fariba rodriguez utilized for this examination: 1. Automated exposure control 2. Adjustment of the mA and/or kV ac cording to patient size 3. Use of iterative reconstruction technique. COMPARISON: 03/31/2021 FINDINGS: Acute Change: No evidence of an acute infarct or other acute parenchymal process. Hemorrhage: No evidence of acute intracranial hemorrhage. Mass Lesion/Mass Effect: No evidence of intracranial mass or extraaxial fluid collection. No signific ant mass effect. Chronic Change: Small old lacunar infarct posterior limb of the left internal capsule. Scattered patc hy foci of hypoattenuation in the supratentorial white matter, nonspecific but likely represents mild microvascular ischemia. Atherosclerotic calcification of the anterior and posterior circulation. Parenchyma: No significant volume loss. Parenchyma otherwise within normal limits for age. Ventricles: Ventricles within normal limits for age. Paranasal Sinuses and Skull Base: Visualized paranasal sinuses clear. Visualized skull base unremarka ble. Minimal residual subcutaneous contusion anterior inferior right frontal scalp. IMPRESSION: No evidence of acute intracranial abnormality. Electronically signed by: Karlos Fitch DO (05/11/2021 11:01 AM) [id number]
[2021-05-11 11:08] LABS: CALCIUM 9.9 mg/dL (8.5-10.1); CREATININE 5.4 mg/dL (0.6-1.0); GFR 7.5; POTASSIUM 5.7 mmol/L (3.5-5.1)
--- NOTE | 2021-05-11 11:09 | RAD ---
AP chest. HISTORY: Altered mental status AP view was taken of the chest. Comparison is made with a study from February 24. There is a stent gra ft in the thoracic aorta. Heart is upper normal in size. There is a small left pleural effusion which has decreased since the prior study. There is mild left base atelectasis or infiltrate. Right effusi on is also improved since the prior study. 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 There is thoracolumba r scoliosis. IMPRESSION: 1. Small left effusion with improvement compared to February 24. 2. Mild left base atelectasis or infiltrate. Electronically signed by: Armond Kearns MD (05/11/2021 11:07 AM) [id number]
[2021-05-11 11:14] LABS: ALBUMIN 2.8 g/dL (3.4-5.0); ALBUMIN/GLOBULIN RATIO 0.8 (1.0-1.7); TOTAL BILIRUBIN 0.5 mg/dL (0.2-1.0); TOTAL PROTEIN 6.1 g/dL (6.4-8.2)
[2021-05-11 11:30] LABS: BACTERIA,URINE MANY /HPF (0-FEW); RBC,URINE FIELD OBSCURED /HPF (0-2); WBC,URINE TNTC /HPF (0-4)
[2021-05-11 11:41] LABS: INFLUENZA A PATIENT NEGATIVE (NEGATIVE); INFLUENZA B PATIENT NEGATIVE (NEGATIVE)
[2021-05-11] MEDS ORDERED: cefTRIAXone IV Push 1 GM VIAL. IVP ONE (12:00)
[2021-05-11] MEDS ORDERED: ONDANSETRON PF 4 MG/2 ML VIAL. IVP PRN (12:15)
[2021-05-11] MEDS ORDERED: CLON1PAT6 TD (13:30)
[2021-05-11] MEDS ORDERED: DOCU-109 PO (13:30)
[2021-05-11] MEDS ORDERED: SEVE800T9 PO (13:30)
[2021-05-11] MEDS ORDERED: NIFE30TA95 PO (13:30)
[2021-05-11] MEDS ORDERED: SENN8.8S13 PO (13:30)
[2021-05-11] MEDS ORDERED: MAGN400O7 PO (13:30)
[2021-05-11] MEDS ORDERED: ACETAMINOPHEN 325 MG TABLET. PO PRN (14:15)
[2021-05-11] MEDS ORDERED: FAMOTIDINE 20 MG TABLET. PO PRN (14:15)
[2021-05-11] MEDS ORDERED: ALBUTEROL SULFATE 2.5 MG/3 ML NEBU. NEB PRN (14:15)
[2021-05-11 15:00] VITALS: BP 164/83
[2021-05-11] MEDS: FOLIC/VIT B COMP W-C (RENAL) TABLET. PO SCH (15:00)
[2021-05-11] MEDS: DOCUSATE SODIUM 100 MG CAPSULE. PO SCH (15:00)
[2021-05-11] MEDS: ASPIRIN ENTERIC COATED 325 MG TABLET.DR. PO SCH (15:00)
[2021-05-11] MEDS: ISOSORBIDE MONONITRATE ER 30 MG TAB.ER.24H PO SCH (15:00)
[2021-05-11] MEDS ORDERED: cefTRIAXone IV Push 1 GM VIAL. IVP SCH (15:00)
[2021-05-11] MEDS: LEVOTHYROXINE 50 MCG TABLET PO SCH (15:00)
--- NOTE | 2021-05-11 15:10 | NUR ---
Holding food and po meds until patient has swallow study
[2021-05-11] MEDS: CARVEDILOL 6.25 MG TABLET. PO SCH (16:44)
[2021-05-11] MEDS: SEVELAMER CARBONATE 800 MG TABLET. PO SCH (16:44)
--- NOTE | 2021-05-11 17:26 | EKG ---
[facility] [address] [place] [address] Test Date: 2021-05-11 Test Time: 10:19:37 Pat Name: BRITTNEY REED Department: Room: 536 1 Gender: F [employer]ic: : [id number] Requested By: MARIA INES ALLRED Order Number: [id number] Reading MD: Daniel Valiente Measurements Intervals [place] Rate: 92 P: -65 IN: 124 QRS: -1 QRSD: 102 T: 11 QT: 386 QTc: 483 Interpretive Statements SINUS RHYTHM ATRIAL PREMATURE COMPLEX(ES) LEFTWARD AXIS INCOMPLETE RIGHT BUNDLE BRANCH BLOCK PROLONGED QT Electronically Signed On 05-21-2021 9:34:12 CDT by Daniel Valiente
[2021-05-11 19:00] VITALS: BP 123/89
[2021-05-11] MEDS: SODIUM BICARBONATE 650 MG TABLET. PO SCH (21:00)
[2021-05-11] MEDS: GABAPENTIN 100 MG CAPSULE. PO SCH (21:00)
[2021-05-11] MEDS: HEPARIN for SUB-Q USE 5,000 UNIT/ML VIAL. SQ SCH (22:08)
[2021-05-11 23:00] VITALS: BP 182/93
[2021-05-12 03:00] VITALS: BP 118/68
[2021-05-12] MEDS: LEVOTHYROXINE 50 MCG TABLET PO SCH (06:00)
[2021-05-12 07:00] VITALS: BP 136/95
[2021-05-12] MEDS ORDERED: DIALYSIS PATIENT. MC PRN (07:15)
[2021-05-12] MEDS ORDERED: IV NORMAL SALINE 1000ML BAG 1,000 ML IV PRN ×2 (07:15)
[2021-05-12] MEDS: CARVEDILOL 6.25 MG TABLET. PO SCH (08:00)
[2021-05-12] MEDS: SEVELAMER CARBONATE 800 MG TABLET. PO SCH ×3 (08:00→16:39)
[2021-05-12] MEDS: ASPIRIN ENTERIC COATED 325 MG TABLET.DR. PO SCH (08:00)
--- NOTE | 2021-05-12 08:41 | PDOC1 ---
History and Physical Date of Admission Date of Admission DATE: 05/12/21 TIME: 08:41 Source Source: Caregiver, Chart review History of Present Illness History of Present Illness LATE ENTRY< pt seen 05.11.21, in the late afternoon Remberto is a 85 year old female admit for confusion, worse at her snf, coudl not talk or respond, wose over days. She had poor PO intake and vomited lara day before SHe has prior CVA with aphasia but had improevd, and had been more talkative and itneractive, She gets dialysis on Sunday and has reportedly not missed any dialysis. she was confused and lethargic and unable to answer questiosn, Antibiotic started for UTI Past Medical History Cardiovascular: CHF, HTN, Hyperlipidemia Pulmonary: COPD CENTRAL NERVOUS SYSTEM: TIA, Other GI: Constipation, GERD Heme/Onc: Anemia NOS Hepatobiliary: No pertinent hx Psych: No pertinent hx Musculoskeletal: Other Infectious disease: No pertinent hx Renal/: Chronic renal failure Endocrine: Hypothyroidism Past Surgical History Past Surgical History: Cataract Removal, Other Family History Family History: Heart Disease Social History Smoke: No ALCOHOL: none Drugs: None Current Problem List Problem List Problems Medical Problems: (1) Altered mental status Status: Acute (2) Hyperkalemia Status: Acute (3) Leukocytosis Status: Acute (4) UTI (urinary tract infection) Status: Acute Current Medications Current Medications Current Medications Ceftriaxone Sodium (Rocephin) 1 gm 1X ONCE IVP Last administered on 05/11/21at 12:09; Start 05/11/21 at 12:00; Stop 05/11/21 at 12:01; Status DC Ondansetron HCl (Zofran) 4 mg PRN Q8HRS PRN IVP NAUSEA/VOMITING; Start 05/11/21 at 12:15; Stop 05/12/21 at 12:14 Ceftriaxone Sodium (Rocephin) 1 gm Q24H IVP Last administered on 05/11/21at 15:05; Start 05/11/21 at 15:00 Acetaminophen (Tylenol) 650 mg PRN Q6HRS PRN PO TEMP > 100.4F; Start 05/11/21 at 14:15 Albuterol Sulfate (Ventolin Neb Soln) 2.5 mg PRN Q4HRS PRN NEB SHORTNESS OF BREATH; Start 05/11/21 at 14:15 Aspirin (Ecotrin) 325 mg DAILYWBKFT PO ; Start 05/11/21 at 15:00 Carvedilol (Coreg) 6.25 mg BIDWMEALS PO ; Start 05/11/21 at 17:00 Clonidine HCl (Catapres Tts-2) 1 patch WEEKLY TD ; Start 05/12/21 at 09:00 Docusate Sodium (Colace) 100 mg DAILY PO ; Start 05/11/21 at 15:00 Famotidine (Pepcid) 10 mg PRN DAILY PRN PO HEARTBURN / GAS; Start 05/11/21 at 14:15 Vitamin B Complex/ Vitamin C (Jerilyn-Jaylon) 1 tab DAILY PO ; Start 05/11/21 at 15:00 Gabapentin (Neurontin) 100 mg HS PO ; Start 05/11/21 at 21:00 Isosorbide Mononitrate (Imdur) 60 mg DAILY PO ; Start 05/11/21 at 15:00 Levothyroxine Sodium (Synthroid) 50 mcg DAILY06 PO ; Start 05/11/21 at 15:00 Nifedipine (Procardia Xl) 30 mg DAILY PO ; Start 05/11/21 at 15:00 Sevelamer Carbonate (Renvela) 800 mg TIDWMEALS PO ; Start 05/11/21 at 17:00 Sodium Bicarbonate (Sodium Bicarbonate) 650 mg BID PO ; Start 05/11/21 at 21:00 Heparin Sodium (Porcine) (Heparin Sodium) 5,000 unit BID SQ Last administered on 05/11/21at 22:08; Start 05/11/21 at 21:00 Sodium Chloride 1,000 ml @ 1,000 mls/hr Q1H PRN IV hypotension; Start 05/12/21 at 07:15; Stop 05/12/21 at 13:14 Sodium Chloride 1,000 ml @ 400 mls/hr Q2H30M PRN IV PATENCY; Start 05/12/21 at 07:15; Stop 05/12/21 at 19:14 Info (PHARMACY MONITORING -- do not chart) 1 each PRN DAILY PRN MC SEE COMMENTS; Start 05/12/21 at 07:15 Active Scripts Active Aspirin Ec (Aspirin) 325 Mg Tablet.dr 325 Mg PO DAILYWBKFT 90 Days Tylenol (Acetaminophen) 325 Mg Tablet 650 Mg PO PRN Q6HRS PRN 30 Days Hydrocodone-Apap 10-325 (Hydrocodone Bit/Acetaminophen) 1 Each Tablet 1 Tab PO PRN TID PRN 6 Days Proair Hfa (Albuterol Sulfate) 8.5 Gm Hfa.aer.ad 2.5 Mg NEB PRN Q4HRS PRN Jerilyn-Jaylon Tablet (Folic Acid/Vitamin B Comp W-C) 0.8 Mg Tablet 1 Tab PO DAILY 30 Days Reported Senna (Sennosides) 8.8 Mg/5 Ml Syrup 8.8 Mg PO DAILY Renvela (Sevelamer Carbonate) 800 Mg Tablet 800 Mg PO TIDWMEALS Nifedipine Er (Nifedipine) 30 Mg Tab.er.24 30 Mg PO DAILY Milk Of Magnesia (Magnesium Hydroxide) 400 Mg/5 Ml Oral.susp 400 Mg PO PRN Q24HRS PRN Colace (Docusate Sodium) 100 Mg Capsule 100 Mg PO DAILY Clonidine Tts-2 (Clonidine) 1 Each Patch.tdwk 1 Patch TD WEEKLY Gabapentin (Gabapentin) 100 Mg Capsule 100 Mg PO HS Diphenhydramine Hcl 25 Mg Tablet 25 Mg PO DAILY PRN Cyclobenzaprine Hcl 5 Mg Tablet 1 Tab PO BID Coreg (Carvedilol) 6.25 Mg Tablet 6.25 Mg PO BIDWMEALS Synthroid (Levothyroxine Sodium) 50 Mcg Tablet 50 Mcg PO DAILYAC Sodium Bicarbonate 650 Mg Tablet 650 Mg PO BID Pepcid (Famotidine) 20 Mg Tablet 10 Mg PO PRN DAILY NITROGLYCERIN SubLingual (Nitroglycerin) 0.4 Mg Tab.subl 0.4 Mg SL PRN Q5MIN PRN Isosorbide Mononitrate Er (Isosorbide Mononitrate) 30 Mg Tab.er.24h 2 Tab PO DAILY Next dose due tomorrow morning. Allergies Allergies: Coded Allergies: sulfamethoxazole (Verified Allergy, Intermediate, 03/31/21) trimethoprim (Verified Allergy, Intermediate, 03/31/21) ROS Review of System unable, confused Physical Exam General: mild distress, Other (does not follow commands, makes eye contact only, no words) HEENT: Atraumatic, Other (dry mouth, poor dentition, caries upper, ) Lungs: Clear to auscultation, Normal air movement Heart: S1S2, no gallops, murmurs Abdomen: Normal bowel sounds, Soft Extremities: No clubbing, No cyanosis, No edema Skin: No rashes Neuro: Other Psych/Mental Status: Other Vitals Vitals Vital Signs Date Time Temp Pulse Resp B/P (MAP) Pulse Ox O2 Delivery O2 Flow Rate FiO2 05/12/21 03:00 98.1 90 20 118/68 (85) 91 Room Air 98.1 Labs Labs Laboratory Tests Test 05/11/21 10:35 05/11/21 11:00 05/11/21 11:10 White Blood Count 14.3 x10^3/uL (4.0-11.0) Red Blood Count 4.17 x10^6/uL (3.50-5.40) Hemoglobin 13.8 g/dL (12.0-15.5) Hematocrit 42.2 % (36.0-47.0) Mean Corpuscular Volume 101 fL (79-100) Mean Corpuscular Hemoglobin 33 pg (25-35) Mean Corpuscular Hemoglobin Concent 33 g/dL (31-37) Red Cell Distribution Width 14.8 % (11.5-14.5) Platelet Count 257 x10^3/uL (140-400) Neutrophils (%) (Auto) 79 % (31-73) Lymphocytes (%) (Auto) 8 % (24-48) Monocytes (%) (Auto) 13 % (0-9) Eosinophils (%) (Auto) 0 % (0-3) Basophils (%) (Auto) 0 % (0-3) Neutrophils # (Auto) 11.3 x10^3/uL (1.8-7.7) Lymphocytes # (Auto) 1.2 x10^3/uL (1.0-4.8) Monocytes # (Auto) 1.8 x10^3/uL (0.0-1.1) Eosinophils # (Auto) 0.0 x10^3/uL (0.0-0.7) Basophils # (Auto) 0.1 x10^3/uL (0.0-0.2) Prothrombin Time 14.9 SEC (11.7-14.0) Prothromb Time International Ratio 1.2 (0.8-1.1) Activated Partial Thromboplast Time 28 SEC (24-38) Sodium Level 147 mmol/L (136-145) Potassium Level 5.7 mmol/L (3.5-5.1) Chloride Level 102 mmol/L (98-107) Carbon Dioxide Level 29 mmol/L (21-32) Anion Gap 16 (6-14) Blood Urea Nitrogen 47 mg/dL (7-20) Creatinine 5.4 mg/dL (0.6-1.0) Estimated GFR (Cockcroft-Gault) 7.5 BUN/Creatinine Ratio 9 (6-20) Glucose Level 155 mg/dL (70-99) Calcium Level 9.9 mg/dL (8.5-10.1) Total Bilirubin 0.5 mg/dL (0.2-1.0) Aspartate Amino Transf (AST/SGOT) 22 U/L (15-37) Alanine Aminotransferase (ALT/SGPT) 14 U/L (14-59) Alkaline Phosphatase 85 U/L (46-116) Troponin I High Sensitivity 51 ng/L (4-50) MH-Wth-P-Type Natriuretic Peptide > 97902 pg/mL (0-449) Total Protein 6.1 g/dL (6.4-8.2) Albumin 2.8 g/dL (3.4-5.0) Albumin/Globulin Ratio 0.8 (1.0-1.7) Thyroid Stimulating Hormone (TSH) 6.395 uIU/mL (0.358-3.74) Influenza Type A Antigen Negative (NEGATIVE) Influenza Type B Antigen Negative (NEGATIVE) SARS-CoV-2 Antigen (Rapid) Negative (NEGATIVE) Urine Collection Type U cath Urine Color (Auto) Dark brown Urine Turbidity Turbid Urine pH (Auto) 7.5 (<5.0-8.0) Urine Specific Garrison 1.009 (1.000-1.030) Urine Protein (Auto) 100 mg/dL (Negative) Urine Glucose (Auto)(UA) Negative mg/dL (Negative) Urine Ketones (Auto) Trace mg/dL (Negative) Urine Blood (Auto) Large (Negative) Urine Nitrite Negative (Negative) Urine Bilirubin (Auto) Negative (Negative) Urine Urobilinogen (Auto) Normal mg/dL (Normal) Urine Leukocyte Esterase (Auto) Large (Negative) Urine RBC Field obscured /HPF (0-2) Urine WBC Tntc /HPF (0-4) Urine Bacteria Many /HPF (0-FEW) Laboratory Tests Test 4/6/22 10:35 05/11/21 11:00 05/11/21 11:10 White Blood Count 14.3 x10^3/uL (4.0-11.0) Red Blood Count 4.17 x10^6/uL (3.50-5.40) Hemoglobin 13.8 g/dL (12.0-15.5) Hematocrit 42.2 % (36.0-47.0) Mean Corpuscular Volume 101 fL (79-100) Mean Corpuscular Hemoglobin 33 pg (25-35) Mean Corpuscular Hemoglobin Concent 33 g/dL (31-37) Red Cell Distribution Width 14.8 % (11.5-14.5) Platelet Count 257 x10^3/uL (140-400) Neutrophils (%) (Auto) 79 % (31-73) Lymphocytes (%) (Auto) 8 % (24-48) Monocytes (%) (Auto) 13 % (0-9) Eosinophils (%) (Auto) 0 % (0-3) Basophils (%) (Auto) 0 % (0-3) Neutrophils # (Auto) 11.3 x10^3/uL (1.8-7.7) Lymphocytes # (Auto) 1.2 x10^3/uL (1.0-4.8) Monocytes # (Auto) 1.8 x10^3/uL (0.0-1.1) Eosinophils # (Auto) 0.0 x10^3/uL (0.0-0.7) Basophils # (Auto) 0.1 x10^3/uL (0.0-0.2) Prothrombin Time 14.9 SEC (11.7-14.0) Prothromb Time International Ratio 1.2 (0.8-1.1) Activated Partial Thromboplast Time 28 SEC (24-38) Sodium Level 147 mmol/L (136-145) Potassium Level 5.7 mmol/L (3.5-5.1) Chloride Level 102 mmol/L (98-107) Carbon Dioxide Level 29 mmol/L (21-32) Anion Gap 16 (6-14) Blood Urea Nitrogen 47 mg/dL (7-20) Creatinine 5.4 mg/dL (0.6-1.0) Estimated GFR (Cockcroft-Gault) 7.5 BUN/Creatinine Ratio 9 (6-20) Glucose Level 155 mg/dL (70-99) Calcium Level 9.9 mg/dL (8.5-10.1) Total Bilirubin 0.5 mg/dL (0.2-1.0) Aspartate Amino Transf (AST/SGOT) 22 U/L (15-37) Alanine Aminotransferase (ALT/SGPT) 14 U/L (14-59) Alkaline Phosphatase 85 U/L (46-116) Troponin I High Sensitivity 51 ng/L (4-50) ZR-Ged-W-Type Natriuretic Peptide > 32964 pg/mL (0-449) Total Protein 6.1 g/dL (6.4-8.2) Albumin 2.8 g/dL (3.4-5.0) Albumin/Globulin Ratio 0.8 (1.0-1.7) Thyroid Stimulating Hormone (TSH) 6.395 uIU/mL (0.358-3.74) Influenza Type A Antigen Negative (NEGATIVE) Influenza Type B Antigen Negative (NEGATIVE) SARS-CoV-2 Antigen (Rapid) Negative (NEGATIVE) Urine Collection Type U cath Urine Color (Auto) Dark brown Urine Turbidity Turbid Urine pH (Auto) 7.5 (<5.0-8.0) Urine Specific Garrison 1.009 (1.000-1.030) Urine Protein (Auto) 100 mg/dL (Negative) Urine Glucose (Auto)(UA) Negative mg/dL (Negative) Urine Ketones (Auto) Trace mg/dL (Negative) Urine Blood (Auto) Large (Negative) Urine Nitrite Negative (Negative) Urine Bilirubin (Auto) Negative (Negative) Urine Urobilinogen (Auto) Normal mg/dL (Normal) Urine Leukocyte Esterase (Auto) Large (Negative) Urine RBC Field obscured /HPF (0-2) Urine WBC Tntc /HPF (0-4) Urine Bacteria Many /HPF (0-FEW) VTE Prophylaxis Ordered VTE Prophylaxis Devices: Yes VTE Pharmacological Prophylaxi: Yes Assessment/Plan Assessment/Plan ACute encephalopathy UTI sepsis, ESRD acute hypoxic respiratory failure consult renal, due for HD IV abx, weakness, malnutrition, severe, CVA months ago, now aphasic, dementia HOSPICE has been considered by the family, but they wanted to continue dialysis, DNR status Justifications for Admission Other Justification RIKKI MCNULTY MD May 12, 2021 08:41
[2021-05-12] MEDS ORDERED: HYDROcodone/APAP 10/325 1 TAB TABLET PO PRN (08:45)
[2021-05-12] MEDS ORDERED: NITROGLYCERIN SUBLINGUAL 0.4 MG BOTTLE OF 25. SL PRN (08:45)
[2021-05-12] MEDS ORDERED: MAGNESIUM HYDROXIDE 2,400 MG/30 ML ORAL.SUSP. PO PRN (08:45)
[2021-05-12] MEDS: DOCUSATE SODIUM 100 MG CAPSULE. PO SCH (08:47)
[2021-05-12] MEDS: ISOSORBIDE MONONITRATE ER 30 MG TAB.ER.24H PO SCH (08:47)
[2021-05-12] MEDS: SODIUM BICARBONATE 650 MG TABLET. PO SCH ×2 (08:48→21:00)
[2021-05-12] MEDS: FOLIC/VIT B COMP W-C (RENAL) TABLET. PO SCH (08:48)
[2021-05-12 08:56] LABS: BASO % 0 % (0-3); EOS # 0.1 x10^3/uL (0.0-0.7); EOS % 0 % (0-3); HEMATOCRIT 40.5 % (36.0-47.0); HEMOGLOBIN 12.6 g/dL (12.0-15.5); LYMPH # 1.3 x10^3/uL (1.0-4.8); LYMPH % 8 % (24-48); MEAN CORPUSCULAR HEMOGLOBIN 31 pg (25-35); MEAN CORPUSCULAR HGB CONC 31 g/dL (31-37); MEAN CORPUSCULAR VOLUME 101 fL (79-100); MONO # 2.2 x10^3/uL (0.0-1.1); MONO % 14 % (0-9); NEUT # 12.4 x10^3/uL (1.8-7.7); NEUT % 77 % (31-73); PLATELET COUNT 209 x10^3/uL (140-400); RED BLOOD COUNT 4.01 x10^6/uL (3.50-5.40); RED CELL DISTRIBUTION WIDTH 15.4 % (11.5-14.5)
[2021-05-12] MEDS ORDERED: SENNOSIDES PO SCH (09:00)
[2021-05-12] MEDS ORDERED: diphenhydrAMINE HCL 25 MG CAPSULE PO PRN ×2 (09:00)
[2021-05-12] MEDS ORDERED: cloNIDine TTS-2 1 PATCH PATCH TD SCH (09:00)
[2021-05-12] MEDS: HEPARIN for SUB-Q USE 5,000 UNIT/ML VIAL. SQ SCH ×2 (09:00→21:23)
[2021-05-12] MEDS: SENNOSIDES 8.6 MG TABLET PO SCH (09:00)
[2021-05-12] MEDS: CYCLOBENZAPRINE 10 MG TABLET. PO SCH ×2 (09:00→21:00)
[2021-05-12] MEDS ORDERED: NON FORMULARY ITEM (Cyclobenzaprine Hcl 1 TAB) PO SCH (09:00)
[2021-05-12 09:04] LABS: CREATININE 6.1 mg/dL (0.6-1.0); GFR 6.5; POTASSIUM 5.9 mmol/L (3.5-5.1)
--- NOTE | 2021-05-12 09:28 | PDOC2 ---
CONSULT Date of Consult Date of Consult DATE: 05/12/21 TIME: 09:28 Reason for Consult Reason for Consult: ESRD Source Source: Chart review History of Present Illness Reason for Visit: This is an 85 yo female admitted for altered mental status. She came from SNU at [facility]. She has hx of alzheimers dementia and CVA. She gets dialysis. She was noted with increasing confusion. Consult is for SB noted in the 40s with 2-3 pauses. during HD. SBP dropped to 50 and HD was terminated 30 min in. BP and HR currently stable. No noted cardiac symptoms and presently pt is drowsy. Past Medical History Cardiovascular: CHF, HTN, Hyperlipidemia Pulmonary: COPD CENTRAL NERVOUS SYSTEM: TIA, Other GI: Constipation, GERD Heme/Onc: Anemia NOS Hepatobiliary: No pertinent hx Psych: No pertinent hx Musculoskeletal: Other Infectious disease: No pertinent hx Renal/: Chronic renal failure Endocrine: Hypothyroidism Past Surgical History Past Surgical History: Cataract Removal, Other Family History Family History: Heart Disease Social History No ALCOHOL: none Drugs: None Lives: Skilled Nursing Current Problem List Problem List Problems Medical Problems: (1) Altered mental status Status: Acute (2) Hyperkalemia Status: Acute (3) Leukocytosis Status: Acute (4) UTI (urinary tract infection) Status: Acute Current Medications Current Medications Current Medications Ceftriaxone Sodium (Rocephin) 1 gm 1X ONCE IVP Last administered on 05/11/21at 12:09; Start 05/11/21 at 12:00; Stop 05/11/21 at 12:01; Status DC Ondansetron HCl (Zofran) 4 mg PRN Q8HRS PRN IVP NAUSEA/VOMITING; Start 05/11/21 at 12:15; Stop 05/12/21 at 12:14 Ceftriaxone Sodium (Rocephin) 1 gm Q24H IVP Last administered on 05/11/21at 15:05; Start 05/11/21 at 15:00 Acetaminophen (Tylenol) 650 mg PRN Q6HRS PRN PO TEMP > 100.4F; Start 05/11/21 at 14:15 Albuterol Sulfate (Ventolin Neb Soln) 2.5 mg PRN Q4HRS PRN NEB SHORTNESS OF BREATH; Start 05/11/21 at 14:15 Aspirin (Ecotrin) 325 mg DAILYWBKFT PO ; Start 05/11/21 at 15:00 Carvedilol (Coreg) 6.25 mg BIDWMEALS PO ; Start 05/11/21 at 17:00 Clonidine HCl (Catapres Tts-2) 1 patch WEEKLY TD ; Start 05/12/21 at 09:00 Docusate Sodium (Colace) 100 mg DAILY PO ; Start 05/11/21 at 15:00 Famotidine (Pepcid) 10 mg PRN DAILY PRN PO HEARTBURN / GAS; Start 05/11/21 at 14:15 Vitamin B Complex/ Vitamin C (Jerilyn-Jaylon) 1 tab DAILY PO ; Start 05/11/21 at 15:00 Gabapentin (Neurontin) 100 mg HS PO ; Start 05/11/21 at 21:00 Isosorbide Mononitrate (Imdur) 60 mg DAILY PO ; Start 05/11/21 at 15:00 Levothyroxine Sodium (Synthroid) 50 mcg DAILY06 PO ; Start 05/11/21 at 15:00 Nifedipine (Procardia Xl) 30 mg DAILY PO ; Start 05/11/21 at 15:00 Sevelamer Carbonate (Renvela) 800 mg TIDWMEALS PO ; Start 05/11/21 at 17:00 Sodium Bicarbonate (Sodium Bicarbonate) 650 mg BID PO ; Start 05/11/21 at 21:00 Heparin Sodium (Porcine) (Heparin Sodium) 5,000 unit BID SQ Last administered on 05/11/21at 22:08; Start 05/11/21 at 21:00 Sodium Chloride 1,000 ml @ 1,000 mls/hr Q1H PRN IV hypotension; Start 05/12/21 at 07:15; Stop 05/12/21 at 13:14 Sodium Chloride 1,000 ml @ 400 mls/hr Q2H30M PRN IV PATENCY; Start 05/12/21 at 07:15; Stop 05/12/21 at 19:14 Info (PHARMACY MONITORING -- do not chart) 1 each PRN DAILY PRN MC SEE COMMENTS; Start 05/12/21 at 07:15 Acetaminophen/ Hydrocodone Bitart (Lortab 10/325) 1 tab PRN TID PRN PO MODERATE TO SEVERE PAIN; Start 05/12/21 at 08:45 Magnesium Hydroxide (Milk Of Magnesia) 400 mg PRN Q24HRS PRN PO CONSTIPATION; Start 05/12/21 at 08:45 Nitroglycerin (Nitrostat) 0.4 mg PRN Q5MIN PRN SL CHEST PAIN; Start 05/12/21 at 08:45 Non-Formulary Medication (Cyclobenzaprine Hcl ) 1 tab BID PO ; Start 05/12/21 at 09:00; Stop 05/12/21 at 08:56; Status DC Diphenhydramine HCl (Benadryl) 25 mg DAILY PRN PO ALLERGIES; Start 05/12/21 at 09:00; Stop 05/12/21 at 08:57; Status DC Non-Formulary Medication (Sennosides (Senna)) 8.8 mg DAILY PO ; Start 05/12/21 at 09:00; Stop 05/12/21 at 08:52; Status DC Sennosides (Senna) 8.6 mg DAILY PO ; Start 05/12/21 at 09:00 Cyclobenzaprine HCl (Flexeril) 5 mg BID PO ; Start 05/12/21 at 09:00 Diphenhydramine HCl (Benadryl) 25 mg PRN DAILY PRN PO ALLERGIES; Start 05/12/21 at 09:00 Active Scripts Active Aspirin Ec (Aspirin) 325 Mg Tablet.dr 325 Mg PO DAILYWBKFT 90 Days Tylenol (Acetaminophen) 325 Mg Tablet 650 Mg PO PRN Q6HRS PRN 30 Days Hydrocodone-Apap 10-325 (Hydrocodone Bit/Acetaminophen) 1 Each Tablet 1 Tab PO PRN TID PRN 6 Days Proair Hfa (Albuterol Sulfate) 8.5 Gm Hfa.aer.ad 2.5 Mg NEB PRN Q4HRS PRN Jerilyn-Jaylon Tablet (Folic Acid/Vitamin B Comp W-C) 0.8 Mg Tablet 1 Tab PO DAILY 30 Days Reported Senna (Sennosides) 8.8 Mg/5 Ml Syrup 8.8 Mg PO DAILY Renvela (Sevelamer Carbonate) 800 Mg Tablet 800 Mg PO TIDWMEALS Nifedipine Er (Nifedipine) 30 Mg Tab.er.24 30 Mg PO DAILY Milk Of Magnesia (Magnesium Hydroxide) 400 Mg/5 Ml Oral.susp 400 Mg PO PRN Q24HRS PRN Colace (Docusate Sodium) 100 Mg Capsule 100 Mg PO DAILY Clonidine Tts-2 (Clonidine) 1 Each Patch.tdwk 1 Patch TD WEEKLY Gabapentin (Gabapentin) 100 Mg Capsule 100 Mg PO HS Diphenhydramine Hcl 25 Mg Tablet 25 Mg PO DAILY PRN Cyclobenzaprine Hcl 5 Mg Tablet 1 Tab PO BID Coreg (Carvedilol) 6.25 Mg Tablet 6.25 Mg PO BIDWMEALS Synthroid (Levothyroxine Sodium) 50 Mcg Tablet 50 Mcg PO DAILYAC Sodium Bicarbonate 650 Mg Tablet 650 Mg PO BID Pepcid (Famotidine) 20 Mg Tablet 10 Mg PO PRN DAILY NITROGLYCERIN SubLingual (Nitroglycerin) 0.4 Mg Tab.subl 0.4 Mg SL PRN Q5MIN PRN Isosorbide Mononitrate Er (Isosorbide Mononitrate) 30 Mg Tab.er.24h 2 Tab PO DAILY Next dose due tomorrow morning. Allergies Allergies: Coded Allergies: sulfamethoxazole (Verified Allergy, Intermediate, 03/31/21) trimethoprim (Verified Allergy, Intermediate, 03/31/21) ROS Review of System Unable to obtain 2/2 AMS Physical Exam Physical Exam General Lethargic HEEN round and reactive to light, EOMI,OM moist Neck: Supple, Cardiac: RRR, no murmurs, no gallops, no rubs Lungs: CTAB, Abdomen: soft, non-distended, Extremities: No pitting edema Bilat LE; Left upper extremity AVF with palpable thrill Neuro: Grrossly Normal, Hx of CVA in Dec 2020 Psych Unable to Obtain No hanson Derm No Rash Vital Signs Vital Signs Date Time Temp Pulse Resp B/P (MAP) Pulse Ox O2 Delivery O2 Flow Rate FiO2 05/12/21 08:00 Room Air 05/12/21 07:00 98.1 90 20 136/95 (106) 93 98.1 Assessment & Plan ESRD - on HD TTS [facility], Seen on dialysis .- initially doing ok but with AMS POA. Re-evaluated later - BP low ,Resp distress , pauses and mult PVC And PAC and more irregular rhythm on tele monitor and slow,. Lethargic. Stopped HD after 40 mins .Patient was made DNR by family prior to starting dialysis. Primary team and Pt's son informed. HyperKalemia- dialysis today. Had to stop after 40 mins due to declining clinical status Encephalopathy with underlying dementia possible UTI contributing ? UTI- Cx pending. 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 Labs Labs Laboratory Tests Test 05/11/21 10:35 05/11/21 11:00 05/11/21 11:10 05/12/21 08:30 White Blood Count 14.3 x10^3/uL (4.0-11.0) 16.0 x10^3/uL (4.0-11.0) Red Blood Count 4.17 x10^6/uL (3.50-5.40) 4.01 x10^6/uL (3.50-5.40) Hemoglobin 13.8 g/dL (12.0-15.5) 12.6 g/dL (12.0-15.5) Hematocrit 42.2 % (36.0-47.0) 40.5 % (36.0-47.0) Mean Corpuscular Volume 101 fL (79-100) 101 fL (79-100) Mean Corpuscular Hemoglobin 33 pg (25-35) 31 pg (25-35) Mean Corpuscular Hemoglobin Concent 33 g/dL (31-37) 31 g/dL (31-37) Red Cell Distribution Width 14.8 % (11.5-14.5) 15.4 % (11.5-14.5) Platelet Count 257 x10^3/uL (140-400) 209 x10^3/uL (140-400) Neutrophils (%) (Auto) 79 % (31-73) 77 % (31-73) Lymphocytes (%) (Auto) 8 % (24-48) 8 % (24-48) Monocytes (%) (Auto) 13 % (0-9) 14 % (0-9) Eosinophils (%) (Auto) 0 % (0-3) 0 % (0-3) Basophils (%) (Auto) 0 % (0-3) 0 % (0-3) Neutrophils # (Auto) 11.3 x10^3/uL (1.8-7.7) 12.4 x10^3/uL (1.8-7.7) Lymphocytes # (Auto) 1.2 x10^3/uL (1.0-4.8) 1.3 x10^3/uL (1.0-4.8) Monocytes # (Auto) 1.8 x10^3/uL (0.0-1.1) 2.2 x10^3/uL (0.0-1.1) Eosinophils # (Auto) 0.0 x10^3/uL (0.0-0.7) 0.1 x10^3/uL (0.0-0.7) Basophils # (Auto) 0.1 x10^3/uL (0.0-0.2) 0.0 x10^3/uL (0.0-0.2) Prothrombin Time 14.9 SEC (11.7-14.0) Prothromb Time International Ratio 1.2 (0.8-1.1) Activated Partial Thromboplast Time 28 SEC (24-38) Sodium Level 147 mmol/L (136-145) 145 mmol/L (136-145) Potassium Level 5.7 mmol/L (3.5-5.1) 5.9 mmol/L (3.5-5.1) Chloride Level 102 mmol/L (98-107) 104 mmol/L (98-107) Carbon Dioxide Level 29 mmol/L (21-32) 24 mmol/L (21-32) Anion Gap 16 (6-14) 17 (6-14) Blood Urea Nitrogen 47 mg/dL (7-20) 73 mg/dL (7-20) Creatinine 5.4 mg/dL (0.6-1.0) 6.1 mg/dL (0.6-1.0) Estimated GFR (Cockcroft-Gault) 7.5 6.5 BUN/Creatinine Ratio 9 (6-20) Glucose Level 155 mg/dL (70-99) 102 mg/dL (70-99) Calcium Level 9.9 mg/dL (8.5-10.1) 10.0 mg/dL (8.5-10.1) Total Bilirubin 0.5 mg/dL (0.2-1.0) Aspartate Amino Transf (AST/SGOT) 22 U/L (15-37) Alanine Aminotransferase (ALT/SGPT) 14 U/L (14-59) Alkaline Phosphatase 85 U/L (46-116) Troponin I High Sensitivity 51 ng/L (4-50) RI-Tng-J-Type Natriuretic Peptide > 26865 pg/mL (0-449) Total Protein 6.1 g/dL (6.4-8.2) Albumin 2.8 g/dL (3.4-5.0) Albumin/Globulin Ratio 0.8 (1.0-1.7) Thyroid Stimulating Hormone (TSH) 6.395 uIU/mL (0.358-3.74) Influenza Type A Antigen Negative (NEGATIVE) Influenza Type B Antigen Negative (NEGATIVE) SARS-CoV-2 Antigen (Rapid) Negative (NEGATIVE) Urine Collection Type U cath Urine Color (Auto) Dark brown Urine Turbidity Turbid Urine pH (Auto) 7.5 (<5.0-8.0) Urine Specific [place] 1.009 (1.000-1.030) Urine Protein (Auto) 100 mg/dL (Negative) Urine Glucose (Auto)(UA) Negative mg/dL (Negative) Urine Ketones (Auto) Trace mg/dL (Negative) Urine Blood (Auto) Large (Negative) Urine Nitrite Negative (Negative) Urine Bilirubin (Auto) Negative (Negative) Urine Urobilinogen (Auto) Normal mg/dL (Normal) Urine Leukocyte Esterase (Auto) Large (Negative) Urine RBC Field obscured /HPF (0-2) Urine WBC Tntc /HPF (0-4) Urine Bacteria Many /HPF (0-FEW) Laboratory Tests Test 05/11/21 10:35 05/11/21 11:00 05/11/21 11:10 05/12/21 08:30 White Blood Count 14.3 x10^3/uL (4.0-11.0) 16.0 x10^3/uL (4.0-11.0) Red Blood Count 4.17 x10^6/uL (3.50-5.40) 4.01 x10^6/uL (3.50-5.40) Hemoglobin 13.8 g/dL (12.0-15.5) 12.6 g/dL (12.0-15.5) Hematocrit 42.2 % (36.0-47.0) 40.5 % (36.0-47.0) Mean Corpuscular Volume 101 fL (79-100) 101 fL (79-100) Mean Corpuscular Hemoglobin 33 pg (25-35) 31 pg (25-35) Mean Corpuscular Hemoglobin Concent 33 g/dL (31-37) 31 g/dL (31-37) Red Cell Distribution Width 14.8 % (11.5-14.5) 15.4 % (11.5-14.5) Platelet Count 257 x10^3/uL (140-400) 209 x10^3/uL (140-400) Neutrophils (%) (Auto) 79 % (31-73) 77 % (31-73) Lymphocytes (%) (Auto) 8 % (24-48) 8 % (24-48) Monocytes (%) (Auto) 13 % (0-9) 14 % (0-9) Eosinophils (%) (Auto) 0 % (0-3) 0 % (0-3) Basophils (%) (Auto) 0 % (0-3) 0 % (0-3) Neutrophils # (Auto) 11.3 x10^3/uL (1.8-7.7) 12.4 x10^3/uL (1.8-7.7) Lymphocytes # (Auto) 1.2 x10^3/uL (1.0-4.8) 1.3 x10^3/uL (1.0-4.8) Monocytes # (Auto) 1.8 x10^3/uL (0.0-1.1) 2.2 x10^3/uL (0.0-1.1) Eosinophils # (Auto) 0.0 x10^3/uL (0.0-0.7) 0.1 x10^3/uL (0.0-0.7) Basophils # (Auto) 0.1 x10^3/uL (0.0-0.2) 0.0 x10^3/uL (0.0-0.2) Prothrombin Time 14.9 SEC (11.7-14.0) Prothromb Time International Ratio 1.2 (0.8-1.1) Activated Partial Thromboplast Time 28 SEC (24-38) Sodium Level 147 mmol/L (136-145) 145 mmol/L (136-145) Potassium Level 5.7 mmol/L (3.5-5.1) 5.9 mmol/L (3.5-5.1) Chloride Level 102 mmol/L (98-107) 104 mmol/L (98-107) Carbon Dioxide Level 29 mmol/L (21-32) 24 mmol/L (21-32) Anion Gap 16 (6-14) 17 (6-14) Blood Urea Nitrogen 47 mg/dL (7-20) 73 mg/dL (7-20) Creatinine 5.4 mg/dL (0.6-1.0) 6.1 mg/dL (0.6-1.0) Estimated GFR (Cockcroft-Gault) 7.5 6.5 BUN/Creatinine Ratio 9 (6-20) Glucose Level 155 mg/dL (70-99) 102 mg/dL (70-99) Calcium Level 9.9 mg/dL (8.5-10.1) 10.0 mg/dL (8.5-10.1) Total Bilirubin 0.5 mg/dL (0.2-1.0) Aspartate Amino Transf (AST/SGOT) 22 U/L (15-37) Alanine Aminotransferase (ALT/SGPT) 14 U/L (14-59) Alkaline Phosphatase 85 U/L (46-116) Troponin I High Sensitivity 51 ng/L (4-50) WX-Bhy-O-Type Natriuretic Peptide > 99394 pg/mL (0-449) Total Protein 6.1 g/dL (6.4-8.2) Albumin 2.8 g/dL (3.4-5.0) Albumin/Globulin Ratio 0.8 (1.0-1.7) Thyroid Stimulating Hormone (TSH) 6.395 uIU/mL (0.358-3.74) Influenza Type A Antigen Negative (NEGATIVE) Influenza Type B Antigen Negative (NEGATIVE) SARS-CoV-2 Antigen (Rapid) Negative (NEGATIVE) Urine Collection Type U cath Urine Color (Auto) Dark brown Urine Turbidity Turbid Urine pH (Auto) 7.5 (<5.0-8.0) Urine Specific [place] 1.009 (1.000-1.030) Urine Protein (Auto) 100 mg/dL (Negative) Urine Glucose (Auto)(UA) Negative mg/dL (Negative) Urine Ketones (Auto) Trace mg/dL (Negative) Urine Blood (Auto) Large (Negative) Urine Nitrite Negative (Negative) Urine Bilirubin (Auto) Negative (Negative) Urine Urobilinogen (Auto) Normal mg/dL (Normal) Urine Leukocyte Esterase (Auto) Large (Negative) Urine RBC Field obscured /HPF (0-2) Urine WBC Tntc /HPF (0-4) Urine Bacteria Many /HPF (0-FEW) Review All relevant outside records, renal labs, imaging studies, telemetry/EKG's were reviewed. Images Images : PORTABLE CHEST 1V AP chest. HISTORY: Altered mental status AP view was taken of the chest. Comparison is made with a study from February 24. There is a stent graft in the thoracic aorta. Heart is upper normal in size. There is a small left pleural effusion which has decreased since the prior study. There is mild left base atelectasis or infiltrate. Right effusion is also improved since the prior study. 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 There is thoracolumbar scoliosis. IMPRESSION: 1. Small left effusion with improvement compared to February 24. 2. Mild left base atelectasis or infiltrate. LIZETH PONCE MD May 12, 2021 09:28
[2021-05-12] MEDS ORDERED: PIP/TAZO PER PHARMACY MC PRN (09:45)
--- NOTE | 2021-05-12 09:52 | PDOC ---
[employer] PROGRESS NOTE Date of Service DOS: DATE: 05/12/21 TIME: 09:47 Chief Complaint Chief Complaint acute hypoxia this AM, consult PULM, change abx, acute encephalopathy from UTI, maybe resistant to the rocephin, change abx, ESRD, HD today, unable to tolerate, sepssi innapropriate bradycardia, in sepsis, consult cardiology, tachypnea, vomited 2 days ago, could have aspiration, nebs, and abx, markedly worse todya, DNR ordered History of Present Illness History of Present Illness I was called this AM as patient looked worse and RN and bolt labeler had talked with family and DNR was wanted. I talked to JOSE, Saurabh, by phone at length and reviewed priro CVA and improvement in aphasia before this. THis AM at 0800, pt was OK, about the same at last night, but I was called that HD was not going well and BP up to 200 range and pauses and mult PVC And PAC and more irregular rhythm on tele monitor and slow,. CV consulted, PULM discussed DNR made and discussed with JOSE, advanced care planning done, 23 minutes in addition to my 2 other visits to see patient this AM so far. Vitals/I&O Vitals/I&O: Vital Signs Date Time Temp Pulse Resp B/P (MAP) Pulse Ox O2 Delivery O2 Flow Rate FiO2 05/12/21 08:00 Room Air 05/12/21 07:00 98.1 90 20 136/95 (109) 93 98.1 I & O 05/11/21 05/11/21 05/12/21 15:00 23:00 07:00 Intake Total 0 ml 0 ml Output Total 1 ml Balance 0 ml -1 ml Physical Exam Physical Exam: more confused, disoriented, General: moderate distress, Other (does not follow commands, makes eye contact only, no words) Lungs: Other (rales, low volume, tachypneic) Abdomen: Normal bowel sounds, Soft Extremities: No clubbing, No cyanosis, No edema (wrinkled skin over shins, appears dry) Skin: No rashes Labs Labs: Laboratory Tests Test 05/11/21 10:35 05/11/21 11:00 05/11/21 11:10 05/12/21 08:30 White Blood Count 14.3 x10^3/uL (4.0-11.0) 16.0 x10^3/uL (4.0-11.0) Red Blood Count 4.17 x10^6/uL (3.50-5.40) 4.01 x10^6/uL (3.50-5.40) Hemoglobin 13.8 g/dL (12.0-15.5) 12.6 g/dL (12.0-15.5) Hematocrit 42.2 % (36.0-47.0) 40.5 % (36.0-47.0) Mean Corpuscular Volume 101 fL (79-100) 101 fL (79-100) Mean Corpuscular Hemoglobin 33 pg (25-35) 31 pg (25-35) Mean Corpuscular Hemoglobin Concent 33 g/dL (31-37) 31 g/dL (31-37) Red Cell Distribution Width 14.8 % (11.5-14.5) 15.4 % (11.5-14.5) Platelet Count 257 x10^3/uL (140-400) 209 x10^3/uL (140-400) Neutrophils (%) (Auto) 79 % (31-73) 77 % (31-73) Lymphocytes (%) (Auto) 8 % (24-48) 8 % (24-48) Monocytes (%) (Auto) 13 % (0-9) 14 % (0-9) Eosinophils (%) (Auto) 0 % (0-3) 0 % (0-3) Basophils (%) (Auto) 0 % (0-3) 0 % (0-3) Neutrophils # (Auto) 11.3 x10^3/uL (1.8-7.7) 12.4 x10^3/uL (1.8-7.7) Lymphocytes # (Auto) 1.2 x10^3/uL (1.0-4.8) 1.3 x10^3/uL (1.0-4.8) Monocytes # (Auto) 1.8 x10^3/uL (0.0-1.1) 2.2 x10^3/uL (0.0-1.1) Eosinophils # (Auto) 0.0 x10^3/uL (0.0-0.7) 0.1 x10^3/uL (0.0-0.7) Basophils # (Auto) 0.1 x10^3/uL (0.0-0.2) 0.0 x10^3/uL (0.0-0.2) Prothrombin Time 14.9 SEC (11.7-14.0) Prothromb Time International Ratio 1.2 (0.8-1.1) Activated Partial Thromboplast Time 28 SEC (24-38) Sodium Level 147 mmol/L (136-145) 145 mmol/L (136-145) Potassium Level 5.7 mmol/L (3.5-5.1) 5.9 mmol/L (3.5-5.1) Chloride Level 102 mmol/L (98-107) 104 mmol/L (98-107) Carbon Dioxide Level 29 mmol/L (21-32) 24 mmol/L (21-32) Anion Gap 16 (6-14) 17 (6-14) Blood Urea Nitrogen 47 mg/dL (7-20) 73 mg/dL (7-20) Creatinine 5.4 mg/dL (0.6-1.0) 6.1 mg/dL (0.6-1.0) Estimated GFR (Cockcroft-Gault) 7.5 6.5 BUN/Creatinine Ratio 9 (6-20) Glucose Level 155 mg/dL (70-99) 102 mg/dL (70-99) Calcium Level 9.9 mg/dL (8.5-10.1) 10.0 mg/dL (8.5-10.1) Total Bilirubin 0.5 mg/dL (0.2-1.0) Aspartate Amino Transf (AST/SGOT) 22 U/L (15-37) Alanine Aminotransferase (ALT/SGPT) 14 U/L (14-59) Alkaline Phosphatase 85 U/L (46-116) Troponin I High Sensitivity 51 ng/L (4-50) VW-Ham-G-Type Natriuretic Peptide > 53974 pg/mL (0-449) Total Protein 6.1 g/dL (6.4-8.2) Albumin 2.8 g/dL (3.4-5.0) Albumin/Globulin Ratio 0.8 (1.0-1.7) Thyroid Stimulating Hormone (TSH) 6.395 uIU/mL (0.358-3.74) Influenza Type A Antigen Negative (NEGATIVE) Influenza Type B Antigen Negative (NEGATIVE) SARS-CoV-2 Antigen (Rapid) Negative (NEGATIVE) Urine Collection Type U cath Urine Color (Auto) Dark brown Urine Turbidity Turbid Urine pH (Auto) 7.5 (<5.0-8.0) Urine Specific [facility] 1.009 (1.000-1.030) Urine Protein (Auto) 100 mg/dL (Negative) Urine Glucose (Auto)(UA) Negative mg/dL (Negative) Urine Ketones (Auto) Trace mg/dL (Negative) Urine Blood (Auto) Large (Negative) Urine Nitrite Negative (Negative) Urine Bilirubin (Auto) Negative (Negative) Urine Urobilinogen (Auto) Normal mg/dL (Normal) Urine Leukocyte Esterase (Auto) Large (Negative) Urine RBC Field obscured /HPF (0-2) Urine WBC Tntc /HPF (0-4) Urine Bacteria Many /HPF (0-FEW) Assessment and Plan Assessmemt and Plan Problems Medical Problems: (1) Altered mental status Status: Acute (2) Hyperkalemia Status: Acute (3) Leukocytosis Status: Acute (4) UTI (urinary tract infection) Status: Acute Comment Review of Relevant I have reviewed the following items cristofer (where applicable) has been applied. Medications: Current Medications Medications (Trade) Dose Ordered Sig/Mendoza Route PRN Reason Start Time Stop Time Status Last Admin Dose Admin Ceftriaxone Sodium (Rocephin) 1 gm 1X ONCE IVP 05/11/21 12:00 05/11/21 12:01 DC 05/11/21 12:09 Ceftriaxone Sodium (Rocephin) 1 gm Q24H IVP 05/11/21 15:00 05/11/21 15:05 Heparin Sodium (Porcine) (Heparin Sodium) 5,000 unit BID SQ 05/11/21 21:00 05/11/21 22:08 Justifications for Admission Other Justification RIKKI MCNULTY MD May 12, 2021 09:52
[2021-05-12 09:59] LABS: % BANDS 32 % (0-9); % LYMPHS 13 % (24-48); % MONOS 13 % (0-10); % SEGS 42 % (35-66); ANISOCYTOSIS SLIGHT; NUCLEATED RBC 1; PLT ESTIMATE ADEQUATE (ADEQUATE)
[2021-05-12 10:01] LABS: TOXIC GRANULATION PRESENT
[2021-05-12] MEDS ORDERED: VANCOMYCIN PER PHARMACY MC PRN (10:15)
[2021-05-12] MEDS ORDERED: VANCOMYCIN 1.25 GM in IV NORMAL SALINE 250ML 250 ML IV ONE (10:15)
[2021-05-12 11:00] VITALS: BP 106/61
[2021-05-12] MEDS ORDERED: PIPERACILLIN/TAZOBACTAM 2.25 GM in IV NORMAL SALINE 50ML 50 ML IV SCH (11:00)
--- NOTE | 2021-05-12 11:11 | PDOC ---
PULMONARY PROGRESS NOTES DATE: 05/12/21 TIME: 11:10 Vitals Vital Signs Date Time Temp Pulse Resp B/P (MAP) Pulse Ox O2 Delivery O2 Flow Rate FiO2 05/12/21 08:00 Room Air 05/12/21 07:00 98.1 90 20 136/95 (109) 93 98.1 General: Alert, No acute distress Lungs: Other (rales, low volume, tachypneic) Cardiovascular: S1, S2 Extremities: No Edema Labs Laboratory Tests Test 05/11/21 10:35 05/11/21 11:00 05/11/21 11:10 05/12/21 08:30 White Blood Count 14.3 x10^3/uL (4.0-11.0) 16.0 x10^3/uL (4.0-11.0) Red Blood Count 4.17 x10^6/uL (3.50-5.40) 4.01 x10^6/uL (3.50-5.40) Hemoglobin 13.8 g/dL (12.0-15.5) 12.6 g/dL (12.0-15.5) Hematocrit 42.2 % (36.0-47.0) 40.5 % (36.0-47.0) Mean Corpuscular Volume 101 fL (79-100) 101 fL (79-100) Mean Corpuscular Hemoglobin 33 pg (25-35) 31 pg (25-35) Mean Corpuscular Hemoglobin Concent 33 g/dL (31-37) 31 g/dL (31-37) Red Cell Distribution Width 14.8 % (11.5-14.5) 15.4 % (11.5-14.5) Platelet Count 257 x10^3/uL (140-400) 209 x10^3/uL (140-400) Neutrophils (%) (Auto) 79 % (31-73) 77 % (31-73) Lymphocytes (%) (Auto) 8 % (24-48) 8 % (24-48) Monocytes (%) (Auto) 13 % (0-9) 14 % (0-9) Eosinophils (%) (Auto) 0 % (0-3) 0 % (0-3) Basophils (%) (Auto) 0 % (0-3) 0 % (0-3) Neutrophils # (Auto) 11.3 x10^3/uL (1.8-7.7) 12.4 x10^3/uL (1.8-7.7) Lymphocytes # (Auto) 1.2 x10^3/uL (1.0-4.8) 1.3 x10^3/uL (1.0-4.8) Monocytes # (Auto) 1.8 x10^3/uL (0.0-1.1) 2.2 x10^3/uL (0.0-1.1) Eosinophils # (Auto) 0.0 x10^3/uL (0.0-0.7) 0.1 x10^3/uL (0.0-0.7) Basophils # (Auto) 0.1 x10^3/uL (0.0-0.2) 0.0 x10^3/uL (0.0-0.2) Prothrombin Time 14.9 SEC (11.7-14.0) Prothromb Time International Ratio 1.2 (0.8-1.1) Activated Partial Thromboplast Time 28 SEC (24-38) Sodium Level 147 mmol/L (136-145) 145 mmol/L (136-145) Potassium Level 5.7 mmol/L (3.5-5.1) 5.9 mmol/L (3.5-5.1) Chloride Level 102 mmol/L (98-107) 104 mmol/L (98-107) Carbon Dioxide Level 29 mmol/L (21-32) 24 mmol/L (21-32) Anion Gap 16 (6-14) 17 (6-14) Blood Urea Nitrogen 47 mg/dL (7-20) 73 mg/dL (7-20) Creatinine 5.4 mg/dL (0.6-1.0) 6.1 mg/dL (0.6-1.0) Estimated GFR (Cockcroft-Gault) 7.5 6.5 BUN/Creatinine Ratio 9 (6-20) Glucose Level 155 mg/dL (70-99) 102 mg/dL (70-99) Calcium Level 9.9 mg/dL (8.5-10.1) 10.0 mg/dL (8.5-10.1) Total Bilirubin 0.5 mg/dL (0.2-1.0) Aspartate Amino Transf (AST/SGOT) 22 U/L (15-37) Alanine Aminotransferase (ALT/SGPT) 14 U/L (14-59) Alkaline Phosphatase 85 U/L (46-116) Troponin I High Sensitivity 51 ng/L (4-50) ST-Jdb-W-Type Natriuretic Peptide > 94617 pg/mL (0-449) Total Protein 6.1 g/dL (6.4-8.2) Albumin 2.8 g/dL (3.4-5.0) Albumin/Globulin Ratio 0.8 (1.0-1.7) Thyroid Stimulating Hormone (TSH) 6.395 uIU/mL (0.358-3.74) Influenza Type A Antigen Negative (NEGATIVE) Influenza Type B Antigen Negative (NEGATIVE) SARS-CoV-2 Antigen (Rapid) Negative (NEGATIVE) Urine Collection Type U cath Urine Color (Auto) Dark brown Urine Turbidity Turbid Urine pH (Auto) 7.5 (<5.0-8.0) Urine Specific [place] 1.009 (1.000-1.030) Urine Protein (Auto) 100 mg/dL (Negative) Urine Glucose (Auto)(UA) Negative mg/dL (Negative) Urine Ketones (Auto) Trace mg/dL (Negative) Urine Blood (Auto) Large (Negative) Urine Nitrite Negative (Negative) Urine Bilirubin (Auto) Negative (Negative) Urine Urobilinogen (Auto) Normal mg/dL (Normal) Urine Leukocyte Esterase (Auto) Large (Negative) Urine RBC Field obscured /HPF (0-2) Urine WBC Tntc /HPF (0-4) Urine Bacteria Many /HPF (0-FEW) Segmented Neutrophils % 42 % (35-66) Band Neutrophils % 32 % (0-9) Lymphocytes % 13 % (24-48) Monocytes % 13 % (0-10) Nucleated Red Blood Cells 1 Toxic Granulation Present Platelet Estimate Adequate (ADEQUATE) Large Platelets Few Giant Platelets Occ Anisocytosis Slight Macrocytosis Present Laboratory Tests Test 05/12/21 08:30 White Blood Count 16.0 x10^3/uL (4.0-11.0) Red Blood Count 4.01 x10^6/uL (3.50-5.40) Hemoglobin 12.6 g/dL (12.0-15.5) Hematocrit 40.5 % (36.0-47.0) Mean Corpuscular Volume 101 fL (79-100) Mean Corpuscular Hemoglobin 31 pg (25-35) Mean Corpuscular Hemoglobin Concent 31 g/dL (31-37) Red Cell Distribution Width 15.4 % (11.5-14.5) Platelet Count 209 x10^3/uL (140-400) Neutrophils (%) (Auto) 77 % (31-73) Lymphocytes (%) (Auto) 8 % (24-48) Monocytes (%) (Auto) 14 % (0-9) Eosinophils (%) (Auto) 0 % (0-3) Basophils (%) (Auto) 0 % (0-3) Neutrophils # (Auto) 12.4 x10^3/uL (1.8-7.7) Lymphocytes # (Auto) 1.3 x10^3/uL (1.0-4.8) Monocytes # (Auto) 2.2 x10^3/uL (0.0-1.1) Eosinophils # (Auto) 0.1 x10^3/uL (0.0-0.7) Basophils # (Auto) 0.0 x10^3/uL (0.0-0.2) Segmented Neutrophils % 42 % (35-66) Band Neutrophils % 32 % (0-9) Lymphocytes % 13 % (24-48) Monocytes % 13 % (0-10) Nucleated Red Blood Cells 1 Toxic Granulation Present Platelet Estimate Adequate (ADEQUATE) Large Platelets Few Giant Platelets Occ Anisocytosis Slight Macrocytosis Present Sodium Level 145 mmol/L (136-145) Potassium Level 5.9 mmol/L (3.5-5.1) Chloride Level 104 mmol/L (98-107) Carbon Dioxide Level 24 mmol/L (21-32) Anion Gap 17 (6-14) Blood Urea Nitrogen 73 mg/dL (7-20) Creatinine 6.1 mg/dL (0.6-1.0) Estimated GFR (Cockcroft-Gault) 6.5 Glucose Level 102 mg/dL (70-99) Calcium Level 10.0 mg/dL (8.5-10.1) Medications Active Scripts Medications Dose Route/Sig Max Daily Dose Days Date Category Dose Instructions Senna (Sennosides) 8.8 Mg/5 Ml Syrup 8.8 Mg PO DAILY 05/11/21 Reported Renvela (Sevelamer Carbonate) 800 Mg Tablet 800 Mg PO TIDWMEALS 05/11/21 Reported Nifedipine Er (Nifedipine) 30 Mg Tab.er.24 30 Mg PO DAILY 05/11/21 Reported Milk Of Magnesia (Magnesium Hydroxide) 400 Mg/5 Ml Oral.susp 400 Mg PO PRN Q24HRS PRN 05/11/21 Reported Colace (Docusate Sodium) 100 Mg Capsule 100 Mg PO DAILY 05/11/21 Reported Clonidine Tts-2 (Clonidine) 1 Each Patch.tdwk 1 Patch TD WEEKLY 05/11/21 Reported Aspirin Ec (Aspirin) 325 Mg Tablet.dr 325 Mg PO DAILYWBKFT 90 12/29/20 Rx Gabapentin (Gabapentin) 100 Mg Capsule 100 Mg PO HS 12/22/20 Reported Diphenhydramine Hcl 25 Mg Tablet 25 Mg PO DAILY PRN 12/22/20 Reported Cyclobenzaprine Hcl 5 Mg Tablet 1 Tab PO BID 12/22/20 Reported Tylenol (Acetaminophen) 325 Mg Tablet 650 Mg PO PRN Q6HRS PRN 30 06/06/19 Rx Hydrocodone-Apap 10-325 (Hydrocodone Bit/Acetaminophen) 1 Each Tablet 1 Tab PO PRN TID PRN 6 06/06/19 Rx Proair Hfa (Albuterol Sulfate) 8.5 Gm Hfa.aer.ad 2.5 Mg NEB PRN Q4HRS PRN 02/02/19 Rx Coreg (Carvedilol) 6.25 Mg Tablet 6.25 Mg PO BIDWMEALS 02/01/19 Reported Synthroid (Levothyroxine Sodium) 50 Mcg Tablet 50 Mcg PO DAILYAC 02/01/19 Reported Sodium Bicarbonate 650 Mg Tablet 650 Mg PO BID 02/01/19 Reported Jerilyn-Jaylon Tablet (Folic Acid/Vitamin B Comp W-C) 0.8 Mg Tablet 1 Tab PO DAILY 30 06/12/17 Rx Pepcid (Famotidine) 20 Mg Tablet 10 Mg PO PRN DAILY 06/10/17 Reported NITROGLYCERIN SubLingual (Nitroglycerin) 0.4 Mg Tab.subl 0.4 Mg SL PRN Q5MIN PRN 06/10/17 Reported Isosorbide Mononitrate Er (Isosorbide Mononitrate) 30 Mg Tab.er.24h 2 Tab PO DAILY 02/26/17 Reported Next dose due tomorrow morning. Impression . Full consult dictated Acute hypoxemic respiratory failure Septic shock Discussed with daughter at the bedside we will proceed with IV antibiotics, IV fluids, oxygen supplementation Patient is DO NOT RESUSCITATE, DO NOT INTUBATE Possible transition to palliative hospice care GAYLE TAN MD May 12, 2021 11:11
--- NOTE | 2021-05-12 11:45 | PDOC2 ---
JERE FAULKNER TOP INVENTORY CONTROL EXECUTIVE 05/12/21 1145: CARDIAC CONSULT DATE OF CONSULT Date of Consult DATE: 05/12/21 TIME: 11:19 REASON FOR CONSULT Reason for Consult: Bradycardia, sepsis REFERRING PHYSICIAN Referring Physician: Quinton SOURCE Source: Chart review, Patient HISTORY OF PRESENT ILLNESS HISTORY OF PRESENT ILLNESS This is an 85 yo female admitted for altered mental status. She came from [facility] at [facility]. She has hx of alzheimers dementia and CVA. She gets dialysis. She was noted with increasing confusion. Consult is for SB noted in the 40s with 2-3 pauses. during HD. SBP dropped to 50 and HD was terminated 30 min in. BP and HR currently stable. No noted cardiac symptoms and presently pt is drowsy. PAST MEDICAL HISTORY Past Medical History Cardiovascular: CHF, Hyperlipidemia, moderate to severe Pulmonary: COPD CENTRAL NERVOUS SYSTEM: TIA, dementia GI: Constipation, GERD Heme/Onc: Anemia NOS Hepatobiliary: No pertinent hx Psych: No pertinent hx Infectious disease: No pertinent hx Renal/: Chronic renal failure Endocrine: Hypothyroidism PAST SURGICAL HISTORY Past Surgical History Cataract Removal, Other (Dialysis shunt) FAMILY HISTORY Family History: Hypertension SOCIAL HISTORY Smoke: Quit ALCOHOL: none Drugs: None Lives: Residential CURRENT MEDICATIONS CURRENT MEDICATIONS Current Medications Medications (Trade) Dose Ordered Sig/Mendoza Route PRN Reason Start Time Stop Time Status Last Admin Dose Admin Ceftriaxone Sodium (Rocephin) 1 gm 1X ONCE IVP 05/11/21 12:00 05/11/21 12:01 DC 05/11/21 12:09 Ceftriaxone Sodium (Rocephin) 1 gm Q24H IVP 05/11/21 15:00 05/12/21 09:45 DC 05/11/21 15:05 Heparin Sodium (Porcine) (Heparin Sodium) 5,000 unit BID SQ 05/11/21 21:00 05/11/21 22:08 Vancomycin HCl 1.25 gm/Sodium Chloride 250 ml @ 166.667 mls/hr 1X ONCE IV 05/12/21 10:15 05/12/21 11:44 05/12/21 10:31 ALLERGIES ALLERGIES: Coded Allergies: sulfamethoxazole (Verified Allergy, Intermediate, 03/31/21) trimethoprim (Verified Allergy, Intermediate, 03/31/21) ROS Review of System unreliable PHYSICAL EXAM General: No acute distress, Other (drowsy) HEENT: Atraumatic, Mucous membr. moist/pink Heart: Regular rate (SR), Normal S1, Normal S2, Other (4/6 systolic murmur to RAYSA border) Abdomen: Soft Extremities: No cyanosis Skin: No rashes Psych/Mental Status: Other (confuse) MUSCULOSKELETAL: Osteoarthritic changes both hands VITALS/I&O VITALS/I&O: Vital Signs Date Time Temp Pulse Resp B/P (MAP) Pulse Ox O2 Delivery O2 Flow Rate FiO2 05/12/21 08:00 Room Air 05/12/21 07:00 98.1 90 20 136/95 (109) 93 98.1 I & O 05/11/21 05/11/21 05/12/21 15:00 23:00 07:00 Intake Total 0 ml 0 ml Output Total 1 ml Balance 0 ml -1 ml LABS Lab: Laboratory Tests Test 05/12/21 08:30 White Blood Count 16.0 x10^3/uL (4.0-11.0) H Red Blood Count 4.01 x10^6/uL (3.50-5.40) Hemoglobin 12.6 g/dL (12.0-15.5) Hematocrit 40.5 % (36.0-47.0) Mean Corpuscular Volume 101 fL (79-100) H Mean Corpuscular Hemoglobin 31 pg (25-35) Mean Corpuscular Hemoglobin Concent 31 g/dL (31-37) Red Cell Distribution Width 15.4 % (11.5-14.5) H Platelet Count 209 x10^3/uL (140-400) Neutrophils (%) (Auto) 77 % (31-73) H Lymphocytes (%) (Auto) 8 % (24-48) L Monocytes (%) (Auto) 14 % (0-9) H Eosinophils (%) (Auto) 0 % (0-3) Basophils (%) (Auto) 0 % (0-3) Neutrophils # (Auto) 12.4 x10^3/uL (1.8-7.7) H Lymphocytes # (Auto) 1.3 x10^3/uL (1.0-4.8) Monocytes # (Auto) 2.2 x10^3/uL (0.0-1.1) H Eosinophils # (Auto) 0.1 x10^3/uL (0.0-0.7) Basophils # (Auto) 0.0 x10^3/uL (0.0-0.2) Segmented Neutrophils % 42 % (35-66) Band Neutrophils % 32 % (0-9) H Lymphocytes % 13 % (24-48) L Monocytes % 13 % (0-10) H Nucleated Red Blood Cells 1 Toxic Granulation Present Platelet Estimate Adequate (ADEQUATE) Large Platelets Few Giant Platelets Occ Anisocytosis Slight Macrocytosis Present Sodium Level 145 mmol/L (136-145) Potassium Level 5.9 mmol/L (3.5-5.1) H Chloride Level 104 mmol/L (98-107) Carbon Dioxide Level 24 mmol/L (21-32) Anion Gap 17 (6-14) H Blood Urea Nitrogen 73 mg/dL (7-20) #H Creatinine 6.1 mg/dL (0.6-1.0) H Estimated GFR (Cockcroft-Gault) 6.5 Glucose Level 102 mg/dL (70-99) H Calcium Level 10.0 mg/dL (8.5-10.1) Laboratory Tests 05/12/21 08:30 Laboratory Tests 05/12/21 08:30 ECHOCARDIOGRAM ECHOCARDIOGRAM <Conclusion> The left ventricular systolic function is normal and the ejection fraction is within normal range. The Ejection Fraction is 55%. There is normal LV segmental wall motion. Calculated aortic valve area is 1.43 cm2 with maximum pressure gradient of 62 mmHg and mean pressure gradient of 37 mmHg. 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 Valve not well visualized, consider CHLOE if clinically indicated. Doppler and Color Flow revealed trace tricuspid regurgitation with an estimated PAP of 52 mmHg. DATE: 12/23/20 [id number] 0 ASSESSMENT/PLAN ASSESSMENT/PLAN 1. Encephalopathy with underlying dementia possible UTI contributing 2. Hx of CVA 3. Chronic diastolic CHF; improved. appears compensated 4. ESRD with hyperkalemia 5. Moderate to severe 6. HTN: controlled 7. HLP 8. Mild troponin elevation: with associated ESRD and . EKG SR with ischemic changes 9. 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 UTI 11. 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 Will introduce alternative pending BP trend. Continue imdur Discussed with Daughter Clemencia hubbard palliative/hospice and wshe will discuss with brother and possibly stopped HD. Supportive care JENNIFER MCCALL MD 05/12/211: CARDIAC CONSULT ASSESSMENT/PLAN ASSESSMENT/PLAN Patient seen and examined. 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
[2021-05-12] MEDS: PIPERACILLIN/TAZOBACTAM 2.25 GM in IV NORMAL SALINE 50ML 50 ML IV SCH ×2 (13:47→22:24)
--- NOTE | 2021-05-12 13:52 | CONS ---
DATE OF CONSULTATION: 05/12/2021 ATTENDING PHYSICIAN: Carey Alcantara MD REASON FOR CONSULTATION: The patient is seen in Pulmonary consultation at the request of Dr. Alcantara for hypoxemia, respiratory failure, encephalopathy. HISTORY OF PRESENT ILLNESS: The patient is an 85-year-old that has been in a detention according to her daughter who is at the bedside for approximately 2 years. She normally eats on her own, but does not mobilize very well. She has a history of end-stage renal disease, on hemodialysis. She came in through the Emergency Room with altered mental status. She normally resides at [facility]. EMS was summoned. She was transferred to the Emergency Department. She has a prior history of CVA, cognitive dysfunction and Alzheimer's dementia. This morning, they attempted hemodialysis. She was hypotensive. She was definitely less responsive. Dr. Alcantara discussed the case with DPOA. The patient was made a [id number]-sgqxfzrbjbu, jk-sot-jxdrzwrx candidate. I had been consulted prior to the DNR status for further evaluation and management. The daughter is at the bedside. The patient is encephalopathic. I am unable to obtain any major history from the patient herself. She was started on empiric antibiotics. She is currently on linezolid and piperacillin. I reviewed her x-ray, which reveals mainly bilateral effusions with a left-sided infiltrate. Microbiology to date from urine culture is negative. PAST MEDICAL HISTORY: The patient has been admitted in the past for respiratory failure related to COVID-19 and acute pulmonary edema, there is a history of it as indicated above; Alzheimer's dementia; previous CVA; cognitive dysfunction. The patient has been in a detention for the past 2 years. She does not ambulate. There is also history of gastroesophageal reflux, hyperlipidemia, hypertension, hypothyroidism, osteoarthritis. PAST SURGICAL HISTORY: No recent major surgeries. ALLERGIES: LISTED TO SULFA AND TRIMETHOPRIM. SOCIAL HISTORY: She has never smoked. REVIEW OF SYSTEMS: Unobtainable secondary to the patient's condition. CURRENT MEDICATIONS: List was reviewed. PHYSICAL EXAMINATION: GENERAL: The patient was encephalopathic. I attempted to stimulate her and wake her up. She barely opened up her eyes. She is currently on 2 liters of oxygen supplementation. She does not appear to be in any respiratory distress. HEENT: Eyes: The sclerae were nonicteric. NECK: Jugular venous distention was not elevated. CHEST: Full expansion. LUNGS: Anteriorly with some light rales. CARDIOVASCULAR: Regular rate and rhythm with S1, S2, no S3. ABDOMEN: Soft, nontender. EXTREMITIES: No clubbing, cyanosis. Minimal edema. NEUROLOGIC: The patient was encephalopathic. LABORATORY DATA: White count was elevated. Hemoglobin and hematocrit were noted. Electrolytes were noted. BUN was elevated, creatinine was elevated. Potassium was elevated. Troponin was high. BNP was elevated. TSH was markedly elevated. UA so far negative culture. DIAGNOSTIC DATA: Chest x-ray revealed bilateral effusions with left-sided infiltrates. IMPRESSION: 1. Acute hypoxemic respiratory failure, multifactorial. 2. Septic shock. 3. Metabolic toxic encephalopathy. 4. History of cerebrovascular accident with previous history of Alzheimer's dementia. 5. End-stage renal disease, on hemodialysis. 6. Multiple other comorbidities as indicated above. PLAN: 1. We will continue current support with IV antibiotics and oxygen supplementation. 2. The patient is vm-eth-piwzahohpwl, on-jjb-dolhoymh candidate, as discussed with daughter at the bedside. 3. The patient's family to consider hospice. 4. Continue current support for now, short-term and long-term prognosis is very poor, I suspect the patient would benefit from hospice, palliative care. I do appreciate the privilege in sharing in the patient's care. Total critical care time of [address]: Kulwant TID: [id number]
[2021-05-12 15:00] VITALS: BP 140/91
--- NOTE | 2021-05-12 15:47 | NUR ---
SS following for discharge planning. SS reviewed pt chart and discussed with pt RN. Pt is [facility] resident from [facility], ; fax [phone]. Pt is currently requiring oxygen at two liters nasal canula. COVID19 negative. Pt on IV Zosyn. Pt has outpatient hemodialysis at [facility] Sunday, , and Sunday. Pulmonology, Cardiology, and Nephrology following. DNR now. SS will continue to follow for discharge planning.
[2021-05-12] MEDS ORDERED: VANCOMYCIN 500 MG in IV NORMAL SALINE 100ML 100 ML IV SCH (16:00)
[2021-05-12 19:00] VITALS: BP 169/42
[2021-05-12] MEDS: GABAPENTIN 100 MG CAPSULE. PO SCH (21:00)
[2021-05-12] MEDS: LACTOBACILLUS RHAMNOSUS GG 1 CAPSULE. PO SCH (21:00)
[2021-05-12 23:00] VITALS: BP 165/76
[2021-05-13 03:00] VITALS: BP 183/84
[2021-05-13] MEDS: LEVOTHYROXINE 50 MCG TABLET PO SCH (06:00)
[2021-05-13] MEDS: PIPERACILLIN/TAZOBACTAM 2.25 GM in IV NORMAL SALINE 50ML 50 ML IV SCH ×2 (06:19→12:37)
[2021-05-13 07:00] VITALS: BP 158/52
[2021-05-13] MEDS ORDERED: ASPIRIN ENTERIC COATED 81 MG TABLET.DR. PO SCH (08:00)
[2021-05-13] MEDS: SEVELAMER CARBONATE 800 MG TABLET. PO SCH ×2 (08:00→11:47)
--- NOTE | 2021-05-13 08:19 | PDOC ---
PULMONARY PROGRESS NOTES DATE: 05/13/21 TIME: 08:18 Subjective Patient resting comfortably Vitals Vital Signs Date Time Temp Pulse Resp B/P (MAP) Pulse Ox O2 Delivery O2 Flow Rate FiO2 05/13/21 07:00 99.0 74 20 158/52 (87) 97 Nasal Cannula 2.0 99.0 Comments Encephalopathic unable to review systems General: No acute distress Lungs: Clear Cardiovascular: S1, S2 Abdomen: Soft Extremities: No Edema Labs Laboratory Tests Test 05/11/21 10:35 05/11/21 11:00 05/11/21 11:10 05/12/21 08:30 White Blood Count 14.3 x10^3/uL (4.0-11.0) 16.0 x10^3/uL (4.0-11.0) Red Blood Count 4.17 x10^6/uL (3.50-5.40) 4.01 x10^6/uL (3.50-5.40) Hemoglobin 13.8 g/dL (12.0-15.5) 12.6 g/dL (12.0-15.5) Hematocrit 42.2 % (36.0-47.0) 40.5 % (36.0-47.0) Mean Corpuscular Volume 101 fL (79-100) 101 fL (79-100) Mean Corpuscular Hemoglobin 33 pg (25-35) 31 pg (25-35) Mean Corpuscular Hemoglobin Concent 33 g/dL (31-37) 31 g/dL (31-37) Red Cell Distribution Width 14.8 % (11.5-14.5) 15.4 % (11.5-14.5) Platelet Count 257 x10^3/uL (140-400) 209 x10^3/uL (140-400) Neutrophils (%) (Auto) 79 % (31-73) 77 % (31-73) Lymphocytes (%) (Auto) 8 % (24-48) 8 % (24-48) Monocytes (%) (Auto) 13 % (0-9) 14 % (0-9) Eosinophils (%) (Auto) 0 % (0-3) 0 % (0-3) Basophils (%) (Auto) 0 % (0-3) 0 % (0-3) Neutrophils # (Auto) 11.3 x10^3/uL (1.8-7.7) 12.4 x10^3/uL (1.8-7.7) Lymphocytes # (Auto) 1.2 x10^3/uL (1.0-4.8) 1.3 x10^3/uL (1.0-4.8) Monocytes # (Auto) 1.8 x10^3/uL (0.0-1.1) 2.2 x10^3/uL (0.0-1.1) Eosinophils # (Auto) 0.0 x10^3/uL (0.0-0.7) 0.1 x10^3/uL (0.0-0.7) Basophils # (Auto) 0.1 x10^3/uL (0.0-0.2) 0.0 x10^3/uL (0.0-0.2) Prothrombin Time 14.9 SEC (11.7-14.0) Prothromb Time International Ratio 1.2 (0.8-1.1) Activated Partial Thromboplast Time 28 SEC (24-38) Sodium Level 147 mmol/L (136-145) 145 mmol/L (136-145) Potassium Level 5.7 mmol/L (3.5-5.1) 5.9 mmol/L (3.5-5.1) Chloride Level 102 mmol/L (98-107) 104 mmol/L (98-107) Carbon Dioxide Level 29 mmol/L (21-32) 24 mmol/L (21-32) Anion Gap 16 (6-14) 17 (6-14) Blood Urea Nitrogen 47 mg/dL (7-20) 73 mg/dL (7-20) Creatinine 5.4 mg/dL (0.6-1.0) 6.1 mg/dL (0.6-1.0) Estimated GFR (Cockcroft-Gault) 7.5 6.5 BUN/Creatinine Ratio 9 (6-20) Glucose Level 155 mg/dL (70-99) 102 mg/dL (70-99) Calcium Level 9.9 mg/dL (8.5-10.1) 10.0 mg/dL (8.5-10.1) Total Bilirubin 0.5 mg/dL (0.2-1.0) Aspartate Amino Transf (AST/SGOT) 22 U/L (15-37) Alanine Aminotransferase (ALT/SGPT) 14 U/L (14-59) Alkaline Phosphatase 85 U/L (46-116) Troponin I High Sensitivity 51 ng/L (4-50) 58 ng/L (4-50) YL-Ief-C-Type Natriuretic Peptide > 82295 pg/mL (0-449) Total Protein 6.1 g/dL (6.4-8.2) Albumin 2.8 g/dL (3.4-5.0) Albumin/Globulin Ratio 0.8 (1.0-1.7) Thyroid Stimulating Hormone (TSH) 6.395 uIU/mL (0.358-3.74) Influenza Type A Antigen Negative (NEGATIVE) Influenza Type B Antigen Negative (NEGATIVE) SARS-CoV-2 Antigen (Rapid) Negative (NEGATIVE) Urine Collection Type U cath Urine Color (Auto) Dark brown Urine Turbidity Turbid Urine pH (Auto) 7.5 (<5.0-8.0) Urine Specific Apison 1.009 (1.000-1.030) Urine Protein (Auto) 100 mg/dL (Negative) Urine Glucose (Auto)(UA) Negative mg/dL (Negative) Urine Ketones (Auto) Trace mg/dL (Negative) Urine Blood (Auto) Large (Negative) Urine Nitrite Negative (Negative) Urine Bilirubin (Auto) Negative (Negative) Urine Urobilinogen (Auto) Normal mg/dL (Normal) Urine Leukocyte Esterase (Auto) Large (Negative) Urine RBC Field obscured /HPF (0-2) Urine WBC Tntc /HPF (0-4) Urine Bacteria Many /HPF (0-FEW) Segmented Neutrophils % 42 % (35-66) Band Neutrophils % 32 % (0-9) Lymphocytes % 13 % (24-48) Monocytes % 13 % (0-10) Nucleated Red Blood Cells 1 Toxic Granulation Present Platelet Estimate Adequate (ADEQUATE) Large Platelets Few Giant Platelets Occ Anisocytosis Slight Macrocytosis Present Laboratory Tests Test 05/12/21 08:30 White Blood Count 16.0 x10^3/uL (4.0-11.0) Red Blood Count 4.01 x10^6/uL (3.50-5.40) Hemoglobin 12.6 g/dL (12.0-15.5) Hematocrit 40.5 % (36.0-47.0) Mean Corpuscular Volume 101 fL (79-100) Mean Corpuscular Hemoglobin 31 pg (25-35) Mean Corpuscular Hemoglobin Concent 31 g/dL (31-37) Red Cell Distribution Width 15.4 % (11.5-14.5) Platelet Count 209 x10^3/uL (140-400) Neutrophils (%) (Auto) 77 % (31-73) Lymphocytes (%) (Auto) 8 % (24-48) Monocytes (%) (Auto) 14 % (0-9) Eosinophils (%) (Auto) 0 % (0-3) Basophils (%) (Auto) 0 % (0-3) Neutrophils # (Auto) 12.4 x10^3/uL (1.8-7.7) Lymphocytes # (Auto) 1.3 x10^3/uL (1.0-4.8) Monocytes # (Auto) 2.2 x10^3/uL (0.0-1.1) Eosinophils # (Auto) 0.1 x10^3/uL (0.0-0.7) Basophils # (Auto) 0.0 x10^3/uL (0.0-0.2) Segmented Neutrophils % 42 % (35-66) Band Neutrophils % 32 % (0-9) Lymphocytes % 13 % (24-48) Monocytes % 13 % (0-10) Nucleated Red Blood Cells 1 Toxic Granulation Present Platelet Estimate Adequate (ADEQUATE) Large Platelets Few Giant Platelets Occ Anisocytosis Slight Macrocytosis Present Sodium Level 145 mmol/L (136-145) Potassium Level 5.9 mmol/L (3.5-5.1) Chloride Level 104 mmol/L (98-107) Carbon Dioxide Level 24 mmol/L (21-32) Anion Gap 17 (6-14) Blood Urea Nitrogen 73 mg/dL (7-20) Creatinine 6.1 mg/dL (0.6-1.0) Estimated GFR (Cockcroft-Gault) 6.5 Glucose Level 102 mg/dL (70-99) Calcium Level 10.0 mg/dL (8.5-10.1) Troponin I High Sensitivity 58 ng/L (4-50) Medications Active Scripts Medications Dose Route/Sig Max Daily Dose Days Date Category Dose Instructions Senna (Sennosides) 8.8 Mg/5 Ml Syrup 8.8 Mg PO DAILY 05/11/21 Reported Renvela (Sevelamer Carbonate) 800 Mg Tablet 800 Mg PO TIDWMEALS 05/11/21 Reported Nifedipine Er (Nifedipine) 30 Mg Tab.er.24 30 Mg PO DAILY 05/11/21 Reported Milk Of Magnesia (Magnesium Hydroxide) 400 Mg/5 Ml Oral.susp 400 Mg PO PRN Q24HRS PRN 05/11/21 Reported Colace (Docusate Sodium) 100 Mg Capsule 100 Mg PO DAILY 05/11/21 Reported Clonidine Tts-2 (Clonidine) 1 Each Patch.tdwk 1 Patch TD WEEKLY 05/11/21 Reported Aspirin Ec (Aspirin) 325 Mg Tablet.dr 325 Mg PO DAILYWBKFT 90 12/29/20 Rx Gabapentin (Gabapentin) 100 Mg Capsule 100 Mg PO HS 12/22/20 Reported Diphenhydramine Hcl 25 Mg Tablet 25 Mg PO DAILY PRN 12/22/20 Reported Cyclobenzaprine Hcl 5 Mg Tablet 1 Tab PO BID 12/22/20 Reported Tylenol (Acetaminophen) 325 Mg Tablet 650 Mg PO PRN Q6HRS PRN 30 06/06/19 Rx Hydrocodone-Apap 10-325 (Hydrocodone Bit/Acetaminophen) 1 Each Tablet 1 Tab PO PRN TID PRN 6 06/06/19 Rx Proair Hfa (Albuterol Sulfate) 8.5 Gm Hfa.aer.ad 2.5 Mg NEB PRN Q4HRS PRN 02/02/19 Rx Coreg (Carvedilol) 6.25 Mg Tablet 6.25 Mg PO BIDWMEALS 02/01/19 Reported Synthroid (Levothyroxine Sodium) 50 Mcg Tablet 50 Mcg PO DAILYAC 02/01/19 Reported Sodium Bicarbonate 650 Mg Tablet 650 Mg PO BID 02/01/19 Reported Jerilyn-Jaylon Tablet (Folic Acid/Vitamin B Comp W-C) 0.8 Mg Tablet 1 Tab PO DAILY 30 06/12/17 Rx Pepcid (Famotidine) 20 Mg Tablet 10 Mg PO PRN DAILY 06/10/17 Reported NITROGLYCERIN SubLingual (Nitroglycerin) 0.4 Mg Tab.subl 0.4 Mg SL PRN Q5MIN PRN 06/10/17 Reported Isosorbide Mononitrate Er (Isosorbide Mononitrate) 30 Mg Tab.er.24h 2 Tab PO DAILY 02/26/17 Reported Next dose due tomorrow morning. Impression . IMPRESSION: 1. Acute hypoxemic respiratory failure, multifactorial. 2. Septic shock. 3. Metabolic toxic encephalopathy. 4. History of cerebrovascular accident with previous history of Alzheimer's dementia. 5. End-stage renal disease, on hemodialysis. 6. Multiple other comorbidities as indicated above. Plan . Updated 05/13 Agree with comfort care We will sign off call if needed PLAN: 1. We will continue current support with IV antibiotics and oxygen supplementation. 2. The patient is [id number], [id number] candidate, as discussed with daughter at the bedside. 3. The patient's family to consider hospice. 4. Continue current support for now, short-term and long-term prognosis is very poor, I suspect the patient would benefit from hospice, palliative care. I do appreciate the privilege in sharing in the patient's care. Total critical care time of 40 minutes. GAYLE TAN MD May 13, 2021 08:19
[2021-05-13] MEDS: DOCUSATE SODIUM 100 MG CAPSULE. PO SCH (08:58)
[2021-05-13] MEDS: LACTOBACILLUS RHAMNOSUS GG 1 CAPSULE. PO SCH (08:59)
[2021-05-13] MEDS: CYCLOBENZAPRINE 10 MG TABLET. PO SCH (09:00)
[2021-05-13] MEDS: FOLIC/VIT B COMP W-C (RENAL) TABLET. PO SCH (09:00)
[2021-05-13] MEDS: HEPARIN for SUB-Q USE 5,000 UNIT/ML VIAL. SQ SCH (09:00)
[2021-05-13] MEDS: ISOSORBIDE MONONITRATE ER 30 MG TAB.ER.24H PO SCH (09:00)
[2021-05-13] MEDS: SENNOSIDES 8.6 MG TABLET PO SCH (09:00)
[2021-05-13] MEDS: SODIUM BICARBONATE 650 MG TABLET. PO SCH (09:00)
[2021-05-13 11:00] VITALS: BP 175/79
[2021-05-13] MEDS ORDERED: LEVOTHYROXINE SODIUM INJ 25 MCG in NORMAL SALINE 5 ML IVP SCH (11:15)
[2021-05-13] MEDS ORDERED: IV DEXTROSE 5 %-0.45 % NACL 1,000 ML IV SCH (11:15)
[2021-05-13] MEDS ORDERED: MOR20SL SL (11:20)
[2021-05-13] MEDS ORDERED: LORA2ORA7 PO (11:23)
--- NOTE | 2021-05-13 11:25 | SNU/HH DC ---
DISCHARGE ORDERS DISCHARGE INFORMATION: DISCHARGE DATE: May 13, 2021 FINAL DIAGNOSIS sepsis UTI acute encephalopathy ESRD weakness severe malnutriiotn Problems Medical Problems: (1) Altered mental status Status: Acute (2) Hyperkalemia Status: Acute (3) Leukocytosis Status: Acute (4) UTI (urinary tract infection) Status: Acute CONDITION ON DISCHARGE: Guarded CODE STATUS: Code Status: DNR/DNI HOSPICE: HOSPICE: Yes HOSPICE EVAL & TREAT: Yes POST DISCHARGE ORDERS: ACTIVITY ORDERS: No restrictions, Activity as tolerated, Progressive ambulation WEIGHT BEARING STATUS: No restrictions, As tolerated DIET AFTER DISCHARGE: Regular (comfort feeds if able) WOUND/INCISION CARE: Ice to area for comfort, No wound care needed CHECKS AFTER DISCHARGE: CHECKS AFTER DISCHARGE: Check your Temp as needed COMMENTS: vitals PRN FOLLOW-UP: LAB ORDERS FOR FOLLOW-UP: none TREATMENT/EQUIPMENT ORDERS: ADAPTIVE EQUIPMENT NEEDED: None RESPIRATORY EQUIPMENT NEEDED: Oxygen, MDI Physical Therapy For: Evalulation/Treatment Occupational Therapy For: Evaluation/Treatment DISCHARGE MEDICATIONS: Home Meds Active Scripts Lorazepam (LORAZEPAM INTENSOL ) 2 Mg/1 Ml Oral.conc, 1 MG PO PRN Q4HRS PRN for ANXIETY / AGITATION, #30 ML Prov:RIKKI MCNULTY MD 05/13/21 Morphine Sulfate Conc (ROXANOL CONC ) 20 Mg/1 Ml Solution, 10 MG SL Q2HR PRN for PAIN CONTROL / AIR HUNGER, #1 BOTTLE 0 Refills Prov:RIKKI MCNULTY MD 05/13/21 Aspirin (ASPIRIN EC) 325 Mg Tablet.dr, 325 MG PO DAILYWBKFT for . for 90 Days, #90 TAB.SR Prov:FARZANEH VALLE III DO 12/29/20 Acetaminophen (TYLENOL) 325 Mg Tablet, 650 MG PO PRN Q6HRS PRN for TEMP > 100.4F for 30 Days, #120 TAB Prov:ADIN CHAVARRIA MD 06/06/19 Albuterol Sulfate (Proair Hfa) 8.5 Gm Hfa.aer.ad, 2.5 MG NEB PRN Q4HRS PRN for SHORTNESS OF BREATH, #1 INHALER Prov:MACKENZIE REID MD 02/02/19 Folic Acid/Vitamin B Comp W-C (GABRIEL-GATITO TABLET) 0.8 Mg Tablet, 1 TAB PO DAILY for 30 Days, #30 TAB Prov:DNEIA WATKINS MD 06/12/17 Reported Medications Sennosides (SENNA) 8.8 Mg/5 Ml Syrup, 8.8 MG PO DAILY for constipation, MISC 05/11/21 Sevelamer Carbonate (RENVELA) 800 Mg Tablet, 800 MG PO TIDWMEALS for esrd, TAB 05/11/21 Nifedipine (NIFEDIPINE ER) 30 Mg Tab.er.24, 30 MG PO DAILY for heart, TAB.SR 05/11/21 Magnesium Hydroxide (MILK OF MAGNESIA) 400 Mg/5 Ml Oral.susp, 400 MG PO PRN Q24HRS PRN for CONSTIPATION, MISC 05/11/21 Docusate Sodium (COLACE) 100 Mg Capsule, 100 MG PO DAILY for constipation, CAP 05/11/21 Clonidine (CLONIDINE TTS-2 ) 1 Each Patch.tdwk, 1 PATCH TD WEEKLY for HYPERTENSION, PATCH 05/11/21 Gabapentin (GABAPENTIN ) 100 Mg Capsule, 100 MG PO HS for NEUROGENIC PAIN, CAP 12/22/20 Diphenhydramine Hcl (DIPHENHYDRAMINE HCL) 25 Mg Tablet, 25 MG PO DAILY PRN for ALLERGIES, TAB 12/22/20 Cyclobenzaprine Hcl (CYCLOBENZAPRINE HCL) 5 Mg Tablet, 1 TAB PO BID for spasms, #30 TAB 12/22/20 Carvedilol (COREG ) 6.25 Mg Tablet, 6.25 MG PO BIDWMEALS for CARDIAC, TAB 02/01/19 Levothyroxine Sodium (SYNTHROID) 50 Mcg Tablet, 50 MCG PO DAILYAC for THYROID SUPPLEMENT, #30 TAB 0 Refills 02/01/19 Sodium Bicarbonate (SODIUM BICARBONATE) 650 Mg Tablet, 650 MG PO BID for ESRD, TAB 02/01/19 Famotidine (PEPCID) 20 Mg Tablet, 10 MG PO PRN DAILY, TAB 06/10/17 Nitroglycerin (NITROGLYCERIN SubLingual) 0.4 Mg Tab.subl, 0.4 MG SL PRN Q5MIN PRN for CHEST PAIN, BOTTLE 06/10/17 Isosorbide Mononitrate (ISOSORBIDE MONONITRATE ER) 30 Mg Tab.er.24h, 2 TAB PO DAILY, #30 TAB 5 Refills Next dose due tomorrow morning. 02/26/17 Discontinued Scripts Hydrocodone Bit/Acetaminophen (HYDROCODONE-APAP 10325 ) 1 Each Tablet, 1 TAB PO PRN TID PRN for PAIN for 6 Days, #15 TAB 0 Refills Prov:ADIN CHAVARRIA MD 06/06/19 RIKKI MCNULTY MD May 13, 2021 11:25
--- NOTE | 2021-05-13 12:02 | NUR ---
SS following up with discharge planning. SS reviewed pt chart and discussed with pt RN. Pt is currently requiring oxygen at two liters nasal canula. COVID19 negative. Pt is LTC resident from [facility], ; fax [phone]. Discharge orders received for hospice. Pt's family requesting [facility], ; fax [phone]. Discharge orders and referral sent to [facility] and [facility]. Stretcher transportation being arranged by [facility]. SS will continue to follow for discharge planning. Addendum: 05/13/21 at 1238 by RAFAELA BINGHAM SS Pt will discharge today and return to [facility] at 1530 via stretcher transport. Pt, pt's family, and pt's RN notified.
--- NOTE | 2021-05-13 12:03 | PDOC ---
JERE FAULKNER FINISHED STOCK INSPECTOR 05/13/21 1203: CARDIO Progress Notes Date and Time Date of Service 05/13/2021 Time of Evaluation 1140 Subjective Subjective: Other (unobtainable) Vitals Vitals Vital Signs Date Time Temp Pulse Resp B/P (MAP) Pulse Ox O2 Delivery O2 Flow Rate FiO2 05/13/21 11:00 99.9 86 18 175/79 (111) 96 Nasal Cannula 2.0 99.9 Weight Weight [ ] Input and Output Intake and Output Intake and Output 05/13/21 06:59 Intake Total 0 ml Output Total 0 ml Balance 0 ml Intake Oral 0 ml Output Stool Total 0 ml # Bowel Movements 1 Microbiology Micro Microbiology 05/11/21 Urine Culture - Final, Complete Physical Exam HEENT: Neck Supple W Full Motion, Other (dry oral mucosa, bilateral periorbital ecchymoses associated with recent fall) Chest: Symmetric Heart: RRR (SR) Abdomen: Other (soft) Extremities: No Edema Neurology: non-verbal, other (somnolent) Assessment Assessment 1. Encephalopathy with underlying dementia possible UTI contributing 2. Hx of CVA 3. Chronic diastolic CHF; improved. appears compensated 4. ESRD with hyperkalemia 5. Moderate to severe 6. HTN: rebound labile 7. HLP 8. Mild troponin elevation: with associated ESRD and . EKG SR with ischemic changes 9. 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 UTI fever 11. Bradycardia: noted SB lowest in the 40s with 2-3 pauses, no strips available and low BP prompting cancellation of HD 30 min in with associated clonidine and coreg use and hyperkalemia. Potentially vasovagal episode, no further bradycardia episodes overnight 12. 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 NPO change to NTG paste, start on hydralazine IV for better BP control and NTG paste as she is currently NPO and could not take imdur Justicifation of Admission Dx: Justifications for Admission: Justification of Admission Dx: Yes JENNIFER MCCALL MD 05/13/21 2240: CARDIO Progress Notes Assessment Assessment Patient seen and examined. Agree with QUILT MAKER's assessment and plan Chr diast HF compensated Tele did not show any further arrhythmias Slight trop elevation prob demand ischemia Thoracic aortic dissection - s/o endograft repair, stable Continue fluid removal with HD per nephrology team JERE FAULKNER FINISHED STOCK INSPECTOR May 13, 2021 12:03 JENNIFER MCCALL MD May 13, 2021 22:40
[2021-05-13] MEDS ORDERED: hydrALAZINE 20 MG/ML VIAL. IVP PRN (12:15)
[2021-05-13] MEDS ORDERED: hydrALAZINE 20 MG/ML VIAL. IVP ONE (12:15)
--- NOTE | 2021-05-13 12:31 | PDOC ---
DATE OF SERVICE DATE: 05/13/21 TIME: 12:23 SUBJECTIVE ROS Clinically same , lethargic , Not following commands OBJECTIVE Vital Signs Vital Signs Date Time Temp Pulse Resp B/P (MAP) Pulse Ox O2 Delivery O2 Flow Rate FiO2 05/13/21 11:00 99.9 86 18 175/79 (111) 96 Nasal Cannula 2.0 99.9 I & 0 Intake and Output 05/13/21 07:00 Intake Total 0 ml Output Total 0 ml Balance 0 ml Intake Oral 0 ml Output Stool Total 0 ml # Bowel Movements 1 PHYSICAL EXAM Physical Exam General Lethargic HEEN round and reactive to light, EOMI,OM moist Neck: Supple, Cardiac: RRR, no murmurs, no gallops, no rubs Lungs: CTAB, Abdomen: soft, non-distended, Extremities: No pitting edema Bilat LE; Left upper extremity AVF with palpable thrill Neuro: Grrossly Normal, Hx of CVA in Dec 2020 Psych Unable to Obtain No hanson Derm No Rash DIAGNOSIS/ASSESSMENT Assessment & Plan ESRD - on HD MWF [facility], Had a very short run of dialysis yesterday due to decline in clinical status. Awaiting family 's decision to pursue aggressive care and HD vs transition to Hospice/Palliative care . She is a DNR Had an extensive discussion with daughter HyperKalemia- Only 40 mins on Hd yesterday . Awaiting family's decision Encephalopathy with underlying dementia ? 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 COMMENT/RELEVANT DATA Meds Current Medications Medications (Trade) Dose Ordered Sig/Mendoza Start Time Stop Time Status Last Admin Dose Admin Acetaminophen (Tylenol) 650 mg PRN Q6HRS PRN 05/11/21 14:15 Acetaminophen/ Hydrocodone Bitart (Lortab 10/325) 1 tab PRN TID PRN 05/12/21 08:45 Albuterol Sulfate (Ventolin Neb Soln) 2.5 mg PRN Q4HRS PRN 05/11/21 14:15 Aspirin (Ecotrin) 81 mg DAILYWBKFT 05/13/21 08:00 Carvedilol (Coreg) 6.25 mg BIDWMEALS 05/11/21 17:00 05/12/21 11:42 DC Ceftriaxone Sodium (Rocephin) 1 gm Q24H 05/11/21 15:00 05/12/21 09:45 DC 05/11/21 15:05 1 GM Clonidine HCl (Catapres Tts-2) 1 patch WEEKLY 05/12/21 09:00 05/12/21 11:42 DC Cyclobenzaprine HCl (Flexeril) 5 mg BID 05/12/21 09:00 Dextrose/Sodium Chloride 1,000 ml @ 75 mls/hr [id number] 05/13/21 11:15 05/13/21 12:00 75 MLS/HR Diphenhydramine HCl (Benadryl) 25 mg PRN DAILY PRN 05/12/21 09:00 Docusate Sodium (Colace) 100 mg DAILY 05/11/21 15:00 Famotidine (Pepcid) 10 mg PRN DAILY PRN 05/11/21 14:15 Gabapentin (Neurontin) 100 mg HS 05/11/21 21:00 Heparin Sodium (Porcine) (Heparin Sodium) 5,000 unit BID 05/11/21 21:00 05/12/21 21:23 5,000 UNIT Hydralazine HCl (Apresoline Inj) 10 mg 1X ONCE 05/13/21 12:15 05/13/21 12:16 DC Info (PHARMACY MONITORING -- do not chart) 1 each PRN DAILY PRN 05/12/21 07:15 Isosorbide Mononitrate (Imdur) 60 mg DAILY 05/11/21 15:00 05/13/21 12:05 DC Lactobacillus Rhamnosus (Culturelle) 1 cap BID 05/12/21 21:00 Levothyroxine Sodium (Synthroid) 50 mcg DAILY06 05/11/21 15:00 Levothyroxine Sodium 25 mcg/ Sodium Chloride 5 ml @ 100 mls/hr DAILY 05/13/21 11:15 05/13/21 11:16 DC Linezolid/Dextrose 300 ml @ 300 mls/hr Q12HR ONCE 05/12/21 09:45 05/12/21 10:44 UNV Magnesium Hydroxide (Milk Of Magnesia) 400 mg PRN Q24HRS PRN 05/12/21 08:45 Nifedipine (Procardia Xl) 30 mg DAILY 05/11/21 15:00 Nitroglycerin (Nitro-Bid Oint) 1 inch Q6HRS 05/13/21 18:00 Nitroglycerin (Nitrostat) 0.4 mg PRN Q5MIN PRN 05/12/21 08:45 Non-Formulary Medication (Cyclobenzaprine Hcl ) 1 tab BID 05/12/21 09:00 05/12/21 08:56 DC Non-Formulary Medication (Sennosides (Senna)) 8.8 mg DAILY 05/12/21 09:00 05/12/21 08:52 DC Ondansetron HCl (Zofran) 4 mg PRN Q8HRS PRN 05/11/21 12:15 05/12/21 12:14 DC Piperacillin Sod/ Tazobactam Sod (Zosyn Per Pharmacy) 1 each PRN DAILY PRN 05/12/21 09:45 Piperacillin Sod/ Tazobactam Sod 2.25 gm/Sodium Chloride 50 ml @ 100 mls/hr Q8HRS 05/12/21 14:00 05/13/21 06:19 100 MLS/HR Sennosides (Senna) 8.6 mg DAILY 05/12/21 09:00 Sevelamer Carbonate (Renvela) 800 mg TIDWMEALS 05/11/21 17:00 Sodium Bicarbonate (Sodium Bicarbonate) 650 mg BID 05/11/21 21:00 Sodium Chloride 1,000 ml @ 400 mls/hr Q2H30M PRN 05/12/21 07:15 05/12/21 19:14 DC Vancomycin HCl (Vanco Per Pharmacy) 1 each PRN DAILY PRN 05/12/21 10:15 Vancomycin HCl 1.25 gm/Sodium Chloride 250 ml @ 166.667 mls/hr 1X ONCE 05/12/21 10:15 05/12/21 11:44 DC 05/12/21 10:31 166.667 MLS/HR Vancomycin HCl 500 mg/Sodium Chloride 100 ml @ 100 mls/hr 1600 05/12/21 16:00 05/12/21 11:44 DC Vitamin B Complex/ Vitamin C (Jerilyn-Jaylon) 1 tab DAILY 05/11/21 15:00 Results All relevant outside records, renal labs, imaging studies, telemetry/EKG's were reviewed. Justicifation of Admission Dx: Justifications for Admission: Justification of Admission Dx: Yes LIZETH PONCE MD May 13, 2021 12:31
--- NOTE | 2021-05-13 13:26 | PDOC ---
[employer] PROGRESS NOTE Date of Service DOS: DATE: 05/13/21 TIME: 13:26 Chief Complaint Chief Complaint acute hypoxia this AM, consult PULM, change abx, acute encephalopathy from UTI, maybe resistant to the rocephin, change abx, ESRD, HD today, unable to tolerate, sepssi innapropriate bradycardia, in sepsis, consult cardiology, tachypnea, vomited 2 days ago, could have aspiration, nebs, and abx, markedly worse todya, DNR ordered History of Present Illness History of Present Illness advanced care planning abotu DC, and hospice plan to nursing ho with hospice, order placed Vitals/I&O Vitals/I&O: Vital Signs Date Time Temp Pulse Resp B/P (MAP) Pulse Ox O2 Delivery O2 Flow Rate FiO2 05/13/21 12:38 86 175/79 05/13/21 11:00 99.9 18 96 Nasal Cannula 2.0 99.9 I & O 05/12/21 05/12/21 05/13/21 15:00 23:00 07:00 Intake Total 0 ml Output Total 0 ml 0 ml Balance 0 ml 0 ml Physical Exam Physical Exam: more confused, disoriented, General: No acute distress, Other (drowsy) Heart: Regular rate (SR), Normal S1, Normal S2, Other (4/6 systolic murmur to RAYSA border) Lungs: Other (rales, low volume, tachypneic) Abdomen: Soft Extremities: No cyanosis Skin: No rashes Assessment and Plan Assessmemt and Plan Problems Medical Problems: (1) Altered mental status Status: Acute (2) Hyperkalemia Status: Acute (3) Leukocytosis Status: Acute (4) UTI (urinary tract infection) Status: Acute Comment Review of Relevant I have reviewed the following items cristofer (where applicable) has been applied. Medications: Current Medications Medications (Trade) Dose Ordered Sig/Mendoza Route PRN Reason Start Time Stop Time Status Last Admin Dose Admin Piperacillin Sod/ Tazobactam Sod 2.25 gm/Sodium Chloride 50 ml @ 100 mls/hr Q8HRS IV 05/12/21 14:00 05/13/21 12:37 Dextrose/Sodium Chloride 1,000 ml @ 75 mls/hr [id number] IV 05/13/21 11:15 05/13/21 12:00 Hydralazine HCl (Apresoline Inj) 10 mg 1X ONCE IVP 05/13/21 12:15 05/13/21 12:16 DC 05/13/21 12:38 Justifications for Admission Other Justification RIKKI MCNULTY MD May 13, 2021 13:26
--- NOTE | 2021-05-13 13:31 | PDOC3 ---
Discharge Summary Visit Information Date of Admission: May 11, 2021 Date of Discharge: May 13, 2021 Final Diagnosis acute hypoxia with sepsis and respiratory failure acute encephalopathy from UTI sepsis ESRD, unable to tolerated HD on 05/12 cognitive decline, weakness and debility, over time sepsis, severe sepsis, shock, hypotension, unable to tolerate dialysis bradycardia, in sepsis, tachypnea, vomited 2 days ago, aspiration pneumonitis Problems Medical Problems: (1) Altered mental status Status: Acute (2) Hyperkalemia Status: Acute (3) Leukocytosis Status: Acute (4) UTI (urinary tract infection) Status: Acute Brief Hospital Course Allergies Allergies Coded Allergies Type Severity Reaction Last Updated Verified sulfamethoxazole Allergy Intermediate 03/31/21 Yes trimethoprim Allergy Intermediate 03/31/21 Yes Vital Signs Vital Signs Date Time Temp Pulse Resp B/P (MAP) Pulse Ox O2 Delivery O2 Flow Rate FiO2 05/13/21 12:38 86 175/79 05/13/21 11:00 99.9 18 96 Nasal Cannula 2.0 99.9 Lab Results Laboratory Tests Test 05/12/21 08:30 White Blood Count 16.0 x10^3/uL (4.0-11.0) Red Blood Count 4.01 x10^6/uL (3.50-5.40) Hemoglobin 12.6 g/dL (12.0-15.5) Hematocrit 40.5 % (36.0-47.0) Mean Corpuscular Volume 101 fL (79-100) Mean Corpuscular Hemoglobin 31 pg (25-35) Mean Corpuscular Hemoglobin Concent 31 g/dL (31-37) Red Cell Distribution Width 15.4 % (11.5-14.5) Platelet Count 209 x10^3/uL (140-400) Neutrophils (%) (Auto) 77 % (31-73) Lymphocytes (%) (Auto) 8 % (24-48) Monocytes (%) (Auto) 14 % (0-9) Eosinophils (%) (Auto) 0 % (0-3) Basophils (%) (Auto) 0 % (0-3) Neutrophils # (Auto) 12.4 x10^3/uL (1.8-7.7) Lymphocytes # (Auto) 1.3 x10^3/uL (1.0-4.8) Monocytes # (Auto) 2.2 x10^3/uL (0.0-1.1) Eosinophils # (Auto) 0.1 x10^3/uL (0.0-0.7) Basophils # (Auto) 0.0 x10^3/uL (0.0-0.2) Segmented Neutrophils % 42 % (35-66) Band Neutrophils % 32 % (0-9) Lymphocytes % 13 % (24-48) Monocytes % 13 % (0-10) Nucleated Red Blood Cells 1 Toxic Granulation Present Platelet Estimate Adequate (ADEQUATE) Large Platelets Few Giant Platelets Occ Anisocytosis Slight Macrocytosis Present Sodium Level 145 mmol/L (136-145) Potassium Level 5.9 mmol/L (3.5-5.1) Chloride Level 104 mmol/L (98-107) Carbon Dioxide Level 24 mmol/L (21-32) Anion Gap 17 (6-14) Blood Urea Nitrogen 73 mg/dL (7-20) Creatinine 6.1 mg/dL (0.6-1.0) Estimated GFR (Cockcroft-Gault) 6.5 Glucose Level 102 mg/dL (70-99) Calcium Level 10.0 mg/dL (8.5-10.1) Troponin I High Sensitivity 58 ng/L (4-50) Brief Hospital Course 85 yo female admitted for altered mental status, from SNU at [facility], hx of alzheimers dementia and CVA. ESRD on HD UTI noted, sepsis, Abx started, worsened, abx changed, still not improved, shallow and freq respirations, not responsive, hypotensive, change to hospice plan Assessment Assessment comfort meds sent to [facility] Discharge Information Condition at Discharge: Comment (guarded to serious, hospice to manage decklnie) Disposition/Orders: D/C to Another Facility (hospice facility) Scheduled Aspirin (Aspirin Ec) 325 Mg Tablet., 325 MG PO DAILYWBKFT for . for 90 Days, #90 Prescribed by: FARZANEH VALLE on 12/29/20 1107 Last Action: Continued on 05/11/211404 by RIKKI MCNULTY Carvedilol (Coreg ) 6.25 Mg Tablet, 6.25 MG PO BIDWMEALS for CARDIAC, (Reported) Entered as Reported by: JUSTIN VIVAS RN on 02/01/19 0962 Last Action: Continued on 05/11/211404 by RIKKI MCNULTY Clonidine (Clonidine Tts-2 ) 1 Each Patch.tdwk, 1 PATCH TD WEEKLY for HYPERTENSION, (Reported) Entered as Reported by: ALETA CALLAWAY RN on 05/11/211329 Last Action: Continued on 05/11/211404 by RIKKI MCNULTY Cyclobenzaprine Hcl (Cyclobenzaprine Hcl) 5 Mg Tablet, 1 TAB PO BID for spasms, #30 (Reported) Entered as Reported by: GARTH JENKINS on 12/22/201802 Last Action: Converted on 05/12/21 08 by RIKKI MCNULTY Docusate Sodium (Colace) 100 Mg Capsule, 100 MG PO DAILY for constipation, (Reported) Entered as Reported by: ALETA CALLAWAY RN on 05/11/211329 Last Action: Continued on 05/11/211404 by RIKKI MCNULTY Famotidine (Pepcid) 20 Mg Tablet, 10 MG PO PRN DAILY, (Reported) Entered as Reported by: DARION GAMEZ on 06/10/172153 Last Action: Continued on 05/11/211404 by RIKKI MCNULTY Folic Acid/Vitamin B Comp W-C (Jerilyn-Jaylon Tablet) 0.8 Mg Tablet, 1 TAB PO DAILY for 30 Days, #30 Prescribed by: DENIA WATKINS on 06/12/17 1520 Last Action: Continued on 05/11/211404 by RIKKI MCNULTY Gabapentin (Gabapentin ) 100 Mg Capsule, 100 MG PO HS for NEUROGENIC PAIN, (Reported) Entered as Reported by: GARTH JENKINS on 12/22/201802 Last Action: Continued on 05/11/211404 by RIKKI MCNULTY Isosorbide Mononitrate (Isosorbide Mononitrate Er) 30 Mg Tab.er.24h, 2 TAB PO DAILY, #30 Ref 5 (Reported) Next dose due tomorrow morning. Entered as Reported by: XIAO WHITEHEAD on 02/26/17 0631 Last Action: Continued on 05/11/211404 by RIKKI MCNULTY Levothyroxine Sodium (Synthroid) 50 Mcg Tablet, 50 MCG PO DAILYAC for THYROID SUPPLEMENT, #30 Ref 0 (Reported) Entered as Reported by: JUSTIN VIVAS RN on 02/01/19918 Last Action: Continued on 05/11/211404 by RIKKI MCNULTY Nifedipine (Nifedipine Er) 30 Mg Tab.er.24, 30 MG PO DAILY for heart, (Reported) Entered as Reported by: ALETA CALLAWAY RN on 05/11/211329 Last Action: Continued on 05/11/211404 by RIKKI MCNULTY Sennosides (Senna) 8.8 Mg/5 Ml Syrup, 8.8 MG PO DAILY for constipation, (Reported) Entered as Reported by: ALETA CALLAWAY RN on 05/11/211329 Last Action: Converted on 05/12/21843 by RIKKI MCNULTY Sevelamer Carbonate (Renvela) 800 Mg Tablet, 800 MG PO TIDWMEALS for esrd, (Reported) Entered as Reported by: ALETA CALLAWAY RN on 05/11/211329 Last Action: Continued on 05/11/211404 by RIKKI MCNULTY Sodium Bicarbonate (Sodium Bicarbonate) 650 Mg Tablet, 650 MG PO BID for ESRD, (Reported) Entered as Reported by: ANAHY ERICKSON on 02/01/19 0542 Last Action: Continued on 05/11/211404 by RIKKI MCNULTY Scheduled PRN Acetaminophen (Tylenol) 325 Mg Tablet, 650 MG PO PRN Q6HRS PRN for TEMP > 100.4F for 30 Days, #120 Prescribed by: ADIN CHAVARRIA MD on 06/06/19 1105 Last Action: Continued on 05/11/211404 by RIKKI MCNULTY Albuterol Sulfate (Proair Hfa) 8.5 Gm Hfa.aer.ad, 2.5 MG NEB PRN Q4HRS PRN for SHORTNESS OF BREATH, #1 Prescribed by: MACKENZIE REID on 02/02/19 08 Last Action: Continued on 05/11/211404 by RIKKI MCNULTY Diphenhydramine Hcl (Diphenhydramine Hcl) 25 Mg Tablet, 25 MG PO DAILY PRN for ALLERGIES, (Reported) Entered as Reported by: GARTH JENKINS on 12/22/20 154 Last Action: Converted on 05/12/21843 by RIKKI MCNULTY Lorazepam (Lorazepam Intensol ) 2 Mg/1 Ml Oral.conc, 1 MG PO PRN Q4HRS PRN for ANXIETY / AGITATION, #30 Prescribed by: RIKKI MCNULTY on 05/13/21 1123 Magnesium Hydroxide (Milk Of Magnesia) 400 Mg/5 Ml Oral.susp, 400 MG PO PRN Q24HRS PRN for CONSTIPATION, (Reported) Entered as Reported by: ALETA CALLAWAY RN on 05/11/21 1330 Last Action: Continued on 05/12/21843 by RIKKI MCNULTY Morphine Sulfate Conc (Roxanol Conc ) 20 Mg/1 Ml Solution, 10 MG SL Q2HR PRN for PAIN CONTROL / AIR HUNGER, #1 Ref 0 Prescribed by: RIKKI MCNULTY on 05/13/21 1120 Nitroglycerin (NITROGLYCERIN SubLingual) 0.4 Mg Tab.subl, 0.4 MG SL PRN Q5MIN PRN for CHEST PAIN, (Reported) Entered as Reported by: DARION GAMEZ on 06/10/17 2154 Last Action: Continued on 05/12/21843 by RIKKI MCNULTY Discontinued Medications Hydrocodone Bit/Acetaminophen (Hydrocodone-Apap 10-325 ) 1 Each Tablet, 1 TAB PO PRN TID PRN for PAIN for 6 Days, #15 Ref 0 Prescribed by: ADIN CHAVARRIA MD on 06/06/19 1105 Last Action: Continued on 05/12/21843 by RIKKI MCNULTY Patient Instructions Patient Instructions > 30 min Justicifation of Admission Dx: Justifications for Admission: Justification of Admission Dx: Yes RIKKI MCNULTY MD May 13, 2021 13:31
[2021-05-13 15:00] VITALS: BP 169/77
[2021-05-13] MEDS ORDERED: NITROGLYCERIN OINT 1 GM PACKET. TP SCH (18:00)
== END 2021-05-13 16:00 | disposition hospice, inpatient (51) | DRG 871 ==
LOC: ER 10:00 → 5 NORTH 11:46
PROVIDERS: ADMIT Internal Medicine; ATTEND Internal Medicine
PROC: 5A1D70Z Performance of Urinary Filtration, Intermittent, Less than 6 Hours Per Day (ICD-10-PCS; principal; 2021-05-12)
DX: A41.9 Sepsis, unspecified organism (principal); R65.21 Severe sepsis with septic shock; N18.6 End stage renal disease; J96.01 Acute respiratory failure with hypoxia; G92.8 Other toxic encephalopathy; E43 Unspecified severe protein-calorie malnutrition; I71.01 Dissection of thoracic aorta; J69.0 Pneumonitis due to inhalation of food and vomit; N39.0 Urinary tract infection, site not specified; I50.32 Chronic diastolic (congestive) heart failure; I13.2 Hypertensive heart and chronic kidney disease with heart failure and with stage 5 chronic kidney disease, or end stage renal disease; Z99.2 Dependence on renal dialysis; E87.5 Hyperkalemia; E03.9 Hypothyroidism, unspecified; Z68.24 Body mass index [BMI] 24.0-24.9, adult; E78.00 Pure hypercholesterolemia, unspecified; E78.5 Hyperlipidemia, unspecified; F02.80 Dementia in other diseases classified elsewhere, unspecified severity, without behavioral disturbance, psychotic disturbance, mood disturbance, and anxiety; G30.9 Alzheimer's disease, unspecified; J44.9 Chronic obstructive pulmonary disease, unspecified; M19.90 Unspecified osteoarthritis, unspecified site; M41.9 Scoliosis, unspecified; Z66 Do not resuscitate; G89.29 Other chronic pain; K21.9 Gastro-esophageal reflux disease without esophagitis; Z88.8 Allergy status to other drugs, medicaments and biological substances; Z82.49 Family history of ischemic heart disease and other diseases of the circulatory system; Z87.891 Personal history of nicotine dependence; Z98.49 Cataract extraction status, unspecified eye; Z20.822 Contact with and (suspected) exposure to COVID-19; Z86.73 Personal history of transient ischemic attack (TIA), and cerebral infarction without residual deficits
CPT/HCPCS: 36415; 70450; 71045; 80048; 80053; 81001; 83880; 84443; 84484; 85007; 85025; 85610; 85730; 87086; 87428; 93005; 96374; J0360; J0696; J1644; J2543; J3370; J7042; J7050; 99285-25; G0378; J7030